=== PATIENT | male | born 1960 | race Caucasian/White ===

== ENCOUNTER 2017-03-08 14:38 | Inpatient (IN) | payer SELFPAY ==
[2017-03-07] MEDS: metroNIDAZOLE 500 MG INJ 100 ML IV SCH (21:30)
[~2017-03-08] VITALS: Ht 180.3 cm; Wt 63.7 kg
[2017-03-08] VITALS (7 sets, daily range): BP systolic 94–150; BP diastolic 50–85; PULSE 86–109; RESP 18–22; TEMP 97.4–99.4; O2SAT 99–100
[~2017-03-08 14:38] MED LIST: SPIR25 PO
[2017-03-08 16:20] LABS: AUTOMATED NEUTROPHIL # 1.8 TH/MM3 (1.8-7.7); BASOPHIL # 0.1 TH/MM3 (0-0.2); BASOPHIL % 2.9 % (0.0-2.0); EOSINOPHIL # 0.1 TH/MM3 (0-0.4); EOSINOPHIL % 2.5 % (0.0-4.0); LYMPH % 34.6 % (9.0-44.0); LYMPHOCYTE # 1.3 TH/MM3 (1.0-4.8); MEAN CELL VOLUME 106.2 FL (80.0-100.0); MEAN CORPUSCULAR HEMOGLOBIN 37.6 PG (27.0-34.0); MEAN CORPUSCULAR HGB CONC 35.4 % (32.0-36.0); MONO % 10.6 % (0.0-8.0); NEUT % 49.4 % (16.0-70.0); PLATELET COUNT 124 TH/MM3 (150-450); RED BLOOD COUNT 1.84 MIL/MM3 (4.50-5.90); RED CELL DISTRIBUTION WIDTH 15.3 % (11.6-17.2); WHITE BLOOD COUNT 3.7 TH/MM3 (4.0-11.0)
[2017-03-08 16:25] LABS: HEMO FLAGS AUTO DIFF
[2017-03-08 16:33] LABS: HEMATOCRIT 19.6 % (39.0-51.0)
[2017-03-08 16:38] LABS: ALKALINE PHOSPHATASE 93 U/L (45-117); ALT (GPT) 25 U/L (12-78); TOTAL BILIRUBIN ADULT 2.3 MG/DL (0.2-1.0)
[2017-03-08 16:41] LABS: ANION GAP 12 MEQ/L (5-15); AST (GOT) 73 U/L (15-37); BICARBONATE 21.7 MEQ/L (21.0-32.0); BLOOD UREA NITROGEN 10 MG/DL (7-18); CHLORIDE 96 MEQ/L (98-107); GLOMERULAR FILTRATION RATE 75 ML/MIN (>89); SODIUM (NA) 130 MEQ/L (136-145)
[2017-03-08 16:54] LABS: POTASSIUM 3.9 MEQ/L (3.5-5.1)
[2017-03-08 17:12] LABS: SCAN/DIFF AUTO DIFF CONFIRMED
[2017-03-08] MEDS ORDERED: SODIUM CHLOR 0.9% 250 ML INJ 250 ML IV ONE (17:15)
[2017-03-08] MEDS ORDERED: PANTOPRAZOLE SODIUM 40 MG VIAL IV PUSH ONE (17:15)
--- NOTE | 2017-03-08 17:19 | PD ---
HPI Chief Complaint: General Weakness Time Seen by Provider: 17:12 Travel History International Travel<30 days: No Contact w/Intl Traveler<30days: No Traveled to known affect area: No History of Present Illness HPI 56-year-old male patient presents to the ER today because he states that in the last day or 2 he has been having increased fatigue, today he was at the store and sat down and then couldn't get back up. He is very dizzy, and has dyspnea on exertion. He has been having diarrhea which has been going on for weeks but he has not noticed any black stools or blood in the stools. He denies vomiting or any other issues. Modifying Factors: None Associated Signs & Symptoms: Diarrhea, general fatigue, dyspnea on exertion, dizziness Risk Factors: Cirrhosis PFSH Past Medical History Arthritis: Yes Cancer: No Cardiovascular Problems: No Endocrine: No Gout: Yes Genitourinary: Yes Immune Disorder: No Musculoskeletal: Yes Neurologic: Yes Psychiatric: No Reproductive: Yes Respiratory: No Seizures: Yes Past Surgical History Surgical History: No Previous Surgery Pacemaker: No Other Surgery: No Social History Alcohol Use: Yes (DAILY, 2-4 CANS A DAY) Tobacco Use: Yes (1 06/13 PPD) Substance Use: Yes (MARIJUANA OCCASIONALLY) Allergies-Medications (Allergen,Severity, Reaction): Coded Allergies: No Known Allergies (Verified , 11/21/14) Reported Meds & Prescriptions Reported Meds & Active Scripts Active No Active Prescriptions or Reported Medications Review of Systems Except as stated in HPI: all other systems reviewed are Neg Physical Exam Narrative GENERAL: Well-developed cachectic middle age white male patient currently in mild distress. Awake and oriented 3. SKIN: Focused skin assessment warm/dry. HEAD: Atraumatic. Normocephalic. EYES: Pupils equal and round. No scleral icterus. No injection or drainage. ENT: No nasal bleeding or discharge. Mucous membranes pink and moist. NECK: Trachea midline. No JVD. CARDIOVASCULAR: Regular rate and rhythm. No murmur appreciated. RESPIRATORY: No accessory muscle use. Clear to auscultation. Breath sounds equal bilaterally. GASTROINTESTINAL: Abdomen soft, non-tender, nondistended. Hepatic and splenic margins not palpable. RECTAL EXAM: No masses or tenderness, stool is dark brown, Hemoccult positive. MUSCULOSKELETAL: No obvious deformities. No clubbing. No cyanosis. No edema. NEUROLOGICAL: Awake and alert. No obvious cranial nerve deficits. Motor grossly within normal limits. Normal speech. PSYCHIATRIC: Appropriate mood and affect; insight and judgment normal. Data Data Last Documented VS Vital Signs Date Time Temp Pulse Resp B/P (MAP) Pulse Ox O2 Delivery O2 Flow Rate FiO2 03/08/17 17:03 101 20 99/56 (70) 99 Nasal Cannula 2.00 03/08/17 15:18 99.4 Orders Orders Electrocardiogram (03/08/17 ) Comprehensive Metabolic Panel (03/08/17 15:20) Complete Blood Count With Diff (03/08/17 15:20) Urinalysis - C+S If Indicated (03/08/17 15:20) Type And Screen (03/08/17 17:12) Red Blood Cells (Rbc) (03/08/17 17:12) Blood Product Administration (03/08/17 17:12) Sodium Chlor 0.9% 250 Ml Inj (Ns 250 Ml (03/08/17 17:15) Pantoprazole Inj (Protonix Inj) (03/08/17 17:15) Sodium Chlorid 0.9%... W/Octreotide Inj (03/08/17 17:40) Comprehensive Metabolic Panel (03/09/17 06:00) Free Thyroxine (T4) (03/09/17 06:00) Hemoglobin (Hgb) A1c (03/09/17 06:00) Magnesium (Mg) (03/09/17 06:00) Phosphorus (Po4) (03/09/17 06:00) Thyroid Stimulating Hormone (03/09/17 06:00) Complete Blood Count With Diff (03/09/17 06:00) Clonidine (Catapres) (03/08/17 17:45) Admit Order (Ed Use Only) (03/08/17 17:41) Consult Gastroenterology (03/08/17 ) Labs Laboratory Tests Test 03/08/17 15:30 White Blood Count 3.7 TH/MM3 Red Blood Count 1.84 MIL/MM3 Hemoglobin 6.9 GM/DL Hematocrit 19.6 % Mean Corpuscular Volume 106.2 FL Mean Corpuscular Hemoglobin 37.6 PG Mean Corpuscular Hemoglobin Concent 35.4 % Red Cell Distribution Width 15.3 % Platelet Count 124 TH/MM3 Mean Platelet Volume 7.6 FL Neutrophils (%) (Auto) 49.4 % Lymphocytes (%) (Auto) 34.6 % Monocytes (%) (Auto) 10.6 % Eosinophils (%) (Auto) 2.5 % Basophils (%) (Auto) 2.9 % Neutrophils # (Auto) 1.8 TH/MM3 Lymphocytes # (Auto) 1.3 TH/MM3 Monocytes # (Auto) 0.4 TH/MM3 Eosinophils # (Auto) 0.1 TH/MM3 Basophils # (Auto) 0.1 TH/MM3 CBC Comment AUTO DIFF Differential Comment AUTO DIFF CONFIRMED Blood Urea Nitrogen 10 MG/DL Creatinine 1.03 MG/DL Random Glucose 56 MG/DL Total Protein 7.9 GM/DL Albumin 1.7 GM/DL Calcium Level 7.5 MG/DL Alkaline Phosphatase 93 U/L Aspartate Amino Transf (AST/SGOT) 73 U/L Alanine Aminotransferase (ALT/SGPT) 25 U/L Total Bilirubin 2.3 MG/DL Sodium Level 130 MEQ/L Potassium Level 3.9 MEQ/L Chloride Level 96 MEQ/L Carbon Dioxide Level 21.7 MEQ/L Anion Gap 12 MEQ/L Estimat Glomerular Filtration Rate 75 ML/MIN [facility] Medical Decision Making Medical Screen Exam Complete: Yes Emergency Medical Condition: Yes Medical Record Reviewed: Yes Interpretation(s) Laboratory Tests Test 03/08/17 15:30 White Blood Count 3.7 TH/MM3 (4.0-11.0) Red Blood Count 1.84 MIL/MM3 (4.50-5.90) Hemoglobin 6.9 GM/DL (13.0-17.0) Hematocrit 19.6 % (39.0-51.0) Mean Corpuscular Volume 106.2 FL (80.0-100.0) Mean Corpuscular Hemoglobin 37.6 PG (27.0-34.0) Platelet Count 124 TH/MM3 (150-450) Monocytes (%) (Auto) 10.6 % (0.0-8.0) Basophils (%) (Auto) 2.9 % (0.0-2.0) Random Glucose 56 MG/DL (74-106) Albumin 1.7 GM/DL (3.4-5.0) Calcium Level 7.5 MG/DL (8.5-10.1) Aspartate Amino Transf (AST/SGOT) 73 U/L (15-37) Total Bilirubin 2.3 MG/DL (0.2-1.0) Sodium Level 130 MEQ/L (136-145) Chloride Level 96 MEQ/L (98-107) Estimat Glomerular Filtration Rate 75 ML/MIN (>89) Differential Diagnosis Dehydration versus metabolic issues versus sepsis versus GI bleed Narrative Course Lab work shows significant anemia and rectal exam was done which shows occult blood in the stools. I suspect an underlying GI bleed. Patient was given Protonix and considering his low hemoglobin, 2 units of PRBCs were ordered for him. Planning to admit for further treatment.Case is discussed with Dr. Blanchard for admission. He would also like me to start the patient on simvastatin. HemaPrompt Point of Care Internal Pos. & Neg. Controls: Passed Fecal Specimen Occult Blood: Positive Diagnosis Primary Impression: Anemia Additional Impression: GI bleed Admitting Information Admitting Physician Requests: Admit Scripts No Active Prescriptions or Reported Meds Shay Vega MD Mar 08, 2017 17:19
[2017-03-08] MEDS: OCTREOTIDE INJ 500 MCG in SODIUM CHLORID 0.9% 500 ML INJ 500 ML IV SCH (17:40)
[2017-03-08] MEDS: SODIUM CHLOR 0.9% 1000 ML INJ 1,000 ML IV SCH (17:42)
[2017-03-08] MEDS ORDERED: ONDANSETRON HCL 4 MG/2 ML VIAL IV PUSH PRN (17:45)
[2017-03-08] MEDS ORDERED: SENNOSIDES 8.6 MG TAB PO PRN (17:45)
[2017-03-08] MEDS ORDERED: LORazepam 1 MG TAB PO PRN (17:45)
[2017-03-08] MEDS ORDERED: MORPHINE SULFATE 4 MG/ML INJ IV PUSH PRN ×2 (17:45)
[2017-03-08] MEDS ORDERED: PROCHLORPERAZINE 25 MG SUPP RECTAL PRN (17:45)
[2017-03-08] MEDS ORDERED: ONDANSETRON HCL 4 MG/2 ML VIAL IVP PRN (17:45)
[2017-03-08] MEDS ORDERED: cloNIDine HCL 0.1 MG TAB PO PRN (17:45)
[2017-03-08] MEDS ORDERED: LACTULOSE SYRUP 20 GM/30 ML CUP PO PRN (17:45)
[2017-03-08] MEDS ORDERED: MAGNESIUM HYDROXIDE SUSP 30 ML CUP PO PRN (17:45)
[2017-03-08] MEDS ORDERED: ACETAMINOPHEN 325 MG TAB PO PRN ×2 (17:45)
[2017-03-08] MEDS ORDERED: FLUMAZENIL 0.5 MG/5 ML VIAL IV PUSH PRN (17:45)
[2017-03-08] MEDS ORDERED: LORazepam 2 MG TAB PO PRN (17:45)
[2017-03-08] MEDS ORDERED: oxyCODONE/ACETAMINOPHEN 10 MG/325 MG TAB PO PRN (17:45)
[2017-03-08] MEDS ORDERED: BISACODYL 10 MG SUPP RECTAL PRN (17:45)
[2017-03-08] MEDS ORDERED: SODIUM CHLORIDE 0.9% FLUSH 10 ML FLUSH IV FLUSH PRN ×2 (17:45)
[2017-03-08] MEDS ORDERED: LORazepam 2 MG/ML VIAL IV PUSH PRN ×4 (17:45)
[2017-03-08] MEDS ORDERED: oxyCODONE/ACETAMINOPHEN 5 MG/325 MG TAB PO PRN (17:45)
[2017-03-08] MEDS ORDERED: HALOPERIDOL LACTATE 5 MG/ML AMP IM PRN (17:45)
[2017-03-08] MEDS ORDERED: NALOXONE HCL 0.4 MG/ML AMP IV PUSH PRN (17:45)
[2017-03-08] MEDS ORDERED: OCTREOTIDE INJ 50 MCG/ML AMP IV PUSH ONE (18:45)
[2017-03-08] MEDS: THIAMINE INJ 100 MG in SODIUM CHLORIDE 0.9% INJ 100 ML IV SCH (19:18)
[2017-03-08] MEDS: PANTOPRAZOLE INJ 80 MG in SODIUM CHLORIDE 0.9% INJ 100 ML IV SCH (19:18)
[2017-03-08] MEDS ORDERED: cefTRIAXone INJ 1,000 MG in SODIUM CHLORIDE 0.9% INJ 100 ML IV SCH (20:00)
[2017-03-08 20:09] LABS: BACTERIA, URINE MANY /hpf; BLOOD, URINE MOD (NEG); COMMENT (UR) CULTURE INDICATED; CULTURE IF INDICATED CULTURE INDICATED; GLUCOSE,URINE NEG (NEG); HYALINE CAST, URINE 112 /lpf (RARE); KETONE, URINE 40 mg/dL (NEG); MUCUS URINE MOD /lpf (OCC); NITRITE,URINE NEG (NEG); PH, URINE 5.5 (5.0-8.5); SQUAMOUS EPITHELIAL CELL URINE 1 /hpf (0-5)
[2017-03-08 20:10] LABS: URINE COLOR DARK-BROWN (YELLW/STRAW)
[2017-03-08 20:48] LABS: HEMATOCRIT 21.4 % (39.0-51.0); REVIEW FLAG FINAL
--- NOTE | 2017-03-08 20:49 | HHI.HP ---
HPI Service [facility] Primary Care Physician No Primary Care Physician Admission Diagnosis GI bleed/symptomatic anemia Diagnoses: Chief Complaint: abdominal pain, weakness, Travel History International Travel<30 Days: No Contact w/Intl Traveler <30 Da: No Traveled to Known Affected Are: No History of Present Illness Written by CHRIS Pierre acting as scribe for [Elie] on 03/08/17 at 20: 37. 56 y/o male with a history of cirrhosis, Hep C and seizures from alcohol withdrawal presented to the ED with weakness, dizziness and sob. He states he went to the store today and became sob, he sat in the shade and when he tried to get up and he kept falling. He states he was dizzy and very weak. He states for the last 2-3 weeks he has had dizziness, sob, cold sweats at night, palpitations and LLQ abdominal pain. For the last month he has had diarrhea 2-3 times a day orange/red in color. He also states he has discolored urine, but no pain. He has a wound on his right 2nd toe that he states he does not feel and it is not painful. He is homeless and does not see a dr regularly, he does not take any medications, never had a colonoscopy in the past. Review of Systems Except as stated in HPI: all other systems reviewed are Neg Past Family Social History Past Medical History Cirrhosis Hep C Past Surgical History Patient denies any surgical history Liver biopsy in 2014 Reported Medications Reported Meds & Active Scripts Active No Active Prescriptions or Reported Medications Allergies: Coded Allergies: No Known Allergies (Verified , 11/21/14) Active Ordered Medications Current Medications Medications (Trade) Dose Ordered Sig/Darrick Route Start Time Stop Time Status Last Admin Sodium Chloride 250 ml @ 15 mls/hr ONCE ONCE IV 03/08/17 17:15 03/09/17 09:54 Octreotide Acetate 500 mcg/ Sodium Chloride 500.5 ml @ 50 mls/hr Q10H1M IV 03/08/17 17:40 03/08/17 17:40 (Catapres) 0.1 mg Q4H PRN PO 03/08/17 17:45 (NS Flush) 2 ml UNSCH PRN IV FLUSH 03/08/17 17:45 (NS Flush) 2 ml BID IV FLUSH 03/08/17 21:00 Sodium Chloride 1,000 ml @ 100 mls/hr Q10H IV 03/08/17 17:42 03/08/17 17:42 Pantoprazole Sodium 80 mg/ Sodium Chloride 100 ml @ 10 mls/hr Q10H IV 03/08/17 20:00 03/08/17 19:18 Thiamine HCl 100 mg/Sodium Chloride 101 ml @ 100 mls/hr Q24H IV 03/08/17 20:00 03/08/17 19:18 Ceftriaxone Sodium 1000 mg/ Sodium Chloride 100 ml @ 200 mls/hr Q24H IV 03/08/17 20:00 (Tylenol) 650 mg Q4H PRN PO 03/08/17 17:45 (Zofran Inj) 4 mg Q6H PRN IVP 03/08/17 17:45 (Compazine Supp) 25 mg Q12H PRN RECTAL 03/08/17 17:45 (Tylenol) 650 mg Q6H PRN PO 03/08/17 17:45 (Percocet 5-325 Mg) 1 tab Q6H PRN PO 03/08/17 17:45 (Percocet 10-325 Mg) 1 tab Q6H PRN PO 03/08/17 17:45 (Morphine Inj) 2 mg Q3H PRN IV PUSH 03/08/17 17:45 (Morphine Inj) 4 mg Q3H PRN IV PUSH 03/08/17 17:45 (Narcan Inj) 0.4 mg UNSCH PRN IV PUSH 03/08/17 17:45 (Dolores-Colace) 1 tab BID PO 03/08/17 21:00 (Milk Of Magnesia Liq) 30 ml Q12H PRN PO 03/08/17 17:45 (Senokot) 17.2 mg Q12H PRN PO 03/08/17 17:45 (Dulcolax Supp) 10 mg DAILY PRN RECTAL 03/08/17 17:45 (Lactulose Liq) 30 ml DAILY PRN PO 03/08/17 17:45 (Romazicon Inj) 0.2 mg Q1M PRN IV PUSH 03/08/17 17:45 (Ativan) 1 mg Q4H PRN PO 03/08/17 17:45 (Ativan Inj) 1 mg Q4H PRN IV PUSH 03/08/17 17:45 (Ativan) 2 mg Q2H PRN PO 03/08/17 17:45 (Ativan Inj) 2 mg Q2H PRN IV PUSH 03/08/17 17:45 (Ativan Inj) 2 mg Q1H PRN IV PUSH 03/08/17 17:45 (Ativan Inj) 2 mg Q15M PRN IV PUSH 03/08/17 17:45 (Haldol Inj) 2 mg Q15M PRN IM 03/08/17 17:45 Family History Brother: liver cancer Sister: ETOH abuse Social History Tobacco use: 1/2 PPD for 17 years Alcohol use: Occasionally, prior was a heavy drinker quit 2 years ago Illicit drug use: Denies Physical Exam Vital Signs Vital Signs Date Time Temp Pulse Resp B/P (MAP) Pulse Ox O2 Delivery O2 Flow Rate FiO2 03/08/17 20:01 100 Nasal Cannula 3.00 03/08/17 18:14 100 Nasal Cannula 3.00 03/08/17 17:03 101 20 99/56 (70) 99 Nasal Cannula 2.00 03/08/17 16:07 97 Room Air 03/08/17 15:18 99.4 109 22 101/59 (73) 99 Physical Exam GENERAL: This is a thin patient in NAD SKIN:Crusty Right second toe ulcer with erythema HEAD: Atraumatic. Normocephalic. EYES: Pupils equal round and reactive. Extraocular motions intact. ENT: Nose without bleeding, purulent drainage or septal hematoma. Airway patent. NECK: Trachea midline. No JVD or lymphadenopathy. CARDIOVASCULAR: Regular rate and rhythm without murmurs, gallops, or rubs. RESPIRATORY: Clear to auscultation. Breath sounds equal bilaterally. No wheezes , rales, or rhonchi. GASTROINTESTINAL: Abdomen soft, LLQ tenderness, nondistended. MUSCULOSKELETAL: Extremities without clubbing, cyanosis, or edema. No joint tenderness, effusion, or edema noted. No calf tenderness. NEUROLOGICAL: Awake and alert. Motor and sensory grossly within normal limits. Normal speech. Laboratory Laboratory Tests Test 03/08/17 15:30 03/08/17 19:00 White Blood Count 3.7 Red Blood Count 1.84 Hemoglobin 6.9 Hematocrit 19.6 Mean Corpuscular Volume 106.2 Mean Corpuscular Hemoglobin 37.6 Mean Corpuscular Hemoglobin Concent 35.4 Red Cell Distribution Width 15.3 Platelet Count 124 Mean Platelet Volume 7.6 Neutrophils (%) (Auto) 49.4 Lymphocytes (%) (Auto) 34.6 Monocytes (%) (Auto) 10.6 Eosinophils (%) (Auto) 2.5 Basophils (%) (Auto) 2.9 Neutrophils # (Auto) 1.8 Lymphocytes # (Auto) 1.3 Monocytes # (Auto) 0.4 Eosinophils # (Auto) 0.1 Basophils # (Auto) 0.1 CBC Comment AUTO DIFF Differential Comment AUTO DIFF CONFIRMED Blood Urea Nitrogen 10 Creatinine 1.03 Random Glucose 56 Total Protein 7.9 Albumin 1.7 Calcium Level 7.5 Alkaline Phosphatase 93 Aspartate Amino Transf (AST/SGOT) 73 Alanine Aminotransferase (ALT/SGPT) 25 Total Bilirubin 2.3 Sodium Level 130 Potassium Level 3.9 Chloride Level 96 Carbon Dioxide Level 21.7 Anion Gap 12 Estimat Glomerular Filtration Rate 75 Urine Color DARK-BROWN Urine Turbidity HAZY Urine pH 5.5 Urine Specific [place] 1.020 Urine Protein 30 Urine Glucose (UA) NEG Urine Ketones 40 Urine Occult Blood MOD Urine Nitrite NEG Urine Bilirubin NEG Urine Urobilinogen GREATER THAN 12.0 Urine Leukocyte Esterase MOD Urine RBC 6 Urine WBC 15 Urine Squamous Epithelial Cells 1 Urine Amorphous Sediment RARE Urine Bacteria MANY Urine Hyaline Casts 112 Urine Mucus MOD Microscopic Urinalysis Comment CULTURE INDICATED Date/Time Source Procedure Growth Status 03/08/17 19:00 Urine Clean Catch Urine Culture Pending Received Result Diagram: 03/08/17 1530 03/08/17 1530 Caprini VTE Risk Assessment Caprini VTE Risk Assessment: Mod/High Risk (score >= 2) VTE Pharm Contraindication: Active bleeding Caprini Risk Assessment Model Point Value = 1 Point Value = 2 Point Value = 3 Point Value = 5 Age 41-60 Minor surgery BMI > 25 kg/m2 Swollen legs Varicose veins or History of unexplained or recurrent spontaneous Oral contraceptives or hormone replacement Sepsis (< 1 month) Serious lung disease, including pneumonia (< 1 month) Abnormal pulmonary function Acute myocardial infarction Congestive heart failure (< 1 month) History of inflammatory bowel disease Medical patient at bed rest Age 61-74 Arthroscopic surgery Major open surgery (> 45 min) Laparoscopic surgery (> 45 min) Malignancy Confined to bed (> 72 hours) Immobilizing plaster cast Central venous access Age >= 75 History of VTE Family history of VTE Factor V Leiden Prothrombin [id number] Lupus anticoagulant Anticardiolipin antibodies Elevated serum homocysteine Heparin-induced thrombocytopenia Other congenital or acquired thrombophilia Stroke (< 1 month) Elective arthroplasty Hip, pelvis, or leg fracture Acute spinal cord injury (< 1 month) Prophylaxis Regimen Total Risk Factor Score Risk Level Prophylaxis Regimen 0-1 Low Early ambulation 2 Moderate Order ONE of the following: *Sequential Compression Device (SCD) *Heparin 5000 units SQ BID 3-4 Higher Order ONE of the following medications: *Heparin 5000 units SQ TID *Enoxaparin/Lovenox 40 mg SQ daily (WT < 150 kg, CrCl > 30 mL/min) *Enoxaparin/Lovenox 30 mg SQ daily (WT < 150 kg, CrCl > 10-29 mL/min) *Enoxaparin/Lovenox 30 mg SQ BID (WT < 150 kg, CrCl > 30 mL/min) AND/OR *Sequential Compression Device (SCD) 5 or more Highest Order ONE of the following medications: *Heparin 5000 units SQ TID (Preferred with Epidurals) *Enoxaparin/Lovenox 40 mg SQ daily (WT < 150 kg, CrCl > 30 mL/min) *Enoxaparin/Lovenox 30 mg SQ daily (WT < 150 kg, CrCl > 10-29 mL/min) *Enoxaparin/Lovenox 30 mg SQ BID (WT < 150 kg, CrCl > 30 mL/min) AND *Sequential Compression Device (SCD) Assessment and Plan Problem List: (1) GI bleed ICD Code: K92.2 - Gastrointestinal hemorrhage, unspecified Status: Acute (2) Toe ulcer, right ICD Code: L97.519 - Non-pressure chronic ulcer of other part of right foot with unspecified severity Status: Acute (3) Abdominal pain ICD Code: R10.9 - Abdominal pain Status: Acute Assessment and Plan 56 y/o male with a history of cirrhosis, Hep C and seizures from alcohol withdrawal presented to the ED with weakness, dizziness and sob. Gi Bleed, hgb 6.9, occult stool positive -Consult GI for recommendations -Protonix drip, and Sandostatin drip -NPO -Serial H&H -2 units ordered for transfusion Abdominal pain, patient with diarrhea for 2 months, r/o colitis -CT abdomen ordered -IV antibiotics Flagyl UTI, acute, abnormal UA with moderate leukocyte esterase -Urine culture pending 2nd toe ulcer, acute -Levaquin IV -Consult podiatry for recommendations Tobacco abuse, chronic: Encouraged to quit DVT prophylaxis: SCDs This note was transcribed by scribsohail [Yaneli Zhou]. I, Dr. Brandon Delgadillo personally performed the history, physical exam, and medical decision making; and confirmed the accuracy of the information in the transcribed note. Authenticated by Dr. Brandon Delgadillo on 03/08/17 at 20:37. Discussed Condition With Patient and RN Physician Certification 2 Midnight Certification Type: Admission for Inpatient Services Order for Inpatient Services The services are ordered in accordance with Medicare regulations or non- Medicare payer requirements, as applicable. In the case of services not specified as inpatient-only, they are appropriately provided as inpatient services in accordance with the 2-midnight benchmark. Estimated LOS (days): 2 days is the estimated time the patient will need to remain in the hospital, assuming treatment plan goals are met and no additional complications. Post-Hospital Plan: Home Yaneli Zhou Mar 08, 2017 20:49 Brandon Delgadillo MD Mar 10, 2017 10:14
[2017-03-08 20:59] LABS: INTERNATIONAL NORMALIZED RATIO 1.5 RATIO; PROTHROMBIN TIME - PATIENT 16.4 SEC (9.8-11.6)
[2017-03-08] MEDS: SODIUM CHLORIDE 0.9% FLUSH 10 ML FLUSH IV FLUSH SCH (21:00)
[2017-03-08] MEDS ORDERED: SODIUM CHLORIDE 0.9% FLUSH 10 ML FLUSH IV FLUSH SCH (21:00)
[2017-03-08] MEDS: metroNIDAZOLE 500 MG INJ 100 ML IV SCH (21:30)
[2017-03-08] MEDS: DOCUSATE SODIUM 50 MG/SENNA 8.6 MG TAB PO SCH (22:00)
[2017-03-08] MEDS ORDERED: LEVOFLOXACIN 750 MG PREMIX INJ 150 ML IV SCH (22:00)
[2017-03-09] VITALS (9 sets, daily range): BP systolic 94–182; BP diastolic 50–85; PULSE 86–92; RESP 17–20; TEMP 96.4–98.6; O2SAT 97–100
[2017-03-09] MEDS ORDERED: diphenhydrAMINE HCL 25 MG CAP PO ONE (00:15)
[2017-03-09] MEDS: PANTOPRAZOLE INJ 80 MG in SODIUM CHLORIDE 0.9% INJ 100 ML IV SCH ×2 (03:23→16:25)
[2017-03-09] MEDS: OCTREOTIDE INJ 500 MCG in SODIUM CHLORID 0.9% 500 ML INJ 500 ML IV SCH ×2 (04:14→14:20)
[2017-03-09] MEDS: metroNIDAZOLE 500 MG INJ 100 ML IV SCH ×3 (05:46→21:36)
[2017-03-09] MEDS ORDERED: LEVOFLOXACIN 750 MG PREMIX INJ 150 ML IV SCH (06:00)
--- NOTE | 2017-03-09 07:55 | EKG ---
Date Performed: 03/08/2017 Time Performed: 15:26:29 PTAGE: 56 years EKG: Sinus rhythm SEPTAL MYOCARDIAL INFARCTION ABNORMAL ECG Since PREVIOUS TRACING , no significant change noted PREVIOUS TRACIN11/07/2014 14.57 DOCTOR: Janett Wilkerson Interpretating Date/Time 03/09/2017 07:54:07
[2017-03-09 08:02] LABS: BASOPHIL # 0.1 TH/MM3 (0-0.2); BASOPHIL % 1.9 % (0.0-2.0); EOSINOPHIL # 0.1 TH/MM3 (0-0.4); EOSINOPHIL % 2.3 % (0.0-4.0); HEMATOCRIT 27.9 % (39.0-51.0); HEMO FLAGS DIFF FINAL; LYMPH % 34.5 % (9.0-44.0); LYMPHOCYTE # 1.3 TH/MM3 (1.0-4.8); MEAN CELL VOLUME 102.1 FL (80.0-100.0); MEAN CORPUSCULAR HEMOGLOBIN 34.5 PG (27.0-34.0); MEAN CORPUSCULAR HGB CONC 33.8 % (32.0-36.0); MONO % 7.2 % (0.0-8.0); NEUT % 54.1 % (16.0-70.0); PLATELET COUNT 115 TH/MM3 (150-450); RED BLOOD COUNT 2.73 MIL/MM3 (4.50-5.90); RED CELL DISTRIBUTION WIDTH 18.3 % (11.6-17.2); WHITE BLOOD COUNT 3.7 TH/MM3 (4.0-11.0)
[2017-03-09] MEDS: SODIUM CHLORIDE 0.9% FLUSH 10 ML FLUSH IV FLUSH SCH ×2 (08:23→21:00)
[2017-03-09 08:38] LABS: ANION GAP 16 MEQ/L (5-15)
[2017-03-09 08:52] LABS: ALKALINE PHOSPHATASE 87 U/L (45-117); ALT (GPT) 15 U/L (12-78); AST (GOT) 53 U/L (15-37); BICARBONATE 17.9 MEQ/L (21.0-32.0); BLOOD UREA NITROGEN 11 MG/DL (7-18); CHLORIDE 100 MEQ/L (98-107); FREE T4 1.38 NG/DL (0.76-1.46); GLOMERULAR FILTRATION RATE 73 ML/MIN (>89); MAGNESIUM 1.4 MG/DL (1.5-2.5); POTASSIUM 3.4 MEQ/L (3.5-5.1); SODIUM (NA) 134 MEQ/L (136-145); TOTAL BILIRUBIN ADULT 2.5 MG/DL (0.2-1.0)
[2017-03-09] MEDS: DOCUSATE SODIUM 50 MG/SENNA 8.6 MG TAB PO SCH ×2 (09:11→21:36)
--- NOTE | 2017-03-09 09:25 | PD.CONS ---
HPI History of Present Illness This is a 56 year old male who presented to the emergency room for evaluation of worsening generalized fatigue and dizziness and was found to have severe anemia with an HH of 6.9/19.6. He was transfused 2 units of packed red blood cells and this is currently 9.4/27.9. The patient is a poor historian. He reports that he has been having generalized weakness for a few weeks, but this suddenly became worse yesterday. He states that he was not even able to stand on his own and actually fell yesterday and therefore called for help. He has not seen any obvious blood loss. He does report occasional nausea/vomiting, but denies hematemesis. He has heartburn from time to time. He has lower abdominal cramping, usually relieved with bowel movements. He reports that he was having diarrhea, but this resolved and he has not had any bowel movements x 5 days. He states that when he does go, it is usually loose, but he has not seen melena or hematochezia. He has lost a significant amount of weight over the past 2 months, but is not able to quantify. He has a history of liver cirrhosis, diagnosed by liver biopsy done at [facility] in 2014. He continues to drink 2-3 beers per week. He does not recall a history of hepatitis and does not recall his past hospitalization here, at which time he had an EGD/Colonoscopy. Per records, he was evaluated with EGD/Colonoscopy ()---> duodenitis post biopsy, no esophageal varices, normal colon, fair prep, biopsies were taken to rule out microscopic colitis. 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 (Meri Butler) PFSH Past Medical History Liver Cirrhosis Hep C Ab, patient does not recall a history of this. Microscopic colitis Seizure OA Gout Past Surgical History EGD/Colonoscopy Liver biopsy in 2014 (Meri Butler) Coded Allergies: No Known Allergies (Verified , 11/21/14) Medications Allergies Coded Allergies Type Severity Reaction Last Updated Verified No Known Allergies 11/21/14 Yes Active Scripts Medications Dose Route/Sig Max Daily Dose Days Date Category No Active Prescriptions or Reported Medications Rx Family History Brother: liver cancer Sister: ETOH abuse Father: throat cancer Social History Tobacco use: 1/2 PPD for 17 years Alcohol use: Occasionally, prior was a heavy drinker quit 2 years ago Illicit drug use: Denies (Meri Butler) Review of Systems Constitutional: COMPLAINS OF: Fatigue, Weight loss, Dizziness Respiratory: DENIES: Cough Cardiovascular: DENIES: Chest pain Gastrointestinal: COMPLAINS OF: Abdominal pain, Diarrhea, Nausea, Heartburn, DENIES: Black stools, Bloody stools Integumentary: DENIES: Abnormal pigmentation Hematologic/lymphatic: COMPLAINS OF: Bruising Neurologic: DENIES: Headache Psychiatric: DENIES: Confusion (Meri Butler) GI Exam Vitals I&O Vital Signs Date Time Temp Pulse Resp B/P (MAP) Pulse Ox O2 Delivery O2 Flow Rate FiO2 03/09/17 08:00 97.8 89 17 144/72 (96) 100 03/09/17 04:00 97.1 89 17 95/54 (68) 100 03/09/17 02:49 98.6 89 17 95/54 100 03/09/17 02:27 98.1 89 17 103/61 100 03/09/17 00:00 98.3 86 18 94/50 (65) 100 03/08/17 23:28 98.3 86 18 94/50 100 03/08/17 23:04 97.4 88 18 95/85 100 03/08/17 20:01 100 Nasal Cannula 3.00 03/08/17 19:42 87 22 150/72 (98) 99 Nasal Cannula 2.00 03/08/17 18:14 100 Nasal Cannula 3.00 03/08/17 17:03 101 20 99/56 (70) 99 Nasal Cannula 2.00 03/08/17 16:07 97 Room Air 03/08/17 15:18 99.4 109 22 101/59 (73) 99 I/O 03/08/17 03/08/17 03/08/17 03/09/17 03/09/17 03/09/17 06:59 14:59 22:59 06:59 14:59 22:59 Intake Total 570 ml Output Total 50 ml Balance 520 ml Intake Oral 60 ml Packed Cells 500 ml Blood Product IV Normal Saline Flush 10 ml Output Urine Total 50 ml # Bowel Movements 0 Laboratory Test 03/08/17 15:30 9/27/17 19:00 03/08/17 20:14 03/09/17 06:42 White Blood Count 3.7 TH/MM3 3.7 TH/MM3 Red Blood Count 1.84 MIL/MM3 2.73 MIL/MM3 Hemoglobin 6.9 GM/DL 7.4 GM/DL 9.4 GM/DL Hematocrit 19.6 % 21.4 % 27.9 % Mean Corpuscular Volume 106.2 FL 102.1 FL Mean Corpuscular Hemoglobin 37.6 PG 34.5 PG Mean Corpuscular Hemoglobin Concent 35.4 % 33.8 % Red Cell Distribution Width 15.3 % 18.3 % Platelet Count 124 TH/MM3 115 TH/MM3 Mean Platelet Volume 7.6 FL 6.8 FL Neutrophils (%) (Auto) 49.4 % 54.1 % Lymphocytes (%) (Auto) 34.6 % 34.5 % Monocytes (%) (Auto) 10.6 % 7.2 % Eosinophils (%) (Auto) 2.5 % 2.3 % Basophils (%) (Auto) 2.9 % 1.9 % Neutrophils # (Auto) 1.8 TH/MM3 2.0 TH/MM3 Lymphocytes # (Auto) 1.3 TH/MM3 1.3 TH/MM3 Monocytes # (Auto) 0.4 TH/MM3 0.3 TH/MM3 Eosinophils # (Auto) 0.1 TH/MM3 0.1 TH/MM3 Basophils # (Auto) 0.1 TH/MM3 0.1 TH/MM3 CBC Comment AUTO DIFF DIFF FINAL Differential Comment AUTO DIFF CONFIRMED Blood Urea Nitrogen 10 MG/DL 11 MG/DL Creatinine 1.03 MG/DL 1.06 MG/DL Random Glucose 56 MG/DL 61 MG/DL Total Protein 7.9 GM/DL 7.8 GM/DL Albumin 1.7 GM/DL 1.6 GM/DL Calcium Level 7.5 MG/DL 7.3 MG/DL Alkaline Phosphatase 93 U/L 87 U/L Aspartate Amino Transf (AST/SGOT) 73 U/L 53 U/L Alanine Aminotransferase (ALT/SGPT) 25 U/L 15 U/L Total Bilirubin 2.3 MG/DL 2.5 MG/DL Sodium Level 130 MEQ/L 134 MEQ/L Potassium Level 3.9 MEQ/L 3.4 MEQ/L Chloride Level 96 MEQ/L 100 MEQ/L Carbon Dioxide Level 21.7 MEQ/L 17.9 MEQ/L Anion Gap 12 MEQ/L 16 MEQ/L Estimat Glomerular Filtration Rate 75 ML/MIN 73 ML/MIN Urine Color DARK-BROWN Urine Turbidity HAZY Urine pH 5.5 Urine Specific [place] 1.020 Urine Protein 30 mg/dL Urine Glucose (UA) NEG mg/dL Urine Ketones 40 mg/dL Urine Occult Blood MOD Urine Nitrite NEG Urine Bilirubin NEG Urine Urobilinogen GREATER THAN 12.0 MG/DL Urine Leukocyte Esterase MOD Urine RBC 6 /hpf Urine WBC 15 /hpf Urine Squamous Epithelial Cells 1 /hpf Urine Amorphous Sediment RARE Urine Bacteria MANY /hpf Urine Hyaline Casts 112 /lpf Urine Mucus MOD /lpf Microscopic Urinalysis Comment CULTURE INDICATED Prothrombin Time 16.4 SEC Prothromb Time International Ratio 1.5 RATIO Phosphorus Level 3.9 MG/DL Magnesium Level 1.4 MG/DL Protein Corrected Calcium 7.0 MG/DL Free Thyroxine 1.38 NG/DL Thyroid Stimulating Hormone 3rd Gen 1.260 uIU/ML Date/Time Source Procedure Growth Status 03/08/17 19:00 Urine Clean Catch Urine Culture Pending Received Physical Examination GEN: Cachetic appearing HEENT: Normocephalic; atraumatic CHEST: CTA, diminished CARDIAC: RRR ABDOMEN: Soft, nondistended, nontender; no hepatosplenomegaly; bowel sounds are present in all four quadrants. EXTREMITIES: No clubbing, cyanosis, or edema. SKIN: Ecchymotic area ELECTRICAL FITTER: No focal deficits; alert and oriented times three. (Meri ButlerP) Assessment and Plan Plan ASSESSMENT: - Severe anemia. EGD/Colonoscopy (07/09/14)---> duodenitis post biopsy, no esophageal varices, normal colon, fair prep, biopsies were taken to rule out microscopic colitis. 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 Admission HH 6.9/19.6. S/P 2 units PRBC 9.4/27.9. EGD/Colonoscopy in am. - Lower abdominal cramping, hx of diarrhea. Pt with hx of microscopic colitis. CT scan abdomen and pelvis. EGD/Colonoscopy in am. - Abnormal weight loss. Reports significant weight loss over past 2 months, unable to quantify. - Elevated LFTs, Liver cirrhosis. Dx by liver biopsy in 2015 at [facility]. Drinks 2-3 beers per week. Previous liver workup in 2015--> Hep C Ab (+), BRITNI negative, AMA < 20.0, ASMA negative, Iron saturation 35.2%, Ferritin 218, Alpha 1 Antitrypsin 108, Ceruloplasmin 15, AFP 2.2. Get CT scan. T. Bili 2.5, AST 53, ALT 15, Alk Phosph 87. Does not appear obstructive. - Hepatitis C Antibodies. Check genotype and viral load. - Pancytopenia, secondary to cirrhosis, ETOH use. - Coagulopathy. PT 16.4, INR 1.5. - Hypokalemia, Hyponatremia, Hypocalcemia. Per attending. - 2nd toe ulcer, per attending/podiatry - Abnormal u/a with cx pending. Levaquin - Hx microscopic colitis in 2014, by path. PLAN: - Plan for egd/colonoscopy in am - Obtain consents - Clear liquids - NPO after MN - Golytely prep - Protonix/Octreotide- continue for now - CT scan abdomen and pelvis with iv/po contrast - Ceruloplasmin level (low in 2014) - Ammonia level - AFP level - Monitor HH - Transfuse as necessary - CBC, CMP, PT/INR in am - Supportive care - Further recommendations to follow based on results of above - PT seen and examined by Dr. Damon and myself and this note is written on his behalf (Meri Butler) Plan Patient was seen and examined, agree with above note, we will follow up on the results of the CT scan and we will plan on colonoscopy and endoscopy for tomorrow (Ayleen Damon MD) Meri Butler Mar 09, 2017 09:25 Ayleen Damon MD Mar 09, 2017 15:55
[2017-03-09] MEDS ORDERED: POTASSIUM CHLORIDE 20 MEQ CONTROLLED RELEASE TAB PO ONE (11:45)
[2017-03-09] MEDS ORDERED: DIATRIZOATE MEGLUM/DIATRIZOATE SOD 9 ML CUP PO ONE (11:46)
--- NOTE | 2017-03-09 12:00 | HHI.PR ---
Subjective Remarks Follow-up visit generalized weakness, dizziness, SOB, abdominal pain, diarrhea. Patient seen and examined today. Reports he continues to have generalized abdominal pain, 7/10, constant, does not know what relieves or aggravates the pain. Reports occasional shortness of breath. Reports he has diarrhea 2 weeks ago but has not had a bowel movement since admission and in the past few days. Patient also reports chest pain associated with abdominal pain. Reports some nausea, no vomiting. Urine continues to be discolored. Denies fevers, chills. Objective Vitals Vital Signs Date Time Temp Pulse Resp B/P (MAP) Pulse Ox O2 Delivery O2 Flow Rate FiO2 03/09/17 10:56 97 03/09/17 08:00 97.8 89 17 144/72 (96) 100 03/09/17 04:00 97.1 89 17 95/54 (68) 100 03/09/17 02:49 98.6 89 17 95/54 100 03/09/17 02:27 98.1 89 17 103/61 100 03/09/17 00:00 98.3 86 18 94/50 (65) 100 03/08/17 23:28 98.3 86 18 94/50 100 03/08/17 23:04 97.4 88 18 95/85 100 03/08/17 20:01 100 Nasal Cannula 3.00 03/08/17 19:42 87 22 150/72 (98) 99 Nasal Cannula 2.00 03/08/17 18:14 100 Nasal Cannula 3.00 03/08/17 17:03 101 20 99/56 (70) 99 Nasal Cannula 2.00 03/08/17 16:07 97 Room Air 03/08/17 15:18 99.4 109 22 101/59 (73) 99 I/O 03/08/17 03/08/17 03/08/17 03/09/17 03/09/17 03/09/17 07:00 15:00 23:00 07:00 15:00 23:00 Intake Total 570 ml Output Total 50 ml Balance 520 ml Intake Oral 60 ml Packed Cells 500 ml Blood Product IV Normal Saline Flush 10 ml Output Urine Total 50 ml # Bowel Movements 0 Result Diagram: 03/09/1742 03/09/17641 Objective Remarks GENERAL: This is a cachectic, well-developed patient, mildly ill. SKIN: Warm and dry. Right toe wound. HEENT: Normocephalic. Pupils equal round and reactive. Nose without bleeding. Airway patent. NECK: Trachea midline. No JVD. Supple. CARDIOVASCULAR: Regular rate and rhythm without murmurs, gallops, or rubs. RESPIRATORY: Diminished bases. No wheezes, rales, or rhonchi. GASTROINTESTINAL: Abdomen soft, nondistended. Bowel Sounds hypoactive. Abdominal tenderness throughout. : Voiding without difficulty. Dark purple colored. MUSCULOSKELETAL: Extremities without clubbing, cyanosis, or edema. NEUROLOGICAL: Awake and alert. Oriented to time, place, person. No focal neuro deficit. Moves all extremities. Normal speech. A/P Problem List: (1) GI bleed ICD Code: K92.2 - Gastrointestinal hemorrhage, unspecified Status: Acute (2) Toe ulcer, right ICD Code: L97.519 - Non-pressure chronic ulcer of other part of right foot with unspecified severity Status: Acute (3) Abdominal pain ICD Code: R10.9 - Abdominal pain Status: Acute Assessment and Plan 56 y/o male with a history of cirrhosis, Hep C and seizures from alcohol withdrawal presented to the ED with weakness, dizziness and sob. GI Bleed, hgb 6.9, occult stool positive - Consult GI . Appreciate recommendations. Plan for CT of the abdomen and pelvis today, EGD colonoscopy tomorrow. - Protonix drip, and Sandostatin drip - 2 units PRBC transfused. Repeat H&H 9.4/27.9. - Monitor H&H Abdominal pain, patient with diarrhea for 2 months, r/o colitis -CT abdomen/pelvis ordered -IV antibiotics Flagyl UTI, acute, abnormal UA with moderate leukocyte esterase -Urine culture pending, follow-up results 2nd toe ulcer, acute -Levaquin IV -Consult podiatry for recommendations Tobacco abuse, chronic: Encouraged to quit. Counseled. Declines use of nicotine patch DVT prophylaxis: SCDs Discharge Planning Not ready for discharge. Attending Statement Patient complained of lower abdominal cramps and pain. He is currently having chills or fever. And generalized weakness. He reports he cut back on alcohol previously and is only drinking 2 or 3 beers a week. He has not had a bowel movement since hospitalization. He reports tolerating clear liquids. Has not had any difficulty with urinary urgency or frequency or dysuria. He is tender over the suprapubic area on exam but no tenderness in bilateral CVA. No guarding or rebound. Normoactive bowel sounds. Urine cultures currently showing gram-negative rods. He states he has not felt better and continued to have chills since hospitalization. Additional assessment included sepsis on presentation due to tachycardia and leukopenia with WBC less than 4 with urinary tract infection as a source however patient elected to have a history of pancytopenia noted to chronic liver disease. At this time will add IV Rocephin and discontinue Levaquin to final urine culture. Follow-up with final blood cultures. Initiate CIWA protocol to mitigate alcohol withdrawal. Hypokalemia-replete Hypocalcemia-supplement The exam, history, and the medical decision making described in the above note were completed with the assistance of the dictating practitioner. I reviewed and agree with the findings presented. I attest that I had a face-to face encounter with the patient on the same day and personally performed and documented my assessment and findings in the medical record. Luli Parker Mar 09, 2017 12:00 Natalie England MD Mar 09, 2017 14:02
[2017-03-09] MEDS: SODIUM CHLOR 0.9% 1000 ML INJ 1,000 ML IV SCH (12:38)
[2017-03-09] MEDS: MAGNESIUM SULFATE 1 GM PREMIX 100 ML IV SCH ×2 (12:53→14:20)
[2017-03-09] MEDS ORDERED: FLUMAZENIL 0.5 MG/5 ML VIAL IV PUSH PRN (13:45)
[2017-03-09] MEDS ORDERED: LORazepam 2 MG/ML VIAL IV PUSH PRN ×3 (13:45)
[2017-03-09] MEDS ORDERED: CALCIUM GLUCONATE 10% 1 GM/10 ML VIAL IV PUSH ONE (13:45)
[2017-03-09] MEDS ORDERED: LORazepam 2 MG TAB PO PRN (13:45)
[2017-03-09] MEDS ORDERED: IOHEXOL 350 MG/ML 10 ML VIAL (for RAD DIAG) IVCONTRAST ONE (15:38)
[2017-03-09 15:52] LABS: HEMOGLOBIN A1b 0.6 %; HEMOGLOBIN Ao 88.1 %; HEMOGLOBIN F 0.5 %; HEMOGLOBIN LA1C 1.9 %; HEMOGLOBIN P3 3.1 %
[2017-03-09] MEDS ORDERED: PEG (High)/E-LYTE SOLN 4000 ML BTL PO ONE (16:00)
[2017-03-09] MEDS ORDERED: CALCIUM GLUCONATE INJ 1 GM in SODIUM CHLORIDE 0.9% INJ 100 ML IV ONE (16:00)
--- NOTE | 2017-03-09 16:10 | RADRPT ---
EXAM DATE/TIME: 03/09/2017 15:29 [facility] COMPARISON: CT ABDOMEN & PELVIS W CONTRAST, July 07, 2014, 15:06. INDICATIONS : Abdominal pain, weight loss and severe anemia. IV CONTRAST: 80 cc Omnipaque 350 (iohexol) IV ORAL CONTRAST: Prescribed oral contrast ingested. RADIATION DOSE: 4.65 CTDIvol (mGy) MEDICAL HISTORY : Cirrhosis. SURGICAL HISTORY : None. ENCOUNTER: Initial ACUITY: 3 days PAIN SCALE: 4/10 LOCATION: Bilateral upper quadrant TECHNIQUE: Volumetric scanning of the abdomen and pelvis was performed. Using automated exposure control and ad justment of the mA and/or kV according to patient size, radiation dose was kept as low as reasonably achievable to obtain optimal diagnostic quality images. DICOM format image data is available electro nically for review and comparison. FINDINGS: LOWER LUNGS: Small bilateral pleural effusions and bilateral lower lobe atelectasis. LIVER: Diffuse heterogeneity of the liver with diffuse nodularity the costal indicating cirrhosis. No focal masses identified. Portal veins are patent. Multiple small calcified gallstones in the dependent port ion of the gallbladder. SPLEEN: Normal size without lesion. PANCREAS: Within normal limits. KIDNEYS: Normal in size and shape. There is no mass, stone or hydronephrosis. ADRENAL GLANDS: Within normal limits. VASCULAR: Asymmetric filling defects in the left sided iliac arteries and proximal left femoral vein indicating possible DVT. Aorta is normal diameter. BOWEL/MESENTERY: The stomach, small bowel, and colon demonstrate no acute abnormality. Moderate ascites in all 4 quadr ants. ABDOMINAL WALL: Within normal limits. RETROPERITONEUM: There is no lymphadenopathy. BLADDER: No wall thickening or mass. REPRODUCTIVE: Within normal limits. INGUINAL: There is no lymphadenopathy or hernia. MUSCULOSKELETAL: Moderate degenerative findings of the lumbar spine. CONCLUSION: 1. Possible left-sided iliac vein/femoral vein deep vein thrombosis. Recommend lower extremity Dopple r venous ultrasound to evaluate for DVT. 2. Evidence of cirrhosis again identified. 3. Cholelithiasis. 4. Moderate ascites. Aftab Lynn MD on March 09, 2017 at 15:58 Board Certified Radiologist. This report was verified electronically.
--- NOTE | 2017-03-09 16:13 | RADRPT ---
EXAM DATE/TIME: 03/09/2017 15:39 [facility] COMPARISON: No previous studies available for comparison. INDICATIONS : Right foot, 1st digit infection, laceration. MEDICAL HISTORY : Anemia. SURGICAL HISTORY : None. ENCOUNTER: Initial ACUITY: 2 days PAIN SCORE: 10/10 LOCATION: Right foot, 1st digit. FINDINGS: 3 views right foot. Prominent soft tissue swelling of the second toe. Focal bone erosion of the secon d toe proximal phalanx distal pole. Lateral dislocation of the second toe at the proximal interphalan geal joint. Moderate hallux valgus. Large great toe metatarsophalangeal joint osteophytes. No evidenc e of fracture. CONCLUSION: 1. Second toe soft tissue swelling and focal bone erosion distal pole proximal phalanx indicating pos sible osteomyelitis. 2. Second toe dislocation at proximal interphalangeal joint. 3. Severe osteoarthritic findings of the great toe MTP joint along with hallux valgus. Aftab Lynn MD on March 09, 2017 at 16:08 Board Certified Radiologist. This report was verified electronically.
[2017-03-09] MEDS: cefTRIAXone INJ 1,000 MG in SODIUM CHLORIDE 0.9% INJ 100 ML IV SCH (16:25)
[2017-03-09] MEDS: D5-NS + KCL 20 MEQ INJ 1,000 ML IV SCH (16:26)
[2017-03-09 17:48] LABS: HEMATOCRIT 27.1 % (39.0-51.0); REVIEW FLAG FINAL
[2017-03-09] MEDS ORDERED: SOD PHOSPHATE/SOD BIPHOSPHATE (ADULT) ENEMA 133ML RECTAL ONE (18:15)
--- NOTE | 2017-03-09 20:09 | RADRPT ---
EXAM DATE/TIME: 03/09/2017 18:36 [facility] COMPARISON: No previous studies available for comparison. INDICATIONS : Left leg swelling. MEDICAL HISTORY : Arthritis. Cirrhosis. Seizures. Chest pain. Abdominal pain. Depression. Anxiety. SURGICAL HISTORY : Liver biopsy. ENCOUNTER: Initial ACUITY: 1 day PAIN SCORE: 2/10 LOCATION: Left legs. TECHNIQUE: Venous ultrasound of the leg was performed from the inguinal ligament to the proximal calf. Real-wes e, color Doppler and spectral tracing, compression and augmentation techniques were used. FINDINGS: There is normal compressibility of the deep venous system from the inguinal region to the proximal ca lf. No echogenic clot is seen in the lumen of the common femoral, femoral, popliteal, and posterior tibial veins. There is a normal response of the venous system to proximal and distal augmentation an d respiration. CONCLUSION: No DVT of the left lower extremity. Aftab Tidwell MD on March 09, 2017 at 20:07 Board Certified Radiologist. This report was verified electronically.
[2017-03-09] MEDS: THIAMINE INJ 100 MG in SODIUM CHLORIDE 0.9% INJ 100 ML IV SCH (21:36)
[2017-03-10] VITALS (8 sets, daily range): BP systolic 101–131; BP diastolic 61–83; PULSE 64–102; RESP 17–20; TEMP 95.6–97.5; O2SAT 96–100
[2017-03-10] MEDS: ZOLPIDEM TARTRATE 5 MG TAB PO PRN (01:03)
[2017-03-10] MEDS: PANTOPRAZOLE INJ 80 MG in SODIUM CHLORIDE 0.9% INJ 100 ML IV SCH ×2 (01:06→14:41)
[2017-03-10] MEDS: OCTREOTIDE INJ 500 MCG in SODIUM CHLORID 0.9% 500 ML INJ 500 ML IV SCH ×2 (01:06→08:23)
[2017-03-10] MEDS ORDERED: CHLORHEXIDINE GLUCONATE 2 % 1 PACK (2 CLOTHS) TOPICAL PRN (02:30)
[2017-03-10] MEDS ORDERED: POVIDONE IODINE 5% (ANTISEPSIS KIT) 4 APPLICATIONS EACH NARE PRN (02:30)
[2017-03-10] MEDS ORDERED: LACTATED RINGER'S 1000 ML IV PRN (02:30)
[2017-03-10] MEDS: metroNIDAZOLE 500 MG INJ 100 ML IV SCH ×3 (04:11→20:21)
[2017-03-10 05:08] LABS: AUTOMATED NEUTROPHIL # 1.4 TH/MM3 (1.8-7.7); BASOPHIL # 0.1 TH/MM3 (0-0.2); BASOPHIL % 2.4 % (0.0-2.0); EOSINOPHIL # 0.1 TH/MM3 (0-0.4); EOSINOPHIL % 4.8 % (0.0-4.0); HEMATOCRIT 26.1 % (39.0-51.0); HEMO FLAGS DIFF FINAL; LYMPH % 39.7 % (9.0-44.0); LYMPHOCYTE # 1.2 TH/MM3 (1.0-4.8); MEAN CELL VOLUME 100.4 FL (80.0-100.0); MEAN CORPUSCULAR HEMOGLOBIN 34.8 PG (27.0-34.0); MEAN CORPUSCULAR HGB CONC 34.6 % (32.0-36.0); NEUT % 44.1 % (16.0-70.0); PLATELET COUNT 104 TH/MM3 (150-450); RED CELL DISTRIBUTION WIDTH 17.9 % (11.6-17.2); WHITE BLOOD COUNT 3.1 TH/MM3 (4.0-11.0)
[2017-03-10 05:14] LABS: INTERNATIONAL NORMALIZED RATIO 1.5 RATIO; PROTHROMBIN TIME - PATIENT 17.3 SEC (9.8-11.6)
[2017-03-10 05:41] LABS: BICARBONATE 22.9 MEQ/L (21.0-32.0); POTASSIUM 3.3 MEQ/L (3.5-5.1); TOTAL BILIRUBIN ADULT 1.8 MG/DL (0.2-1.0)
[2017-03-10 05:45] LABS: CALCIUM-PROTEIN CORRECTED 7.1 MG/DL (8.5-10.1)
[2017-03-10] MEDS ORDERED: SOD PHOSPHATE/SOD BIPHOSPHATE (ADULT) ENEMA 133ML RECTAL ONE (07:00)
[2017-03-10] MEDS: SODIUM CHLORIDE 0.9% FLUSH 10 ML FLUSH IV FLUSH SCH ×2 (08:19→20:20)
[2017-03-10] MEDS: DOCUSATE SODIUM 50 MG/SENNA 8.6 MG TAB PO SCH ×2 (08:20→20:20)
[2017-03-10] MEDS ORDERED: POTASSIUM CHLORIDE 25 MEQ EFFERVESCENT TAB PO ONE (09:45)
--- NOTE | 2017-03-10 09:59 | HHI.PR ---
Subjective Remarks Follow-up visit GIB, generalized weakness, dizziness. Patient out of bed to chair. Seen and examined today. Reports he continues to "not feel well." Reports chills and generalized weakness overall feeling "blah." Denies chest pain, palpitations, headaches. Reports occasional shortness of breath worsened. Continues to be on room air, O2 sat 96%. Reports diarrhea secondary to medication administration, plan for EGD colonoscopy. Reports dark black stools with diarrhea. Objective Vitals Vital Signs Date Time Temp Pulse Resp B/P (MAP) Pulse Ox O2 Delivery O2 Flow Rate FiO2 03/10/17 08:00 95.9 64 18 102/70 (81) 96 03/10/17 08:00 96.9 85 20 105/74 (84) 100 03/10/17 04:00 97.1 94 18 105/63 (77) 98 03/10/17 00:00 97.2 94 20 101/61 (74) 97 03/09/17 20:00 96.4 86 20 120/75 (90) 98 03/09/17 16:00 97.1 90 17 156/85 (108) 100 03/09/17 12:00 97.4 92 17 182/79 (113) 100 03/09/17 10:56 97 I/O 03/09/17 03/09/17 03/09/17 03/10/17 03/10/17 03/10/17 07:00 15:00 23:00 07:00 15:00 23:00 Intake Total 570 ml 200 ml 1720 ml Output Total 50 ml 225 ml Balance 520 ml 200 ml 1495 ml Intake Oral 60 ml 720 ml IV Total 200 ml 1000 ml Packed Cells 500 ml Blood Product IV Normal Saline Flush 10 ml Output Urine Total 50 ml 225 ml # Voids 4 # Bowel Movements 0 0 3 Result Diagram: 03/10/17 0433 03/10/17 0433 Imaging Last Impressions Lower Extremity Ultrasound 03/09/17 0000 Signed Impressions: Service Date/Time: February 18:36 - CONCLUSION: No DVT of the left lower extremity. Aftab Tidwell MD Foot X-Ray 03/09/17 0000 Signed Impressions: Service Date/Time: February 15:39 - CONCLUSION: 1. Second toe soft tissue swelling and focal bone erosion distal pole proximal phalanx indicating possible osteomyelitis. 2. Second toe dislocation at proximal interphalangeal joint. 3. Severe osteoarthritic findings of the great toe MTP joint along with hallux valgus. Aftab Lynn MD Abdomen/Pelvis CT 03/09/17 0000 Signed Impressions: Service Date/Time: February 15:29 - CONCLUSION: 1. Possible left-sided iliac vein/femoral vein deep vein thrombosis. Recommend lower extremity Doppler venous ultrasound to evaluate for DVT. 2. Evidence of cirrhosis again identified. 3. Cholelithiasis. 4. Moderate ascites. Aftab Lynn MD Objective Remarks GENERAL: This is a cachectic, well-developed patient, ill-appearing. SKIN: Warm and dry. Right toe wound. HEENT: Normocephalic. Pupils equal round and reactive. Nose without bleeding. Airway patent. NECK: Trachea midline. No JVD. Supple. CARDIOVASCULAR: Tachycardic without murmurs, gallops, or rubs. RESPIRATORY: Diminished bases. No wheezes, rales, or rhonchi. GASTROINTESTINAL: Abdomen soft, nondistended. Bowel Sounds normoactive. Abdominal tenderness throughout. : Voiding without difficulty. [place] dark urine. MUSCULOSKELETAL: Extremities without clubbing, cyanosis, or edema. NEUROLOGICAL: Awake and alert. Oriented to place, person. No focal neuro deficit. Moves all extremities. Normal speech. A/P Problem List: (1) GI bleed ICD Code: K92.2 - Gastrointestinal hemorrhage, unspecified Status: Acute (2) Toe ulcer, right ICD Code: L97.519 - Non-pressure chronic ulcer of other part of right foot with unspecified severity Status: Acute (3) Abdominal pain ICD Code: R10.9 - Abdominal pain Status: Acute Assessment and Plan 56 y/o male with a history of cirrhosis, Hep C and seizures from alcohol withdrawal presented to the ED with weakness, dizziness and sob. SIRS, Sepsis secondary to UTI, ?osteomylitis, skin sof wound - Temp 95.9, HR 109, WBC 3.1 - UA culture >100K, E.Coli, Sensitive to Rocephin. Continue Rocephin. Start IV vancomycin - Blood cultures ordered, wound culture ordered. Check ESR, CRP - results may be skewed as patient has been started with IV antibiotics since admission. - X-ray of the right foot showed 1. Second toe soft tissue swelling and focal bone erosion distal pole proximal phalanx indicating possible osteomyelitis. 2. Second toe dislocation at the proximal interphalangeal joint. 3. Severe osteoarthritic findings of the great toe MTP joint along with hallux valgus. - Lower extremity Doppler negative - Podiatry already consulted. Possible wound workup including MRI to determine osteomyelitis - Infectious disease consult, input appreciated GI Bleed, hgb 6.9, occult stool positive - Consult GI . Appreciate recommendations. Plan for CT of the abdomen and pelvis today, EGD colonoscopy planned. - Protonix drip, and Sandostatin drip - 2 units PRBC transfused. Post transfusion H&H 9.4/27.9. - Monitor H&H. 9.0/26.1 today Liver failure, cirrhosis Abdominal pain, patient with diarrhea for 2 months, r/o colitis -CT abdomen/pelvis 1. Possible left-sided iliac vein/femoral vein deep vein thrombosis. Recommend lower extremity Doppler venous ultrasound to evaluate for DVT. 2. Evidence of cirrhosis again identified. 3. Cholelithiasis. 4. Moderate ascites. - Lower extremity Doppler negative - IV antibiotics Flagyl - Trend LFTs, Tbili 2.8 -->1.8 Right 2nd toe ulcer, acute - Consult podiatry for recommendations. Possible workup for osteomyelitis - Wound culture ordered - ID consult Hyponatremia, hypokalemia, hypomagnesemia, hypocalcemia - Monitor electrolytes - Replacement ordered Tobacco abuse, chronic: Encouraged to quit. Counseled. Declines use of nicotine patch. DVT prophylaxis: SCDs Discussed with patient, nursing, Dr. England. Discharge Planning Not ready for discharge. Attending Statement Patient returned back from EGD colonoscopy. Findings of Carty's and gastritis with alcoholic gastropathy found on EGD. Hemoglobin remained stable and PPI has been initiated. In addition patient states that he does not know how long he's had increased redness and ulceration along with black eschar on the right second toe and areas between the second and first toe. IV vancomycin was initiated to current regimen of Rocephin for possible osteomyelitis from x- ray of the toe reviewed. ID consultation and podiatry consultation obtained. Likely will need MRI of the foot for further evaluation and workup. CT abdomen pelvis reviewed, left lower extremity venous Doppler showed no active DVT. The exam, history, and the medical decision making described in the above note were completed with the assistance of the dictating practitioner. I reviewed and agree with the findings presented. I attest that I had a face-to face encounter with the patient on the same day and personally performed and documented my assessment and findings in the medical record. Luli Parker Mar 10, 2017 09:59 Natalie England MD Mar 10, 2017 14:45
[2017-03-10] MEDS ORDERED: VANCOMYCIN INJ 1,250 MG in SODIUM CHLOR 0.9% 250 ML INJ 250 ML IV SCH (10:45)
[2017-03-10] MEDS ORDERED: Vancomycin Consult Pharmacy 1 EA OTHER SCH (10:45)
[2017-03-10] MEDS ORDERED: CALCIUM GLUCONATE INJ 1 GM in SODIUM CHLORIDE 0.9% INJ 100 ML IV ONE (11:00)
[2017-03-10] MEDS ORDERED: LIDOCAINE HCL 1% PF 5 ML AMPULE OTHER ONE (12:00)
[2017-03-10] MEDS ORDERED: PROPOFOL 200 MG/20 ML AMP IV ONE (12:00)
--- NOTE | 2017-03-10 13:43 | PD.PROCEDR ---
GI Procedure PROCEDURE PERFORMED Upper endoscopy with biopsy Colonoscopy INDICATION FOR PROCEDURE General weakness Anemia PROCEDURE: The procedure, risks and benefits were discussed with Mr. Valentin and informed consent was obtained. Anesthesia sedated him with Diprivan. He was placed in the left lateral decubitus position. EGD: The Pentax videoscope was introduced through the oropharynx and advanced to the second portion of the duodenum under direct visualization. Retroflexion was performed in the stomach biopsy from the antrum. FINDINGS: Mild esophagitis Carty's esophagus biopsy was done Severe gastritis and gastropathy most likely alcohol related biopsy was done Colonoscopy: The Pentax videoscope was introduced through the rectum and advanced to cecum. Retroflexion was performed in the rectum. 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
--- NOTE | 2017-03-10 13:46 | HHI.GIFU ---
Subjective Remarks Patient lying comfortable in bed, tolerated the prep, no active bleed Objective Vitals I&O Vital Signs Date Time Temp Pulse Resp B/P (MAP) Pulse Ox O2 Delivery O2 Flow Rate FiO2 03/10/17 12:00 97.5 93 18 119/83 (95) 99 03/10/17 08:00 95.9 64 18 102/70 (81) 96 03/10/17 08:00 96.9 85 20 105/74 (84) 100 03/10/17 04:00 97.1 94 18 105/63 (77) 98 03/10/17 00:00 97.2 94 20 101/61 (74) 97 03/09/17 20:00 96.4 86 20 120/75 (90) 98 03/09/17 16:00 97.1 90 17 156/85 (108) 100 I/O 03/09/17 03/09/17 03/09/17 03/10/17 03/10/17 03/10/17 07:00 15:00 23:00 07:00 15:00 23:00 Intake Total 570 ml 200 ml 1720 ml 120 ml Output Total 50 ml 225 ml 300 ml Balance 520 ml 200 ml 1495 ml -180 ml Intake Oral 60 ml 720 ml 120 ml IV Total 200 ml 1000 ml Packed Cells 500 ml Blood Product IV Normal Saline Flush 10 ml Output Urine Total 50 ml 225 ml Stool Total 300 ml # Voids 4 # Bowel Movements 0 0 3 Laboratory Laboratory Tests Test 03/09/17 16:33 03/10/17 04:33 Hemoglobin 9.4 9.0 Hematocrit 27.1 26.1 Tumor Marker Alpha Fetoprotein 1.6 White Blood Count 3.1 Red Blood Count 2.60 Mean Corpuscular Volume 100.4 Mean Corpuscular Hemoglobin 34.8 Mean Corpuscular Hemoglobin Concent 34.6 Red Cell Distribution Width 17.9 Platelet Count 104 Mean Platelet Volume 6.7 Neutrophils (%) (Auto) 44.1 Lymphocytes (%) (Auto) 39.7 Monocytes (%) (Auto) 9.0 Eosinophils (%) (Auto) 4.8 Basophils (%) (Auto) 2.4 Neutrophils # (Auto) 1.4 Lymphocytes # (Auto) 1.2 Monocytes # (Auto) 0.3 Eosinophils # (Auto) 0.1 Basophils # (Auto) 0.1 CBC Comment DIFF FINAL Differential Comment Prothrombin Time 17.3 Prothromb Time International Ratio 1.5 Blood Urea Nitrogen 7 Creatinine 0.97 Random Glucose 171 Total Protein 6.7 Albumin 1.5 Calcium Level 6.9 Alkaline Phosphatase 76 Aspartate Amino Transf (AST/SGOT) 43 Alanine Aminotransferase (ALT/SGPT) 13 Total Bilirubin 1.8 Sodium Level 130 Potassium Level 3.3 Chloride Level 99 Carbon Dioxide Level 22.9 Anion Gap 8 Estimat Glomerular Filtration Rate 80 Protein Corrected Calcium 7.1 Ammonia 45 Date/Time Source Procedure Growth Status 03/08/17 19:00 Urine Clean Catch Urine Culture - Final Escherichia Coli Complete 03/10/17 10:00 Wound Foot Gram Stain - Final Resulted 03/10/17 10:00 Wound Foot Wound Culture Pending Resulted Physical Exam HEENT: Pupils round and reactive to light; normocephalic; atraumatic; no jaundice. Throat is clear. NECK: Neck is supple, no JVD, no lymphadenopathy. CHEST: Chest is clear to auscultation and percussion. CARDIAC: Regular rate and rhythm with no murmur gallop or rubs. ABDOMEN: Soft, nondistended, nontender; no hepatosplenomegaly; bowel sounds are present in all four quadrants. EXTREMITIES: No clubbing, cyanosis, or edema. SKIN: Normal; no rash; no jaundice. Multiple area looks like bedsores FUND MANAGER: No focal deficits; alert and oriented times three. 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
[2017-03-10] MEDS: D5-NS + KCL 20 MEQ INJ 1,000 ML IV SCH ×2 (14:40→19:51)
[2017-03-10] MEDS: LORazepam 1 MG TAB PO PRN ×2 (15:07→22:17)
[2017-03-10] MEDS: MAGNESIUM SULFATE 1 GM PREMIX 100 ML IV SCH ×2 (15:18→17:24)
[2017-03-10 15:57] LABS: MAGNESIUM 1.7 MG/DL (1.5-2.5)
[2017-03-10] MEDS: cefTRIAXone INJ 1,000 MG in SODIUM CHLORIDE 0.9% INJ 100 ML IV SCH (16:43)
[2017-03-10] MEDS: VANCOMYCIN INJ 1,250 MG in SODIUM CHLOR 0.9% 250 ML INJ 250 ML IV SCH (17:24)
[2017-03-10 20:32] LABS: APTT (PATIENT) 44.8 SEC (24.3-30.1); INTERNATIONAL NORMALIZED RATIO 1.5 RATIO; PROTHROMBIN TIME - PATIENT 16.7 SEC (9.8-11.6)
--- NOTE | 2017-03-10 20:55 | MB ---
cc: ANNIE ARAUJO DPM DATE OF CONSULTATION 03/10/17 DATE OF 1960 REASON FOR CONSULTATION Right second digit ulceration. HISTORY OF PRESENT ILLNESS A 56-year-old male with history of cirrhosis, hepatitis C, alcoholic seizures, withdrawals , states he went to the store today with some dizziness on admission. He has had a wound to the right second digit which he does not feel, its unknown duration, does not see a physician on a regular basis and does not know how long it has been there. PAST MEDICAL HISTORY Cirrhosis, hepatitis C. PAST SURGICAL HISTORY Liver biopsy 2014. MEDICATIONS Per HPI. ALLERGIES NKDA. SOCIAL HISTORY Half pack per day for 17 years. Alcohol use occasional. Illicit drugs. PHYSICAL EXAMINATION DIRECTED EXAMINATION: Right lower extremity DP and PT palpable. Right second digit reveals an open second digit fracture at the DIP joint. There is no purulence noted though the joint was exposed. IPJ granular red. No acute sign of infection. LABORATORY DATA On 03/10/2017 WBC of 3.0, RBC of 2.6, H&H 9 and 26.1. IMAGING STUDIES Right foot x-rays completed 03/10/2017 with soft tissue swelling and dislocation at the PIPJ. ASSESSMENT/PLAN Right second digit open laceration with extensor tendon rupture. PLAN 1. The patient is taken to the OR where he is medically optimized. For repair of the extensor tendon. 2. Bone biopsy of the proximal phalanx as well as primary repair of the laceration. see medically optimized by the medicine team for surgery which can be done under MAC anesthesia, can possibly do surgery on 03/12/2017 if he is optimized. We will continue to follow while in-house. Annie Araujo DPM SR/EO /8:31 PM /8:40 PM MARGARET
[2017-03-10 21:45] LABS: LACTIC ACID GHOST NOT REPORTABLE
[2017-03-11] VITALS (8 sets, daily range): BP systolic 117–131; BP diastolic 73–93; PULSE 101–142; RESP 16–20; TEMP 96.6–99.6; O2SAT 94–98
[2017-03-11] MEDS: LORazepam 1 MG TAB PO PRN ×3 (01:44→09:58)
[2017-03-11] MEDS: VANCOMYCIN INJ 1,250 MG in SODIUM CHLOR 0.9% 250 ML INJ 250 ML IV SCH ×2 (01:44→13:12)
[2017-03-11] MEDS: metroNIDAZOLE 500 MG INJ 100 ML IV SCH ×3 (05:15→20:23)
[2017-03-11] MEDS: D5-NS + KCL 20 MEQ INJ 1,000 ML IV SCH ×2 (05:15→17:29)
[2017-03-11 05:41] LABS: HEMATOCRIT 29.9 % (39.0-51.0); MEAN CORPUSCULAR HEMOGLOBIN 34.8 PG (27.0-34.0); MEAN CORPUSCULAR HGB CONC 33.8 % (32.0-36.0); PLATELET COUNT 110 TH/MM3 (150-450); RED CELL DISTRIBUTION WIDTH 18.3 % (11.6-17.2); REVIEW FLAG FINAL; WHITE BLOOD COUNT 4.1 TH/MM3 (4.0-11.0)
[2017-03-11 06:11] LABS: BICARBONATE 19.1 MEQ/L (21.0-32.0)
[2017-03-11 06:32] LABS: CALCIUM-PROTEIN CORRECTED 7.3 MG/DL (8.5-10.1)
[2017-03-11] MEDS ORDERED: CALCIUM GLUCONATE INJ 1 GM in DEXTROSE 5% IN WATER 100ML INJ 100 ML IV ONE ×2 (07:20)
[2017-03-11] MEDS: SODIUM CHLORIDE 0.9% FLUSH 10 ML FLUSH IV FLUSH SCH ×2 (09:00→20:23)
[2017-03-11] MEDS: DOCUSATE SODIUM 50 MG/SENNA 8.6 MG TAB PO SCH ×2 (09:00→20:23)
[2017-03-11] MEDS: THIAMINE HCL 100 MG TAB PO SCH (09:58)
[2017-03-11] MEDS: PANTOPRAZOLE SOD 40 MG DELAYED RELEASE TAB PO SCH (09:58)
--- NOTE | 2017-03-11 10:01 | HHI.PR ---
Subjective Remarks Patient seen this morning around 10 AM. Says he is feeling all right. Reports pain is controlled. He denies any history of heart disorders. Denies any exertional chest pain. Can walk up 2 flights of stairs, 4 blocks without any difficulty. Objective Vital Signs Date Time Temp Pulse Resp B/P (MAP) Pulse Ox O2 Delivery O2 Flow Rate FiO2 03/11/17 08:00 97.1 115 17 118/75 (89) 94 03/11/17 04:00 96.7 101 18 121/73 (89) 97 03/11/17 00:00 96.6 112 20 126/73 (90) 98 03/10/17 20:45 91 03/10/17 20:00 95.6 102 17 131/78 (95) 99 03/10/17 16:00 96.9 97 20 113/78 (90) 98 03/10/17 14:06 94/65 (75) 03/10/17 14:00 97.5 95 19 106/71 (83) 96 03/10/17 13:50 97.2 87 18 82/61 (68) 97 03/10/17 12:00 97.5 93 18 119/83 (95) 99 I/O 03/10/17 03/10/17 03/10/17 03/11/17 03/11/17 03/11/17 07:00 15:00 23:00 07:00 15:00 23:00 Intake Total 1130 ml 2892.5 ml 1393.5 ml Output Total 300 ml 1500 ml 401 ml Balance 830 ml 1392.5 ml 992.5 ml Intake Oral 120 ml 870 ml 240 ml IV Total 110 ml 2022.5 ml 1153.5 ml Other 900 ml Output Urine Total 900 ml 400 ml Stool Total 300 ml 600 ml 1 ml # Voids 4 # Bowel Movements 3 Result Diagram: 03/11/17 04503/11/17 045 Objective Remarks GENERAL: patient awake, alert. Appears comfortable. SKIN: Warm and dry. HEAD: Normocephalic. EYES: No scleral icterus. No injection or drainage. NECK: Supple, trachea midline. No JVD. CARDIOVASCULAR: Regular rate and rhythm without murmurs, gallops, or rubs. RESPIRATORY: Breath sounds equal bilaterally. No accessory muscle use. GASTROINTESTINAL: Abdomen soft, non-tender, nondistended. MUSCULOSKELETAL: No cyanosis, or edema. BACK: Nontender without obvious deformity. No CVA tenderness. A/P Assessment and Plan ==== 03/11/17 //EGD reviewed with Carty's esophagus. We'll need continue on PPI. //Acidosis. Lactate 3.2 on 03/10. Recheck. //Continue antibiotics for UTI //Alcohol withdrawal. Start Librium. //Possible osteomyelitis right foot. -Reviewed podiatry consult which recommends surgery for right second digit laceration with extensor tendon rupture on 03/12/17. -planned surgical debridement.Patient is a poor candidate for any surgery owing to cirrhosis, however is medically optimized for this medically necessary surgery. 56 y/o male with a history of cirrhosis, Hep C and seizures from alcohol withdrawal presented to the ED with weakness, dizziness and sob. //SIRS, Sepsis secondary to UTI, ?osteomylitis, skin sof wound - Temp 95.9, HR 109, WBC 3.1 - UA culture >100K, E.Coli, Sensitive to Rocephin. Continue Rocephin. Start IV vancomycin - Blood cultures ordered, wound culture ordered. Check ESR, CRP - results may be skewed as patient has been started with IV antibiotics since admission. - X-ray of the right foot showed 1. Second toe soft tissue swelling and focal bone erosion distal pole proximal phalanx indicating possible osteomyelitis. 2. Second toe dislocation at the proximal interphalangeal joint. 3. Severe osteoarthritic findings of the great toe MTP joint along with hallux valgus. - Lower extremity Doppler negative - Podiatry already consulted. Possible wound workup including MRI to determine osteomyelitis - Infectious disease consult, input appreciated //GI Bleed, hgb 6.9, occult stool positive - Consult GI . Appreciate recommendations. Plan for CT of the abdomen and pelvis today, EGD colonoscopy planned. - Protonix drip, and Sandostatin drip - 2 units PRBC transfused. Post transfusion H&H 9.4/27.9. - Monitor H&H. 9.0/26.1 today //Liver failure, cirrhosis //Abdominal pain, patient with diarrhea for 2 months, r/o colitis -CT abdomen/pelvis 1. Possible left-sided iliac vein/femoral vein deep vein thrombosis. Recommend lower extremity Doppler venous ultrasound to evaluate for DVT. 2. Evidence of cirrhosis again identified. 3. Cholelithiasis. 4. Moderate ascites. - Lower extremity Doppler negative - IV antibiotics Flagyl - Trend LFTs, Tbili 2.8 -->1.8 //Right 2nd toe ulcer, acute - Consult podiatry for recommendations. Possible workup for osteomyelitis - Wound culture ordered - ID consult //Hyponatremia, hypokalemia, hypomagnesemia, hypocalcemia - Monitor electrolytes - Replacement ordered //Tobacco abuse, chronic: Encouraged to quit. Counseled. Declines use of nicotine patch. DVT prophylaxis: SCDs Discharge Planning pending surgical debridement of suspected osteoarthritis. Infectious disease and podiatry following. -Patient is self-pay. London Gomez MD Mar 11, 2017 10:01
[2017-03-11] MEDS: LORazepam 2 MG/ML VIAL IV PUSH PRN ×2 (10:22→21:56)
[2017-03-11] MEDS ORDERED: GADODIAMIDE PF 287 MG/ML 20 ML VIAL (for RAD MRI) IVCONTRAST ONE (11:48)
--- NOTE | 2017-03-11 12:38 | RADRPT ---
EXAM DATE/TIME: 03/11/2017 11:23 [facility] COMPARISON: FOOT RIGHT COMPLETE ([id number]), March 09, 2017, 15:39. INDICATIONS : Osteomyelitis. Laceration 1st and 2nd digits of right foot. CONTRAST: 14 cc Omniscan (gadodiamide) IV MEDICAL HISTORY : Hepatitis C. Cirrhosis. SURGICAL HISTORY : None. ENCOUNTER: Subsequent ACUITY: 4-6 days PAIN SCORE: 3/10 LOCATION: Right foot. TECHNIQUE: Multiplanar, multisequence MRI examination was performed without contrast and after th e intravenous administration of gadolinium. FINDINGS: The osseous structures are significant for fracture dislocation at the second digit PIP joint wi th abnormal marrow edema identified within the second digit middle phalanx which demonstrates homogen eous enhancement after the administration of contrast. There is also enhancement identified within th e surrounding soft tissues of the second digit. The cortex within the middle phalanx appears disconti nuous secondary to fracture versus infection. The proximal phalanx demonstrates normal marrow signal. With regards to the first digit there is moderate hallux valgus with associated severe degenerative change. The remainder of the osseous structures normal limits without evidence of edema or abnormal e nhancement. CONCLUSION: #1. No evidence of osteomyelitis within the first digit. Severe degenerative changes are seen at the MTP joint. #2. Fracture dislocation of the second digit at the PIP joint. The marrow edema and abnormal enhancem ent appears to be confined to the middle phalanx. Milka Espino MD on March 11, 2017 at 12:23 Board Certified Radiologist. This report was verified electronically.
--- NOTE | 2017-03-11 15:04 | PD.POD ---
Subjective Podiatric Problems Right 2nd digit trauma. Open fracture. Pain scale used: 0-10 numeric scale Pain score: 0 Past Med/Surg/Social History Past Medical History HEENT: DENIES HX OF: Cataracts, Glaucoma, Recurrent ear infections, Recurrent sinusitis, Other HEENT history Endocrine: DENIES HX OF: Diabetes mellitus, Graves disease, Hyperthyroidism, Hypothyroidism, Other endocrine history Respiratory: DENIES HX OF: Allergies/hay fever, Asthma, COPD, CPAP use, Sleep apnea, Other respiratory history Cardiovascular: DENIES HX OF: Abdominal aortic aneurysm, Angina, Atrial fibrillation, Cardiac arrhythmias, Coronary artery disease, Deep venous thrombosis, Heart failure, Heart valve disease, Hyperlipidemia, Hypertension, Myocardial infarction, Peripheral vascular dz, Other CV history Gastrointestinal: DENIES HX OF: Colitis, GERD, Irritable bowel syndrome, Liver disease, Pancreatitis, Peptic ulcer disease, Other GI history Genitourinary: DENIES HX OF: Chlamydia, Gonorrhea, Hemodialysis, Herpes genitalis, Human papillomavirus, Kidney disease, Kidney failure, Kidney stones, Past UTI, Peritoneal dialysis, Urinary incontinence, Other history Genitourinary - male: DENIES HX OF: Benign prost. hyperplasia, Erectile dysfunction, Prostatitis, Testicular problems, Undescended testicle Musculoskeletal: REPORTS HX OF: Gout Cancer/Hematology: DENIES HX OF: Anemia, Bladder Cancer, Blood cancer, Brain cancer, Breast cancer, Colorectal cancer, Endocrine cancer, Eye cancer, GI cancer, cancer, Kidney cancer, Leukemia, Liver cancer, Lung cancer, Lymphoma , Musculoskeletal cancer, Neurologic cancer, Oral cancer, Skin cancer, Stomach cancer, Thyroid cancer, Other cancer/hematology Cancer - male: DENIES HX OF: Prostate cancer, Testicular cancer Infectious disease: REPORTS HX OF: Mumps, DENIES HX OF: AIDS, Chickenpox, Hepatitis, HIV, Measles, MRSA, Polio, Positive PPD, Rheumatic fever, Rubella, Syphilis, Tuberculosis, Vanc-resistant enterococc, Other inf disease history Integumentary: DENIES HX OF: Acne, Eczema, Psoriasis, Other integumentary hx Neurologic: DENIES HX OF: ADHD, Autism, Dementia, Developmental delay, Headaches, Multiple sclerosis, Parkinson disease, Peripheral neuropathy, Restless leg syndrome, Seizures, Stroke, Transient ischemic attack, Other neurologic history Psychiatric: DENIES HX OF: Anorexia nervosa, Anxiety, Bipolar disorder, Bulimia , Depression, Schizophrenia, Other psychiatric history Genetic/metabolic: DENIES HX OF: Cystic fibrosis, Down syndrome, Other genetic history, Other metabolic history Events: DENIES HX OF: Anaphylaxis, Gunshot wound, Motor vehicle accident, Other events Disabilities: DENIES HX OF: Hearing deficit, Vision deficit, Hemiparesis, Paraplegia, Quadriplegia, Other disabilities Past Surgical History HEENT: DENIES HX OF: Cataract extraction, Dental surgery, Laryngectomy, Tonsillectomy, Other head surgery, Other eye surgery, Other ear surgery, Other nasal surgery, Other throat surgery Endocrine: DENIES HX OF: Parathyroidectomy, Thyroid surgery, Other endocrine surgery Respiratory: DENIES HX OF: Bronchoscopy, Lobectomy, Other chest surgery Cardiovascular: DENIES HX OF: Angiogram, Angioplasty, CABG surgery, Carotid endarterectomy, Coronary stent, Heart transplant, Pacemaker, Valve replacement, Other cardiac surgery Gastrointestinal: REPORTS HX OF: Other GI surgery (Liver bx), DENIES HX OF: Appendectomy, Cholecystectomy, Colectomy, subtotal, Colectomy, total, Gastric bypass, Hernia repair, Splenectomy Genitourinary: DENIES HX OF: Bladder surgery, Kidney stone extraction, Nephrectomy, Other surgery Genitourinary - male: DENIES HX OF: Prostatectomy, TURP, Vasectomy Musculoskeletal: DENIES HX OF: Joint replacement, Other musculoskeletal srg Neurologic: DENIES HX OF: Craniotomy, Spinal surgery, Other neurologic surgery Breast: DENIES HX OF: Breast biopsy, Lumpectomy, Mastectomy, bilateral, Mastectomy, left, Mastectomy, right, Other breast surgery Social History Smoking Status: Current Every Day Smoker Objective Vital Signs Vital Signs Date Time Temp Pulse Resp B/P (MAP) Pulse Ox O2 Delivery O2 Flow Rate FiO2 03/11/17 12:00 99.3 140 16 131/93 (106) 96 03/11/17 10:11 139 03/11/17 08:00 97.1 115 17 118/75 (89) 94 03/11/17 04:00 96.7 101 18 121/73 (89) 97 03/11/17 00:00 96.6 112 20 126/73 (90) 98 03/10/17 20:45 91 03/10/17 20:00 95.6 102 17 131/78 (95) 99 03/10/17 16:00 96.9 97 20 113/78 (90) 98 Coded Allergies: No Known Allergies (Verified , 11/21/14) Other Results Last Impressions Lower Extremity Ultrasound 03/09/17 0000 Signed Impressions: Service Date/Time: February 18:36 - CONCLUSION: No DVT of the left lower extremity. Afatb Tidwell MD Foot X-Ray 03/09/17 0000 Signed Impressions: Service Date/Time: February 15:39 - CONCLUSION: 1. Second toe soft tissue swelling and focal bone erosion distal pole proximal phalanx indicating possible osteomyelitis. 2. Second toe dislocation at proximal interphalangeal joint. 3. Severe osteoarthritic findings of the great toe MTP joint along with hallux valgus. Aftab Lynn MD Abdomen/Pelvis CT 03/09/17 0000 Signed Impressions: Service Date/Time: February 15:29 - CONCLUSION: 1. Possible left-sided iliac vein/femoral vein deep vein thrombosis. Recommend lower extremity Doppler venous ultrasound to evaluate for DVT. 2. Evidence of cirrhosis again identified. 3. Cholelithiasis. 4. Moderate ascites. Aftab Lynn MD Laboratory Tests Test 03/08/17 19:00 03/09/17 06:42 03/09/17 16:33 03/10/17 04:33 Urine Color DARK-BROWN Urine Turbidity HAZY Urine pH 5.5 Urine Specific [place] 1.020 Urine Protein 30 mg/dL Urine Glucose (UA) NEG mg/dL Urine Ketones 40 mg/dL Urine Occult Blood MOD Urine Nitrite NEG Urine Bilirubin NEG Urine Urobilinogen GREATER THAN 12.0 MG/DL Urine Leukocyte Esterase MOD Urine RBC 6 /hpf Urine WBC 15 /hpf Urine Squamous Epithelial Cells 1 /hpf Urine Amorphous Sediment RARE Urine Bacteria MANY /hpf Urine Hyaline Casts 112 /lpf Urine Mucus MOD /lpf Microscopic Urinalysis Comment CULTURE INDICATED Hemoglobin A1c 4.2 % Blood Urea Nitrogen 11 MG/DL 7 MG/DL Creatinine 1.06 MG/DL 0.97 MG/DL Random Glucose 61 MG/DL 171 MG/DL Total Protein 7.8 GM/DL 6.7 GM/DL Albumin 1.6 GM/DL 1.5 GM/DL Calcium Level 7.3 MG/DL 6.9 MG/DL Phosphorus Level 3.9 MG/DL Magnesium Level 1.4 MG/DL 1.7 MG/DL Alkaline Phosphatase 87 U/L 76 U/L Aspartate Amino Transf (AST/SGOT) 53 U/L 43 U/L Alanine Aminotransferase (ALT/SGPT) 15 U/L 13 U/L Total Bilirubin 2.5 MG/DL 1.8 MG/DL Sodium Level 134 MEQ/L 130 MEQ/L Potassium Level 3.4 MEQ/L 3.3 MEQ/L Chloride Level 100 MEQ/L 99 MEQ/L Carbon Dioxide Level 17.9 MEQ/L 22.9 MEQ/L Free Thyroxine 1.38 NG/DL Thyroid Stimulating Hormone 3rd Gen 1.260 uIU/ML Tumor Marker Alpha Fetoprotein 1.6 NG/ML Neutrophils (%) (Auto) 44.1 % Lymphocytes (%) (Auto) 39.7 % Monocytes (%) (Auto) 9.0 % Eosinophils (%) (Auto) 4.8 % Basophils (%) (Auto) 2.4 % Neutrophils # (Auto) 1.4 TH/MM3 Lymphocytes # (Auto) 1.2 TH/MM3 Monocytes # (Auto) 0.3 TH/MM3 Eosinophils # (Auto) 0.1 TH/MM3 Basophils # (Auto) 0.1 TH/MM3 CBC Comment DIFF FINAL Differential Comment Ammonia 45 MCMOL/L C-Reactive Protein 1.06 MG/DL Test 03/10/17 19:35 03/10/17 22:18 03/11/17 04:50 Prothrombin Time 16.7 SEC Prothromb Time International Ratio 1.5 RATIO Activated Partial Thromboplast Time 44.8 SEC Lactic Acid Level 3.2 mmol/L White Blood Count 4.1 TH/MM3 Red Blood Count 2.90 MIL/MM3 Hemoglobin 10.1 GM/DL Hematocrit 29.9 % Mean Corpuscular Volume 103.0 FL Mean Corpuscular Hemoglobin 34.8 PG Mean Corpuscular Hemoglobin Concent 33.8 % Red Cell Distribution Width 18.3 % Platelet Count 110 TH/MM3 Mean Platelet Volume 7.0 FL Blood Urea Nitrogen 6 MG/DL Creatinine 0.96 MG/DL Random Glucose 105 MG/DL Total Protein 7.4 GM/DL Calcium Level 7.4 MG/DL Sodium Level 134 MEQ/L Potassium Level 4.0 MEQ/L Chloride Level 105 MEQ/L Carbon Dioxide Level 19.1 MEQ/L Anion Gap 10 MEQ/L Estimat Glomerular Filtration Rate 81 ML/MIN Protein Corrected Calcium 7.3 MG/DL Exam-Podiatry Dermatological Exam Ulcers: Location/Measurements R 2nd digit with open laceration and tendon rupture of the extensor at the PIPJ. No purulence. Unable to plantarflex te digit at the middle phalanx. Protective sensation is decreased. DP and PT palpable . CFT < 3 secs. Assessment & Plan Diagnosis: (1) Toe ulcer, right ICD Codes: L97.519 - Non-pressure chronic ulcer of other part of right foot with unspecified severity Status: Acute A/P Consent for OR at 0900 on 03/12/17 Include bone biopsy due to open fracture of unknown duration and MRI findings. NPO and medical clearance. Discussed with patent. Annie Araujo DPM Mar 11, 2017 15:04
[2017-03-11] MEDS: cefTRIAXone INJ 1,000 MG in SODIUM CHLORIDE 0.9% INJ 100 ML IV SCH (17:32)
--- NOTE | 2017-03-11 17:52 | PD.ID.CON ---
History of Present Illness Service ID Consult Requested By Reason for Consult R foot infx Primary Care Physician No Primary Care Physician Diagnoses: History of Present Illness 56 yo male with heavy ETOH abuse not a good historian, confused He has R 2nd toe wound that he does not knoew how he sustained and how long ago Seen by exotic dancer Going got OR tomorrow MRI with fracture/dislocation and middle phalanx marrow edema Afebrile WBC is low Pt has clinically apparent ETOH withdrawl smx Review of Systems ROS Limitations: Altered Mental Status (confused) Past Family Social History Allergies: Coded Allergies: No Known Allergies (Verified , 11/21/14) Past Medical History Carty's ETOHism cirrhosis Hep C Past Surgical History Patient denies any surgical history Liver biopsy in 2014 Active Ordered Medications Medications where reviewed in EMR Antibiotics Include: CFTX vanco flagyl Family History ETOHism and liver CA in siblings Social History + tobacco 1 1/2x 17 yrs beer 2-4 daily substance abuse 20 yrs ago Physical Exam Vital Signs Vital Signs Date Time Temp Pulse Resp B/P (MAP) Pulse Ox O2 Delivery O2 Flow Rate FiO2 03/11/17 16:00 99.6 142 17 128/88 (101) 97 03/11/17 12:00 99.3 140 16 131/93 (106) 96 03/11/17 10:11 139 03/11/17 08:00 97.1 115 17 118/75 (89) 94 03/11/17 04:00 96.7 101 18 121/73 (89) 97 03/11/17 00:00 96.6 112 20 126/73 (90) 98 03/10/17 20:45 91 03/10/17 20:00 95.6 102 17 131/78 (95) 99 Physical Exam CONSTITUTIONAL/GENERAL: This is a thin deshelved patient, in no apparent distress. Confused Shaking TUBES/LINES/DRAINS: SKIN: No jaundice, rashes, Multiple abrasion, especially on feet . Skin temperature warm to touch. Not diaphoretic. HEAD: Atraumatic. Normocephalic. EYES: Pupils equal and round and reactive. Extraocular motions intact. No scleral icterus. No injection or drainage. Fundi not examined. ENT: Hearing grossly normal. Nose without bleeding or purulent drainage. Oral mucosae without visible erythema, exudates, masses, or lesions. NECK: Trachea midline. Supple, nontender. CARDIOVASCULAR: Regular rate and rhythm without murmurs, gallops, or rubs. No JVD. Peripheral pulses symmetric. RESPIRATORY/CHEST: Symmetric, unlabored respirations. Clear to auscultation. Breath sounds equal bilaterally. No wheezes, rales, or rhonchi. GASTROINTESTINAL: Abdomen tense , non-tender, quite distended ? ascites . No hepato-splenomegaly, or palpable masses. No guarding. Bowel sounds present. GENITOURINARY: Without palpable bladder distension MUSCULOSKELETAL: Extremities without clubbing, cyanosis, or edema. R 2nd digit with open wound with bloody dry d/c. No purulence. B/l palpable pedal pulses LYMPHATICS: No palpable cervical or supraclavicular adenopathy. + non tender mildly enlaerge bl inguinal lymph nodules NEUROLOGICAL: Awake and alert. Confused, oriented x 1 only Motor and sensory grossly within normal limits. Follows commands. Incoherent speech.. Moves all extremities. + tremorous PSYCHIATRIC: confused, but not agitated. Coopertive Laboratory Laboratory Tests Test 03/10/17 19:35 03/10/17 22:18 03/11/17 04:50 Prothrombin Time 16.7 Prothromb Time International Ratio 1.5 Activated Partial Thromboplast Time 44.8 Lactic Acid Level 3.7 3.2 White Blood Count 4.1 Red Blood Count 2.90 Hemoglobin 10.1 Hematocrit 29.9 Mean Corpuscular Volume 103.0 Mean Corpuscular Hemoglobin 34.8 Mean Corpuscular Hemoglobin Concent 33.8 Red Cell Distribution Width 18.3 Platelet Count 110 Mean Platelet Volume 7.0 Blood Urea Nitrogen 6 Creatinine 0.96 Random Glucose 105 Total Protein 7.4 Calcium Level 7.4 Sodium Level 134 Potassium Level 4.0 Chloride Level 105 Carbon Dioxide Level 19.1 Anion Gap 10 Estimat Glomerular Filtration Rate 81 Protein Corrected Calcium 7.3 Date/Time Source Procedure Growth Status 03/10/17 19:35 Blood Peripheral Aerobic Blood Culture - Preliminary NO GROWTH IN 1 DAY Resulted 03/10/17 19:35 Blood Peripheral Anaerobic Blood Culture - Preliminary NO GROWTH IN 1 DAY Resulted 03/08/17 19:00 Urine Clean Catch Urine Culture - Final Escherichia Coli Complete 03/10/17 10:00 Wound Foot Gram Stain - Final Resulted 03/10/17 10:00 Wound Foot Wound Culture - Preliminary Resulted Result Diagram: 03/11/17 0450 03/11/17 0450 Imaging Last Impressions Lower Extremity Ultrasound 03/09/17 0000 Signed Impressions: Service Date/Time: February 18:36 - CONCLUSION: No DVT of the left lower extremity. Aftab Tidwell MD Foot X-Ray 03/09/17 0000 Signed Impressions: Service Date/Time: February 15:39 - CONCLUSION: 1. Second toe soft tissue swelling and focal bone erosion distal pole proximal phalanx indicating possible osteomyelitis. 2. Second toe dislocation at proximal interphalangeal joint. 3. Severe osteoarthritic findings of the great toe MTP joint along with hallux valgus. Aftab Lynn MD Abdomen/Pelvis CT 03/09/17 0000 Signed Impressions: Service Date/Time: February 15:29 - CONCLUSION: 1. Possible left-sided iliac vein/femoral vein deep vein thrombosis. Recommend lower extremity Doppler venous ultrasound to evaluate for DVT. 2. Evidence of cirrhosis again identified. 3. Cholelithiasis. 4. Moderate ascites. Aftab Lynn MD Assessment and Plan Assessment and Plan R 2nd digit with open laceration and tendon rupture of the extensor at the PIPJ. Infected wounf of R 2nd digit , growing mixed gram+/gram - pattie POdiatris ff; for OR tomorrow cont current abx - fu clx unrill final to adjust abx - further rec's to Maryanne Márquez MD Mar 11, 2017 17:52
[2017-03-11] MEDS ORDERED: THIAMINE HCL 100 MG TAB PO ONE (18:30)
[2017-03-12] VITALS (9 sets, daily range): BP systolic 91–122; BP diastolic 59–81; PULSE 77–98; RESP 16–19; TEMP 95.4–99.2; O2SAT 82–100
[2017-03-12] MEDS ORDERED: PHARMACY ORDERED LAB ONE (00:45)
[2017-03-12] MEDS: VANCOMYCIN INJ 1,250 MG in SODIUM CHLOR 0.9% 250 ML INJ 250 ML IV SCH ×2 (01:14→16:39)
[2017-03-12] MEDS: D5-NS + KCL 20 MEQ INJ 1,000 ML IV SCH ×3 (03:30→23:30)
[2017-03-12] MEDS ORDERED: LACTATED RINGER'S 1000 ML IV PRN (03:45)
[2017-03-12] MEDS ORDERED: CHLORHEXIDINE GLUCONATE 2 % 1 PACK (2 CLOTHS) TOPICAL PRN (03:45)
[2017-03-12] MEDS: metroNIDAZOLE 500 MG INJ 100 ML IV SCH ×3 (04:49→19:24)
[2017-03-12 07:03] LABS: AUTOMATED NEUTROPHIL # 2.3 TH/MM3 (1.8-7.7); BASOPHIL % 0.8 % (0.0-2.0); EOSINOPHIL # 0.1 TH/MM3 (0-0.4); EOSINOPHIL % 1.5 % (0.0-4.0); HEMATOCRIT 25.2 % (39.0-51.0); LYMPH % 21.9 % (9.0-44.0); LYMPHOCYTE # 0.8 TH/MM3 (1.0-4.8); MEAN CELL VOLUME 103.1 FL (80.0-100.0); MEAN CORPUSCULAR HEMOGLOBIN 35.3 PG (27.0-34.0); MEAN CORPUSCULAR HGB CONC 34.3 % (32.0-36.0); MONO % 8.2 % (0.0-8.0); NEUT % 67.6 % (16.0-70.0); PLATELET COUNT 70 TH/MM3 (150-450); RED BLOOD COUNT 2.44 MIL/MM3 (4.50-5.90); WHITE BLOOD COUNT 3.4 TH/MM3 (4.0-11.0)
[2017-03-12 07:08] LABS: HEMO FLAGS AUTO DIFF
[2017-03-12] MEDS: THIAMINE HCL 100 MG TAB PO SCH ×2 (07:19→08:29)
[2017-03-12 07:27] LABS: INDIRECT BILIRUBIN 0.5 MG/DL (0.0-0.8); POTASSIUM 3.7 MEQ/L (3.5-5.1); TOTAL BILIRUBIN ADULT 1.5 MG/DL (0.2-1.0)
[2017-03-12 07:31] LABS: CALCIUM-PROTEIN CORRECTED 7.6 MG/DL (8.5-10.1)
[2017-03-12 07:48] LABS: SCAN/DIFF AUTO DIFF CONFIRMED
[2017-03-12] MEDS: PANTOPRAZOLE SOD 40 MG DELAYED RELEASE TAB PO SCH (08:28)
[2017-03-12] MEDS: SODIUM CHLORIDE 0.9% FLUSH 10 ML FLUSH IV FLUSH SCH ×2 (08:29→19:25)
[2017-03-12] MEDS: DOCUSATE SODIUM 50 MG/SENNA 8.6 MG TAB PO SCH ×2 (08:29→19:25)
--- NOTE | 2017-03-12 10:41 | HHI.GIFU ---
Subjective Remarks Resting in bed. No active bleeding. NPO for surgery today with podiatry. No n /v. No abdominal pain. (Meri Butler) Remarks Patient was seen and examined, agree with above-noted, patient doesn't seem to have active bleeding now, workup for elevated liver function test in progress, hepatitis C viral load pending, patient was advised to stop alcohol (Ayleen Damon MD) Objective Vitals I&O Vital Signs Date Time Temp Pulse Resp B/P (MAP) Pulse Ox O2 Delivery O2 Flow Rate FiO2 03/12/17 09:00 90 03/12/17 08:00 96.8 93 19 117/81 (93) 95 03/12/17 04:51 97.2 95 18 117/81 (93) 94 03/12/17 00:47 99.2 98 18 115/71 (86) 93 03/11/17 20:19 113 03/11/17 20:00 98.3 119 18 117/73 (88) 96 03/11/17 16:00 99.6 142 17 128/88 (101) 97 03/11/17 12:00 99.3 140 16 131/93 (106) 96 I/O 03/11/17 03/11/17 03/11/17 03/12/17 03/12/17 03/12/17 07:00 15:00 23:00 07:00 15:00 23:00 Intake Total 1393.5 ml 110 ml 575 ml 1362.5 ml Output Total 401 ml 100 ml 250 ml Balance 992.5 ml 110 ml 475 ml 1112.5 ml Intake Oral 240 ml 275 ml IV Total 1153.5 ml 110 ml 300 ml 1362.5 ml Output Urine Total 400 ml 100 ml 250 ml Stool Total 1 ml # Voids 4 # Bowel Movements 2 2 Laboratory Laboratory Tests Test 03/11/17 21:55 03/12/17 01:07 03/12/17 06:09 Lactic Acid Level 2.1 Vancomycin Level Trough 21.7 White Blood Count 3.4 Red Blood Count 2.44 Hemoglobin 8.6 Hematocrit 25.2 Mean Corpuscular Volume 103.1 Mean Corpuscular Hemoglobin 35.3 Mean Corpuscular Hemoglobin Concent 34.3 Red Cell Distribution Width 18.0 Platelet Count 70 Mean Platelet Volume 7.1 Neutrophils (%) (Auto) 67.6 Lymphocytes (%) (Auto) 21.9 Monocytes (%) (Auto) 8.2 Eosinophils (%) (Auto) 1.5 Basophils (%) (Auto) 0.8 Neutrophils # (Auto) 2.3 Lymphocytes # (Auto) 0.8 Monocytes # (Auto) 0.3 Eosinophils # (Auto) 0.1 Basophils # (Auto) 0.0 CBC Comment AUTO DIFF Differential Comment AUTO DIFF CONFIRMED Blood Urea Nitrogen 5 Creatinine 0.81 Random Glucose 119 Total Protein 6.6 Albumin 1.4 Calcium Level 7.3 Alkaline Phosphatase 58 Aspartate Amino Transf (AST/SGOT) 36 Alanine Aminotransferase (ALT/SGPT) 12 Total Bilirubin 1.5 Direct Bilirubin 1.0 Sodium Level 137 Potassium Level 3.7 Chloride Level 111 Carbon Dioxide Level 18.0 Anion Gap 8 Estimat Glomerular Filtration Rate 99 Protein Corrected Calcium 7.6 Indirect Bilirubin 0.5 Date/Time Source Procedure Growth Status 03/10/17 19:35 Blood Peripheral Aerobic Blood Culture - Preliminary NO GROWTH IN 1 DAY Resulted 03/10/17 19:35 Blood Peripheral Anaerobic Blood Culture - Preliminary NO GROWTH IN 1 DAY Resulted 03/08/17 19:00 Urine Clean Catch Urine Culture - Final Escherichia Coli Complete 03/10/17 10:00 Wound Foot Gram Stain - Final Resulted 03/10/17 10:00 Wound Foot Wound Culture - Preliminary Resulted Imaging Last Impressions Foot MRI 03/11/17 0000 Signed Impressions: Service Date/Time: Saturday, March 11, 2017 11:23 - CONCLUSION: #1. No evidence of osteomyelitis within the first digit. Severe degenerative changes are seen at the MTP joint. #2. Fracture dislocation of the second digit at the PIP joint. The marrow edema and abnormal enhancement appears to be confined to the middle phalanx. Milak Espino MD Lower Extremity Ultrasound 03/09/17 0000 Signed Impressions: Service Date/Time: February 18:36 - CONCLUSION: No DVT of the left lower extremity. Aftab Tidwell MD Foot X-Ray 03/09/17 0000 Signed Impressions: Service Date/Time: February 15:39 - CONCLUSION: 1. Second toe soft tissue swelling and focal bone erosion distal pole proximal phalanx indicating possible osteomyelitis. 2. Second toe dislocation at proximal interphalangeal joint. 3. Severe osteoarthritic findings of the great toe MTP joint along with hallux valgus. Aftab Lynn MD Abdomen/Pelvis CT 03/09/17 0000 Signed Impressions: Service Date/Time: February 15:29 - CONCLUSION: 1. Possible left-sided iliac vein/femoral vein deep vein thrombosis. Recommend lower extremity Doppler venous ultrasound to evaluate for DVT. 2. Evidence of cirrhosis again identified. 3. Cholelithiasis. 4. Moderate ascites. Aftab Lynn MD Physical Exam HEENT: Normocephalic; atraumatic; no jaundice. CHEST: CTA CARDIAC: RRR ABDOMEN: Soft, nondistended, nontender; no hepatosplenomegaly; bowel sounds are present in all four quadrants. EXTREMITIES: No clubbing, cyanosis, or edema. SKIN: Normal; no rash; no jaundice. Multiple area looks like bedsores [employer]: No focal deficits; alert and oriented times three. (Meri Butler) Assessment and Plan Plan ASSESSMENT: - Severe anemia. 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 Gastritis and gastropathy alcohol related most likely Normal colonoscopy. S/P 2 units PRBC. HH 8.6/25.2. PPI. - Lower abdominal cramping, hx of diarrhea. Pt with hx of microscopic colitis. CT scan abdomen and pelvis (03/09/17)---> possible left sided iliac vein/ femoral vein deep vein thrombosis, recommend lower extremity doppler venous us to evaluate for DVT, evidence of cirrhosis again identified, cholelithiasis, moderate ascites. IMPROVED. - Abnormal weight loss. Reports significant weight loss over past 2 months, unable to quantify. CT, EGD, Colonoscopy as above. - Elevated LFTs, Liver cirrhosis. Dx by liver biopsy in 2015 at [facility]. Drinks 2-3 beers per week. Previous liver workup in 2015--> Hep C Ab (+), BRITNI negative, AMA < 20.0, ASMA negative, Iron saturation 35.2%, Ferritin 218, Alpha 1 Antitrypsin 108, Ceruloplasmin 15, AFP 2.2. CT as above. AFP 1.6. Ceruloplasmin pending. LFTs improved, T. Bili 1.5, AST 36, ALT 12, Alk phosph 58. - Hepatitis C Antibodies. Check genotype and viral load. - Pancytopenia, secondary to cirrhosis, ETOH use. - Coagulopathy. Stable. - Hypokalemia, Hyponatremia, Hypocalcemia. Per attending. - 2nd toe ulcer, podiatry following, going for evaluation in OR with bone biopsy. - Abnormal u/a with cx Ecoli. Levaquin - Hx microscopic colitis in 2014, by path. PLAN: - NPO for Surgery with Podiatry (recommend low salt/low volume diet when resumed ) - Cont. PPI - Monitor HH - Transfuse as necessary - Await ceruloplasmin level (low in 2014) - HCV Genotype and viral load - No NSAIDs - ETOH Cessation - Rpt. Colonoscopy in 10 years - Rpt. Upper endoscopy in 3 years - Supportive care - Further recommendations to follow based on results of above - PT seen and examined by Dr. Damon and myself and this note is written on his behalf (Meri Butler) Meri Butler Mar 12, 2017 10:41 Ayleen Damon MD Mar 12, 2017 17:36
[2017-03-12] MEDS ORDERED: ONDANSETRON HCL 4 MG/2 ML VIAL IV PUSH ONE (12:00)
[2017-03-12] MEDS ORDERED: KETOROLAC TROMETHAMINE 30 MG/ML (IVP) VIAL IV PUSH ONE (12:00)
[2017-03-12] MEDS ORDERED: PHENYLEPH/NS 1000 MCG/10 ML SYR IV ONE (12:00)
[2017-03-12] MEDS ORDERED: LIDOCAINE HCL 1% PF 5 ML AMPULE OTHER ONE (12:00)
[2017-03-12] MEDS ORDERED: PROPOFOL 200 MG/20 ML AMP IV ONE (12:00)
[2017-03-12] MEDS ORDERED: ePHEDrine/NS 25 MG/5 ML SYR IV ONE (12:00)
[2017-03-12] MEDS ORDERED: MIDAZOLAM HCL 2 MG/2 ML VIAL IV ONE (12:00)
[2017-03-12] MEDS ORDERED: LIDOCAINE HCL 2% 50 ML VIAL ONE (12:45)
[2017-03-12] MEDS ORDERED: BUPIVACAINE HCL PF 0.5% 30 ML VIAL ONE (12:46)
[2017-03-12] MEDS ORDERED: GENTAMICIN SULFATE 80 MG/2 ML VIAL ONE (12:47)
[2017-03-12] MEDS ORDERED: DO NOT ADM ANY ANTICOAGULANT DRUGS PRN (13:56)
[2017-03-12] MEDS: LACTATED RINGER'S 1000 ML INJ 1,000 ML IV SCH ×7 (14:30→18:06)
--- NOTE | 2017-03-12 14:31 | RADRPT ---
EXAM DATE/TIME: 03/12/2017 13:50 [place] COMPARISON: No previous studies available for comparison. INDICATIONS : Right foot post op. MEDICAL HISTORY : Hepatitis C. Cirrhosis. SURGICAL HISTORY : None. ENCOUNTER: Initial ACUITY: 1 day PAIN SCORE: Non-responsive. LOCATION: Right foot. FINDINGS: Three view examination of the right foot again demonstrates deformity of the 2nd PIP joint possibly f used. There is marked hallux valgus deformity secondary to osteoarthritic change. No acute fracture is seen. No foreign object is identified. CONCLUSION: Possible fusion of the 2nd PIP joint. No acute fracture is seen. Edgar Cunha MD on March 12, 2017 at 14:27 Board Certified Radiologist. This report was verified electronically.
[2017-03-12] MEDS: cefTRIAXone INJ 1,000 MG in SODIUM CHLORIDE 0.9% INJ 100 ML IV SCH (15:35)
[2017-03-12] MEDS ORDERED: LACTATED RINGER'S 1000 ML INJ 1,000 ML IV SCH (16:00)
--- NOTE | 2017-03-12 21:07 | MP ---
cc: ANNIE ARAUJO DPM DATE OF SURGERY: 03/12/2017. PREOPERATIVE DIAGNOSIS: Right second digit open toe fracture laceration. POSTOPERATIVE DIAGNOSIS: Right second digit open toe fracture laceration. OPERATIVE PROCEDURE PERFORMED: 1. Right middle phalanx second digit bone biopsy. 2. Repair of extensor digitorum longus tendon rupture. 3. Primary closure of right second digit laceration. SURGEON: Annie Araujo DPM. ANESTHESIOLOGIST: Dr. Kaiser ANESTHESIA: General HEMOSTASIS: Right ankle tourniquet at 250 mmHg for 25 minutes. ESTIMATED BLOOD LOSS: Less than 1 cc. MATERIALS: 2-0 Vicryl, 3-0 nylon. INJECTABLES: Postoperatively 10 cc of 0.5% Marcaine. BRIEF HISTORY: The patient is a 56-year-old male who came in to the emergency department through [facility]. Podiatry was consulted for right second digit ulcer. On examination and additional workup, he revealed a right second digit open fracture. MRI did not indicate an extensor digitorum longus rupture but on physical exam at bedside the extensor digitorum longus was ruptured throughout dorsally. The patient freely consented to the surgical intervention. No guarantees were given or implied. All questions were answered. Risks, benefits, pros, cons were discussed with the patient and freely consented to surgical intervention. DESCRIPTION OF THE PROCEDURE IN DETAIL: The patient was brought into the operating room and placed on the operating room table in the supine position. After general anesthesia was administered, a second ray block was carried out using 10 cc of a 1:1 mixture of 2% lidocaine plain along with 0.5% Marcaine plain. Attention was then directed to t he right second digit where a bone biopsy of the right second digit base of the middle phalanx medial aspect while using a rongeur was taken. Part of the bone was sent to pathology for gross in formalin and the other was sent for culture and sensitivity for aerobic and anaerobic Gram stain. Additionally, granulation tissue on the dorsal aspect of the proximal interphalangeal joint was resected and passed off the field and sent to pathology. Additional culture was taken of the right second digit deep into the open proximal interphalangeal joint and sent for aerobic and anaerobic Gram stain culture and sensitivity. The DIP granulation tissue was debrided. The extensor tendons were identified. The incision was then copiously irrigated with normal sterile saline. The necrotic nonviable tissue was sharply debrided with a #15 blade and passed off the field and the extensor tendon was primarily repaired using 2-0 Vicryl. The deep subcu was then reattached using 2-0 Vicryl as well and then the primary laceration on the skin was repaired using 3-0 nylon in a simple suture pattern. The right second ray block was carried out using 10 mL of 0.5% Marcaine plain. Dry sterile dressing was applied using Adaptic, 4x4s, Sia and a light Coban. The tourniquet was deflated after 25 minutes and there was a prompt hyperemic response to digits one through five on the right. The patient tolerated procedure and at completion he will be transferred to the post-anesthesia care unit for a brief period of postop monitoring after which he will be discharged to the floor. He is on routine IV antibiotics. The patient will be partial weightbearing with crutches and a CAM boot on the right side for at least three weeks. Annie Araujo DPM SR/ASHLI /2:10 PM /8:50 PM
--- NOTE | 2017-03-12 21:48 | HHI.PR ---
Subjective Remarks Patient seen this morning prior to surgery. Says he is feeling all right. Denies any chest pain or shortness of breath. Objective Vital Signs Date Time Temp Pulse Resp B/P (MAP) Pulse Ox O2 Delivery O2 Flow Rate FiO2 03/12/17 20:33 95.7 82 16 91/63 (72) 82 03/12/17 16:00 95.4 85 16 92/59 (70) 100 03/12/17 15:00 97.5 82 20 96/68 (77) 95 Nasal Cannula 2 03/12/17 14:45 90 20 90/57 (68) 98 03/12/17 14:30 70 14 76/52 (60) 99 03/12/17 14:15 80 12 78/53 (61) 98 03/12/17 14:00 83 10 86/58 (67) 97 Nasal Cannula 2 03/12/17 13:58 97.5 85 18 84/54 (64) 93 Nasal Cannula 2 03/12/17 12:00 96.6 98 17 122/81 (95) 97 03/12/17 11:56 98.0 84 15 108/79 (89) 95 03/12/17 11:56 95 Nasal Cannula 2 03/12/17 11:56 93 03/12/17 09:00 90 03/12/17 08:00 96.8 93 19 117/81 (93) 95 03/12/17 04:51 97.2 95 18 117/81 (93) 94 03/12/17 00:47 99.2 98 18 115/71 (86) 93 I/O 03/11/17 03/11/17 03/11/17 03/12/17 03/12/17 03/12/17 07:00 15:00 23:00 07:00 15:00 23:00 Intake Total 1393.5 ml 110 ml 575 ml 1362.5 ml 1700 ml 772.5 ml Output Total 401 ml 100 ml 250 ml 2 ml 225 ml Balance 992.5 ml 110 ml 475 ml 1112.5 ml 1698 ml 547.5 ml Intake Oral 240 ml 275 ml 410 ml IV Total 1153.5 ml 110 ml 300 ml 1362.5 ml 1000 ml 362.5 ml Other 700 ml Output Urine Total 400 ml 100 ml 250 ml 225 ml Stool Total 1 ml Estimated Blood Loss 2 ml # Voids 4 1 # Bowel Movements 2 2 0 Result Diagram: 03/12/17 0609 03/12/17608 Objective Remarks GENERAL: patient awake, alert. Appears comfortable. no change on exam today SKIN: Warm and dry. HEAD: Normocephalic. EYES: No scleral icterus. No injection or drainage. NECK: Supple, trachea midline. No JVD. CARDIOVASCULAR: Regular rate and rhythm without murmurs, gallops, or rubs. RESPIRATORY: Breath sounds equal bilaterally. No accessory muscle use. GASTROINTESTINAL: Abdomen soft, non-tender, nondistended. MUSCULOSKELETAL: No cyanosis, or edema. BACK: Nontender without obvious deformity. No CVA tenderness. A/P Assessment and Plan ==== 03/12/17 //Thrombocytopenia. Platelets 70. Likely secondary to liver disease. No sign of bleeding. Continue to monitor. //Acidosis. Lactate 2.1. Much improved. //Continue antibiotics for UTI //Alcohol withdrawal. Improved on Librium. //Postop day 0 right toe debridement with bone biopsy. -Follow up surgical cultures, biopsy. Continue broad-spectrum antibiotics. 56 y/o male with a history of cirrhosis, Hep C and seizures from alcohol withdrawal presented to the ED with weakness, dizziness and sob. //SIRS, Sepsis secondary to UTI, ?osteomylitis, skin sof wound - Temp 95.9, HR 109, WBC 3.1 - UA culture >100K, E.Coli, Sensitive to Rocephin. Continue Rocephin. Start IV vancomycin - Blood cultures ordered, wound culture ordered. Check ESR, CRP - results may be skewed as patient has been started with IV antibiotics since admission. - X-ray of the right foot showed 1. Second toe soft tissue swelling and focal bone erosion distal pole proximal phalanx indicating possible osteomyelitis. 2. Second toe dislocation at the proximal interphalangeal joint. 3. Severe osteoarthritic findings of the great toe MTP joint along with hallux valgus. - Lower extremity Doppler negative - Podiatry already consulted. Possible wound workup including MRI to determine osteomyelitis - Infectious disease consult, input appreciated //GI Bleed, hgb 6.9, occult stool positive - Consult GI . Appreciate recommendations. Plan for CT of the abdomen and pelvis today, EGD colonoscopy planned. - Protonix drip, and Sandostatin drip - 2 units PRBC transfused. Post transfusion H&H 9.4/27.9. - Monitor H&H. 9.0/26.1 today //Carty's esophagus. We'll need continue on PPI. Follow up GI as outpatient //Liver failure, cirrhosis //Abdominal pain, patient with diarrhea for 2 months, r/o colitis -CT abdomen/pelvis 1. Possible left-sided iliac vein/femoral vein deep vein thrombosis. Recommend lower extremity Doppler venous ultrasound to evaluate for DVT. 2. Evidence of cirrhosis again identified. 3. Cholelithiasis. 4. Moderate ascites. - Lower extremity Doppler negative - IV antibiotics Flagyl - Trend LFTs, Tbili 2.8 -->1.8-->1.5 //Right 2nd toe ulcer, acute - Consult podiatry for recommendations. Possible workup for osteomyelitis - Wound culture ordered - ID consult //Hyponatremia, hypokalemia, hypomagnesemia, hypocalcemia - Monitor electrolytes - Replacement ordered //Tobacco abuse, chronic: Encouraged to quit. Counseled. Declines use of nicotine patch. DVT prophylaxis: SCDs Discharge Planning s/p surgical debridement of suspected osteoarthritis. Infectious disease and podiatry following. -difficult discharge.patient is self-pay. Appreciate case management assistance. London Gomez MD Mar 12, 2017 21:48
[2017-03-13] VITALS (12 sets, daily range): BP systolic 83–128; BP diastolic 51–80; PULSE 70–100; RESP 16–21; TEMP 94.9–97.4; O2SAT 93–100
[2017-03-13] MEDS: metroNIDAZOLE 500 MG INJ 100 ML IV SCH ×3 (04:58→20:44)
[2017-03-13 08:28] LABS: AUTOMATED NEUTROPHIL # 2.9 TH/MM3 (1.8-7.7); BASOPHIL % 0.5 % (0.0-2.0); EOSINOPHIL # 0.2 TH/MM3 (0-0.4); EOSINOPHIL % 4.8 % (0.0-4.0); HEMATOCRIT 27.4 % (39.0-51.0); LYMPH % 19.1 % (9.0-44.0); LYMPHOCYTE # 0.8 TH/MM3 (1.0-4.8); MEAN CORPUSCULAR HEMOGLOBIN 35.1 PG (27.0-34.0); MEAN CORPUSCULAR HGB CONC 33.7 % (32.0-36.0); MONO % 8.1 % (0.0-8.0); NEUT % 67.5 % (16.0-70.0); PLATELET COUNT 72 TH/MM3 (150-450); RED BLOOD COUNT 2.63 MIL/MM3 (4.50-5.90); RED CELL DISTRIBUTION WIDTH 18.4 % (11.6-17.2); WHITE BLOOD COUNT 4.2 TH/MM3 (4.0-11.0)
[2017-03-13 08:33] LABS: HEMO FLAGS AUTO DIFF
[2017-03-13] MEDS: SODIUM CHLORIDE 0.9% FLUSH 10 ML FLUSH IV FLUSH SCH ×2 (09:00→20:44)
[2017-03-13] MEDS: DOCUSATE SODIUM 50 MG/SENNA 8.6 MG TAB PO SCH ×3 (09:00→20:45)
[2017-03-13 09:52] LABS: BANDS 22 % (0-6); BURR CELLS 1+ (NORMAL); EOSINOPHILS 2 % (0-4); NEUTROPHIL # MANUAL DIFF 3.8 TH/MM3 (1.8-7.7); PLATELET ESTIMATE SMEAR LOW (NORMAL); PLATELET MORPHOLOGY NORMAL (NORMAL); POLYS (SEG NEUTROPHILS) 68 % (16-70); SCAN/DIFF FINAL DIFF MANUAL; WBC DIFF SAMPLE 100
[2017-03-13 09:53] LABS: ACANTHOCYTES OCC (NORMAL)
[2017-03-13] MEDS: PANTOPRAZOLE SOD 40 MG DELAYED RELEASE TAB PO SCH (11:11)
[2017-03-13] MEDS: THIAMINE HCL 100 MG TAB PO SCH (11:12)
[2017-03-13] MEDS: D5-NS + KCL 20 MEQ INJ 1,000 ML IV SCH (11:13)
[2017-03-13] MEDS: VANCOMYCIN INJ 1,250 MG in SODIUM CHLOR 0.9% 250 ML INJ 250 ML IV SCH (11:13)
--- NOTE | 2017-03-13 11:48 | HHI.GIFU ---
Subjective Remarks Worsening abdominal distention/discomfort today. Shortness of breath, expiratory wheezing. Tolerating full liquids. No n/v. Had surgery yesterday. (Meri Butler) Objective Vitals I&O Vital Signs Date Time Temp Pulse Resp B/P (MAP) Pulse Ox O2 Delivery O2 Flow Rate FiO2 03/13/17 08:42 90 03/13/17 08:00 97.3 73 16 97/61 (73) 97 03/13/17 04:41 96.4 74 17 98/65 (76) 93 03/13/17 00:08 96.2 70 18 102/59 (73) 95 03/12/17 20:33 95.7 82 16 91/63 (72) 82 03/12/17 19:59 77 03/12/17 16:00 95.4 85 16 92/59 (70) 100 03/12/17 15:00 97.5 82 20 96/68 (77) 95 Nasal Cannula 2 03/12/17 14:45 90 20 90/57 (68) 98 03/12/17 14:30 70 14 76/52 (60) 99 03/12/17 14:15 80 12 78/53 (61) 98 03/12/17 14:00 83 10 86/58 (67) 97 Nasal Cannula 2 03/12/17 13:58 97.5 85 18 84/54 (64) 93 Nasal Cannula 2 03/12/17 12:00 96.6 98 17 122/81 (95) 97 03/12/17 11:56 98.0 84 15 108/79 (89) 95 03/12/17 11:56 95 Nasal Cannula 2 03/12/17 11:56 93 I/O 03/12/17 03/12/17 03/12/17 03/13/17 03/13/17 03/13/17 06:59 14:59 22:59 06:59 14:59 22:59 Intake Total 1362.5 ml 1200 ml 1372.5 ml 1580 ml Output Total 250 ml 2 ml 225 ml Balance 1112.5 ml 1198 ml 1147.5 ml 1580 ml Intake Oral 410 ml 480 ml IV Total 1362.5 ml 500 ml 962.5 ml 1100 ml Other 700 ml Output Urine Total 250 ml 225 ml Estimated Blood Loss 2 ml # Voids 1 3 # Bowel Movements 2 0 Laboratory Laboratory Tests Test 03/13/17 08:06 White Blood Count 4.2 Red Blood Count 2.63 Hemoglobin 9.2 Hematocrit 27.4 Mean Corpuscular Volume 104.0 Mean Corpuscular Hemoglobin 35.1 Mean Corpuscular Hemoglobin Concent 33.7 Red Cell Distribution Width 18.4 Platelet Count 72 Mean Platelet Volume 6.9 Neutrophils (%) (Auto) 67.5 Lymphocytes (%) (Auto) 19.1 Monocytes (%) (Auto) 8.1 Eosinophils (%) (Auto) 4.8 Basophils (%) (Auto) 0.5 Neutrophils # (Auto) 2.9 Lymphocytes # (Auto) 0.8 Monocytes # (Auto) 0.3 Eosinophils # (Auto) 0.2 Basophils # (Auto) 0.0 CBC Comment AUTO DIFF Differential Total Cells Counted 100 Neutrophils % (Manual) 68 Band Neutrophils % 22 Lymphocytes % 7 Monocytes % 1 Eosinophils % 2 Neutrophils # (Manual) 3.8 Differential Comment FINAL DIFF MANUAL Platelet Estimate LOW Platelet Morphology Comment NORMAL Cofield Cells 1+ Acanthocytes OCC Date/Time Source Procedure Growth Status 03/10/17 19:35 Blood Peripheral Aerobic Blood Culture - Preliminary NO GROWTH IN 3 DAYS Resulted 03/10/17 19:35 Blood Peripheral Anaerobic Blood Culture - Preliminary NO GROWTH IN 3 DAYS Resulted 03/08/17 19:00 Urine Clean Catch Urine Culture - Final Escherichia Coli Complete 03/12/17 13:27 Wound Toe Gram Stain - Final Resulted 03/12/17 13:27 Wound Toe Wound Culture Pending Resulted Imaging Last Impressions Foot X-Ray 03/12/17 0000 Signed Impressions: Service Date/Time: Sunday, March 12, 2017 13:50 - CONCLUSION: Possible fusion of the 2nd PIP joint. No acute fracture is seen. Edgar Cunha MD Foot MRI 03/11/17 0000 Signed Impressions: Service Date/Time: Saturday, March 11, 2017 11:23 - CONCLUSION: #1. No evidence of osteomyelitis within the first digit. Severe degenerative changes are seen at the MTP joint. #2. Fracture dislocation of the second digit at the PIP joint. The marrow edema and abnormal enhancement appears to be confined to the middle phalanx. Milka Espino MD Lower Extremity Ultrasound 03/09/17 0000 Signed Impressions: Service Date/Time: February 18:36 - CONCLUSION: No DVT of the left lower extremity. Aftab Tidwell MD Abdomen/Pelvis CT 03/09/17 0000 Signed Impressions: Service Date/Time: February 15:29 - CONCLUSION: 1. Possible left-sided iliac vein/femoral vein deep vein thrombosis. Recommend lower extremity Doppler venous ultrasound to evaluate for DVT. 2. Evidence of cirrhosis again identified. 3. Cholelithiasis. 4. Moderate ascites. Aftab Lynn MD Physical Exam HEENT: Normocephalic; atraumatic; no jaundice. CHEST: Sob, expiratory wheezing CARDIAC: RRR ABDOMEN: Firm, distended, large amount of ascites, bowel sounds are present in all four quadrants. EXTREMITIES: Right splint/essence drsg d/i OCEANOGRAPHER ASSISTANT: No focal deficits; alert and oriented times three. (Meri Butler) Assessment and Plan Plan ASSESSMENT: - Severe anemia. 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 Gastritis and gastropathy alcohol related most likely. Normal colonoscopy. Pathology pending. 9.2/27.4. S /P 2 units PRBC. PPI. - Ascites, worsening distention and pain. CT from 03/09 showed moderate ascites. Will order diagnostic/therapeutic paracentesis and start lasix 20mg po daily, spironolactone 25mg po daily. - Lower abdominal cramping, hx of diarrhea. Pt with hx of microscopic colitis. CT scan abdomen and pelvis (03/09/17)---> possible left sided iliac vein/ femoral vein deep vein thrombosis, recommend lower extremity doppler venous us to evaluate for DVT, evidence of cirrhosis again identified, cholelithiasis, moderate ascites. IMPROVED. Now complaining of more pressure like pain with the abdominal distention. He did have a loose stool overnight. - Abnormal weight loss. Reports significant weight loss over past 2 months, unable to quantify. CT, EGD, Colonoscopy as above. - Elevated LFTs, Liver cirrhosis. Dx by liver biopsy in 2014 at [facility]. Drinks 2-3 beers per week. Previous liver workup in 2015--> Hep C Ab (+), BRITNI negative, AMA < 20.0, ASMA negative, Iron saturation 35.2%, Ferritin 218, Alpha 1 Antitrypsin 108, Ceruloplasmin 15, AFP 2.2. CT as above. AFP 1.6. Ceruloplasmin pending. LFTs improved, - Hepatitis C Antibodies. HCV genotype and viral load pending. - Pancytopenia, secondary to cirrhosis, ETOH use. - Coagulopathy. Stable. - Wheezing/sob. Duonebs ordered, likely some degree of his sob is related to ascites - Hypokalemia, Hyponatremia, Hypocalcemia. Per attending. - 2nd toe ulcer, podiatry following, S/P right middle phalanx second digit bone biopsy, repair of extensor digitorum longus tendon rupture, primary closure of right second digit laceration. - Abnormal u/a with cx Ecoli. Levaquin - Hx microscopic colitis in 2014, by path. PLAN: - Low salt diet - Await pathology from EGD - US Guided Paracentesis, diagnostic and therapeutic with fluid analysis - Add Lasix 20mg po daily - Add Spironolactone 25mg po daily - Cont. PPI - Monitor HH - Transfuse as necessary - Await ceruloplasmin level (low in 2014) - HCV Genotype and viral load - No NSAIDs - ETOH Cessation - Rpt. Colonoscopy in 10 years - Rpt. Upper endoscopy in 3 years - Supportive care - Further recommendations to follow based on results of above - PT seen and examined by Dr. Tang and myself and this note is written on her behalf (Meri Butler) Physician Comments seen, examined agree with above s/p paracentesis today-doing better asking for diet to be advanced-we will order (Terri Tang MD) Meri Butler Mar 13, 2017 11:48 Terri Tang MD Mar 13, 2017 17:14
[2017-03-13] MEDS ORDERED: FUROSEMIDE 40 MG/4 ML VIAL IV PUSH ONE (12:00)
[2017-03-13] MEDS ORDERED: ALBUMIN HUMAN 25% 25 GM/100 ML BAGP IV ONE ×2 (12:00→15:30)
[2017-03-13] MEDS: RESP: ALBUTEROL 2.5 MG/IPRATROPIUM 0.5 MG NEB (PRN) NEB (12:01)
[2017-03-13] MEDS: FUROSEMIDE 40 MG TAB PO SCH (12:09)
[2017-03-13] MEDS: SPIRONOLACTONE 25 MG TAB PO SCH (12:09)
--- NOTE | 2017-03-13 12:26 | HHI.PR ---
Subjective Remarks Patient reported shortness of breath today. Denies any chest pain. Abdominal distention worse. Objective Vital Signs Date Time Temp Pulse Resp B/P (MAP) Pulse Ox O2 Delivery O2 Flow Rate FiO2 03/13/17 08:42 90 03/13/17 08:00 97.3 73 16 97/61 (73) 97 03/13/17 04:41 96.4 74 17 98/65 (76) 93 03/13/17 00:08 96.2 70 18 102/59 (73) 95 03/12/17 20:33 95.7 82 16 91/63 (72) 82 03/12/17 19:59 77 03/12/17 16:00 95.4 85 16 92/59 (70) 100 03/12/17 15:00 97.5 82 20 96/68 (77) 95 Nasal Cannula 2 03/12/17 14:45 90 20 90/57 (68) 98 03/12/17 14:30 70 14 76/52 (60) 99 03/12/17 14:15 80 12 78/53 (61) 98 03/12/17 14:00 83 10 86/58 (67) 97 Nasal Cannula 2 03/12/17 13:58 97.5 85 18 84/54 (64) 93 Nasal Cannula 2 I/O 03/12/17 03/12/17 03/12/17 03/13/17 03/13/17 03/13/17 07:00 15:00 23:00 07:00 15:00 23:00 Intake Total 1362.5 ml 1700 ml 872.5 ml 1580 ml Output Total 250 ml 2 ml 225 ml Balance 1112.5 ml 1698 ml 647.5 ml 1580 ml Intake Oral 410 ml 480 ml IV Total 1362.5 ml 1000 ml 462.5 ml 1100 ml Other 700 ml Output Urine Total 250 ml 225 ml Estimated Blood Loss 2 ml # Voids 1 3 # Bowel Movements 2 0 Result Diagram: 03/13/17 0806 03/12/17 0609 Objective Remarks GENERAL: patient awake, alert. Appears to have difficulty breathing. SKIN: Warm and dry. HEAD: Normocephalic. EYES: No scleral icterus. No injection or drainage. NECK: Supple, trachea midline. No JVD. CARDIOVASCULAR: Regular rate and rhythm without murmurs, gallops, or rubs. RESPIRATORY: Breath sounds equal bilaterally. No accessory muscle use. GASTROINTESTINAL: Abdomen distended. Tense ascites. MUSCULOSKELETAL: No cyanosis, or edema. BACK: Nontender without obvious deformity. No CVA tenderness. A/P Assessment and Plan ==== 03/13/17 Acute respiratory failure. Discussed with gastroenterology. Worsening ascites affecting breathing. Have ordered paracentesis. Although patient is alert to month, year, it is been less than 24 hours since anesthesia. Patient gave consent to discuss with sister. Discontinue IV fluid. Labs ordered. Discussed with sister over the phone, discussed risks of bleeding, infection with paracentesis. She verbally provided consent. //Thrombocytopenia. Platelets continue stable at 72.. Likely secondary to liver disease. No sign of bleeding. Continue to monitor. //Continue antibiotics for UTI, osteomyelitis right foot. Follow-up surgical cultures. //Alcohol withdrawal. Improved on Librium. //Postop day 1 right toe debridement with bone biopsy. -Follow up surgical cultures, biopsy. Continue broad-spectrum antibiotics. 56 y/o male with a history of cirrhosis, Hep C and seizures from alcohol withdrawal presented to the ED with weakness, dizziness and sob. //SIRS, Sepsis secondary to UTI, ?osteomylitis, skin sof wound - Temp 95.9, HR 109, WBC 3.1 - UA culture >100K, E.Coli, Sensitive to Rocephin. Continue Rocephin. Start IV vancomycin - Blood cultures ordered, wound culture ordered. Check ESR, CRP - results may be skewed as patient has been started with IV antibiotics since admission. - X-ray of the right foot showed 1. Second toe soft tissue swelling and focal bone erosion distal pole proximal phalanx indicating possible osteomyelitis. 2. Second toe dislocation at the proximal interphalangeal joint. 3. Severe osteoarthritic findings of the great toe MTP joint along with hallux valgus. - Lower extremity Doppler negative - Podiatry already consulted. Possible wound workup including MRI to determine osteomyelitis - Infectious disease consult, input appreciated //GI Bleed, hgb 6.9, occult stool positive - Consult GI . Appreciate recommendations. Plan for CT of the abdomen and pelvis today, EGD colonoscopy planned. - Protonix drip, and Sandostatin drip - 2 units PRBC transfused. Post transfusion H&H 9.4/27.9. - Monitor H&H. 9.0/26.1 today //Carty's esophagus. We'll need continue on PPI. Follow up GI as outpatient //Liver failure, cirrhosis //Abdominal pain, patient with diarrhea for 2 months, r/o colitis -CT abdomen/pelvis 1. Possible left-sided iliac vein/femoral vein deep vein thrombosis. Recommend lower extremity Doppler venous ultrasound to evaluate for DVT. 2. Evidence of cirrhosis again identified. 3. Cholelithiasis. 4. Moderate ascites. - Lower extremity Doppler negative - IV antibiotics Flagyl - Trend LFTs, Tbili 2.8 -->1.8-->1.5 //Right 2nd toe ulcer, acute - Consult podiatry for recommendations. Possible workup for osteomyelitis - Wound culture ordered - ID consult //Lactic acidosis. Improved 2.1 on 03/12. Likely secondary to liver disease. //Hyponatremia, hypokalemia, hypomagnesemia, hypocalcemia - Monitor electrolytes - Replacement ordered //Tobacco abuse, chronic: Encouraged to quit. Counseled. Declines use of nicotine patch. DVT prophylaxis: SCDs Discharge Planning s/p surgical debridement of suspected osteoarthritis. Infectious disease and podiatry following. -difficult discharge.patient is self-pay. Appreciate case management assistance. London Gomez MD Mar 13, 2017 12:26
--- NOTE | 2017-03-13 13:01 | RADRPT ---
EXAM DATE/TIME: 03/13/2017 12:36 [facility] COMPARISON: No previous studies available for comparison. INDICATIONS : Short of breath. MEDICAL HISTORY : Hepatitis C. Cirrhosis. SURGICAL HISTORY : None. ENCOUNTER: Subsequent ACUITY: 4 - 6 days PAIN SCORE: 0/10 LOCATION: Bilateral chest FINDINGS: A single view of the chest demonstrates bilateral mostly basilar airspace disease and small effusions . Heart size within normal limits. No pneumothorax. CONCLUSION: 1. Basilar airspace disease and pleural effusions bilaterally. No prior study for comparison. Tavares Chávez MD on March 13, 2017 at 12:58 Board Certified Radiologist. This report was verified electronically.
[2017-03-13] MEDS ORDERED: LIDOCAINE HCL 1% 20 ML VIAL ONE (13:33)
--- NOTE | 2017-03-13 14:20 | RADRPT ---
EXAM DATE/TIME: 03/13/2017 13:10 [facility] COMPARISON: No previous studies available for comparison. INDICATIONS : Ascites. MEDICAL HISTORY : Arthritis. Cirrhosis. Seizures. Chest pain. Abdominal pain. Mumps. Gout. Depression. Anxiety. Substa nce use. SURGICAL HISTORY : Liver biopsy. Paracentesis. ENCOUNTER: Subsequent ACUITY: > 1 yr PAIN SCORE: 0/10 LOCATION: Right lower quadrant FLUID: Total volume of 4900 cc of clear, yellow fluid was removed. Fluid was sent to lab for ordered studies. Post procedure scanning reveals no hematoma or other complication. TECHNIQUE: 1. Ultrasound guidance for abdominal paracentesis. 2. Paracentesis. The risks, benefits, and alternatives to ultrasound guided paracentesis were explained to the patient in detail including the risk of bleeding and infection. Written and verbal informed consent was obt ained. With the patient on the ultrasound table, ultrasound imaging was used to select the most appropriate approach for paracentesis. Overlying skin was prepped and draped in the usual sterile fashion and wi th a local anesthetic, a dermatotomy was made with an 11 blade scalpel. A 6 [place] [id number] ca theter was introduced into the peritoneal cavity and fluid was collected. The patient tolerated the procedure well and left the ultrasound suite in stable condition. CONCLUSION: Uncomplicated ultrasound guided paracentesis. Gigi Polanco MD on March 13, 2017 at 14:19 Board Certified Radiologist. This report was verified electronically.
[2017-03-13] MEDS ORDERED: POTASSIUM CHLORIDE 10 MEQ CONTROLLED RELEASE TAB PO ONE (15:15)
[2017-03-13 17:23] LABS: PERITONEAL BASO 1 %; PERITONEAL LYMPHS 50 %; PERITONEAL MONOS 47 %; PERITONEAL POLYS(SEGS) 2 %; PERITONEAL WBC 170 /MM3 (0-10)
[2017-03-13] MEDS: cefTRIAXone INJ 1,000 MG in SODIUM CHLORIDE 0.9% INJ 100 ML IV SCH (18:05)
--- NOTE | 2017-03-13 22:01 | PD.POD ---
Subjective Podiatric Problems s/p bone biopsy R 2nd toe, extensor tendon repair, I&D open fracture, Dr Araujo 03/12/17 Pain scale used: 0-10 numeric scale Pain score: 0 Past Med/Surg/Social History Past Medical History HEENT: DENIES HX OF: Cataracts, Glaucoma, Recurrent ear infections, Recurrent sinusitis, Other HEENT history Endocrine: DENIES HX OF: Diabetes mellitus, Graves disease, Hyperthyroidism, Hypothyroidism, Other endocrine history Respiratory: DENIES HX OF: Allergies/hay fever, Asthma, COPD, CPAP use, Sleep apnea, Other respiratory history Cardiovascular: DENIES HX OF: Abdominal aortic aneurysm, Angina, Atrial fibrillation, Cardiac arrhythmias, Coronary artery disease, Deep venous thrombosis, Heart failure, Heart valve disease, Hyperlipidemia, Hypertension, Myocardial infarction, Peripheral vascular dz, Other CV history Gastrointestinal: DENIES HX OF: Colitis, GERD, Irritable bowel syndrome, Liver disease, Pancreatitis, Peptic ulcer disease, Other GI history Genitourinary: DENIES HX OF: Chlamydia, Gonorrhea, Hemodialysis, Herpes genitalis, Human papillomavirus, Kidney disease, Kidney failure, Kidney stones, Past UTI, Peritoneal dialysis, Urinary incontinence, Other history Genitourinary - male: DENIES HX OF: Benign prost. hyperplasia, Erectile dysfunction, Prostatitis, Testicular problems, Undescended testicle Musculoskeletal: REPORTS HX OF: Gout Cancer/Hematology: DENIES HX OF: Anemia, Bladder Cancer, Blood cancer, Brain cancer, Breast cancer, Colorectal cancer, Endocrine cancer, Eye cancer, GI cancer, cancer, Kidney cancer, Leukemia, Liver cancer, Lung cancer, Lymphoma , Musculoskeletal cancer, Neurologic cancer, Oral cancer, Skin cancer, Stomach cancer, Thyroid cancer, Other cancer/hematology Cancer - male: DENIES HX OF: Prostate cancer, Testicular cancer Infectious disease: REPORTS HX OF: Mumps, DENIES HX OF: AIDS, Chickenpox, Hepatitis, HIV, Measles, MRSA, Polio, Positive PPD, Rheumatic fever, Rubella, Syphilis, Tuberculosis, Vanc-resistant enterococc, Other inf disease history Integumentary: DENIES HX OF: Acne, Eczema, Psoriasis, Other integumentary hx Neurologic: DENIES HX OF: ADHD, Autism, Dementia, Developmental delay, Headaches, Multiple sclerosis, Parkinson disease, Peripheral neuropathy, Restless leg syndrome, Seizures, Stroke, Transient ischemic attack, Other neurologic history Psychiatric: DENIES HX OF: Anorexia nervosa, Anxiety, Bipolar disorder, Bulimia , Depression, Schizophrenia, Other psychiatric history Genetic/metabolic: DENIES HX OF: Cystic fibrosis, Down syndrome, Other genetic history, Other metabolic history Events: DENIES HX OF: Anaphylaxis, Gunshot wound, Motor vehicle accident, Other events Disabilities: DENIES HX OF: Hearing deficit, Vision deficit, Hemiparesis, Paraplegia, Quadriplegia, Other disabilities Past Surgical History HEENT: DENIES HX OF: Cataract extraction, Dental surgery, Laryngectomy, Tonsillectomy, Other head surgery, Other eye surgery, Other ear surgery, Other nasal surgery, Other throat surgery Endocrine: DENIES HX OF: Parathyroidectomy, Thyroid surgery, Other endocrine surgery Respiratory: DENIES HX OF: Bronchoscopy, Lobectomy, Other chest surgery Cardiovascular: DENIES HX OF: Angiogram, Angioplasty, CABG surgery, Carotid endarterectomy, Coronary stent, Heart transplant, Pacemaker, Valve replacement, Other cardiac surgery Gastrointestinal: REPORTS HX OF: Other GI surgery (Liver bx), DENIES HX OF: Appendectomy, Cholecystectomy, Colectomy, subtotal, Colectomy, total, Gastric bypass, Hernia repair, Splenectomy Genitourinary: DENIES HX OF: Bladder surgery, Kidney stone extraction, Nephrectomy, Other surgery Genitourinary - male: DENIES HX OF: Prostatectomy, TURP, Vasectomy Musculoskeletal: DENIES HX OF: Joint replacement, Other musculoskeletal srg Neurologic: DENIES HX OF: Craniotomy, Spinal surgery, Other neurologic surgery Breast: DENIES HX OF: Breast biopsy, Lumpectomy, Mastectomy, bilateral, Mastectomy, left, Mastectomy, right, Other breast surgery Social History Smoking Status: Current Every Day Smoker Objective Vital Signs Vital Signs Date Time Temp Pulse Resp B/P (MAP) Pulse Ox O2 Delivery O2 Flow Rate FiO2 03/13/17 20:41 94 18 101/68 (79) 100 03/13/17 20:00 95.9 90 21 83/51 (62) 98 03/13/17 16:00 95.2 88 16 96/64 (75) 97 03/13/17 14:21 94.9 83 16 93/65 (74) 98 03/13/17 14:17 94.9 84 16 98/72 (81) 100 03/13/17 14:15 94.9 85 16 118/80 (93) 96 03/13/17 12:00 97.4 86 17 128/78 (95) 95 03/13/17 08:42 90 03/13/17 08:00 97.3 73 16 97/61 (73) 97 03/13/17 04:41 96.4 74 17 98/65 (76) 93 03/13/17 00:08 96.2 70 18 102/59 (73) 95 Coded Allergies: No Known Allergies (Verified , 11/21/14) Other Results Microbiology Date/Time Source Procedure Growth Status 03/10/17 19:35 Blood Peripheral Aerobic Blood Culture - Preliminary NO GROWTH IN 3 DAYS Resulted 03/10/17 19:35 Blood Peripheral Anaerobic Blood Culture - Preliminary NO GROWTH IN 3 DAYS Resulted 03/13/17 13:28 Fluid Peritoneal Fluid Gram Stain Pending Received 03/13/17 13:28 Fluid Peritoneal Fluid Body Fluid Culture Pending Received 03/08/17 19:00 Urine Clean Catch Urine Culture - Final Escherichia Coli Complete 03/12/17 13:27 Wound Toe Gram Stain - Final Resulted 03/12/17 13:27 Wound Toe Wound Culture - Preliminary NO GROWTH IN 24 HOURS. Resulted Physical Exam Remarks bandage clean, dry, intact Assessment & Plan A/P s/p bone biopsy R 2nd toe, extensor tendon repair, I&D open fracture, Dr Araujo 03/12/17 Keep bandage clean, dry, intact Awaiting bone biopsy results Will follow Sukhi Capps DPM Mar 13, 2017 22:01
[2017-03-14] VITALS (7 sets, daily range): BP systolic 95–178; BP diastolic 56–80; PULSE 53–95; RESP 16–20; TEMP 96–97.6; O2SAT 95–98
[2017-03-14 00:21] LABS: AUTOMATED NEUTROPHIL # 2.3 TH/MM3 (1.8-7.7); BASOPHIL % 0.9 % (0.0-2.0); EOSINOPHIL # 0.2 TH/MM3 (0-0.4); EOSINOPHIL % 5.1 % (0.0-4.0); HEMATOCRIT 24.2 % (39.0-51.0); LYMPH % 24.4 % (9.0-44.0); LYMPHOCYTE # 0.9 TH/MM3 (1.0-4.8); MEAN CELL VOLUME 103.6 FL (80.0-100.0); MEAN CORPUSCULAR HEMOGLOBIN 34.9 PG (27.0-34.0); MEAN CORPUSCULAR HGB CONC 33.7 % (32.0-36.0); MONO % 9.7 % (0.0-8.0); NEUT % 59.9 % (16.0-70.0); PLATELET COUNT 67 TH/MM3 (150-450); RED BLOOD COUNT 2.34 MIL/MM3 (4.50-5.90); RED CELL DISTRIBUTION WIDTH 18.2 % (11.6-17.2); WHITE BLOOD COUNT 3.8 TH/MM3 (4.0-11.0)
[2017-03-14 00:27] LABS: APTT (PATIENT) 66.9 SEC (24.3-30.1); INTERNATIONAL NORMALIZED RATIO 1.9 RATIO; PROTHROMBIN TIME - PATIENT 21.6 SEC (9.8-11.6)
[2017-03-14 00:30] LABS: HEMO FLAGS AUTO DIFF
[2017-03-14 00:47] LABS: CALCIUM-PROTEIN CORRECTED 7.7 MG/DL (8.5-10.1); POTASSIUM 4.8 MEQ/L (3.5-5.1)
[2017-03-14 01:31] LABS: BANDS 13 % (0-6); BASOPHILS 1 % (0-2); CORRECTED NUCLEATED RBC 1 /100 WBC (0-0); EOSINOPHILS 1 % (0-4); MYELOCYTES 2 % (0-0); NEUTROPHIL # MANUAL DIFF 2.3 TH/MM3 (1.8-7.7); PLATELET ESTIMATE SMEAR LOW (NORMAL); PLATELET MORPHOLOGY NORMAL (NORMAL); POLYS (SEG NEUTROPHILS) 46 % (16-70); SCAN/DIFF FINAL DIFF MANUAL; WBC DIFF SAMPLE 100
[2017-03-14 01:34] LABS: CRENATED RBCS 1+ (NORMAL)
[2017-03-14] MEDS: metroNIDAZOLE 500 MG INJ 100 ML IV SCH ×3 (05:00→20:13)
[2017-03-14] MEDS ORDERED: PHARMACY ORDERED LAB ONE (05:45)
[2017-03-14] MEDS: VANCOMYCIN INJ 1,250 MG in SODIUM CHLOR 0.9% 250 ML INJ 250 ML IV SCH (06:00)
[2017-03-14 07:14] LABS: AUTOMATED NEUTROPHIL # 2.4 TH/MM3 (1.8-7.7); BASOPHIL % 0.9 % (0.0-2.0); EOSINOPHIL # 0.2 TH/MM3 (0-0.4); EOSINOPHIL % 5.3 % (0.0-4.0); HEMATOCRIT 23.6 % (39.0-51.0); LYMPH % 24.3 % (9.0-44.0); MEAN CELL VOLUME 102.8 FL (80.0-100.0); MEAN CORPUSCULAR HEMOGLOBIN 35.1 PG (27.0-34.0); MEAN CORPUSCULAR HGB CONC 34.1 % (32.0-36.0); MONO % 9.9 % (0.0-8.0); NEUT % 59.6 % (16.0-70.0); PLATELET COUNT 69 TH/MM3 (150-450); RED CELL DISTRIBUTION WIDTH 18.2 % (11.6-17.2)
[2017-03-14 07:21] LABS: HEMO FLAGS AUTO DIFF
[2017-03-14 07:35] LABS: BICARBONATE 17.5 MEQ/L (21.0-32.0); POTASSIUM 4.8 MEQ/L (3.5-5.1)
[2017-03-14 08:33] LABS: BANDS 19 % (0-6); CORRECTED NUCLEATED RBC 1 /100 WBC (0-0); EOSINOPHILS 6 % (0-4); NEUTROPHIL # MANUAL DIFF 3.2 TH/MM3 (1.8-7.7); POLYS (SEG NEUTROPHILS) 61 % (16-70); WBC DIFF SAMPLE 100
[2017-03-14 08:35] LABS: BURR CELLS 1+ (NORMAL); SCAN/DIFF FINAL DIFF MANUAL
[2017-03-14] MEDS: FUROSEMIDE 40 MG TAB PO SCH (08:47)
[2017-03-14] MEDS: DOCUSATE SODIUM 50 MG/SENNA 8.6 MG TAB PO SCH ×2 (08:47→20:14)
[2017-03-14] MEDS: SPIRONOLACTONE 25 MG TAB PO SCH (08:48)
[2017-03-14] MEDS: SODIUM CHLORIDE 0.9% FLUSH 10 ML FLUSH IV FLUSH SCH ×2 (08:48→20:13)
[2017-03-14] MEDS: THIAMINE HCL 100 MG TAB PO SCH (08:48)
[2017-03-14] MEDS: PANTOPRAZOLE SOD 40 MG DELAYED RELEASE TAB PO SCH (08:48)
--- NOTE | 2017-03-14 11:35 | HHI.GIFU ---
Subjective Remarks Resting in bed. Had paracentesis yesterday. Still with diffuse tenderness on exam. States he had bowel movement and is tolerating diet. Objective Vitals I&O Vital Signs Date Time Temp Pulse Resp B/P (MAP) Pulse Ox O2 Delivery O2 Flow Rate FiO2 03/14/17 08:00 96.4 84 16 109/68 (82) 97 03/14/17 04:00 96.4 87 16 110/75 (87) 98 03/14/17 00:00 96.0 81 19 100/57 (71) 98 03/13/17 20:41 94 18 101/68 (79) 100 03/13/17 20:15 100 03/13/17 20:00 95.9 90 21 83/51 (62) 98 03/13/17 16:00 95.2 88 16 96/64 (75) 97 03/13/17 14:21 94.9 83 16 93/65 (74) 98 03/13/17 14:17 94.9 84 16 98/72 (81) 100 03/13/17 14:15 94.9 85 16 118/80 (93) 96 03/13/17 12:00 97.4 86 17 128/78 (95) 95 I/O 03/13/17 03/13/17 03/13/17 03/14/17 03/14/17 03/14/17 07:00 15:00 23:00 07:00 15:00 23:00 Intake Total 1580 ml 227 ml 1100 ml 100 ml Output Total 525 ml 200 ml Balance 1580 ml 227 ml 575 ml -100 ml Intake Oral 480 ml 450 ml IV Total 1100 ml 227 ml 650 ml 100 ml Output Urine Total 525 ml 200 ml # Voids 3 # Bowel Movements 0 Laboratory Laboratory Tests Test 03/13/17 13:28 03/13/17 23:27 03/14/17 05:45 Peritoneal Fluid WBC 170 Peritoneal Fluid RBC 90 Peritoneal Fluid Neutrophils 2 Peritoneal Fluid Lymphocytes 50 Peritoneal Fluid Monocytes 47 Peritoneal Fluid Basophils 1 Peritoneal Fluid Total Protein 2.8 Peritoneal Fluid Albumin 0.8 Peritoneal Fluid LDH 81 Peritoneal Fluid Glucose 105 White Blood Count 3.8 4.0 Red Blood Count 2.34 2.30 Hemoglobin 8.2 8.1 Hematocrit 24.2 23.6 Mean Corpuscular Volume 103.6 102.8 Mean Corpuscular Hemoglobin 34.9 35.1 Mean Corpuscular Hemoglobin Concent 33.7 34.1 Red Cell Distribution Width 18.2 18.2 Platelet Count 67 69 Mean Platelet Volume 7.2 6.9 Neutrophils (%) (Auto) 59.9 59.6 Lymphocytes (%) (Auto) 24.4 24.3 Monocytes (%) (Auto) 9.7 9.9 Eosinophils (%) (Auto) 5.1 5.3 Basophils (%) (Auto) 0.9 0.9 Neutrophils # (Auto) 2.3 2.4 Lymphocytes # (Auto) 0.9 1.0 Monocytes # (Auto) 0.4 0.4 Eosinophils # (Auto) 0.2 0.2 Basophils # (Auto) 0.0 0.0 CBC Comment AUTO DIFF AUTO DIFF Differential Total Cells Counted 100 100 Neutrophils % (Manual) 46 61 Band Neutrophils % 13 19 Lymphocytes % 31 10 Monocytes % 6 4 Eosinophils % 1 6 Basophils % 1 Neutrophils # (Manual) 2.3 3.2 Myelocytes 2 Nucleated Red Blood Cells 1 1 Differential Comment FINAL DIFF MANUAL FINAL DIFF MANUAL Atypical Lymphocytes Platelet Estimate LOW Platelet Morphology Comment NORMAL Crenated Cell 1+ Prothrombin Time 21.6 Prothromb Time International Ratio 1.9 Activated Partial Thromboplast Time 66.9 Blood Urea Nitrogen 8 8 Creatinine 2.00 2.21 Random Glucose 86 88 Total Protein 6.2 Albumin 2.0 Calcium Level 7.2 7.6 Alkaline Phosphatase 54 Aspartate Amino Transf (AST/SGOT) 26 Alanine Aminotransferase (ALT/SGPT) 9 Lactate Dehydrogenase 104 Total Bilirubin 1.0 Sodium Level 140 140 Potassium Level 4.8 4.8 Chloride Level 115 114 Carbon Dioxide Level 20.0 17.5 Anion Gap 5 9 Estimat Glomerular Filtration Rate 35 31 Protein Corrected Calcium 7.7 B-Type Natriuretic Peptide 843 [place] Cells 1+ Vancomycin Level Trough 46.3 Date/Time Source Procedure Growth Status 03/10/17 19:35 Blood Peripheral Aerobic Blood Culture - Preliminary NO GROWTH IN 4 DAYS Resulted 03/10/17 19:35 Blood Peripheral Anaerobic Blood Culture - Preliminary NO GROWTH IN 4 DAYS Resulted 03/13/17 13:28 Fluid Peritoneal Fluid Gram Stain - Final Resulted 03/13/17 13:28 Fluid Peritoneal Fluid Body Fluid Culture Pending Resulted 03/08/17 19:00 Urine Clean Catch Urine Culture - Final Escherichia Coli Complete 03/12/17 13:27 Wound Toe Gram Stain - Final Resulted 03/12/17 13:27 Wound Toe Wound Culture - Preliminary NO GROWTH IN 48 HOURS. Resulted Imaging Last Impressions Cyst Biopsy Asp-Paracentesis US 03/13/17 Signed Impressions: Service Date/Time: Monday, March 13, 2017 13:10 - CONCLUSION: Uncomplicated ultrasound guided paracentesis. Gigi Polanco MD Chest X-Ray 03/13/17 Signed Impressions: Service Date/Time: Monday, March 13, 2017 12:36 - CONCLUSION: 1. Basilar airspace disease and pleural effusions bilaterally. No prior study for comparison. Tavares Chávez MD Foot X-Ray 03/12/17 0000 Signed Impressions: Service Date/Time: Sunday, March 12, 2017 13:50 - CONCLUSION: Possible fusion of the 2nd PIP joint. No acute fracture is seen. Edgar Cunha MD Foot MRI 03/11/17 0000 Signed Impressions: Service Date/Time: Saturday, March 11, 2017 11:23 - CONCLUSION: #1. No evidence of osteomyelitis within the first digit. Severe degenerative changes are seen at the MTP joint. #2. Fracture dislocation of the second digit at the PIP joint. The marrow edema and abnormal enhancement appears to be confined to the middle phalanx. Milka Espino MD Lower Extremity Ultrasound 03/09/17 0000 Signed Impressions: Service Date/Time: February 18:36 - CONCLUSION: No DVT of the left lower extremity. Aftab Tidwell MD Abdomen/Pelvis CT 03/09/17 0000 Signed Impressions: Service Date/Time: February 15:29 - CONCLUSION: 1. Possible left-sided iliac vein/femoral vein deep vein thrombosis. Recommend lower extremity Doppler venous ultrasound to evaluate for DVT. 2. Evidence of cirrhosis again identified. 3. Cholelithiasis. 4. Moderate ascites. Aftab Lynn MD Physical Exam HEENT: Normocephalic; atraumatic; no jaundice. CHEST: Resp. even/shallow CARDIAC: RRR ABDOMEN: Soft, mildly distended, small to mod ascites, bowel sounds are present in all four quadrants. EXTREMITIES: Right splint/essence drsg d/i DIRECTOR OUTCOMES: No focal deficits; alert and oriented times three. Assessment and Plan Plan ASSESSMENT: - Severe anemia. 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 Gastritis and gastropathy alcohol related most likely. Normal colonoscopy. Pathology pending. HH 8.1/23.6. S /P 2 units PRBC. PPI. - Ascites, worsening distention and pain. CT from 03/09 showed moderate ascites. S/P US Guided paracentesis (03/13/17)---> 4,900cc removed. Neutrophils 2. Cx and cytology pending. Lasix 20mg po daily, Spironolactone 25mg po daily. - Lower abdominal cramping, hx of diarrhea. Pt with hx of microscopic colitis. CT scan abdomen and pelvis (03/09/17)---> possible left sided iliac vein/ femoral vein deep vein thrombosis, recommend lower extremity doppler venous us to evaluate for DVT, evidence of cirrhosis again identified, cholelithiasis, moderate ascites. Still with some mild tenderness on exam. - Abnormal weight loss. Reports significant weight loss over past 2 months, unable to quantify. CT, EGD, Colonoscopy as above. - Elevated LFTs, Liver cirrhosis. Dx by liver biopsy in 2014 at [facility]. Drinks 2-3 beers per week. Previous liver workup in 2015--> Hep C Ab (+), BRITNI negative, AMA < 20.0, ASMA negative, Iron saturation 35.2%, Ferritin 218, Alpha 1 Antitrypsin 108, Ceruloplasmin 15, AFP 2.2. CT as above. AFP 1.6. Ceruloplasmin 14. (this was low in past as well). Will get Copper level. LFTs improved - Hepatitis C Antibodies. HCV genotype and viral load pending. - Pancytopenia, secondary to cirrhosis, ETOH use. - Coagulopathy. Stable. - Wheezing/sob. Duonebs ordered, likely some degree of his sob is related to ascites - Hypokalemia, Hyponatremia, Hypocalcemia. Per attending. - 2nd toe ulcer, podiatry following, S/P right middle phalanx second digit bone biopsy, repair of extensor digitorum longus tendon rupture, primary closure of right second digit laceration. - Abnormal u/a with cx Ecoli. Levaquin - Hx microscopic colitis in 2014, by path. PLAN: - Low salt diet - Await pathology from EGD - Await cytology/cx from peritoneal fluid - Cont. Lasix 20mg po daily - Cont. Spironolactone 25mg po daily - Cont. PPI - Monitor HH - Transfuse as necessary - Check copper level - Await HCV Genotype and viral load - No NSAIDs - ETOH Cessation - Rpt. Colonoscopy in 10 years - Rpt. Upper endoscopy in 3 years - Supportive care - Further recommendations to follow based on results of above - PT seen and examined by Dr. Tang and myself and this note is written on her behalf Meri Butler Mar 14, 2017 11:35
[2017-03-14] MEDS ORDERED: PHYTONADIONE 5 MG TAB PO ONE (13:45)
--- NOTE | 2017-03-14 14:13 | RADRPT ---
EXAM DATE/TIME: 03/14/2017 13:42 [facility] COMPARISON: CHEST SINGLE AP, March 13, 2017, 12:36. INDICATIONS : Short of breath. MEDICAL HISTORY : Arthritis. Cirrhosis. Seizures. Chest pain. Abdominal pain. Mumps. Gout. SURGICAL HISTORY : Liver biopsy. Paracentesis ENCOUNTER: Subsequent ACUITY: 1 week PAIN SCORE: 0/10 LOCATION: Bilateral chest FINDINGS: The cardiac silhouette is normal in transverse diameter. There is clearing right perihilar edema vers us pneumonia with persistent left perihilar and left basilar opacity. No pleural effusions are identi fied. CONCLUSION: 1. Resolving right perihilar edema with persistent left-sided edema versus pneumonia Gigi Polanco MD on March 14, 2017 at 14:10 Board Certified Radiologist. This report was verified electronically.
[2017-03-14 14:23] LABS: BLOOD GAS CARBOXYHEMOGLOBIN 1.6 % (0-4); BLOOD GAS HCO3 15 mmol/L (22-26); BLOOD GAS METHEMOGLOBIN 0.7 % (0-2); BLOOD GAS O2 HGB SATURATION 93 % (90-100); BLOOD GAS OXYGEN CONTENT 10.8 Vol % (12.0-20.0); BLOOD GAS PCO2 23 mmHg (38-42); BLOOD GAS PO2 70 mmHg (61-120); BLOOD GAS TOTAL HGB 8.2 G/DL (12.0-16.0); TEMP CORR TO 98.6
[2017-03-14 14:24] LABS: CRITICAL VALUE YES
[2017-03-14 14:25] LABS: DRAW SITE RT RADIAL; FIO2 21 %; NUMBER OF ARTERIAL PUNCTURES 1; STAT NO; ULNAR PULSE PRESENT
--- NOTE | 2017-03-14 15:40 | MB ---
cc: RUTHIE HENDRICKS M.D. DATE OF CONSULTATION: 03/14/2017 REASON FOR CONSULTATION: Pneumonia versus congestive heart failure. HISTORY OF PRESENT ILLNESS The patient is a 56-year-old male who was admitted with generalized weakness severe edema. Abdominal discomfort had evidence of ascites underwent the paracenteses he has well had upper endoscopy for possible GI bleed. Has some shortness of breath today. Denies history of fever or chills. He has evidence of UTI for which he is receiving Rocephin and was started on vancomycin. The last hemoglobin 6.9, stool positive hemoccult blood, he as well has history of hepatitis C, liver failure and cirrhosis, lactic acidosis with arterial blood gas revealing a compensated metabolic acidosis as well as a mild renal insufficiency. The patient does not seem to be in acute distress at the present time, his main complaint is that of abdominal pain. PAST MEDICAL HISTORY: 1. Cirrhosis 2. hepatitis C 3. seizure disorder. 4. Previous liver biopsy. FAMILY HISTORY Positive for brother who has history of lung cancer and father had laryngeal cancer. SOCIAL HISTORY Patient is a smoker, about a half-a-pack a day. He use to drink alcohol heavily, has stopped drinking over the last 2 years. Does not use drugs. REVIEW OF SYSTEMS 12-point review of systems as per HPI and past history otherwise negative. MEDICATIONS Kindly review EMR for same. ALLERGIES None known to medication. PHYSICAL EXAMINATION: IN GENERAL: The patient is alert in no acute distress. VITAL SIGNS: Temperature 98. pulse 90, respirations 16, blood pressure 100/60. HEAD, EYES, EARS, NOSE, AND THROAT: Exam unremarkable. Eyes without icterus. NECK: Without adenopathy or thyroid enlargement. CHEST: Decreased breath sounds at bases. CARDIOVASCULAR SYSTEM: Cardiac exam PMI not appreciated. S1-S2 audible. 1/6 ejection systolic murmur left sternal border. ABDOMEN: Diffusely tender to palpation. EXTREMITIES: Bandaged right foot. LABORATORY DATA White count 4,000, hemoglobin 8, hematocrit 23, platelets 69,000, sodium 140, potassium 4.8, BUN 2.2, creatinine 2.2, BUN is 8. Arterial blood gas pH 7044, pCO2 23, pO2 70, INR 1.9. Chest x-ray March 13 with bibasilar atelectasis and effusion. On March 14 some clearing on the right is noted. Left perihilar opacities noted. IMPRESSION 1. Abnormal chest x-ray, mostly related to atelectasis and pleural effusion. A pneumonia is a possibility. However, clinically the patient does not have symptomatology to suggest underlying pneumonia. 2. Severe anemia and GI bleed. 3. Liver cirrhosis and hepatitis C. 4. UTI on antibiotic therapy. PLAN The patient as mentioned above may have an underlying pneumonia but it does not seem to be clinically high probability. I will obtain a CT scan of the chest without contrast to verify same. Meanwhile, we will continue his antibiotics and he is followed by infectious disease at this time. If his arterial blood gas reveals a metabolic acidosis, which is compensated. He does not seem to have any respiratory distress. His abdominal pain is of concern. His abdomen is diffusely tender. The etiology is not clear. We will follow his course closely, follow up his CT scan as mentioned above and depending on his progress proceed further. I will as well obtain baseline pulmonary function. I do thank you for asking me to partake in Mr. Lisa young. Sincerely, Ruthie Hendricks MD WWW/bhavya /3:01 PM /3:21 PM
[2017-03-14] MEDS ORDERED: SODIUM BICARBONATE 650 MG TAB PO ONE (16:00)
[2017-03-14 16:03] LABS: INTERNATIONAL NORMALIZED RATIO 1.8 RATIO; PROTHROMBIN TIME - PATIENT 20.9 SEC (9.8-11.6)
[2017-03-14] MEDS: cefTRIAXone INJ 1,000 MG in SODIUM CHLORIDE 0.9% INJ 100 ML IV SCH (16:37)
--- NOTE | 2017-03-14 18:19 | HHI.PR ---
Subjective Remarks Patient seen today around 11 AM, as well as around 2 PM. He says he is feeling generally fatigued. Denies any chest pain. Denies any nausea or vomiting. He does report shortness of breath which is improved from yesterday however. Later, called by nurse to report small amount of hemoptysis. Patient reports tiny amount of blood in sputum. No change in respiratory status. Objective Vital Signs Date Time Temp Pulse Resp B/P (MAP) Pulse Ox O2 Delivery O2 Flow Rate FiO2 03/14/17 16:00 97.5 95 16 108/65 (79) 98 03/14/17 12:00 97.6 91 16 97/56 (70) 97 03/14/17 08:00 96.4 84 16 109/68 (82) 97 03/14/17 04:00 96.4 87 16 110/75 (87) 98 03/14/17 00:00 96.0 81 19 100/57 (71) 98 03/13/17 20:41 94 18 101/68 (79) 100 03/13/17 20:15 100 03/13/17 20:00 95.9 90 21 83/51 (62) 98 I/O 03/13/17 03/13/17 03/13/17 03/14/17 03/14/17 03/14/17 07:00 15:00 23:00 07:00 15:00 23:00 Intake Total 1580 ml 227 ml 1100 ml 100 ml Output Total 525 ml 200 ml Balance 1580 ml 227 ml 575 ml -100 ml Intake Oral 480 ml 450 ml IV Total 1100 ml 227 ml 650 ml 100 ml Output Urine Total 525 ml 200 ml # Voids 3 # Bowel Movements 0 Result Diagram: 03/14/17 0545 03/14/17 0545 Objective Remarks GENERAL: patient awake, alert. breathing much more comfortably today. SKIN: Warm and dry. HEAD: Normocephalic. EYES: No scleral icterus. No injection or drainage. NECK: Supple, trachea midline. No JVD. CARDIOVASCULAR: Regular rate and rhythm without murmurs, gallops, or rubs. RESPIRATORY: Breath sounds equal bilaterally. No accessory muscle use. GASTROINTESTINAL: Abdomen soft today. No rebound or guarding rate nontender. MUSCULOSKELETAL: No cyanosis, or edema. BACK: Nontender without obvious deformity. No CVA tenderness. A/P Assessment and Plan ==== 03/14/17 //Acute respiratory failure. This appears to have improved somewhat after paracentesis on 03/13, however continues with shortness of breath. Chest x-ray today with small interval improvement. We'll consult pulmonology. //Hemoptysis. This is a small amount reported by patient. Chest x-ray shows actual improvement. Continue on antibiotics. INR stable. Fibrinogen is low, however no further hemoptysis. If patient starts to bleed, we will need to give cryoprecipitate. Consult pulmonology. //acute kidney injury. Creatinine 2.2. Likely multifactorial. workup, urinalysis and labs ordered. Consult nephrology. //Thrombocytopenia. Platelets continue stable at 69.. Likely secondary to liver disease. No sign of bleeding. Continue to monitor. //Continue antibiotics for UTI, osteomyelitis right foot. Surgical cultures negative today //Alcohol withdrawal. Improved on Librium. Taper Librium today. //Postop right toe debridement with bone biopsy. -Follow up surgical cultures, biopsy. Continue broad-spectrum antibiotics. 56 y/o male with a history of cirrhosis, Hep C and seizures from alcohol withdrawal presented to the ED with weakness, dizziness and sob. //SIRS, Sepsis secondary to UTI, ?osteomylitis, skin sof wound - Temp 95.9, HR 109, WBC 3.1 - UA culture >100K, E.Coli, Sensitive to Rocephin. Continue Rocephin. Start IV vancomycin - Blood cultures ordered, wound culture ordered. Check ESR, CRP - results may be skewed as patient has been started with IV antibiotics since admission. - X-ray of the right foot showed 1. Second toe soft tissue swelling and focal bone erosion distal pole proximal phalanx indicating possible osteomyelitis. 2. Second toe dislocation at the proximal interphalangeal joint. 3. Severe osteoarthritic findings of the great toe MTP joint along with hallux valgus. - Lower extremity Doppler negative - Podiatry already consulted. Possible wound workup including MRI to determine osteomyelitis - Infectious disease consult, input appreciated //GI Bleed, hgb 6.9, occult stool positive - Consult GI . Appreciate recommendations. Plan for CT of the abdomen and pelvis today, EGD colonoscopy planned. - Protonix drip, and Sandostatin drip - 2 units PRBC transfused. Post transfusion H&H 9.4/27.9. - Monitor H&H. 9.0/26.1 today //Carty's esophagus. We'll need continue on PPI. Follow up GI as outpatient //Liver failure, cirrhosis //Abdominal pain, patient with diarrhea for 2 months, r/o colitis -CT abdomen/pelvis 1. Possible left-sided iliac vein/femoral vein deep vein thrombosis. Recommend lower extremity Doppler venous ultrasound to evaluate for DVT. 2. Evidence of cirrhosis again identified. 3. Cholelithiasis. 4. Moderate ascites. - Lower extremity Doppler negative - IV antibiotics Flagyl - Trend LFTs, Tbili 2.8 -->1.8-->1.5 //Right 2nd toe ulcer, acute - Consult podiatry for recommendations. Possible workup for osteomyelitis - Wound culture ordered - ID consult //Lactic acidosis. Improved 2.1 on 03/12. Likely secondary to liver disease. //Hyponatremia, hypokalemia, hypomagnesemia, hypocalcemia - Monitor electrolytes - Replacement ordered //Tobacco abuse, chronic: Encouraged to quit. Counseled. Declines use of nicotine patch. DVT prophylaxis: SCDs Discharge Planning s/p surgical debridement of suspected osteoarthritis. Infectious disease and podiatry following. -difficult discharge.patient is self-pay. Appreciate case management assistance. London Gomez MD Mar 14, 2017 18:19
--- NOTE | 2017-03-14 18:34 | MB ---
cc: GARRETT SWAIN MD DATE OF CONSULTATION 03/14/2017 REASON FOR CONSULTATION Elevated BUN and creatinine for evaluation. HISTORY OF PRESENT ILLNESS This is a 56-year-old male with past medical history of alcoholism and hepatitis C with cirrhosis of the liver, history of back sores was brought to the hospital because of abdominal pain and weakness. I was called to see the patient because of elevated creatinine. His creatinine on admission was 1.0 and it stayed in the range of 0.8-0.9 until yesterday morning when it was increased to 2.0 and today it is also 2.0. He also has decrease in the urine output. The patient was found to have severe anemia. His hemoglobin was 6.9 on admission. He was given transfusion. He was seen by the GI. He has ascites and they did paracentesis which was done yesterday. He had 4.9 liters of fluid removed. The patient has off and on hypotension, some readings of systolic 70s also. He has no nausea, vomiting. Occasionally he has loose bowel motion. His appetite is not very good. He still has mild abdominal pain although it is better than before. There is no shortness of breath. No chest pain. He does not have any dysuria or hematuria. Currently has Castillo catheter but his urine output has declined. PAST MEDICAL HISTORY 1. Hepatitis C. 2. History of alcoholism. 3. Cirrhosis. 4. Chronic anemia. 5. History of back sores. PAST SURGICAL HISTORY 1. There is no known surgical history except liver biopsy in the past. 2. He had right second digit toe fracture with laceration operated. REVIEW OF SYSTEMS There is no history of fever. No sore throat. No headache. He has generalized weakness, feeling tired, not eating well. His appetite is decreased. No nausea or vomiting. He still has abdominal pain. Has loose bowel motions off and on. No shortness of breath. No chest pain. No dysuria, hematuria. He did not notice any decrease in the urine output. Denies taking any nonsteroidal anti-inflammatory drugs. SOCIAL HISTORY The patient has history of alcoholism. Smokes about half-pack per day. He is single and homeless. Denies using any other drugs. FAMILY HISTORY Noncontributory. ALLERGIES NO KNOWN DRUG ALLERGIES. MEDICATIONS Currently he is on: 1. Protonix 40 mg once a day. 2. Thiamine 100 mg daily. 3. Spironolactone 25 mg once a day. 4. Lasix 40 mg daily. 5. Ceftriaxone 1 gram q. 24h. 6. Metronidazole 500 mg q.8-hour. 7. Librium 10 mg t.i.d. 8. Clonidine as needed. 9. Tylenol as needed. 10. Dulcolax as needed. 11. Ativan as needed. PHYSICAL EXAMINATION GENERAL: The patient is awake, alert. He is not in acute distress. VITAL SIGNS: His last blood pressure 108/65, temperature 97.5, oxygen saturation 97-98%. HEENT: Pupils are mid constricted. Nonicteric sclera, conjunctiva pale. NECK: Supple. JVD is not elevated. LUNGS: The patient has bilateral decreased air entry with scattered wheezing. HEART: S1-S2. Regular rhythm. ABDOMEN: Slightly distended, soft lax. There is mild tenderness in the lower abdomen. There is no rebound, rigidity. Bowel sounds positive. EXTREMITIES: He has mild edema. The right foot is covered with a dressing. LABORATORY DATA Investigations, WBC count is a 4.0, hemoglobin 8.1, platelet count of 69. Neutrophils 59.6%. Sodium 140, potassium 4.8, chloride 114, bicarb 17.5, BUN 8, creatinine 2.2, calcium 7.6, total bilirubin is 1.0, AST is 26, ALT is 9. BNP is 843. Total protein 6.2, albumin of 2.0. Urinalysis showing protein of 30. Urobilinogen more than 12, wbc's 15. His vancomycin trough level was 46.3. Peritoneal fluid showing wbc's of 170, rbc's 90, neutrophils 2%. Albumin was only 0.8. Cultures showing E-coli in the urine. Strep ABD in the wound culture. IMAGING STUDIES The patient has CT scan of the abdomen and pelvis done with IV contrast and it shows the left area of femoral vein deep vein thrombosis, cirrhosis, cholelithiasis, moderate ascites. Kidneys are reported as normal in size. No mass. hydronephrosis. Chest x-ray was done which shows a resolving right perihilar edema. ASSESSMENT/PLAN 1. Acute kidney injury. 2. Chronic liver disease with cirrhosis. 3. Ascites. 4. Possibility of pneumonia. 5. Severe anemia and GI bleeding. The patient has advanced liver disease and now developed acute kidney injury. The differential diagnosis for acute kidney injury will be either ATN from hypotension or possibility of interstitial nephritis or possibility of tubular injury from very high level of vancomycin or hepatorenal syndrome. At present his urine output is declining. He is on Lasix and Aldactone. I will hold the diuretics for now and watch his urine output. If it does not improve then possibly will need dialysis. Avoid any nephrotoxins. Thank you for the consultation and I will follow the patient while he is in the hospital. Garrett Swain MD AQJ/KK /6:01 PM /6:17 PM
--- NOTE | 2017-03-14 22:04 | PD.POD ---
Subjective Podiatric Problems s/p bone biopsy R 2nd toe, extensor tendon repair, I&D open fracture, Dr Araujo 03/12/17 Pain scale used: 0-10 numeric scale Pain score: 0 Past Med/Surg/Social History Past Medical History HEENT: DENIES HX OF: Cataracts, Glaucoma, Recurrent ear infections, Recurrent sinusitis, Other HEENT history Endocrine: DENIES HX OF: Diabetes mellitus, Graves disease, Hyperthyroidism, Hypothyroidism, Other endocrine history Respiratory: DENIES HX OF: Allergies/hay fever, Asthma, COPD, CPAP use, Sleep apnea, Other respiratory history Cardiovascular: DENIES HX OF: Abdominal aortic aneurysm, Angina, Atrial fibrillation, Cardiac arrhythmias, Coronary artery disease, Deep venous thrombosis, Heart failure, Heart valve disease, Hyperlipidemia, Hypertension, Myocardial infarction, Peripheral vascular dz, Other CV history Gastrointestinal: DENIES HX OF: Colitis, GERD, Irritable bowel syndrome, Liver disease, Pancreatitis, Peptic ulcer disease, Other GI history Genitourinary: DENIES HX OF: Chlamydia, Gonorrhea, Hemodialysis, Herpes genitalis, Human papillomavirus, Kidney disease, Kidney failure, Kidney stones, Past UTI, Peritoneal dialysis, Urinary incontinence, Other history Genitourinary - male: DENIES HX OF: Benign prost. hyperplasia, Erectile dysfunction, Prostatitis, Testicular problems, Undescended testicle Musculoskeletal: REPORTS HX OF: Gout Cancer/Hematology: DENIES HX OF: Anemia, Bladder Cancer, Blood cancer, Brain cancer, Breast cancer, Colorectal cancer, Endocrine cancer, Eye cancer, GI cancer, cancer, Kidney cancer, Leukemia, Liver cancer, Lung cancer, Lymphoma , Musculoskeletal cancer, Neurologic cancer, Oral cancer, Skin cancer, Stomach cancer, Thyroid cancer, Other cancer/hematology Cancer - male: DENIES HX OF: Prostate cancer, Testicular cancer Infectious disease: REPORTS HX OF: Mumps, DENIES HX OF: AIDS, Chickenpox, Hepatitis, HIV, Measles, MRSA, Polio, Positive PPD, Rheumatic fever, Rubella, Syphilis, Tuberculosis, Vanc-resistant enterococc, Other inf disease history Integumentary: DENIES HX OF: Acne, Eczema, Psoriasis, Other integumentary hx Neurologic: DENIES HX OF: ADHD, Autism, Dementia, Developmental delay, Headaches, Multiple sclerosis, Parkinson disease, Peripheral neuropathy, Restless leg syndrome, Seizures, Stroke, Transient ischemic attack, Other neurologic history Psychiatric: DENIES HX OF: Anorexia nervosa, Anxiety, Bipolar disorder, Bulimia , Depression, Schizophrenia, Other psychiatric history Genetic/metabolic: DENIES HX OF: Cystic fibrosis, Down syndrome, Other genetic history, Other metabolic history Events: DENIES HX OF: Anaphylaxis, Gunshot wound, Motor vehicle accident, Other events Disabilities: DENIES HX OF: Hearing deficit, Vision deficit, Hemiparesis, Paraplegia, Quadriplegia, Other disabilities Past Surgical History HEENT: DENIES HX OF: Cataract extraction, Dental surgery, Laryngectomy, Tonsillectomy, Other head surgery, Other eye surgery, Other ear surgery, Other nasal surgery, Other throat surgery Endocrine: DENIES HX OF: Parathyroidectomy, Thyroid surgery, Other endocrine surgery Respiratory: DENIES HX OF: Bronchoscopy, Lobectomy, Other chest surgery Cardiovascular: DENIES HX OF: Angiogram, Angioplasty, CABG surgery, Carotid endarterectomy, Coronary stent, Heart transplant, Pacemaker, Valve replacement, Other cardiac surgery Gastrointestinal: REPORTS HX OF: Other GI surgery (Liver bx), DENIES HX OF: Appendectomy, Cholecystectomy, Colectomy, subtotal, Colectomy, total, Gastric bypass, Hernia repair, Splenectomy Genitourinary: DENIES HX OF: Bladder surgery, Kidney stone extraction, Nephrectomy, Other surgery Genitourinary - male: DENIES HX OF: Prostatectomy, TURP, Vasectomy Musculoskeletal: DENIES HX OF: Joint replacement, Other musculoskeletal srg Neurologic: DENIES HX OF: Craniotomy, Spinal surgery, Other neurologic surgery Breast: DENIES HX OF: Breast biopsy, Lumpectomy, Mastectomy, bilateral, Mastectomy, left, Mastectomy, right, Other breast surgery Social History Smoking Status: Current Every Day Smoker Objective Vital Signs Vital Signs Date Time Temp Pulse Resp B/P (MAP) Pulse Ox O2 Delivery O2 Flow Rate FiO2 03/14/17 16:00 97.5 95 16 108/65 (79) 98 03/14/17 12:00 97.6 91 16 97/56 (70) 97 03/14/17 08:00 96.4 84 16 109/68 (82) 97 03/14/17 04:00 96.4 87 16 110/75 (87) 98 03/14/17 00:00 96.0 81 19 100/57 (71) 98 Coded Allergies: No Known Allergies (Verified , 11/21/14) Physical Exam Remarks bandage clean, dry, intact R foot Assessment & Plan A/P s/p bone biopsy R 2nd toe, extensor tendon repair, I&D open fracture, Dr Araujo 03/12/17 Bone biopsy shows acute osteomyelitis Plan to discuss with patient and change bandage tomorrow Continue IV antibiotics Sukhi Capps DPM Mar 14, 2017 22:04
--- NOTE | 2017-03-14 23:16 | RADRPT ---
EXAM DATE/TIME: 03/14/2017 22:15 [facility] COMPARISON: No previous studies available for comparison. INDICATIONS : Evaluate for pneumonia. RADIATION DOSE: 7.59 CTDIvol (mGy) MEDICAL HISTORY : Cirrhosis. SURGICAL HISTORY : None. ENCOUNTER: Initial ACUITY: 1 day PAIN SCALE: 0/10 LOCATION: Bilateral chest TECHNIQUE: Volumetric scanning of the chest was performed. Using automated exposure control and adjustment of t he mA and/or kV according to patient size, radiation dose was kept as low as reasonably achievable to obtain optimal diagnostic quality images. DICOM format image data is available electronically for r eview and comparison. Follow-up recommendations for detected pulmonary nodules are based at a minimum on nodule size and pa tient risk factors according to Fleischner Society Guidelines. FINDINGS: There are mild bilateral pleural effusions being greater on the left. There are patchy areas of cons olidation seen throughout the upper lungs bilaterally being more prominent on the left. These appear to be predominantly interstitial areas of consolidation. There is some atelectasis and/or consolidati on seen at the lung bases adjacent to the bilateral pleural effusions. Significant adenopathy is not appreciated. The bony structures appear grossly intact. The liver appears nodular. There does appear to be a possible recanalized periumbilical vein. There is a moderate amount of ascites seen in the upper abdomen. Calcified gallstones are seen in the gall bladder. CONCLUSION: 1. Mild bilateral pleural effusions. 2. Areas of interstitial consolidation seen in the upper lungs bilaterally. These are nonspecific. Viral or atypical pneumonias could have this appearance. 3. Increased density seen at the posterior lower lobes bilaterally likely related to atelectasis from the effusions. Some degree of alveolar consolidation cannot be excluded. 4. Possible changes of cirrhosis in the liver with a moderate amount of ascites seen in the upper abd omen. 5. Calcified gallstones. Aftab Barney MD on March 14, 2017 at 23:03 Board Certified Radiologist. This report was verified electronically.
[2017-03-15] VITALS (7 sets, daily range): BP systolic 94–119; BP diastolic 58–69; PULSE 87–101; RESP 16–17; TEMP 96.4–97.8; O2SAT 93–100
[2017-03-15 03:20] LABS: BACTERIA, URINE FEW /hpf; BLOOD, URINE SMALL (NEG); GLUCOSE,URINE NEG (NEG); HYALINE CAST, URINE 6 /lpf (RARE); KETONE, URINE NEG (NEG); MUCUS URINE FEW /lpf (OCC); NITRITE,URINE NEG (NEG); SQUAMOUS EPITHELIAL CELL URINE 1 /hpf (0-5); URINE COLOR YELLOW (YELLW/STRAW)
[2017-03-15 03:21] LABS: COMMENT (UR) CULTURE INDICATED; CULTURE IF INDICATED CULTURE INDICATED
[2017-03-15 03:51] LABS: HCV RNA PCR IU/ML 662 IU/mL (0-14); HCV RNA PCR LOGIU/ML 2.82 (0-1.18)
[2017-03-15] MEDS: metroNIDAZOLE 500 MG INJ 100 ML IV SCH ×3 (04:56→21:43)
[2017-03-15] MEDS: SODIUM CHLORIDE 0.9% FLUSH 10 ML FLUSH IV FLUSH SCH ×2 (07:40→21:44)
[2017-03-15] MEDS: PANTOPRAZOLE SOD 40 MG DELAYED RELEASE TAB PO SCH (07:40)
[2017-03-15] MEDS: THIAMINE HCL 100 MG TAB PO SCH (07:40)
[2017-03-15] MEDS: DOCUSATE SODIUM 50 MG/SENNA 8.6 MG TAB PO SCH ×2 (07:40→21:47)
--- NOTE | 2017-03-15 10:23 | HHI.GIFU ---
Subjective Remarks Resting in bed. Eating well. Less abdominal tenderness today on exam. 24 hour urine in progress for copper level. No n/v. feels weak (Meri Butler) Objective Vitals I&O Vital Signs Date Time Temp Pulse Resp B/P (MAP) Pulse Ox O2 Delivery O2 Flow Rate FiO2 03/15/17 08:00 96.9 91 16 94/58 (70) 99 03/15/17 04:00 97.8 92 17 98/61 (73) 97 03/15/17 00:00 96.8 87 17 119/65 (83) 98 03/14/17 20:00 96.1 83 17 95/63 (74) 98 03/14/17 20:00 84 03/14/17 16:00 97.5 95 16 108/65 (79) 98 03/14/17 12:00 97.6 91 16 97/56 (70) 97 I/O 03/14/17 03/14/17 03/14/17 03/15/17 03/15/17 03/15/17 07:00 15:00 23:00 07:00 15:00 23:00 Intake Total 100 ml 600 ml 340 ml Output Total 200 ml 300 ml 400 ml Balance -100 ml 300 ml -60 ml Intake Oral 500 ml 240 ml IV Total 100 ml 100 ml 100 ml Output Urine Total 200 ml 300 ml 400 ml # Bowel Movements 1 Laboratory Laboratory Tests Test 03/14/17 14:13 03/14/17 14:38 03/15/17 02:55 Blood Gas Puncture Site RT RADIAL Blood Gas Patient Temperature 98.6 Blood Gas HCO3 15 Blood Gas Base Excess -8.0 Blood Gas Oxygen Saturation 93 Arterial Blood pH 7.44 Arterial Blood Partial Pressure CO2 23 Arterial Blood Partial Pressure O2 70 Arterial Blood Oxygen Content 10.8 Arterial Blood Carboxyhemoglobin 1.6 Arterial Blood Methemoglobin 0.7 Blood Gas Hemoglobin 8.2 Blood Gas Inspired Oxygen 21 Prothrombin Time 20.9 Prothromb Time International Ratio 1.8 Fibrinogen 77 Urine Color YELLOW Urine Turbidity CLEAR Urine pH 5.0 Urine Specific [place] 1.007 Urine Protein NEG Urine Glucose (UA) NEG Urine Ketones NEG Urine Occult Blood SMALL Urine Nitrite NEG Urine Bilirubin NEG Urine Urobilinogen LESS THAN 2.0 Urine Leukocyte Esterase LARGE Urine RBC 18 Urine WBC 11 Urine Squamous Epithelial Cells 1 Urine Bacteria FEW Urine Hyaline Casts 6 Urine Mucus FEW Urine Yeast (Budding) FEW Microscopic Urinalysis Comment CULTURE INDICATED Urine Eosinophils NONE SEEN Urine Random Creatinine 28.5 Urine Random Sodium 123 Urine Random Potassium 24 Urine Random Chloride 149 Date/Time Source Procedure Growth Status 03/10/17 19:35 Blood Peripheral Aerobic Blood Culture - Preliminary NO GROWTH IN 4 DAYS Resulted 03/10/17 19:35 Blood Peripheral Anaerobic Blood Culture - Preliminary NO GROWTH IN 4 DAYS Resulted 03/13/17 13:28 Fluid Peritoneal Fluid Gram Stain - Final Resulted 03/13/17 13:28 Fluid Peritoneal Fluid Body Fluid Culture - Preliminary NO GROWTH IN 48 HOURS. Resulted 03/15/17 02:55 Urine Clean Catch Urine Culture Pending Received 03/12/17 13:27 Wound Toe Gram Stain - Final Complete 03/12/17 13:27 Wound Toe Wound Culture - Final NO GROWTH IN 72 HRS.--AEROBICALLY OR ... Complete Imaging Last Impressions Chest X-Ray 03/14/17 0000 Signed Impressions: Service Date/Time: Tuesday, March 14, 2017 13:42 - CONCLUSION: 1. Resolving right perihilar edema with persistent left-sided edema versus pneumonia Gigi Polanco MD Chest CT 03/14/17 0000 Signed Impressions: Service Date/Time: Tuesday, March 14, 2017 22:15 - CONCLUSION: 1. Mild bilateral pleural effusions. 2. Areas of interstitial consolidation seen in the upper lungs bilaterally. These are nonspecific. Viral or atypical pneumonias could have this appearance. 3. Increased density seen at the posterior lower lobes bilaterally likely related to atelectasis from the effusions. Some degree of alveolar consolidation cannot be excluded. 4. Possible changes of cirrhosis in the liver with a moderate amount of ascites seen in the upper abdomen. 5. Calcified gallstones. Aftab Barney MD Cyst Biopsy Asp-Paracentesis US 03/13/17 0000 Signed Impressions: Service Date/Time: Monday, March 13, 2017 13:10 - CONCLUSION: Uncomplicated ultrasound guided paracentesis. Gigi Polanco MD Foot X-Ray 03/12/17 0000 Signed Impressions: Service Date/Time: Sunday, March 12, 2017 13:50 - CONCLUSION: Possible fusion of the 2nd PIP joint. No acute fracture is seen. Edgar Cunha MD Foot MRI 03/11/17 0000 Signed Impressions: Service Date/Time: Saturday, March 11, 2017 11:23 - CONCLUSION: #1. No evidence of osteomyelitis within the first digit. Severe degenerative changes are seen at the MTP joint. #2. Fracture dislocation of the second digit at the PIP joint. The marrow edema and abnormal enhancement appears to be confined to the middle phalanx. Milka Espino MD Lower Extremity Ultrasound 03/09/17 0000 Signed Impressions: Service Date/Time: February 18:36 - CONCLUSION: No DVT of the left lower extremity. Aftab Tidwell MD Abdomen/Pelvis CT 03/09/17 0000 Signed Impressions: Service Date/Time: February 15:29 - CONCLUSION: 1. Possible left-sided iliac vein/femoral vein deep vein thrombosis. Recommend lower extremity Doppler venous ultrasound to evaluate for DVT. 2. Evidence of cirrhosis again identified. 3. Cholelithiasis. 4. Moderate ascites. Aftab Lynn MD Physical Exam HEENT: Normocephalic; atraumatic; no jaundice. CHEST: Resp. even/shallow CARDIAC: RRR ABDOMEN: Soft, mildly distended, small to mod ascites, bowel sounds are present in all four quadrants. EXTREMITIES: Right splint/essence drsg d/i ASSOCIATE DIRECTOR OF DEVELOPMENT: No focal deficits; lethargic and oriented times three. (Meri Butler) Assessment and Plan Plan ASSESSMENT: - Severe anemia. 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 Gastritis and gastropathy alcohol related most likely. Normal colonoscopy. Pathology minimal chronic gastritis , negative for H. Pylori. Esophagus distal biopsy with intestinalized mucosa consistent with Carty's esophagus, with mild chronic inflammation, negative for dysplasia or malignancy. HH 8.1/23.6. S/P 2 units PRBC. PPI. - Ascites, worsening distention and pain. CT from 03/09 showed moderate ascites. S/P US Guided paracentesis (03/13/17)---> 4,900cc removed. Neutrophils 2. Cx with no growth x 48 hours. Cytology pending. Lasix 20mg po daily, Spironolactone 25mg po daily. Improved. - Lower abdominal cramping, hx of diarrhea. Pt with hx of microscopic colitis. CT scan abdomen and pelvis (03/09/17)---> possible left sided iliac vein/ femoral vein deep vein thrombosis, recommend lower extremity doppler venous us to evaluate for DVT, evidence of cirrhosis again identified, cholelithiasis, moderate ascites. Still with some mild tenderness on exam. S/P Colonoscopy as above. Improved. - Abnormal weight loss. Reports significant weight loss over past 2 months, unable to quantify. CT, EGD, Colonoscopy as above. - Elevated LFTs, Liver cirrhosis. Dx by liver biopsy in 2015 at [facility]. Drinks 2-3 beers per week. Previous liver workup in 2015--> Hep C Ab (+), BRITNI negative, AMA < 20.0, ASMA negative, Iron saturation 35.2%, Ferritin 218, Alpha 1 Antitrypsin 108, Ceruloplasmin 15, AFP 2.2. CT as above. AFP 1.6. Ceruloplasmin 14. (this was low in past as well). 24 hour urine for copper level pending. LFTs improved - Hepatitis C Antibodies. HCV genotype pending, viral load 662. - Pancytopenia, secondary to cirrhosis, ETOH use. - Coagulopathy. Stable. - Wheezing/sob. Duonebs ordered, likely some degree of his sob is related to ascites - Hypokalemia, Hyponatremia, Hypocalcemia. Per attending. - 2nd toe ulcer, podiatry following, S/P right middle phalanx second digit bone biopsy, repair of extensor digitorum longus tendon rupture, primary closure of right second digit laceration. - Abnormal u/a with cx Ecoli. Levaquin - Hx microscopic colitis in 2014, by path. PLAN: - Low salt diet - Await cytology from peritoneal fluid - Await 24 hour urine for copper - Await HCV Genotype - Cont. Lasix 20mg po daily - Cont. Spironolactone 25mg po daily - Cont. PPI - Monitor HH - Transfuse as necessary - No NSAIDs - ETOH Cessation - Rpt. Colonoscopy in 10 years - Rpt. Upper endoscopy in 3 years - Supportive care - Further recommendations to follow based on results of above - PT seen and examined by Dr. Tang and myself and this note is written on her behalf (Meri Butler) Meri Butler Mar 15, 2017 10:23 Terri Tang MD Mar 15, 2017 18:19
--- NOTE | 2017-03-15 12:06 | HHI.NPPN ---
Subjective History of Present Illness 56-year-old male with past medical history of alcoholism and hepatitis C with cirrhosis of the liver, history of back sores was brought to the hospital because of abdominal pain and weakness. I was called to see the patient because of elevated creatinine. His creatinine on admission was 1.0 and it stayed in the range of 0.8-0.9 and was increased to 2.0 -2.1 until 03/14/17. Additional Remarks Patient is alert, no SOB, on room air, eating well. Review of Systems General Constitutional: Fatigue Cardiovascular Cardiac: COPE Gastrointestinal Gastrointestinal: Abdominal Pain Objective Data Data Vital Signs Date Time Temp Pulse Resp B/P (MAP) Pulse Ox O2 Delivery O2 Flow Rate FiO2 03/15/17 08:00 96.9 91 16 94/58 (70) 99 03/15/17 04:00 97.8 92 17 98/61 (73) 97 03/15/17 00:00 96.8 87 17 119/65 (83) 98 03/14/17 20:00 96.1 83 17 95/63 (74) 98 03/14/17 20:00 84 03/14/17 16:00 97.5 95 16 108/65 (79) 98 -: 03/14/17 0545 03/14/17 0545 Microbiology 03/15/17 Urine Culture, Received Pending Physical Exam General Appearance: No Acute Distress, Comfortable Eyes Eye Exam: Pupils Equal Throat Throat Exam: Oral Mucosa [place] & Moist Pulmonary Resp Exam: Breath Sounds Equal, No Distress, Rhonchi, Decreased Bases Cardiology CV Exam: Regular, Normal Sinus Rhythm Gastrointestinal/Abdomen GI Exam: Soft, Non-Tender, Bowel Sounds Present, Distended Extremeties Extremities Exam: Trace Edema Neurologic Neuro Exam: Alert, Awake, Oriented Psychiatric Psych Exam: Appropriate Responses Assessment/Plan Assessment Summary: CRISTINA/Acute Renal Failure Problem List: (1) Acute kidney injury ICD Codes: N17.9 - Acute kidney failure, unspecified (2) Cirrhosis ICD Codes: K74.60 - Cirrhosis Status: Acute (3) Hypothyroidism ICD Codes: E03.9 - Hypothyroidism Status: Acute (4) Alcohol abuse ICD Codes: F10.10 - Alcohol abuse Status: Acute (5) Anemia ICD Codes: D64.9 - Anemia Status: Acute (6) Ascites ICD Codes: R18.8 - Ascites Status: Acute (7) Hyponatremia ICD Codes: E87.1 - Hyponatremia Status: Acute Plan Patient has been non oliguric, BP is stable, Urine Na. was high and has no Eosinophils. Most likely has ATN causing CRISTINA. Follow the urine out put and BMP. Avoid Nephrotoxins. Dulce Pacheco MD Mar 15, 2017 12:06
--- NOTE | 2017-03-15 16:02 | PD.POD ---
Subjective Podiatric Problems s/p bone biopsy R 2nd toe, extensor tendon repair, I&D open fracture, Dr Araujo 03/12/17 Pain scale used: 0-10 numeric scale Pain score: 0 Past Med/Surg/Social History Past Medical History HEENT: DENIES HX OF: Cataracts, Glaucoma, Recurrent ear infections, Recurrent sinusitis, Other HEENT history Endocrine: DENIES HX OF: Diabetes mellitus, Graves disease, Hyperthyroidism, Hypothyroidism, Other endocrine history Respiratory: DENIES HX OF: Allergies/hay fever, Asthma, COPD, CPAP use, Sleep apnea, Other respiratory history Cardiovascular: DENIES HX OF: Abdominal aortic aneurysm, Angina, Atrial fibrillation, Cardiac arrhythmias, Coronary artery disease, Deep venous thrombosis, Heart failure, Heart valve disease, Hyperlipidemia, Hypertension, Myocardial infarction, Peripheral vascular dz, Other CV history Gastrointestinal: DENIES HX OF: Colitis, GERD, Irritable bowel syndrome, Liver disease, Pancreatitis, Peptic ulcer disease, Other GI history Genitourinary: DENIES HX OF: Chlamydia, Gonorrhea, Hemodialysis, Herpes genitalis, Human papillomavirus, Kidney disease, Kidney failure, Kidney stones, Past UTI, Peritoneal dialysis, Urinary incontinence, Other history Genitourinary - male: DENIES HX OF: Benign prost. hyperplasia, Erectile dysfunction, Prostatitis, Testicular problems, Undescended testicle Musculoskeletal: REPORTS HX OF: Gout Cancer/Hematology: DENIES HX OF: Anemia, Bladder Cancer, Blood cancer, Brain cancer, Breast cancer, Colorectal cancer, Endocrine cancer, Eye cancer, GI cancer, cancer, Kidney cancer, Leukemia, Liver cancer, Lung cancer, Lymphoma , Musculoskeletal cancer, Neurologic cancer, Oral cancer, Skin cancer, Stomach cancer, Thyroid cancer, Other cancer/hematology Cancer - male: DENIES HX OF: Prostate cancer, Testicular cancer Infectious disease: REPORTS HX OF: Mumps, DENIES HX OF: AIDS, Chickenpox, Hepatitis, HIV, Measles, MRSA, Polio, Positive PPD, Rheumatic fever, Rubella, Syphilis, Tuberculosis, Vanc-resistant enterococc, Other inf disease history Integumentary: DENIES HX OF: Acne, Eczema, Psoriasis, Other integumentary hx Neurologic: DENIES HX OF: ADHD, Autism, Dementia, Developmental delay, Headaches, Multiple sclerosis, Parkinson disease, Peripheral neuropathy, Restless leg syndrome, Seizures, Stroke, Transient ischemic attack, Other neurologic history Psychiatric: DENIES HX OF: Anorexia nervosa, Anxiety, Bipolar disorder, Bulimia , Depression, Schizophrenia, Other psychiatric history Genetic/metabolic: DENIES HX OF: Cystic fibrosis, Down syndrome, Other genetic history, Other metabolic history Events: DENIES HX OF: Anaphylaxis, Gunshot wound, Motor vehicle accident, Other events Disabilities: DENIES HX OF: Hearing deficit, Vision deficit, Hemiparesis, Paraplegia, Quadriplegia, Other disabilities Past Surgical History HEENT: DENIES HX OF: Cataract extraction, Dental surgery, Laryngectomy, Tonsillectomy, Other head surgery, Other eye surgery, Other ear surgery, Other nasal surgery, Other throat surgery Endocrine: DENIES HX OF: Parathyroidectomy, Thyroid surgery, Other endocrine surgery Respiratory: DENIES HX OF: Bronchoscopy, Lobectomy, Other chest surgery Cardiovascular: DENIES HX OF: Angiogram, Angioplasty, CABG surgery, Carotid endarterectomy, Coronary stent, Heart transplant, Pacemaker, Valve replacement, Other cardiac surgery Gastrointestinal: REPORTS HX OF: Other GI surgery (Liver bx), DENIES HX OF: Appendectomy, Cholecystectomy, Colectomy, subtotal, Colectomy, total, Gastric bypass, Hernia repair, Splenectomy Genitourinary: DENIES HX OF: Bladder surgery, Kidney stone extraction, Nephrectomy, Other surgery Genitourinary - male: DENIES HX OF: Prostatectomy, TURP, Vasectomy Musculoskeletal: DENIES HX OF: Joint replacement, Other musculoskeletal srg Neurologic: DENIES HX OF: Craniotomy, Spinal surgery, Other neurologic surgery Breast: DENIES HX OF: Breast biopsy, Lumpectomy, Mastectomy, bilateral, Mastectomy, left, Mastectomy, right, Other breast surgery Social History Smoking Status: Current Every Day Smoker Objective Vital Signs Vital Signs Date Time Temp Pulse Resp B/P (MAP) Pulse Ox O2 Delivery O2 Flow Rate FiO2 03/15/17 12:00 97.4 101 17 94/61 (72) 98 03/15/17 08:00 96.9 91 16 94/58 (70) 99 03/15/17 04:00 97.8 92 17 98/61 (73) 97 03/15/17 00:00 96.8 87 17 119/65 (83) 98 03/14/17 20:00 96.1 83 17 95/63 (74) 98 03/14/17 20:00 84 Coded Allergies: No Known Allergies (Verified , 11/21/14) Assessment & Plan A/P s/p bone biopsy R 2nd toe, extensor tendon repair, I&D open fracture, Dr Araujo 03/12/17 Bone biopsy shows acute osteomyelitis Discussed with patient findings and he wants to think about it before moving forward with amputation of R 2nd toe. Will discuss again tomorrow. Continue IV antibiotics Sukhi Capps DPM Mar 15, 2017 16:02
--- NOTE | 2017-03-15 16:06 | ECHRPT ---
Indication: HEART FAILURE CONCLUSIONS Normal left ventricular size. The left ventricular systolic function is low normal with an estimated ejection fraction in the [facility] of 50- 55%. There is trace tricuspid valve regurgitation. Normal estimated pulmonary pressures. BP: 98 / 61 HR: 92 Rhythm: Sinus MEASUREMENTS (Male / Female) Normal Values Technical Quality:Very technically difficult study 2D ECHO LV Diastolic Diameter PLAX 4.1 cm 4.2 - 5.9 / 3.9 - 5.3 cm LV Systolic Diameter PLAX 3.0 cm IVS Diastolic Thickness 0.9 cm 0.6 - 1.0 / 0.6 - 0.9 cm LVPW Diastolic Thickness 0.6 cm 0.6 - 1.0 / 0.6 - 0.9 cm LV Relative Wall Thickness 0.4 LVOT Diameter 2.0 cm Aortic Root Diameter 2.7 cm LA Systolic Diameter LX 3.4 cm 3.0 - 4.0 / 2.7 - 3.8 cm M-MODE AV Cusp Separation MM 1.9 cm DOPPLER TR Peak Velocity 212.0 cm/s TR Peak Gradient 18.0 mmHg Right Atrial Pressure 10.0 mmHg Pulmonary Artery Systolic Pressu 28.0 mmHg Right Ventricular Systolic Press 28.0 mmHg FINDINGS LEFT VENTRICLE Normal left ventricular size. The left ventricular systolic function is low normal with an estimated ejection fraction in the [facility] of 50- 55%. TRICUSPID VALVE There is trace tricuspid valve regurgitation. Normal estimated pulmonary pressures. Jaspreet Moulton MD, FACC (Electronically Signed) Final Date:15 March 2017 16:05
[2017-03-15] MEDS: cefTRIAXone INJ 1,000 MG in SODIUM CHLORIDE 0.9% INJ 100 ML IV SCH (16:37)
--- NOTE | 2017-03-15 17:47 | HHI.PR ---
Subjective Remarks Patient seen this morning around 10 AM. Says he is feeling generally better today. Denies any chest pain. Says that shortness of breath is improved.patient denies any further hemoptysis today. Objective Vital Signs Date Time Temp Pulse Resp B/P (MAP) Pulse Ox O2 Delivery O2 Flow Rate FiO2 03/15/17 16:00 96.4 87 17 100/69 (79) 100 03/15/17 12:00 97.4 101 17 94/61 (72) 98 03/15/17 08:00 96.9 91 16 94/58 (70) 99 03/15/17 04:00 97.8 92 17 98/61 (73) 97 03/15/17 00:00 96.8 87 17 119/65 (83) 98 03/14/17 20:00 96.1 83 17 95/63 (74) 98 03/14/17 20:00 84 I/O 03/14/17 03/14/17 03/14/17 03/15/17 03/15/17 03/15/17 07:00 15:00 23:00 07:00 15:00 23:00 Intake Total 100 ml 600 ml 340 ml 100 ml Output Total 200 ml 300 ml 400 ml Balance -100 ml 300 ml -60 ml 100 ml Intake Oral 500 ml 240 ml IV Total 100 ml 100 ml 100 ml 100 ml Output Urine Total 200 ml 300 ml 400 ml # Bowel Movements 1 Result Diagram: 03/14/17 0545 03/14/17 0545 Objective Remarks GENERAL: patient awake, alert. appears to be breathing comfortably today. SKIN: Warm and dry. HEAD: Normocephalic. EYES: No scleral icterus. No injection or drainage. NECK: Supple, trachea midline. No JVD. CARDIOVASCULAR: Regular rate and rhythm without murmurs, gallops, or rubs. RESPIRATORY: Breath sounds equal bilaterally. No accessory muscle use. GASTROINTESTINAL: Abdomen soft today. No rebound or guarding. nontender. MUSCULOSKELETAL: No cyanosis, or edema. BACK: Nontender without obvious deformity. No CVA tenderness. A/P Assessment and Plan ==== 03/15/17 //Respiratory failure/atypical pneumonia -As seen on CT. Pulmonology following 03/15. Start Levaquin for atypical pneumonia. //Hemoptysis. This appears to have resolved. Continue to monitor. //Coagulopathy. Secondary liver disease. Low fibrinogen on labs 03/14. Replace if there is any bleeding. Hemoglobin currently stable. //acute kidney injury. Repeat labs ordered and pending. //Thrombocytopenia. Repeat labs ordered and pending. Follow labs. //Continue antibiotics for UTI, osteomyelitis right foot. Surgical cultures negative today //Alcohol withdrawal. Improved on Librium. Taper Librium today. //Postop right toe debridement with bone biopsy. -Cultures negative, however bot biopsy-positive for osteomyelitis.. Continue broad-spectrum antibiotics. 56 y/o male with a history of cirrhosis, Hep C and seizures from alcohol withdrawal presented to the ED with weakness, dizziness and sob. //Sepsis on admission -UTI, osteomyelitis, pneumonia -Continue antibiotics as per infectious disease. //Respiratory failure/atypical pneumonia -As seen on CT. Pulmonology following 03/15. Start Levaquin for atypical pneumonia. //UTI- UA culture >100K, E.Coli, Sensitive to Rocephin. - Continue Rocephin . //ostemyeltis right foot, second toe - Bone biopsy shows osteomyelitis. -Podiatry following. Appreciate assistance. Possible second toe resection. -Continue antibiotics as per infectious disease. //Acute respiratory failure. //GI Bleed, hgb 6.9 on admission, occult stool positive - Consult GI . Appreciate recommendations. Plan for CT of the abdomen and pelvis today, EGD colonoscopy planned. - Protonix drip, and Sandostatin drip - 2 units PRBC transfused. Post transfusion H&H 9.4/27.9. - Monitor H&H. -GI following. Appreciate assistance. //Carty's esophagus. We'll need continue on PPI. Follow up GI as outpatient //Liver failure, cirrhosis //Abdominal pain, patient with diarrhea for 2 months, r/o colitis -CT abdomen on admission reviewed -Paracentesis negative for SBP. GI following. Appreciate assistance. //Lactic acidosis. Improved 2.1 on 03/12. Likely secondary to liver disease. //Hyponatremia, hypokalemia, hypomagnesemia, hypocalcemia - Monitor electrolytes -Follow-up labs and replace as necessary. //Tobacco abuse, chronic: Encouraged to quit. Counseled. Declines use of nicotine patch. DVT prophylaxis: SCDs Discharge Planning s/p surgical debridement of suspected osteomyelitis. Infectious disease and podiatry following. -difficult discharge.patient is self-pay. Appreciate case management assistance. London Gomez MD Mar 15, 2017 17:47
[2017-03-15] MEDS ORDERED: LEVOFLOXACIN 750 MG TAB PO ONE (18:00)
[2017-03-15] MEDS: RESP: ALBUTEROL 2.5 MG/IPRATROPIUM 0.5 MG NEB (PRN) NEB (21:19)
[2017-03-15] MEDS: ZOLPIDEM TARTRATE 5 MG TAB PO PRN (21:49)
[2017-03-15 23:52] LABS: HEPATITIS C RNA GENOTYPE 1a or 1b (NOT DETECTD)
[2017-03-16] VITALS: BP 99/53; PULSE 76; RESP 20; TEMP 97.4; O2SAT 100
[2017-03-16] MEDS: metroNIDAZOLE 500 MG INJ 100 ML IV SCH ×2 (06:27→14:04)
[2017-03-16 08:00] VITALS: BP 106/69; PULSE 102; RESP 24; TEMP 97.9; O2SAT 97
[2017-03-16] MEDS: PANTOPRAZOLE SOD 40 MG DELAYED RELEASE TAB PO SCH (08:33)
[2017-03-16] MEDS: THIAMINE HCL 100 MG TAB PO SCH (08:34)
[2017-03-16] MEDS: SODIUM CHLORIDE 0.9% FLUSH 10 ML FLUSH IV FLUSH SCH ×2 (08:34→20:07)
[2017-03-16] MEDS: DOCUSATE SODIUM 50 MG/SENNA 8.6 MG TAB PO SCH ×2 (08:34→20:07)
--- NOTE | 2017-03-16 09:07 | HHI.PR ---
Subjective Remarks alert c/o blood tinged sputum CT CHEST ? PNA Objective Vital Signs Date Time Temp Pulse Resp B/P (MAP) Pulse Ox O2 Delivery O2 Flow Rate FiO2 03/16/17 08:00 97.9 102 24 106/69 (81) 97 03/16/17 00:00 97.4 76 20 99/53 (68) 100 03/16/17 00:00 76 03/15/17 21:21 95 03/15/17 20:00 98 03/15/17 20:00 97.4 98 16 102/62 (75) 93 03/15/17 16:00 96.4 87 17 100/69 (79) 100 03/15/17 12:00 97.4 101 17 94/61 (72) 98 I/O 03/15/17 03/15/17 03/15/17 03/16/17 03/16/17 03/16/17 07:00 15:00 23:00 07:00 15:00 23:00 Intake Total 340 ml 1160 ml Output Total 400 ml 400 ml Balance -60 ml 760 ml Intake Oral 240 ml 960 ml IV Total 100 ml 200 ml Output Urine Total 400 ml 400 ml # Bowel Movements 2 Result Diagram: 03/14/17 0545 03/14/17 0545 Assessment and Plan Assessment and Plan PNA , ATYPICAL HEMOPTYSIS PLAN ANTIBX BRONCHOSCOPY Ruthie Hendricks MD Mar 16, 2017 09:07
[2017-03-16 09:40] LABS: AUTOMATED NEUTROPHIL # 3.6 TH/MM3 (1.8-7.7); BASOPHIL # 0.1 TH/MM3 (0-0.2); BASOPHIL % 1.2 % (0.0-2.0); EOSINOPHIL # 0.2 TH/MM3 (0-0.4); EOSINOPHIL % 3.4 % (0.0-4.0); HEMATOCRIT 24.4 % (39.0-51.0); LYMPH % 25.3 % (9.0-44.0); LYMPHOCYTE # 1.5 TH/MM3 (1.0-4.8); MEAN CELL VOLUME 104.6 FL (80.0-100.0); MEAN CORPUSCULAR HEMOGLOBIN 35.3 PG (27.0-34.0); MEAN CORPUSCULAR HGB CONC 33.7 % (32.0-36.0); NEUT % 60.1 % (16.0-70.0); PLATELET COUNT 90 TH/MM3 (150-450); RED BLOOD COUNT 2.33 MIL/MM3 (4.50-5.90); RED CELL DISTRIBUTION WIDTH 18.2 % (11.6-17.2)
[2017-03-16 09:49] LABS: HEMO FLAGS AUTO DIFF
[2017-03-16 10:07] LABS: ALKALINE PHOSPHATASE 67 U/L (45-117); ALT (GPT) 8 U/L (12-78); ANION GAP 9 MEQ/L (5-15); AST (GOT) 30 U/L (15-37); BICARBONATE 16.9 MEQ/L (21.0-32.0); BLOOD UREA NITROGEN 19 MG/DL (7-18); CHLORIDE 113 MEQ/L (98-107); GLOMERULAR FILTRATION RATE 14 ML/MIN (>89); POTASSIUM 4.6 MEQ/L (3.5-5.1); SODIUM (NA) 139 MEQ/L (136-145); TOTAL BILIRUBIN ADULT 0.9 MG/DL (0.2-1.0)
--- NOTE | 2017-03-16 10:24 | HHI.GIFU ---
Subjective Remarks Resting in bed. States he coughed up a small amount of sputum yesterday with a scant amount of sputum streaked in it. Denies nausea/vomiting. Tolerating diet. Mild abdominal tenderness. Objective Vitals I&O Vital Signs Date Time Temp Pulse Resp B/P (MAP) Pulse Ox O2 Delivery O2 Flow Rate FiO2 03/16/17 08:00 97.9 102 24 106/69 (81) 97 03/16/17 00:00 97.4 76 20 99/53 (68) 100 03/16/17 00:00 76 03/15/17 21:21 95 03/15/17 20:00 98 03/15/17 20:00 97.4 98 16 102/62 (75) 93 03/15/17 16:00 96.4 87 17 100/69 (79) 100 03/15/17 12:00 97.4 101 17 94/61 (72) 98 I/O 03/15/17 03/15/17 03/15/17 03/16/17 03/16/17 03/16/17 07:00 15:00 23:00 07:00 15:00 23:00 Intake Total 340 ml 1160 ml Output Total 400 ml 400 ml Balance -60 ml 760 ml Intake Oral 240 ml 960 ml IV Total 100 ml 200 ml Output Urine Total 400 ml 400 ml # Bowel Movements 2 Laboratory Laboratory Tests Test 03/15/17 14:36 03/16/17 09:08 White Blood Count 6.0 Red Blood Count 2.33 Hemoglobin 8.2 Hematocrit 24.4 Mean Corpuscular Volume 104.6 Mean Corpuscular Hemoglobin 35.3 Mean Corpuscular Hemoglobin Concent 33.7 Red Cell Distribution Width 18.2 Platelet Count 90 Mean Platelet Volume 7.3 Neutrophils (%) (Auto) 60.1 Lymphocytes (%) (Auto) 25.3 Monocytes (%) (Auto) 10.0 Eosinophils (%) (Auto) 3.4 Basophils (%) (Auto) 1.2 Neutrophils # (Auto) 3.6 Lymphocytes # (Auto) 1.5 Monocytes # (Auto) 0.6 Eosinophils # (Auto) 0.2 Basophils # (Auto) 0.1 CBC Comment AUTO DIFF Blood Urea Nitrogen 19 Creatinine 4.50 Random Glucose 118 Total Protein 6.7 Albumin 1.7 Calcium Level 8.0 Phosphorus Level 1.5 Alkaline Phosphatase 67 Aspartate Amino Transf (AST/SGOT) 30 Alanine Aminotransferase (ALT/SGPT) 8 Total Bilirubin 0.9 Sodium Level 139 Potassium Level 4.6 Chloride Level 113 Carbon Dioxide Level 16.9 Anion Gap 9 Estimat Glomerular Filtration Rate 14 Random Vancomycin Level 38.8 Date/Time Source Procedure Growth Status 03/10/17 19:35 Blood Peripheral Aerobic Blood Culture - Final NO GROWTH IN 5 DAYS Complete 03/10/17 19:35 Blood Peripheral Anaerobic Blood Culture - Final NO GROWTH IN 5 DAYS Complete 03/13/17 13:28 Fluid Peritoneal Fluid Gram Stain - Final Complete 03/13/17 13:28 Fluid Peritoneal Fluid Body Fluid Culture - Final NO GROWTH IN 72 HRS.--AEROBICALLY OR ... Complete 03/15/17 02:55 Urine Clean Catch Urine Culture Pending Received 03/12/17 13:27 Wound Toe Gram Stain - Final Complete 03/12/17 13:27 Wound Toe Wound Culture - Final NO GROWTH IN 72 HRS.--AEROBICALLY OR ... Complete Imaging Last Impressions Chest X-Ray 03/14/17 0000 Signed Impressions: Service Date/Time: Tuesday, March 14, 2017 13:42 - CONCLUSION: 1. Resolving right perihilar edema with persistent left-sided edema versus pneumonia Gigi Polanco MD Chest CT 03/14/17 0000 Signed Impressions: Service Date/Time: Tuesday, March 14, 2017 22:15 - CONCLUSION: 1. Mild bilateral pleural effusions. 2. Areas of interstitial consolidation seen in the upper lungs bilaterally. These are nonspecific. Viral or atypical pneumonias could have this appearance. 3. Increased density seen at the posterior lower lobes bilaterally likely related to atelectasis from the effusions. Some degree of alveolar consolidation cannot be excluded. 4. Possible changes of cirrhosis in the liver with a moderate amount of ascites seen in the upper abdomen. 5. Calcified gallstones. Aftab Barney MD Cyst Biopsy Asp-Paracentesis US 03/13/17 0000 Signed Impressions: Service Date/Time: Monday, March 13, 2017 13:10 - CONCLUSION: Uncomplicated ultrasound guided paracentesis. Gigi Polanco MD Foot X-Ray 03/12/17 0000 Signed Impressions: Service Date/Time: Sunday, March 12, 2017 13:50 - CONCLUSION: Possible fusion of the 2nd PIP joint. No acute fracture is seen. Edgar Cunha MD Foot MRI 03/11/17 0000 Signed Impressions: Service Date/Time: Saturday, March 11, 2017 11:23 - CONCLUSION: #1. No evidence of osteomyelitis within the first digit. Severe degenerative changes are seen at the MTP joint. #2. Fracture dislocation of the second digit at the PIP joint. The marrow edema and abnormal enhancement appears to be confined to the middle phalanx. Milka Espino MD Lower Extremity Ultrasound 03/09/17 0000 Signed Impressions: Service Date/Time: February 18:36 - CONCLUSION: No DVT of the left lower extremity. Aftab Tidwell MD Abdomen/Pelvis CT 03/09/17 0000 Signed Impressions: Service Date/Time: February 15:29 - CONCLUSION: 1. Possible left-sided iliac vein/femoral vein deep vein thrombosis. Recommend lower extremity Doppler venous ultrasound to evaluate for DVT. 2. Evidence of cirrhosis again identified. 3. Cholelithiasis. 4. Moderate ascites. Aftab Lynn MD Physical Exam HEENT: Normocephalic; atraumatic; no jaundice. CHEST: Resp. even/shallow CARDIAC: RRR, diminished ABDOMEN: Soft, mildly distended, mild diffuse tenderness, small to mod ascites , bowel sounds are present in all four quadrants. EXTREMITIES: Right splint/essence drsg d/i [employer]SEM[employer]: No focal deficits; lethargic and oriented times three. Assessment and Plan Plan ASSESSMENT: - Severe anemia. 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 Gastritis and gastropathy alcohol related most likely. Normal colonoscopy. Pathology minimal chronic gastritis , negative for H. Pylori. Esophagus distal biopsy with intestinalized mucosa consistent with Carty's esophagus, with mild chronic inflammation, negative for dysplasia or malignancy. HH 8.2/24.4. S/P 2 units PRBC. PPI. - Ascites, worsening distention and pain. CT from 03/09 showed moderate ascites. S/P US Guided paracentesis (03/13/17)---> 4,900cc removed. Neutrophils 2. Cx with no growth x 48 hours. Cytology pending. Diuretics stopped secondary to worsening renal function. He has some mild ascites/tenderness, but improved. - Lower abdominal cramping, hx of diarrhea. Pt with hx of microscopic colitis. CT scan abdomen and pelvis (03/09/17)---> possible left sided iliac vein/ femoral vein deep vein thrombosis, recommend lower extremity doppler venous us to evaluate for DVT, evidence of cirrhosis again identified, cholelithiasis, moderate ascites. Still with some mild tenderness on exam. S/P Colonoscopy as above. Improved. - Abnormal weight loss. Reports significant weight loss over past 2 months, unable to quantify. CT, EGD, Colonoscopy as above. - Elevated LFTs, Liver cirrhosis. Dx by liver biopsy in 2015 at [facility]. Drinks 2-3 beers per week. Previous liver workup in 2015--> Hep C Ab (+), BRITNI negative, AMA < 20.0, ASMA negative, Iron saturation 35.2%, Ferritin 218, Alpha 1 Antitrypsin 108, Ceruloplasmin 15, AFP 2.2. CT as above. AFP 1.6. Ceruloplasmin 14. (this was low in past as well). 24 hour urine for copper level pending. LFTs improved - Hepatitis C Antibodies. HCV genotype 1a or 1b, viral load 662. - Pancytopenia, secondary to cirrhosis, ETOH use. - Coagulopathy. Stable. - Hemoptysis. States he had a scant amount of blood streaked in small amount of sputum. No n/v. - ARF with electrolyte abnormalities. creat. 4.50 today, sudden worsening. Renal following. Diuretics stopped - 2nd toe ulcer, podiatry following, S/P right middle phalanx second digit bone biopsy, repair of extensor digitorum longus tendon rupture, primary closure of right second digit laceration. - Abnormal u/a with cx Ecoli. Levaquin - Hx microscopic colitis in 2014, by path. PLAN: - Low salt diet - Await cytology from peritoneal fluid - Await 24 hour urine for copper - Cont. PPI - Diuretics stopped secondary to sudden worsening of kidney function - Monitor HH - Transfuse as necessary - No NSAIDs - ETOH Cessation - Rpt. Colonoscopy in 10 years - Rpt. Upper endoscopy in 3 years - Supportive care - Further recommendations to follow based on results of above - PT seen and examined by Dr. Tang and myself and this note is written on her behalf Meri Butler Mar 16, 2017 10:24
[2017-03-16 10:43] LABS: PLATELET ESTIMATE SMEAR LOW (NORMAL); PLATELET MORPHOLOGY NORMAL (NORMAL); SCAN/DIFF AUTO DIFF CONFIRMED
[2017-03-16 11:57] VITALS: BP 93/64; PULSE 95; RESP 16; TEMP 97.7; O2SAT 98
[2017-03-16] MEDS: cefTRIAXone INJ 1,000 MG in SODIUM CHLORIDE 0.9% INJ 100 ML IV SCH (15:51)
[2017-03-16 16:00] VITALS: BP 96/58; PULSE 99; RESP 18; TEMP 96.7; O2SAT 97
[2017-03-16] MEDS ORDERED: SODIUM BICARBONATE 8.4% INJ 100 MEQ in WATER STERILE FOR INJ 850 ML IV SCH (18:30)
--- NOTE | 2017-03-16 18:39 | HHI.IDPN ---
Subjective Subjective Remarks Eventr s notes dw Dr Gomez and Rn Pt is now in renal failure, oliguric sp paracenthsis on 03/13 5 L rmoved (4900cc) no e/o SBP Bone bx + for osteo, clx with nl skin pattie Pt is afebrile, but noted to be hypothermic and hypotensive on 03/12-03/13 CT chest with PNA, apparently episode of hemoptyssis Antibiotics CFTX vanco: last dose 03/13 flagyl Allergies: Coded Allergies: No Known Allergies (Verified , 11/21/14) Objective . Vital Signs Date Time Temp Pulse Resp B/P (MAP) Pulse Ox O2 Delivery O2 Flow Rate FiO2 03/16/17 16:00 96.7 99 18 96/58 (71) 97 03/16/17 11:57 97.7 95 16 93/64 (74) 98 03/16/17 08:00 102 03/16/17 08:00 97.9 102 24 106/69 (81) 97 03/16/17 00:00 97.4 76 20 99/53 (68) 100 03/16/17 00:00 76 03/15/17 21:21 95 03/15/17 20:00 98 03/15/17 20:00 97.4 98 16 102/62 (75) 93 03/16/17 03/16/17 03/17/17 15:00 23:00 07:00 Intake Total 825 ml Output Total 300 ml Balance 525 ml Intake Oral 825 ml Output Urine Total 300 ml # Bowel Movements 0 . Laboratory Tests Test 03/16/17 09:08 White Blood Count 6.0 TH/MM3 Red Blood Count 2.33 MIL/MM3 Hemoglobin 8.2 GM/DL Hematocrit 24.4 % Mean Corpuscular Volume 104.6 FL Mean Corpuscular Hemoglobin 35.3 PG Mean Corpuscular Hemoglobin Concent 33.7 % Red Cell Distribution Width 18.2 % Platelet Count 90 TH/MM3 Mean Platelet Volume 7.3 FL Neutrophils (%) (Auto) 60.1 % Lymphocytes (%) (Auto) 25.3 % Monocytes (%) (Auto) 10.0 % Eosinophils (%) (Auto) 3.4 % Basophils (%) (Auto) 1.2 % Neutrophils # (Auto) 3.6 TH/MM3 Lymphocytes # (Auto) 1.5 TH/MM3 Monocytes # (Auto) 0.6 TH/MM3 Eosinophils # (Auto) 0.2 TH/MM3 Basophils # (Auto) 0.1 TH/MM3 CBC Comment AUTO DIFF Differential Comment AUTO DIFF CONFIRMED Platelet Estimate LOW Platelet Morphology Comment NORMAL Laboratory Tests Test 03/16/17 09:08 Blood Urea Nitrogen 19 MG/DL Creatinine 4.50 MG/DL Random Glucose 118 MG/DL Total Protein 6.7 GM/DL Albumin 1.7 GM/DL Calcium Level 8.0 MG/DL Phosphorus Level 1.5 MG/DL Alkaline Phosphatase 67 U/L Aspartate Amino Transf (AST/SGOT) 30 U/L Alanine Aminotransferase (ALT/SGPT) 8 U/L Total Bilirubin 0.9 MG/DL Sodium Level 139 MEQ/L Potassium Level 4.6 MEQ/L Chloride Level 113 MEQ/L Carbon Dioxide Level 16.9 MEQ/L Anion Gap 9 MEQ/L Estimat Glomerular Filtration Rate 14 ML/MIN Microbiology Date/Time Source Procedure Growth Status 03/15/17 02:55 Urine Clean Catch Urine Culture - Preliminary Yeast-Id To Follow Resulted Imaging Last Impressions Chest X-Ray 03/14/17 0000 Signed Impressions: Service Date/Time: Tuesday, March 14, 2017 13:42 - CONCLUSION: 1. Resolving right perihilar edema with persistent left-sided edema versus pneumonia Gigi Polanco MD Chest CT 03/14/17 0000 Signed Impressions: Service Date/Time: Tuesday, March 14, 2017 22:15 - CONCLUSION: 1. Mild bilateral pleural effusions. 2. Areas of interstitial consolidation seen in the upper lungs bilaterally. These are nonspecific. Viral or atypical pneumonias could have this appearance. 3. Increased density seen at the posterior lower lobes bilaterally likely related to atelectasis from the effusions. Some degree of alveolar consolidation cannot be excluded. 4. Possible changes of cirrhosis in the liver with a moderate amount of ascites seen in the upper abdomen. 5. Calcified gallstones. Aftab Barney MD Cyst Biopsy Asp-Paracentesis US 03/13/17 0000 Signed Impressions: Service Date/Time: Monday, March 13, 2017 13:10 - CONCLUSION: Uncomplicated ultrasound guided paracentesis. Gigi Polanco MD Foot X-Ray 03/12/17 0000 Signed Impressions: Service Date/Time: Sunday, March 12, 2017 13:50 - CONCLUSION: Possible fusion of the 2nd PIP joint. No acute fracture is seen. Edgar Cunha MD Foot MRI 03/11/17 0000 Signed Impressions: Service Date/Time: Saturday, March 11, 2017 11:23 - CONCLUSION: #1. No evidence of osteomyelitis within the first digit. Severe degenerative changes are seen at the MTP joint. #2. Fracture dislocation of the second digit at the PIP joint. The marrow edema and abnormal enhancement appears to be confined to the middle phalanx. Milka Espino MD Lower Extremity Ultrasound 03/09/17 0000 Signed Impressions: Service Date/Time: February 18:36 - CONCLUSION: No DVT of the left lower extremity. Aftab Tidwell MD Abdomen/Pelvis CT 03/09/17 0000 Signed Impressions: Service Date/Time: February 15:29 - CONCLUSION: 1. Possible left-sided iliac vein/femoral vein deep vein thrombosis. Recommend lower extremity Doppler venous ultrasound to evaluate for DVT. 2. Evidence of cirrhosis again identified. 3. Cholelithiasis. 4. Moderate ascites. Aftab Lynn MD Physical Exam CONSTITUTIONAL/GENERAL: This is a thin deshelved patient, in no apparent distress. Confused Shaking TUBES/LINES/DRAINS: SKIN: No jaundice, rashes, HEAD: Atraumatic. Normocephalic. EYES: Pupils equal and round and reactive. Extraocular motions intact. No scleral icterus. No injection or drainage. Fundi not examined. ENT: Hearing grossly normal. Nose without bleeding or purulent drainage. Oral mucosae without visible erythema, exudates, masses, or lesions. NECK: Trachea midline. Supple, nontender. CARDIOVASCULAR: Regular rate and rhythm without murmurs, gallops, or rubs. No JVD. Peripheral pulses symmetric. RESPIRATORY/CHEST: Symmetric, unlabored respirations. Clear to auscultation. Breath sounds equal bilaterally. No wheezes, rales, or rhonchi. GASTROINTESTINAL: Abdomen soft, but with some balloting , non-tender, much less distended sp paracenthesis. No hepato-splenomegaly, or palpable masses. No guarding. Bowel sounds present. GENITOURINARY: Without palpable bladder distension foely in place with small amount of quite concentrated appearing urine MUSCULOSKELETAL: Extremities without clubbing, cyanosis, or edema. R foot w surg dressing in place NEUROLOGICAL: Awake and alert. oriented x 3 Motor and sensory grossly within normal limits. Follows commands. Clear speech.. Moves all extremities. not tremorous PSYCHIATRIC: Calm. Cooperative Assessment & Plan Remarks R 2nd digit with open laceration and tendon rupture of the extensor at the PIP and osteo, clx negative Infected wounf of R 2nd digit , growing mixed gram+/gram - pattie: GNBs, Strep PNA Hemoptysis GIB Liver cirrhossis Ascites sp paracenthesis - no e/o SBP on ascitic fluid exam ARF ? ATN ( pt was hypotensive on 03/12-) ? hepatorenal syndome - vanco levels are high, dc vanco avoid nephrotoxic meds cont CFTX dc flagyl fu sputum clx dw Maryanne Lemus RN, MD Mar 16, 2017 18:39
--- NOTE | 2017-03-16 19:28 | PD.POD ---
Subjective Podiatric Problems s/p bone biopsy R 2nd toe, extensor tendon repair, I&D open fracture, Dr Araujo 03/12/17 Pain scale used: 0-10 numeric scale Pain score: 0 Past Med/Surg/Social History Past Medical History PFSH Reviewed: Yes HEENT: REPORTS HX OF: Cataracts Endocrine: REPORTS HX OF: Diabetes mellitus Musculoskeletal: REPORTS HX OF: Gout Infectious disease: REPORTS HX OF: Mumps Past Surgical History Gastrointestinal: REPORTS HX OF: Other GI surgery (Liver bx) Social History Smoking Status: Current Every Day Smoker Objective Vital Signs Vital Signs Date Time Temp Pulse Resp B/P (MAP) Pulse Ox O2 Delivery O2 Flow Rate FiO2 03/16/17 16:00 96.7 99 18 96/58 (71) 97 03/16/17 11:57 97.7 95 16 93/64 (74) 98 03/16/17 08:00 102 03/16/17 08:00 97.9 102 24 106/69 (81) 97 03/16/17 00:00 97.4 76 20 99/53 (68) 100 03/16/17 00:00 76 03/15/17 21:21 95 03/15/17 20:00 98 03/15/17 20:00 97.4 98 16 102/62 (75) 93 Coded Allergies: No Known Allergies (Verified , 11/21/14) Physical Exam Remarks dorsal R 2nd toe incision clean and dry, approximated with nylon suture. No purulence noted. Toe is edematous, but not erythematous. Minimal tenderness with bandage removal. Assessment & Plan A/P s/p bone biopsy R 2nd toe, extensor tendon repair, I&D open fracture, Dr Araujo 03/12/17 Bone biopsy shows acute osteomyelitis Discussed with patient findings and he wants to move forward with IV antibiotics and refuses amputation at this time. Discussed pros and cons with him with his current living conditions. Discussed he will need sutures removed in approx 2 weeks and must keep clean , dry, and bandage intact and changed weekly until sutures out. Follow up with Dr Araujo in 2 weeks. Ordered dressing change weekly to R foot. WBAT R foot in surgical shoe Podiatry signing off. Re-consult if new issues arise Discharge Planning Need Campus Security Director to answer patient questions regarding how IV antibiotics will work in his situation. Sukhi Capps DPKeri Mar 16, 2017 19:28
[2017-03-16 20:00] VITALS: BP 109/68; PULSE 98; RESP 20; TEMP 98.5; O2SAT 100
[2017-03-16] MEDS: ALBUMIN HUMAN 25% 12.5 GM/50 ML BAGP IV SCH (20:07)
[2017-03-16] MEDS ORDERED: SODIUM BICARBONATE 8.4% INJ 100 MEQ in WATER STERILE FOR INJ 900 ML IV SCH (21:00)
[2017-03-16 21:35] LABS: INTERNATIONAL NORMALIZED RATIO 1.8 RATIO; PROTHROMBIN TIME - PATIENT 20.9 SEC (9.8-11.6)
--- NOTE | 2017-03-16 21:42 | HHI.NPPN ---
Subjective History of Present Illness 56-year-old male with past medical history of alcoholism and hepatitis C with cirrhosis of the liver, history of back sores was brought to the hospital because of abdominal pain and weakness. I was called to see the patient because of elevated creatinine. His creatinine on admission was 1.0 and it stayed in the range of 0.8-0.9 and was increased to 2.0 -2.1 until 03/14/17. Additional Remarks Patient is alert, no SOB, on room air, denies SOB, feeling weak. Review of Systems General Constitutional: Fatigue Cardiovascular Cardiac: COPE Gastrointestinal Gastrointestinal: Abdominal Pain Objective Data Data 03/16/17 03/17/17 19:00 07:00 Intake Total 925 ml Output Total 300 ml Balance 625 ml Intake Oral 825 ml IV Total 100 ml Output Urine Total 300 ml # Bowel Movements 0 Vital Signs Date Time Temp Pulse Resp B/P (MAP) Pulse Ox O2 Delivery O2 Flow Rate FiO2 03/16/17 20:00 98.5 98 20 109/68 (82) 100 03/16/17 16:00 96.7 99 18 96/58 (71) 97 03/16/17 11:57 97.7 95 16 93/64 (74) 98 03/16/17 08:00 102 03/16/17 08:00 97.9 102 24 106/69 (81) 97 03/16/17 00:00 97.4 76 20 99/53 (68) 100 03/16/17 00:00 76 -: 03/16/17 0908 03/16/17 0908 Physical Exam General Appearance: No Acute Distress, Comfortable Eyes Eye Exam: Pupils Equal Throat Throat Exam: Oral Mucosa [place] & Moist Pulmonary Resp Exam: Breath Sounds Equal, No Distress, Rhonchi, Decreased Bases Cardiology CV Exam: Regular, Normal Sinus Rhythm Gastrointestinal/Abdomen GI Exam: Soft, Non-Tender, Bowel Sounds Present, Distended Extremeties Extremities Exam: Trace Edema Neurologic Neuro Exam: Alert, Awake, Oriented Psychiatric Psych Exam: Appropriate Responses Assessment/Plan Assessment Summary: CRISTINA/Acute Renal Failure Problem List: (1) Acute kidney injury ICD Codes: N17.9 - Acute kidney failure, unspecified (2) Cirrhosis ICD Codes: K74.60 - Cirrhosis Status: Acute (3) Hypothyroidism ICD Codes: E03.9 - Hypothyroidism Status: Acute (4) Alcohol abuse ICD Codes: F10.10 - Alcohol abuse Status: Acute (5) Anemia ICD Codes: D64.9 - Anemia Status: Acute (6) Ascites ICD Codes: R18.8 - Ascites Status: Acute (7) Hyponatremia ICD Codes: E87.1 - Hyponatremia Status: Acute Plan Patient has been non oliguric, BP is stable, Urine Na. was high and has no Eosinophils. Most likely has ATN causing CRISTINA. Follow the urine out put and BMP. Has increase Creatinine and urine out put dropped. Started on IVF with NaHco3, if continue to get worse, possible HD. Dulce Pacheco MD Mar 16, 2017 21:42
[2017-03-16 23:00] VITALS: PULSE 95
[2017-03-16] MEDS: ZOLPIDEM TARTRATE 5 MG TAB PO PRN (23:37)
--- NOTE | 2017-03-16 23:43 | HHI.PR ---
Subjective Remarks Patient seen this morning around 11:30 AM. Says he is feeling all right. Denies any chest pain or shortness of breath. Objective Vital Signs Date Time Temp Pulse Resp B/P (MAP) Pulse Ox O2 Delivery O2 Flow Rate FiO2 03/16/17 20:00 98.5 98 20 109/68 (82) 100 03/16/17 16:00 96.7 99 18 96/58 (71) 97 03/16/17 11:57 97.7 95 16 93/64 (74) 98 03/16/17 08:00 102 03/16/17 08:00 97.9 102 24 106/69 (81) 97 03/16/17 00:00 97.4 76 20 99/53 (68) 100 03/16/17 00:00 76 I/O 03/16/17 03/16/17 03/16/17 03/17/17 03/17/17 03/17/17 07:00 15:00 23:00 07:00 15:00 23:00 Intake Total 925 ml Output Total 300 ml Balance 625 ml Intake Oral 825 ml IV Total 100 ml Output Urine Total 300 ml # Bowel Movements 0 Result Diagram: 03/16/1708 03/16/17907 Objective Remarks GENERAL: patient awake, alert. appears to be breathing comfortably today.no change on exam today. SKIN: Warm and dry. HEAD: Normocephalic. EYES: No scleral icterus. No injection or drainage. NECK: Supple, trachea midline. No JVD. CARDIOVASCULAR: Regular rate and rhythm without murmurs, gallops, or rubs. RESPIRATORY: Breath sounds equal bilaterally. No accessory muscle use. GASTROINTESTINAL: Abdomen soft today. No rebound or guarding. nontender. MUSCULOSKELETAL: No cyanosis, or edema. BACK: Nontender without obvious deformity. No CVA tenderness. A/P Assessment and Plan ==== 03/16/17 //Respiratory failure/atypical pneumonia -As seen on CT. Pulmonology following 03/16 respiratory status appears to be improving. Continue Levaquin. //Acute kidney injury. worseningCreatinine 4.5 from 2.2. Expect this is secondary to hypotension versus vancomycin toxicity. Nephrology following. FENa indicates renal. possible ATN from hypotension on 03/12.at fluids and schedule albumin. Discussed with infectious disease.Appreciate assistance. //Hemoptysis. This appears to have resolved. Continue to monitor. //Coagulopathy. Secondary liver disease. Low fibrinogen on labs 03/14. Appears to be improving in the 120s today. Replace if there is any bleeding. Hemoglobin continues stable. Platelets improving in the 90s. //Thrombocytopenia. Platelets improving in the 90s today. Follow labs. //Continue antibiotics for UTI, osteomyelitis right foot. Surgical cultures negative today //Alcohol withdrawal. Improved on Librium. Taper Librium today. //Postop right toe debridement with bone biopsy. -Cultures negative, however biopsy-positive for osteomyelitis.. Continue broad- spectrum antibiotics. Patient to decide on resection. 56 y/o male with a history of cirrhosis, Hep C and seizures from alcohol withdrawal presented to the ED with weakness, dizziness and sob. //Sepsis on admission -UTI, osteomyelitis, pneumonia -Continue antibiotics as per infectious disease. //Respiratory failure/atypical pneumonia -As seen on CT. Pulmonology following 03/15. Start Levaquin for atypical pneumonia. //UTI- UA culture >100K, E.Coli, Sensitive to Rocephin. - Continue Rocephin . //ostemyeltis right foot, second toe - Bone biopsy shows osteomyelitis. -Podiatry following. Appreciate assistance. Possible second toe resection. -Continue antibiotics as per infectious disease. //Acute respiratory failure. //GI Bleed, hgb 6.9 on admission, occult stool positive - Consult GI . Appreciate recommendations. Plan for CT of the abdomen and pelvis today, EGD colonoscopy planned. - Protonix drip, and Sandostatin drip - 2 units PRBC transfused. Post transfusion H&H 9.4/27.9. - Monitor H&H. -GI following. Appreciate assistance. //Carty's esophagus. We'll need continue on PPI. Follow up GI as outpatient //Liver failure, cirrhosis //Abdominal pain, patient with diarrhea for 2 months, r/o colitis -CT abdomen on admission reviewed -Paracentesis negative for SBP. GI following. Appreciate assistance. //Lactic acidosis. Improved 2.1 on 10/1. Likely secondary to liver disease. //Hyponatremia, hypokalemia, hypomagnesemia, hypocalcemia - Monitor electrolytes -Follow-up labs and replace as necessary. //Tobacco abuse, chronic: Encouraged to quit. Counseled. Declines use of nicotine patch. DVT prophylaxis: SCDs Discharge Planning s/p surgical debridement of suspected osteomyelitis. Infectious disease and podiatry following. -difficult discharge.patient is self-pay. Appreciate case management assistance. London Gomez MD Mar 16, 2017 23:43
[2017-03-17] VITALS (8 sets, daily range): BP systolic 91–135; BP diastolic 49–85; PULSE 49–118; RESP 14–28; TEMP 91–99.6; O2SAT 96–99
[2017-03-17] MEDS: PANTOPRAZOLE SOD 40 MG DELAYED RELEASE TAB PO SCH (08:35)
[2017-03-17] MEDS: SODIUM CHLORIDE 0.9% FLUSH 10 ML FLUSH IV FLUSH SCH ×2 (08:35→20:36)
[2017-03-17] MEDS: ALBUMIN HUMAN 25% 12.5 GM/50 ML BAGP IV SCH (08:35)
[2017-03-17] MEDS: DOCUSATE SODIUM 50 MG/SENNA 8.6 MG TAB PO SCH ×2 (08:35→20:36)
[2017-03-17] MEDS: THIAMINE HCL 100 MG TAB PO SCH (08:35)
[2017-03-17] MEDS: RESP: ALBUTEROL 2.5 MG/IPRATROPIUM 0.5 MG NEB (PRN) NEB (09:14)
--- NOTE | 2017-03-17 09:14 | HHI.GIFU ---
Subjective Remarks Resting in bed. Respirations shallow and tachypneic. Abdomen mildly distended , mild discomfort. (Meri Butler) Objective Vitals I&O Vital Signs Date Time Temp Pulse Resp B/P (MAP) Pulse Ox O2 Delivery O2 Flow Rate FiO2 03/17/17 08:00 96.9 98 28 119/85 (96) 99 03/17/17 04:00 97.0 118 22 108/69 (82) 97 03/17/17 00:00 97.9 97 18 109/67 (81) 98 03/16/17 23:00 95 03/16/17 20:00 98.5 98 20 109/68 (82) 100 03/16/17 16:00 96.7 99 18 96/58 (71) 97 03/16/17 11:57 97.7 95 16 93/64 (74) 98 I/O 03/16/17 03/16/17 03/16/17 03/17/17 03/17/17 03/17/17 06:59 14:59 22:59 06:59 14:59 22:59 Intake Total 925 ml 412 ml Output Total 300 ml 200 ml Balance 625 ml 212 ml Intake Oral 825 ml IV Total 100 ml 412 ml Output Urine Total 300 ml 200 ml # Bowel Movements 0 Laboratory Laboratory Tests Test 03/16/17 09:08 03/16/17 20:15 White Blood Count 6.0 Red Blood Count 2.33 Hemoglobin 8.2 Hematocrit 24.4 Mean Corpuscular Volume 104.6 Mean Corpuscular Hemoglobin 35.3 Mean Corpuscular Hemoglobin Concent 33.7 Red Cell Distribution Width 18.2 Platelet Count 90 Mean Platelet Volume 7.3 Neutrophils (%) (Auto) 60.1 Lymphocytes (%) (Auto) 25.3 Monocytes (%) (Auto) 10.0 Eosinophils (%) (Auto) 3.4 Basophils (%) (Auto) 1.2 Neutrophils # (Auto) 3.6 Lymphocytes # (Auto) 1.5 Monocytes # (Auto) 0.6 Eosinophils # (Auto) 0.2 Basophils # (Auto) 0.1 CBC Comment AUTO DIFF Differential Comment AUTO DIFF CONFIRMED Platelet Estimate LOW Platelet Morphology Comment NORMAL Blood Urea Nitrogen 19 Creatinine 4.50 Random Glucose 118 Total Protein 6.7 Albumin 1.7 Calcium Level 8.0 Phosphorus Level 1.5 Alkaline Phosphatase 67 Aspartate Amino Transf (AST/SGOT) 30 Alanine Aminotransferase (ALT/SGPT) 8 Total Bilirubin 0.9 Sodium Level 139 Potassium Level 4.6 Chloride Level 113 Carbon Dioxide Level 16.9 Anion Gap 9 Estimat Glomerular Filtration Rate 14 Random Vancomycin Level 38.8 Prothrombin Time 20.9 Prothromb Time International Ratio 1.8 Fibrinogen 129 Date/Time Source Procedure Growth Status 03/10/17 19:35 Blood Peripheral Aerobic Blood Culture - Final NO GROWTH IN 5 DAYS Complete 03/10/17 19:35 Blood Peripheral Anaerobic Blood Culture - Final NO GROWTH IN 5 DAYS Complete 03/13/17 13:28 Fluid Peritoneal Fluid Gram Stain - Final Complete 03/13/17 13:28 Fluid Peritoneal Fluid Body Fluid Culture - Final NO GROWTH IN 72 HRS.--AEROBICALLY OR ... Complete 03/15/17 02:55 Urine Clean Catch Urine Culture - Preliminary Yeast-Id To Follow Resulted 03/12/17 13:27 Wound Toe Gram Stain - Final Complete 03/12/17 13:27 Wound Toe Wound Culture - Final NO GROWTH IN 72 HRS.--AEROBICALLY OR ... Complete Imaging Last Impressions Chest X-Ray 03/14/17 0000 Signed Impressions: Service Date/Time: Tuesday, March 14, 2017 13:42 - CONCLUSION: 1. Resolving right perihilar edema with persistent left-sided edema versus pneumonia Gigi Polanco MD Chest CT 03/14/17 0000 Signed Impressions: Service Date/Time: Tuesday, March 14, 2017 22:15 - CONCLUSION: 1. Mild bilateral pleural effusions. 2. Areas of interstitial consolidation seen in the upper lungs bilaterally. These are nonspecific. Viral or atypical pneumonias could have this appearance. 3. Increased density seen at the posterior lower lobes bilaterally likely related to atelectasis from the effusions. Some degree of alveolar consolidation cannot be excluded. 4. Possible changes of cirrhosis in the liver with a moderate amount of ascites seen in the upper abdomen. 5. Calcified gallstones. Aftab Barney MD Cyst Biopsy Asp-Paracentesis US 03/13/17 0000 Signed Impressions: Service Date/Time: Monday, March 13, 2017 13:10 - CONCLUSION: Uncomplicated ultrasound guided paracentesis. Gigi Polanco MD Foot X-Ray 03/12/17 0000 Signed Impressions: Service Date/Time: Sunday, March 12, 2017 13:50 - CONCLUSION: Possible fusion of the 2nd PIP joint. No acute fracture is seen. Edgar Cunha MD Foot MRI 03/11/17 0000 Signed Impressions: Service Date/Time: Saturday, March 11, 2017 11:23 - CONCLUSION: #1. No evidence of osteomyelitis within the first digit. Severe degenerative changes are seen at the MTP joint. #2. Fracture dislocation of the second digit at the PIP joint. The marrow edema and abnormal enhancement appears to be confined to the middle phalanx. Milka Espino MD Lower Extremity Ultrasound 03/09/17 0000 Signed Impressions: Service Date/Time: February 18:36 - CONCLUSION: No DVT of the left lower extremity. Aftab Tidwell MD Abdomen/Pelvis CT 03/09/17 0000 Signed Impressions: Service Date/Time: February 15:29 - CONCLUSION: 1. Possible left-sided iliac vein/femoral vein deep vein thrombosis. Recommend lower extremity Doppler venous ultrasound to evaluate for DVT. 2. Evidence of cirrhosis again identified. 3. Cholelithiasis. 4. Moderate ascites. Aftab Lynn MD Physical Exam HEENT: Normocephalic; atraumatic; no jaundice. CHEST: Resp. even/shallow, tachypneic CARDIAC: RRR, diminished ABDOMEN: Soft, mild-mod distended, mild diffuse tenderness, small to mod ascites, bowel sounds are present in all four quadrants. EXTREMITIES: Right splint/essence drsg d/i CHEMICAL TESTER: No focal deficits; lethargic and oriented times three. (Meri Butler [facility]) Assessment and Plan Plan ASSESSMENT: - Severe anemia. 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 Gastritis and gastropathy alcohol related most likely. Normal colonoscopy. Pathology minimal chronic gastritis , negative for H. Pylori. Esophagus distal biopsy with intestinalized mucosa consistent with Carty's esophagus, with mild chronic inflammation, negative for dysplasia or malignancy. HH stable. S/P 2 units PRBC. PPI. - Ascites, worsening distention and pain. CT from 03/09 showed moderate ascites. S/P US Guided paracentesis (03/13/17)---> 4,900cc removed. Neutrophils 2. Cx with no growth x 48 hours. Cytology rare mesothelial cells and scattered lymphocytes are present, negative for malignant cells, scattered lymphocytes are present negative for malignant. Diuretics stopped secondary to worsening renal function. He has mild to moderate ascites today, he does seem more tachypneic and unsure if his ascites is contributing to this. - Lower abdominal cramping, hx of diarrhea. Pt with hx of microscopic colitis. CT scan abdomen and pelvis (03/09/17)---> possible left sided iliac vein/ femoral vein deep vein thrombosis, recommend lower extremity doppler venous us to evaluate for DVT, evidence of cirrhosis again identified, cholelithiasis, moderate ascites. Still with some mild tenderness on exam. S/P Colonoscopy as above. Improved. - Abnormal weight loss. Reports significant weight loss over past 2 months, unable to quantify. CT, EGD, Colonoscopy as above. - Elevated LFTs, Liver cirrhosis. Dx by liver biopsy in 2014 at [facility]. Drinks 2-3 beers per week. Previous liver workup in 2015--> Hep C Ab (+), BRITNI negative, AMA < 20.0, ASMA negative, Iron saturation 35.2%, Ferritin 218, Alpha 1 Antitrypsin 108, Ceruloplasmin 15, AFP 2.2. CT as above. AFP 1.6. Ceruloplasmin 14. (this was low in past as well). 24 hour urine for copper level 4. LFTs improved - Hepatitis C Antibodies. HCV genotype 1a or 1b, viral load 662. - Pancytopenia, secondary to cirrhosis, ETOH use. - Coagulopathy. Stable. - Hemoptysis. States he had a scant amount of blood streaked in small amount of sputum. No n/v. - ARF with electrolyte abnormalities. creat. 4.50 yesterday (sudden worsening). Renal following---> Most likely has ATN causing CRISTINA. Diuretics stopped. Today's labs pending. - 2nd toe ulcer, podiatry following, S/P right middle phalanx second digit bone biopsy, repair of extensor digitorum longus tendon rupture, primary closure of right second digit laceration. - Abnormal u/a with cx Ecoli. Levaquin - Hx microscopic colitis in 2014, by path. PLAN: - Low salt diet - Cont. PPI - Monitor HH - Transfuse as necessary - Lower limited US, evaluate ascites - No NSAIDs - ETOH Cessation - Rpt. Colonoscopy in 10 years - Rpt. Upper endoscopy in 3 years - Diuretics stopped secondary to sudden worsening of kidney function - Supportive care - Further recommendations to follow based on results of above - PT seen and examined by Dr. Tang and myself and this note is written on her behalf (Meri Butler) Physician Comments seen, examined agree with above us noted-ascites s/p paracentesis -3,400 ml fluid removed agitated trying to find his ID albumin infusion us guided paracentesis supportive care poor prognosis (Terri Tang MD) Meri Butler Mar 17, 2017 09:13 Terri Tang MD Mar 17, 2017 15:52
--- NOTE | 2017-03-17 09:50 | RADRPT ---
EXAM DATE/TIME: 03/17/2017 09:27 [facility] COMPARISON: No previous studies available for comparison. INDICATIONS : Ascites. MEDICAL HISTORY : Arthritis. Cirrhosis. Seizures. Chest pain. Abdominal pain. Mumps. Gout. Depression. Anxiety. Substan ce use. SURGICAL HISTORY : Liver biopsy. Paracentesis. ENCOUNTER: Subsequent ACUITY: 4-6 days PAIN SCORE: 2/10 LOCATION: Abdomen. AREA EVALUATED: Abdominal quadrants. FINDINGS: Imaging of the abdomen and pelvis was performed to evaluate for ascites for possible paracentesis. La rge amount of abdominal ascites in all 4 quadrants. CONCLUSION: Large amount of abdominal ascites. Charli Douglass MD on March 17, 2017 at 9:49 Board Certified Radiologist. This report was verified electronically.
--- NOTE | 2017-03-17 10:50 | RADRPT ---
EXAM DATE/TIME: 03/17/2017 09:48 [facility] COMPARISON: CHEST SINGLE AP, March 14, 2017, 13:42. INDICATIONS : Evaluate diaphragm MEDICAL HISTORY : Hepatitis C. Cirrhosis. SURGICAL HISTORY : None. ENCOUNTER: Subsequent ACUITY: 1 week PAIN SCORE: 7/10 LOCATION: Bilateral chest FINDINGS: A single view of the chest demonstrates left perihilar and left lower lobe density partially obscurin g the left hemidiaphragm. Right lung is relatively clear although there is slight volume loss. Heart normal in size. Osseous structures are intact. CONCLUSION: 1. Left perihilar and left lower lobe density partially obscuring left hemidiaphragm likely infiltrat e. Charli Douglass MD on March 17, 2017 at 10:47 Board Certified Radiologist. This report was verified electronically.
[2017-03-17 10:52] LABS: BLOOD GAS BASE EXCESS -9.5 mmol/L (-2-2); BLOOD GAS CARBOXYHEMOGLOBIN 1.4 % (0-4); BLOOD GAS HCO3 14 mmol/L (22-26); BLOOD GAS O2 HGB SATURATION 94 % (90-100); BLOOD GAS PCO2 21 mmHg (38-42); BLOOD GAS PO2 77 mmHg (61-120); BLOOD GAS TOTAL HGB 7.5 G/DL (12.0-16.0); TEMP CORR TO 98.6
[2017-03-17 10:53] LABS: CRITICAL VALUE YES; DRAW SITE LT RADIAL; FIO2 21 %; NUMBER OF ARTERIAL PUNCTURES 1; OXYGEN DEVICE ROOM AIR; STAT YES; ULNAR PULSE PRESENT
[2017-03-17 10:56] LABS: AUTOMATED NEUTROPHIL # 3.2 TH/MM3 (1.8-7.7); BASOPHIL # 0.1 TH/MM3 (0-0.2); BASOPHIL % 1.3 % (0.0-2.0); EOSINOPHIL # 0.3 TH/MM3 (0-0.4); HEMO FLAGS DIFF FINAL; LYMPH % 28.9 % (9.0-44.0); LYMPHOCYTE # 1.7 TH/MM3 (1.0-4.8); MEAN CELL VOLUME 104.7 FL (80.0-100.0); MEAN CORPUSCULAR HEMOGLOBIN 35.3 PG (27.0-34.0); MEAN CORPUSCULAR HGB CONC 33.7 % (32.0-36.0); MONO % 12.8 % (0.0-8.0); PLATELET COUNT 101 TH/MM3 (150-450); RED BLOOD COUNT 2.38 MIL/MM3 (4.50-5.90); RED CELL DISTRIBUTION WIDTH 18.5 % (11.6-17.2); WHITE BLOOD COUNT 6.1 TH/MM3 (4.0-11.0)
--- NOTE | 2017-03-17 11:06 | HHI.NPPN ---
Subjective History of Present Illness 56-year-old male with past medical history of alcoholism and hepatitis C with cirrhosis of the liver, history of back sores was brought to the hospital because of abdominal pain and weakness. I was called to see the patient because of elevated creatinine. His creatinine on admission was 1.0 and it stayed in the range of 0.8-0.9 and was increased to 2.0 -2.1 until 03/14/17. Additional Remarks Patient is alert, no SOB, on room air, no nausea. Review of Systems General Constitutional: Fatigue Cardiovascular Cardiac: COPE Gastrointestinal Gastrointestinal: Abdominal Pain Objective Data Data Vital Signs Date Time Temp Pulse Resp B/P (MAP) Pulse Ox O2 Delivery O2 Flow Rate FiO2 03/17/17 08:00 96.9 98 28 119/85 (96) 99 03/17/17 04:00 97.0 118 22 108/69 (82) 97 03/17/17 00:00 97.9 97 18 109/67 (81) 98 03/16/17 23:00 95 03/16/17 20:00 98.5 98 20 109/68 (82) 100 03/16/17 16:00 96.7 99 18 96/58 (71) 97 03/16/17 11:57 97.7 95 16 93/64 (74) 98 -: 03/17/17 1035 03/16/17 0908 Physical Exam General Appearance: No Acute Distress, Comfortable Eyes Eye Exam: Pupils Equal Throat Throat Exam: Oral Mucosa [employer] & Moist Pulmonary Resp Exam: Breath Sounds Equal, No Distress, Rhonchi, Decreased Bases Cardiology CV Exam: Regular, Normal Sinus Rhythm Gastrointestinal/Abdomen GI Exam: Soft, Non-Tender, Bowel Sounds Present, Distended Extremeties Extremities Exam: Trace Edema Neurologic Neuro Exam: Alert, Awake, Oriented Psychiatric Psych Exam: Appropriate Responses Assessment/Plan Assessment Summary: CRISTINA/Acute Renal Failure Problem List: (1) Acute kidney injury ICD Codes: N17.9 - Acute kidney failure, unspecified (2) Cirrhosis ICD Codes: K74.60 - Cirrhosis Status: Acute (3) Hypothyroidism ICD Codes: E03.9 - Hypothyroidism Status: Acute (4) Alcohol abuse ICD Codes: F10.10 - Alcohol abuse Status: Acute (5) Anemia ICD Codes: D64.9 - Anemia Status: Acute (6) Ascites ICD Codes: R18.8 - Ascites Status: Acute (7) Hyponatremia ICD Codes: E87.1 - Hyponatremia Status: Acute Plan Patient has been non oliguric, BP is stable, Urine Na. was high and has no Eosinophils. Most likely has ATN causing CRISTINA. Urine out put is 500 ml in last 24 hrs. On IVF with NaHco3, No new BMP, just done, will follow. Going for Paracentesis. D/W the patient about possible Dialysis. Dulce Pacheco MD Mar 17, 2017 11:06
[2017-03-17 11:18] LABS: ALT (GPT) 8 U/L (12-78); ANION GAP 9 MEQ/L (5-15); AST (GOT) 31 U/L (15-37); BICARBONATE 17.5 MEQ/L (21.0-32.0); BLOOD UREA NITROGEN 24 MG/DL (7-18); CHLORIDE 112 MEQ/L (98-107); GLOMERULAR FILTRATION RATE 12 ML/MIN (>89); MAGNESIUM 0.9 MG/DL (1.5-2.5); POTASSIUM 4.7 MEQ/L (3.5-5.1); SODIUM (NA) 138 MEQ/L (136-145)
[2017-03-17 11:20] LABS: ALKALINE PHOSPHATASE 70 U/L (45-117)
[2017-03-17] MEDS ORDERED: LIDOCAINE HCL 1% 20 ML VIAL SQ ONE (11:44)
[2017-03-17] MEDS: LORazepam 1 MG TAB PO PRN (13:20)
[2017-03-17 13:34] LABS: PERITONEAL HISTIOCYTES 23 %; PERITONEAL LYMPHS 61 %; PERITONEAL MESOTHELIAL 11 %; PERITONEAL MONOS 2 %; PERITONEAL POLYS(SEGS) 2 %
[2017-03-17 13:35] LABS: PERITONEAL WBC 90 /MM3 (0-10)
--- NOTE | 2017-03-17 14:40 | PD.CONS ---
Consult Service Palliative Care Consult Requested By Dr. Gomez Primary Care Physician No Primary Care Physician Reason for Consultation a. To assist with evaluation and management of symptoms including: Confusion , pain, dyspnea. b. To assist medical decision maker(s) with: better understanding of current medical conditions; weighing benefits/burdens of medical treatment options; making medical treatment decisions. HPI History of Present Illness 56-year-old male presented to the emergency room 03/08/17 with complaints of progressive fatigue, diarrhea, dizziness and dyspnea on exertion. He was admitted with GI bleed and right toe ulcer. ED course: * Laboratory - WBC 3.7, hemoglobin 6.9, hematocrit 19.6, platelets 124, sodium 130, potassium 3.9, BUN 10, creatinine 1.03. Hemoccult positive. * Microbiology - on admission urinalysis showed Escherichia coli. Gram stain and wound culture of foot wound showed strep, not A, B or D During admission he has developed new onset acute kidney injury, felt to be most likely caused by ATN. Nephrology is discussing possible dialysis with patient. He has undergone paracentesis on 03/13 (4900 cc) and 03/17 (no report available). He has also undergone right middle phalanx second digit bone biopsy with repair of extensor digitorum longus tendon rupture and primary closure of right second digit laceration. He is currently being followed by infectious disease, nephrology, gastroenterology, podiatry and palliative care. During conversation with the patient he had difficulty answering simple questions and was confused about many details of his life. He is concerned about where he will stay when he gets out of the hospital. He does remember living in the [facility] but cannot remember how long he was there. He is able to recall his 3 sisters names with some difficulty. He named his sister Margarita as his healthcare surrogate and his sister Ese as his alternate healthcare surrogate. He states his sister Heidi would be unable to help him with his decisions. . Function/Cognitive Trajectory Patient was previously ambulatory, worked in construction. He has a very poor recollection of the last several years, likely due to increasing alcoholism, but relates that prior to admission he was extremely weak and able to walk only a couple of steps without stopping. Review of Systems ROS Limitations: Clinical Condition, Altered Mental Status Constitutional: COMPLAINS OF: Fatigue, Weight loss, Generalized weakness Respiratory: COMPLAINS OF: Shortness of breath Cardiovascular: COMPLAINS OF: Dyspnea on Exertion Gastrointestinal: COMPLAINS OF: Abdominal pain, Black stools, Diarrhea Integumentary: COMPLAINS OF: Abnormal pigmentation Hematologic/Lymphatics: COMPLAINS OF: History of transfusions Neurologic: COMPLAINS OF: Abnormal gait, Seizures Psychiatric: COMPLAINS OF: Confusion Past Family Social History Coded Allergies: No Known Allergies (Verified , 11/21/14) Past Medical History Liver Cirrhosis Hep C Ab, patient does not recall a history of this. Microscopic colitis Seizure OA Gout . Past Surgical History EGD/Colonoscopy Liver biopsy in 2014 . Reported Medications Reported Meds & Active Scripts Active No Active Prescriptions or Reported Medications . Current Medications Medications (Trade) Dose Ordered Sig/Darrick Route Start Time Stop Time Status Last Admin (Catapres) 0.1 mg Q4H PRN PO 03/08/17 17:45 03/09/17 12:51 (NS Flush) 2 ml UNSCH PRN IV FLUSH 03/08/17 17:45 (NS Flush) 2 ml BID IV FLUSH 03/08/17 21:00 03/17/17 08:35 (Tylenol) 650 mg Q4H PRN PO 03/08/17 17:45 (Zofran Inj) 4 mg Q6H PRN IVP 03/08/17 17:45 (Tylenol) 650 mg Q6H PRN PO 03/08/17 17:45 (Dolores-Colace) 1 tab BID PO 03/08/17 21:00 03/16/17 08:34 (Dulcolax Supp) 10 mg DAILY PRN RECTAL 03/08/17 17:45 (Romazicon Inj) 0.2 mg Q1M PRN IV PUSH 03/09/17 13:45 (Ativan) 1 mg Q4H PRN PO 03/09/17 13:45 03/17/17 13:20 (Ativan Inj) 1 mg Q4H PRN IV PUSH 03/09/17 13:45 (Ativan) 2 mg Q2H PRN PO 03/09/17 13:45 (Ativan Inj) 2 mg Q2H PRN IV PUSH 03/09/17 13:45 03/11/17 21:56 (Ativan Inj) 2 mg Q1H PRN IV PUSH 03/09/17 13:45 (Ativan Inj) 2 mg Q15M PRN IV PUSH 03/09/17 13:45 Ceftriaxone Sodium 1000 mg/ Sodium Chloride 100 ml @ 200 mls/hr Q24H IV 03/09/17 16:00 03/16/17 15:51 (Ambien) 5 mg HS PRN PO 03/09/17 21:00 03/16/17 23:37 (Protonix) 40 mg DAILY PO 03/11/17 09:00 03/17/17 08:35 (Vitamin B1) 100 mg DAILY PO 03/12/17 09:00 03/17/17 08:35 (Duoneb Neb) 1 ampule Q6HR NEB PRN NEB 03/13/17 11:45 03/17/17 09:14 (Librium) 5 mg BID PO 03/15/17 21:00 03/17/17 08:35 (Levaquin) 750 mg Q48H PO 03/17/17 18:00 (Albumin 25% Inj) 12.5 gm Q12H IV 03/16/17 20:00 03/17/17 08:35 . Family History Brother: liver cancer Sister: ETOH abuse Father: throat cancer in his 50s. Mother: Natural causes mid 70s. . Substance Use Tobacco: Smokes half a pack of cigarettes daily. He claims he started when he was 39. Alcohol: Has a long history of heavy alcohol use with beer and Roberto Skaggs, most recently Drinks 2 beers daily. Prescription med abuse: Illicits: Occasional marijuana. . 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 Due to his confusion, he was unable to provide a better timeline. He was not in the . He was raised in the [employer] [place]. . Spiritual/Cultural Factors [employer] . Living Will: Never completed Health Care Surrogate: Copy in medical record Durable Power of School Plant Consultant: Never completed Physical Exam Vital Signs Date Time Temp Pulse Resp B/P (MAP) Pulse Ox O2 Delivery O2 Flow Rate FiO2 03/17/17 12:13 91.0 117 16 91/60 (70) 96 03/17/17 12:00 98 03/17/17 12:00 96.6 101 20 112/69 (83) 99 03/17/17 12:00 98.0 117 16 91/60 (70) 98 03/17/17 11:09 96.6 49 14 135/49 (77) 98 03/17/17 08:00 102 03/17/17 08:00 96.9 98 28 119/85 (96) 99 03/17/17 04:00 97.0 118 22 108/69 (82) 97 03/17/17 00:00 97.9 97 18 109/67 (81) 98 03/16/17 23:00 95 03/16/17 20:00 98.5 98 20 109/68 (82) 100 03/16/17 16:00 96.7 99 18 96/58 (71) 97 . 03/17/17 03/18/17 19:00 07:00 Intake Total 300 ml Balance 300 ml IV Total 300 ml . Exam CONSTITUTIONAL/GENERAL: This is an unkempt, middle age, cachectic male lying in bed in no acute distress. TUBES/LINES/DRAINS: Left forearm PIV SKIN: Jaundiced, ecchymotic areas on bilateral upper extremities. Left foot wrapped in surgical bandage. HEAD: Atraumatic. Normocephalic. EYES: Pupils equal and round and reactive. Extraocular motions intact. Mild scleral icterus.. No injection or drainage. Fundi not examined. ENT: Hearing grossly normal. Nose without bleeding or purulent drainage. Throat without visible erythema, exudates, masses, or lesions. NECK: Trachea midline. Supple, nontender. No palpable thyroid enlargement or nodularity. CARDIOVASCULAR: Regular rate and rhythm without murmurs, gallops, or rubs. No JVD. Peripheral pulses symmetric. RESPIRATORY/CHEST: Symmetric, unlabored respirations. Clear, diminished to auscultation. Breath sounds equal bilaterally. No wheezes, rales, or rhonchi. GASTROINTESTINAL: Abdomen soft, tender to palpation, nondistended. No guarding. Bowel sounds present. GENITOURINARY: Without palpable bladder distension. Castillo catheter in place. MUSCULOSKELETAL: Extremities without clubbing, cyanosis, or edema. No joint tenderness or effusion noted. No calf tenderness. No mottling or clubbing. NEUROLOGICAL: Awake and alert, oriented to self and place, otherwise confused, unable to provide clear history. Frequently referred to the student nurse in the room as "Cap", referring to a friend of his with whom he had been living in the [facility]. Motor and sensory grossly within normal limits. Follows commands. Moves all extremities. PSYCHIATRIC: Flat affect, calm, cooperative. . Diagnostic Tests Laboratory Laboratory Tests Test 03/14/17 14:13 03/14/17 14:38 03/15/17 02:55 03/15/17 14:36 Blood Gas Puncture Site RT RADIAL Blood Gas Patient Temperature 98.6 Blood Gas HCO3 15 mmol/L (22-26) Blood Gas Base Excess -8.0 mmol/L (-2-2) Blood Gas Oxygen Saturation 93 % (90-100) Arterial Blood pH 7.44 (7.380-7.420) Arterial Blood Partial Pressure CO2 23 mmHg (38-42) Arterial Blood Partial Pressure O2 70 mmHg (61-120) Arterial Blood Oxygen Content 10.8 Vol % (12.0-20.0) Arterial Blood Carboxyhemoglobin 1.6 % (0-4) Arterial Blood Methemoglobin 0.7 % (0-2) Blood Gas Hemoglobin 8.2 G/DL (12.0-16.0) Blood Gas Inspired Oxygen 21 % Prothrombin Time 20.9 SEC (9.8-11.6) Prothromb Time International Ratio 1.8 RATIO Fibrinogen 77 mg/dL (227-377) Urine Color YELLOW (YELLW/STRAW) Urine Turbidity CLEAR (CLEAR) Urine pH 5.0 (5.0-8.5) Urine Specific [place] 1.007 (1.002-1.035) Urine Protein NEG mg/dL (NEG-TRACE) Urine Glucose (UA) NEG mg/dL (NEG) Urine Ketones NEG mg/dL (NEG) Urine Occult Blood SMALL (NEG) Urine Nitrite NEG (NEG) Urine Bilirubin NEG (NEG) Urine Urobilinogen LESS THAN 2.0 MG/DL (LESS Urine Leukocyte Esterase LARGE (NEG) Urine RBC 18 /hpf (0-3) Urine WBC 11 /hpf (0-5) Urine Squamous Epithelial Cells 1 /hpf (0-5) Urine Bacteria FEW /hpf (NONE) Urine Hyaline Casts 6 /lpf (RARE) Urine Mucus FEW /lpf (OCC) Urine Yeast (Budding) FEW (NONE) Microscopic Urinalysis Comment CULTURE INDICATED Urine Eosinophils NONE SEEN /HPF (NONE SEEN) Urine Random Creatinine 28.5 MG/DL Urine Random Sodium 123 MEQ/L Urine Random Potassium 24 MEQ/L Urine Random Chloride 149 MEQ/L Urine Collection Duration 24 h Urine Total Volume 400 mL Urine Copper 4 mcg/24 h (<=60) Test 03/16/17 09:08 03/16/17 20:15 03/17/17 10:35 03/17/17 10:36 White Blood Count 6.0 TH/MM3 (4.0-11.0) 6.1 TH/MM3 (4.0-11.0) Red Blood Count 2.33 MIL/MM3 (4.50-5.90) 2.38 MIL/MM3 (4.50-5.90) Hemoglobin 8.2 GM/DL (13.0-17.0) 8.4 GM/DL (13.0-17.0) Hematocrit 24.4 % (39.0-51.0) 25.0 % (39.0-51.0) Mean Corpuscular Volume 104.6 FL (80.0-100.0) 104.7 FL (80.0-100.0) Mean Corpuscular Hemoglobin 35.3 PG (27.0-34.0) 35.3 PG (27.0-34.0) Mean Corpuscular Hemoglobin Concent 33.7 % (32.0-36.0) 33.7 % (32.0-36.0) Red Cell Distribution Width 18.2 % (11.6-17.2) 18.5 % (11.6-17.2) Platelet Count 90 TH/MM3 (150-450) 101 TH/MM3 (150-450) Mean Platelet Volume 7.3 FL (7.0-11.0) 7.2 FL (7.0-11.0) Neutrophils (%) (Auto) 60.1 % (16.0-70.0) 52.0 % (16.0-70.0) Lymphocytes (%) (Auto) 25.3 % (9.0-44.0) 28.9 % (9.0-44.0) Monocytes (%) (Auto) 10.0 % (0.0-8.0) 12.8 % (0.0-8.0) Eosinophils (%) (Auto) 3.4 % (0.0-4.0) 5.0 % (0.0-4.0) Basophils (%) (Auto) 1.2 % (0.0-2.0) 1.3 % (0.0-2.0) Neutrophils # (Auto) 3.6 TH/MM3 (1.8-7.7) 3.2 TH/MM3 (1.8-7.7) Lymphocytes # (Auto) 1.5 TH/MM3 (1.0-4.8) 1.7 TH/MM3 (1.0-4.8) Monocytes # (Auto) 0.6 TH/MM3 (0-0.9) 0.8 TH/MM3 (0-0.9) Eosinophils # (Auto) 0.2 TH/MM3 (0-0.4) 0.3 TH/MM3 (0-0.4) Basophils # (Auto) 0.1 TH/MM3 (0-0.2) 0.1 TH/MM3 (0-0.2) CBC Comment AUTO DIFF DIFF FINAL Differential Comment AUTO DIFF CONFIRMED Platelet Estimate LOW (NORMAL) Platelet Morphology Comment NORMAL (NORMAL) Blood Urea Nitrogen 19 MG/DL (7-18) 24 MG/DL (7-18) Creatinine 4.50 MG/DL (0.60-1.30) 5.18 MG/DL (0.60-1.30) Random Glucose 118 MG/DL (74-106) 115 MG/DL (74-106) Total Protein 6.7 GM/DL (6.4-8.2) 7.2 GM/DL (6.4-8.2) Albumin 1.7 GM/DL (3.4-5.0) 2.1 GM/DL (3.4-5.0) Calcium Level 8.0 MG/DL (8.5-10.1) 7.9 MG/DL (8.5-10.1) Phosphorus Level 1.5 MG/DL (2.5-4.9) 1.6 MG/DL (2.5-4.9) Alkaline Phosphatase 67 U/L (45-117) 70 U/L (45-117) Aspartate Amino Transf (AST/SGOT) 30 U/L (15-37) 31 U/L (15-37) Alanine Aminotransferase (ALT/SGPT) 8 U/L (12-78) 8 U/L (12-78) Total Bilirubin 0.9 MG/DL (0.2-1.0) 1.0 MG/DL (0.2-1.0) Sodium Level 139 MEQ/L (136-145) 138 MEQ/L (136-145) Potassium Level 4.6 MEQ/L (3.5-5.1) 4.7 MEQ/L (3.5-5.1) Chloride Level 113 MEQ/L (98-107) 112 MEQ/L (98-107) Carbon Dioxide Level 16.9 MEQ/L (21.0-32.0) 17.5 MEQ/L (21.0-32.0) Anion Gap 9 MEQ/L (5-15) 9 MEQ/L (5-15) Estimat Glomerular Filtration Rate 14 ML/MIN (>89) 12 ML/MIN (>89) Random Vancomycin Level 38.8 COMMENT Prothrombin Time 20.9 SEC (9.8-11.6) Prothromb Time International Ratio 1.8 RATIO Fibrinogen 129 mg/dL (227-377) Magnesium Level 0.9 MG/DL (1.5-2.5) Total Creatine Kinase 28 U/L (39-308) B-Type Natriuretic Peptide 1189 PG/ML (0-100) Blood Gas Puncture Site LT RADIAL Blood Gas Patient Temperature 98.6 Blood Gas HCO3 14 mmol/L (22-26) Blood Gas Base Excess -9.5 mmol/L (-2-2) Blood Gas Oxygen Saturation 94 % (90-100) Arterial Blood pH 7.44 (7.380-7.420) Arterial Blood Partial Pressure CO2 21 mmHg (38-42) Arterial Blood Partial Pressure O2 77 mmHg (61-120) Arterial Blood Oxygen Content 10.0 Vol % (12.0-20.0) Arterial Blood Carboxyhemoglobin 1.4 % (0-4) Arterial Blood Methemoglobin 1.0 % (0-2) Blood Gas Hemoglobin 7.5 G/DL (12.0-16.0) Oxygen Delivery Device ROOM AIR Blood Gas Inspired Oxygen 21 % Test 03/17/17 11:23 Peritoneal Fluid WBC 90 /MM3 (0-10) Peritoneal Fluid RBC 0 /MM3 (0-0) Peritoneal Fluid Neutrophils 2 % Peritoneal Fluid Lymphocytes 61 % Peritoneal Fluid Monocytes 2 % Peritoneal Fluid Histiocytes 23 % Peritoneal Fluid Mesothelial Cells 11 % Peritoneal Fluid Albumin 0.4 G/DL . Result Diagram: 03/17/17 1035 03/17/171034 Microbiology Microbiology Date/Time Source Procedure Growth Status 03/17/17 11:23 Fluid Peritoneal Fluid Gram Stain Pending Received 03/17/17 11:23 Fluid Peritoneal Fluid Body Fluid Culture Pending Received 03/15/17 02:55 Urine Clean Catch Urine Culture - Preliminary Yeast-Id To Follow Resulted . Imaging Last Impressions Chest X-Ray 03/17/17 0000 Signed Impressions: Service Date/Time: Friday, March 17, 2017 09:48 - CONCLUSION: 1. Left perihilar and left lower lobe density partially obscuring left hemidiaphragm likely infiltrate. Charli Douglass MD Abdomen Ultrasound 03/17/17 0000 Signed Impressions: Service Date/Time: Friday, March 17, 2017 09:27 - CONCLUSION: Large amount of abdominal ascites. Charli Douglass MD Chest CT 03/14/17 0000 Signed Impressions: Service Date/Time: Tuesday, March 14, 2017 22:15 - CONCLUSION: 1. Mild bilateral pleural effusions. 2. Areas of interstitial consolidation seen in the upper lungs bilaterally. These are nonspecific. Viral or atypical pneumonias could have this appearance. 3. Increased density seen at the posterior lower lobes bilaterally likely related to atelectasis from the effusions. Some degree of alveolar consolidation cannot be excluded. 4. Possible changes of cirrhosis in the liver with a moderate amount of ascites seen in the upper abdomen. 5. Calcified gallstones. Aftab Barney MD Cyst Biopsy Asp-Paracentesis US 03/13/17 0000 Signed Impressions: Service Date/Time: Monday, March 13, 2017 13:10 - CONCLUSION: Uncomplicated ultrasound guided paracentesis. Gigi Polanco MD Foot X-Ray 03/12/17 0000 Signed Impressions: Service Date/Time: Sunday, March 12, 2017 13:50 - CONCLUSION: Possible fusion of the 2nd PIP joint. No acute fracture is seen. Edgar Cunha MD Foot MRI 03/11/17 0000 Signed Impressions: Service Date/Time: Saturday, March 11, 2017 11:23 - CONCLUSION: #1. No evidence of osteomyelitis within the first digit. Severe degenerative changes are seen at the MTP joint. #2. Fracture dislocation of the second digit at the PIP joint. The marrow edema and abnormal enhancement appears to be confined to the middle phalanx. Milka Espino MD Lower Extremity Ultrasound 03/09/17 0000 Signed Impressions: Service Date/Time: February 18:36 - CONCLUSION: No DVT of the left lower extremity. Aftab Tidwell MD Abdomen/Pelvis CT 03/09/17 0000 Signed Impressions: Service Date/Time: February 15:29 - CONCLUSION: 1. Possible left-sided iliac vein/femoral vein deep vein thrombosis. Recommend lower extremity Doppler venous ultrasound to evaluate for DVT. 2. Evidence of cirrhosis again identified. 3. Cholelithiasis. 4. Moderate ascites. Aftab Lynn MD Procedures 03/12/17 - right middle phalanx second digit bone biopsy with repair of extensor digitorum longus tendon rupture and closure of laceration 03/13/17- paracentesis 03/17/17 - paracentesis . Patient/Family Conference Present at Family Conference: Spoke with his sister, Margarita, by phone and updated her as to patient condition, to include liver disease, kidney disease and foot infection. She states that he had called her about once a week up until the last 2 months when he had lost his phone. The family thought that perhaps he was after Hurricaine Adriana. She states that in their many conversations together Lamonte related his poor state of health to her and his dissatisfaction with his quality of life. Based on those conversations she has determined that Lamonte would prefer to be made a DO NOT RESUSCITATE then to undergo multiple aggressive procedures that might prolong the quantity of life but would deeply impair his quality of life. Although she is named the primary health care surrogate by the patient, she wishes to consult with both of her sisters to confirm that their feelings are similar to hers. Contact information was provided for follow-up questions or medical updates. The role and purpose of palliative care to include those items listed below was included in this discussion . Family Conference Location: Telephone Issues Discussed: * Palliative care role, purpose, approach * Additional medical, psychosocial, and spiritual history * Patients general health, functional status, and cognitive changes in the months leading up to the current hospitalization * Patient/family understanding of the current medical problems * Patient/family understanding of prognosis * Patients goals of care as best understood from advance directives and/or conversations and/or values * Current medical treatment options and benefits/burdens of those options * Likely scenarios comparing ongoing aggressive care with a transition to comfort measures only * Questions answered to the best of my ability * Palliative care contact information provided . 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 Due to his confusion, he was unable to provide a better timeline. He was not in the . He was raised in the [employer] [place]. Spiritual: [employer] Legal: He has named his sister, Margarita, as his healthcare surrogate with his sister Ese has alternate. Ethical issues impacting care: Patient is homeless and is currently unable to care for himself. . Important Contacts Sister - Margarita Gomez , Sister - Ese Van , Prognosis His prognosis is very poor. He has severe liver cirrhosis with a history of hepatitis and is now auto anticoagulated. His INR is 1.8 on no anticoagulant. He has required paracentesis twice in the last 4 days. He has also developed acute kidney injury thought to be related to acute tubular necrosis while in the hospital and is now approaching the need for dialysis. He has developed a GI bleed and biopsy is pending. He is now confused and unable to provide care for himself. As he lives in the [facility] and is homeless, he has developed a left second toe injury that required surgical repair, debridement and is infected. He has multiple organs in failure or compromise is at extremely high risk for repeat hospitalizations. Code Status: No Code Plan PLAN: Legal decision maker: Sister - Margarita Gomez , is his first health care surrogate, his alternate is his other sister - Ese Araujo , Goals: His sister believes that it is in his best interest to orient his goals towards comfort. CODE STATUS: DNR SYMPTOMS: * Confusion - student nurse at bedside notes that the patient is more confused today than he was yesterday. Ammonia level 03/10/17 was 45. Would recommend rechecking ammonia level at some point to determine its contribution to his confusion. * Pain- states his pain is in his abdomen, worse as ascites worsens, which is exacerbated by the discomfort of the paracentesis. He is currently receiving no narcotics. * Dyspnea - he does have a history of tobacco use and per Dr. Terry's note may have atypical pneumonia with hemoptysis. He is currently receiving Levaquin and Rocephin per ID. Oxygen is available as needed. He may benefit from low- dose benzodiazepine on an as-needed basis for symptomatic dyspnea. Summary In summary this is an ill 56-year-old male with chronic alcohol and tobacco abuse with sequelae of liver and kidney compromise. He is now confused and was confirmed to have a GI bleed on admission. He also has a left second toe infection and confirmed osteomyelitis. He has multiple medical comorbidities and is very cachectic. He currently lacks the ability to take care of himself. After extensive discussion with his sister, Margarita, who he has named as his healthcare surrogate, she feels he would be very unhappy with the quality of life that aggressive care offered him and that while she would like him to be treated for his current medical illnesses she does not wish aggressive medical resuscitation, based on her frequent conversations with her brother. Palliative care will continue to follow the patient during hospital course as condition evolves, to assist patient/decision-maker with understanding of their medical conditions, weighing benefits/burdens of treatment options, for clarification of goals of treatment. Additionally will assist with any symptoms of palliative concern Thank you for the opportunity to participate in the care of Mr. Valentin. Attestation To help prompt me to consider important information that might be impacting today's encounter and assessment, information from prior notes written by myself or my colleagues may have been "brought forward" into today's note. My signature on this note, however, is an attestation that I personally performed the exam, history, and/or decision-making noted today, and, unless otherwise indicated, the interactions with patient, family, and staff as well as the review of records all occurred today. I also attest that the listed assessment and stated plan reflect my best clinical judgment today based on the combination of historical information, prior notes, and today's exam/ interactions. When time spent is documented, it refers only to time spent today by the signer, or if indicated, combined time spent today by collaborating physician/nurse practitioner. Allison Blair [facility] Mar 17, 2017 14:40
--- NOTE | 2017-03-17 15:51 | HHI.PR ---
Addendum to Inpatient Note Additional Information seen around 1500 full note to follow Confusedf Minimal dark urine in foely bag Abd slightly tender to palpation Maryanne Tejeda MD Mar 17, 2017 15:51
[2017-03-17] MEDS: LEVOFLOXACIN 750 MG TAB PO SCH (16:13)
[2017-03-17] MEDS: cefTRIAXone INJ 1,000 MG in SODIUM CHLORIDE 0.9% INJ 100 ML IV SCH (16:13)
--- NOTE | 2017-03-17 16:25 | RADRPT ---
EXAM DATE/TIME: 03/17/2017 10:22 [place] COMPARISON: No previous studies available for comparison. INDICATIONS : Ascites. MEDICAL HISTORY : Arthritis. Cirrhosis. Seizures. Chest pain. Abdominal pain. Mumps. Gout. Depression. Anxiety. Substa nce use. SURGICAL HISTORY : Liver biopsy. Paracentesis. ENCOUNTER: Subsequent ACUITY: 1 day PAIN SCORE: 0/10 LOCATION: Right FLUID: Total volume of 3400 cc of clear, yellow fluid was removed. Fluid was sent to lab for ordered studies. Post procedure scanning reveals no hematoma or other complication. TECHNIQUE: 1. Ultrasound guidance for abdominal paracentesis. 2. Paracentesis. The risks, benefits, and alternatives to ultrasound guided paracentesis were explained to the patient in detail including the risk of bleeding and infection. Written and verbal informed consent was obt ained. With the patient on the ultrasound table, ultrasound imaging was used to select the most appropriate approach for paracentesis. Overlying skin was prepped and draped in the usual sterile fashion and wi th a local anesthetic, a dermatotomy was made with an 11 blade scalpel. A 6 Vietnamese [id number] ca theter was introduced into the peritoneal cavity and fluid was collected. The patient tolerated the procedure well and left the ultrasound suite in stable condition. CONCLUSION: Uncomplicated ultrasound guided paracentesis. Charli Douglass MD on March 17, 2017 at 16:23 Board Certified Radiologist. This report was verified electronically.
--- NOTE | 2017-03-17 16:41 | HHI.PR ---
Subjective Remarks alert weak cachectic Objective GENERAL: SKIN: Warm and dry. HEAD: Atraumatic. Normocephalic. EYES: Pupils equal and round. No scleral icterus. No injection or drainage. ENT: No nasal bleeding or discharge. Mucous membranes pink and moist. NECK: Trachea midline. No JVD. CARDIOVASCULAR: Regular rate and rhythm. RESPIRATORY: No accessory muscle use. Clear to auscultation. Breath sounds equal bilaterally. GASTROINTESTINAL: Abdomen soft, non-tender, nondistended. Hepatic and splenic margins not palpable. MUSCULOSKELETAL: Extremities without clubbing, cyanosis, or edema. No obvious deformities. NEUROLOGICAL: Awake and alert. No obvious cranial nerve deficits. Motor grossly within normal limits. Five out of 5 muscle strength in the arms and legs. Normal speech. PSYCHIATRIC: Appropriate mood and affect; insight and judgment normal. Laboratory Tests Test 03/15/17 02:55 03/15/17 14:36 03/16/17 09:08 03/16/17 20:15 Urine Occult Blood SMALL (NEG) Urine Leukocyte Esterase LARGE (NEG) Urine RBC 18 /hpf (0-3) Urine WBC 11 /hpf (0-5) Urine Bacteria FEW /hpf (NONE) Urine Mucus FEW /lpf (OCC) Urine Yeast (Budding) FEW (NONE) Red Blood Count 2.33 MIL/MM3 (4.50-5.90) Hemoglobin 8.2 GM/DL (13.0-17.0) Hematocrit 24.4 % (39.0-51.0) Mean Corpuscular Volume 104.6 FL (80.0-100.0) Mean Corpuscular Hemoglobin 35.3 PG (27.0-34.0) Red Cell Distribution Width 18.2 % (11.6-17.2) Platelet Count 90 TH/MM3 (150-450) Monocytes (%) (Auto) 10.0 % (0.0-8.0) Platelet Estimate LOW (NORMAL) Blood Urea Nitrogen 19 MG/DL (7-18) Creatinine 4.50 MG/DL (0.60-1.30) Random Glucose 118 MG/DL (74-106) Albumin 1.7 GM/DL (3.4-5.0) Calcium Level 8.0 MG/DL (8.5-10.1) Phosphorus Level 1.5 MG/DL (2.5-4.9) Alanine Aminotransferase (ALT/SGPT) 8 U/L (12-78) Chloride Level 113 MEQ/L (98-107) Carbon Dioxide Level 16.9 MEQ/L (21.0-32.0) Estimat Glomerular Filtration Rate 14 ML/MIN (>89) Prothrombin Time 20.9 SEC (9.8-11.6) Fibrinogen 129 mg/dL (227-377) Test 03/17/17 10:35 03/17/17 10:36 03/17/17 11:23 Red Blood Count 2.38 MIL/MM3 (4.50-5.90) Hemoglobin 8.4 GM/DL (13.0-17.0) Hematocrit 25.0 % (39.0-51.0) Mean Corpuscular Volume 104.7 FL (80.0-100.0) Mean Corpuscular Hemoglobin 35.3 PG (27.0-34.0) Red Cell Distribution Width 18.5 % (11.6-17.2) Platelet Count 101 TH/MM3 (150-450) Monocytes (%) (Auto) 12.8 % (0.0-8.0) Eosinophils (%) (Auto) 5.0 % (0.0-4.0) Blood Urea Nitrogen 24 MG/DL (7-18) Creatinine 5.18 MG/DL (0.60-1.30) Random Glucose 115 MG/DL (74-106) Albumin 2.1 GM/DL (3.4-5.0) Calcium Level 7.9 MG/DL (8.5-10.1) Phosphorus Level 1.6 MG/DL (2.5-4.9) Magnesium Level 0.9 MG/DL (1.5-2.5) Alanine Aminotransferase (ALT/SGPT) 8 U/L (12-78) Chloride Level 112 MEQ/L (98-107) Carbon Dioxide Level 17.5 MEQ/L (21.0-32.0) Estimat Glomerular Filtration Rate 12 ML/MIN (>89) Total Creatine Kinase 28 U/L (39-308) B-Type Natriuretic Peptide 1189 PG/ML (0-100) Blood Gas HCO3 14 mmol/L (22-26) Blood Gas Base Excess -9.5 mmol/L (-2-2) Arterial Blood pH 7.44 (7.380-7.420) Arterial Blood Partial Pressure CO2 21 mmHg (38-42) Arterial Blood Oxygen Content 10.0 Vol % (12.0-20.0) Blood Gas Hemoglobin 7.5 G/DL (12.0-16.0) Peritoneal Fluid WBC 90 /MM3 (0-10) Vital Signs Date Time Temp Pulse Resp B/P (MAP) Pulse Ox O2 Delivery O2 Flow Rate FiO2 03/17/17 12:13 91.0 117 16 91/60 (70) 96 03/17/17 12:00 98 03/17/17 12:00 96.6 101 20 112/69 (83) 99 03/17/17 12:00 98.0 117 16 91/60 (70) 98 03/17/17 11:09 96.6 49 14 135/49 (77) 98 03/17/17 08:00 102 03/17/17 08:00 96.9 98 28 119/85 (96) 99 03/17/17 04:00 97.0 118 22 108/69 (82) 97 03/17/17 00:00 97.9 97 18 109/67 (81) 98 03/16/17 23:00 95 03/16/17 20:00 98.5 98 20 109/68 (82) 100 I/O 03/16/17 03/16/17 03/16/17 03/17/17 03/17/17 03/17/17 07:00 15:00 23:00 07:00 15:00 23:00 Intake Total 1025 ml 412 ml 300 ml Output Total 300 ml 200 ml Balance 725 ml 212 ml 300 ml Intake Oral 825 ml IV Total 200 ml 412 ml 300 ml Output Urine Total 300 ml 200 ml # Bowel Movements 0 Result Diagram: 03/17/17 1035 03/17/17 1035 Assessment and Plan Assessment and Plan PNA , ATYPICAL HEMOPTYSIS chest XRAY LEFT LUNG DENSITY RENAL FAILURE PLAN ANTIBX BRONCHOSCOPY MONDAY, IF CONDITION PERMITS Ruthie Hendricks MD Mar 17, 2017 16:41
[2017-03-17] MEDS: ALBUMIN HUMAN 25% 25 GM/100 ML BAGP IV SCH (17:36)
[2017-03-17] MEDS ORDERED: WATER STERILE FOR IV SCH (18:30)
[2017-03-17] MEDS ORDERED: SODIUM BICARBONATE IV SCH (18:30)
--- NOTE | 2017-03-17 18:41 | HHI.PR ---
Subjective Remarks Patient had shortness of breath this morning, together with abdominal distention , ascites. This improved greatly following paracentesis. He says that his breathing is much more comfortable after paracentesis. Objective Vital Signs Date Time Temp Pulse Resp B/P (MAP) Pulse Ox O2 Delivery O2 Flow Rate FiO2 03/17/17 12:13 91.0 117 16 91/60 (70) 96 03/17/17 12:00 98 03/17/17 12:00 96.6 101 20 112/69 (83) 99 03/17/17 12:00 98.0 117 16 91/60 (70) 98 03/17/17 11:09 96.6 49 14 135/49 (77) 98 03/17/17 08:00 102 03/17/17 08:00 96.9 98 28 119/85 (96) 99 03/17/17 04:00 97.0 118 22 108/69 (82) 97 03/17/17 00:00 97.9 97 18 109/67 (81) 98 03/16/17 23:00 95 03/16/17 20:00 98.5 98 20 109/68 (82) 100 I/O 03/16/17 03/16/17 03/16/17 03/17/17 03/17/17 03/17/17 07:00 15:00 23:00 07:00 15:00 23:00 Intake Total 1025 ml 412 ml 300 ml 340 ml Output Total 300 ml 200 ml Balance 725 ml 212 ml 300 ml 340 ml Intake Oral 825 ml 240 ml IV Total 200 ml 412 ml 300 ml 100 ml Output Urine Total 300 ml 200 ml # Bowel Movements 0 Result Diagram: 03/17/17 1035 03/17/17 1035 Objective Remarks GENERAL: patient awake, alert. appears to be breathing comfortably following paracentesis. SKIN: Warm and dry. HEAD: Normocephalic. EYES: No scleral icterus. No injection or drainage. NECK: Supple, trachea midline. No JVD. CARDIOVASCULAR: Regular rate and rhythm without murmurs, gallops, or rubs. RESPIRATORY: Breath sounds equal bilaterally. No accessory muscle use. GASTROINTESTINAL: Abdomen soft today. No rebound or guarding. nontender. MUSCULOSKELETAL: No cyanosis, or edema. BACK: Nontender without obvious deformity. No CVA tenderness. A/P Assessment and Plan 56 y/o male with a history of cirrhosis, Hep C and seizures from alcohol withdrawal presented to the ED with weakness, dizziness and sob. Patient has been dealing with alcohol withdrawal, hepatic encephalopathy, severe sepsis, osteomyelitis of the right foot second toe, ascites secondary to cirrhosis, atypical pneumonia, acute kidney injury with creatinine above 5. Infectious disease, pulmonology, nephrology, gastroenterology following. Patient continues confused. Consulted palliative care on 03/17 as per patient's wishes. ==== 03/17/17 //Respiratory failure/atypical pneumonia -Called this morning by nursing due to worsening respiratory status, tachypnea. ABG ordered and with anabolic acidosis, respiratory compensation as before. Paracentesis performed with 3.9 L out improving breathing markedly. Continue antibiotics as per pulmonology. //Oliguric acute kidney injury. Worsening. Creatinine 5.8 from normal baseline. Possibly secondary to supratherapeutic vancomycin versus hypertension secondary to sepsis. Difficult situation due to recurrent ascites which worsens respiratory status. //Hypomagnesemia. 0.9. Replaced. Hypophosphatemia. 1.6. Replace. //BNP elevation. BNP elevated 1189, however echocardiogram is with normal ejection fraction. Uncertain reason for elevation. Could be secondary to pneumonia. //Atypical pneumonia //Hemoptysis. -This appears to have improved. Pulmonology following. Continue Levaquin. Continue to monitor. //Coagulopathy. Secondary liver disease. Low fibrinogen on labs 03/14. Appears to be improving in the 120s on 03/16. Replace if there is any bleeding. Hemoglobin continues stable. Platelets improving in the 90s. //Thrombocytopenia. Secondary to liver disease. Platelets improving in the 100s today. Follow labs. //Continue antibiotics for UTI, osteomyelitis right foot. Surgical cultures negative today //Alcohol withdrawal. Improved on Librium. Patient did have some tremors today. We'll hold off on further tapering Librium. Plan Taper Librium. //Postop right toe debridement with bone biopsy. -Cultures negative, however biopsy-positive for osteomyelitis.. Continue broad- spectrum antibiotics. -03/17. Patient decided for resection, however due to worsening respiratory status secondary to ascites, worsening renal function, I decided to hold off going to the OR today. //Sepsis on admission -UTI, osteomyelitis, pneumonia -Continue antibiotics as per infectious disease. //Respiratory failure/atypical pneumonia -As seen on CT. Pulmonology following 03/15. Start Levaquin for atypical pneumonia. //UTI- UA culture >100K, E.Coli, Sensitive to Rocephin. - Continue Rocephin . //ostemyeltis right foot, second toe - Bone biopsy shows osteomyelitis. -Podiatry following. Appreciate assistance. Possible second toe resection. -Continue antibiotics as per infectious disease. //Acute respiratory failure. //GI Bleed, hgb 6.9 on admission, occult stool positive - Consult GI . Appreciate recommendations. Plan for CT of the abdomen and pelvis today, EGD colonoscopy planned. - Protonix drip, and Sandostatin drip - 2 units PRBC transfused. Post transfusion H&H 9.4/27.9. - Monitor H&H. -GI following. Appreciate assistance. //Carty's esophagus. We'll need continue on PPI. Follow up GI as outpatient //Liver failure, cirrhosis //Abdominal pain, patient with diarrhea for 2 months, r/o colitis -CT abdomen on admission reviewed -Paracentesis negative for SBP. GI following. Appreciate assistance. //Lactic acidosis. Improved 2.1 on 03/12. Likely secondary to liver disease. //Hyponatremia, hypokalemia, hypomagnesemia, hypocalcemia - Monitor electrolytes -Follow-up labs and replace as necessary. //Tobacco abuse, chronic: Encouraged to quit. Counseled. Declines use of nicotine patch. DVT prophylaxis: SCDs Discharge Planning s/p surgical debridement of suspected osteomyelitis. Infectious disease and podiatry following. -difficult discharge.patient is self-pay. Appreciate case management assistance. London Gomez MD Mar 17, 2017 18:41
[2017-03-17] MEDS ORDERED: SODIUM PHOSPHATE INJ 15 MMOL in SODIUM CHLORIDE 0.9% INJ 150 ML IV ONE (20:00)
[2017-03-17] MEDS: RIFAXIMIN 550 MG TAB PO SCH (20:36)
[2017-03-17] MEDS: MAGNESIUM SULFATE 1 GM PREMIX 100 ML IV SCH ×2 (20:36→21:41)
--- NOTE | 2017-03-17 23:23 | HHI.IDPN ---
Subjective Subjective Remarks Remains in renal failure, oliguric Antibiotics CFTX vanco: last dose 03/13 levaquine flagyl Allergies: Coded Allergies: No Known Allergies (Verified , 11/21/14) Objective . Vital Signs Date Time Temp Pulse Resp B/P (MAP) Pulse Ox O2 Delivery O2 Flow Rate FiO2 03/17/17 20:00 99.6 101 17 104/64 (77) 99 03/17/17 12:13 91.0 117 16 91/60 (70) 96 03/17/17 12:00 98 03/17/17 12:00 96.6 101 20 112/69 (83) 99 03/17/17 12:00 98.0 117 16 91/60 (70) 98 03/17/17 11:09 96.6 49 14 135/49 (77) 98 03/17/17 08:00 102 03/17/17 08:00 96.9 98 28 119/85 (96) 99 03/17/17 04:00 97.0 118 22 108/69 (82) 97 03/17/17 00:00 97.9 97 18 109/67 (81) 98 03/17/17 03/17/17 03/18/17 15:00 23:00 07:00 Intake Total 300 ml 340 ml Output Total 200 ml Balance 300 ml 140 ml Intake Oral 240 ml IV Total 300 ml 100 ml Output Urine Total 200 ml # Bowel Movements 0 . Laboratory Tests Test 03/16/17 09:08 03/17/17 10:35 White Blood Count 6.0 TH/MM3 6.1 TH/MM3 Red Blood Count 2.33 MIL/MM3 2.38 MIL/MM3 Hemoglobin 8.2 GM/DL 8.4 GM/DL Hematocrit 24.4 % 25.0 % Mean Corpuscular Volume 104.6 FL 104.7 FL Mean Corpuscular Hemoglobin 35.3 PG 35.3 PG Mean Corpuscular Hemoglobin Concent 33.7 % 33.7 % Red Cell Distribution Width 18.2 % 18.5 % Platelet Count 90 TH/MM3 101 TH/MM3 Mean Platelet Volume 7.3 FL 7.2 FL Neutrophils (%) (Auto) 60.1 % 52.0 % Lymphocytes (%) (Auto) 25.3 % 28.9 % Monocytes (%) (Auto) 10.0 % 12.8 % Eosinophils (%) (Auto) 3.4 % 5.0 % Basophils (%) (Auto) 1.2 % 1.3 % Neutrophils # (Auto) 3.6 TH/MM3 3.2 TH/MM3 Lymphocytes # (Auto) 1.5 TH/MM3 1.7 TH/MM3 Monocytes # (Auto) 0.6 TH/MM3 0.8 TH/MM3 Eosinophils # (Auto) 0.2 TH/MM3 0.3 TH/MM3 Basophils # (Auto) 0.1 TH/MM3 0.1 TH/MM3 CBC Comment AUTO DIFF DIFF FINAL Differential Comment AUTO DIFF CONFIRMED Platelet Estimate LOW Platelet Morphology Comment NORMAL Laboratory Tests Test 03/16/17 09:08 03/17/17 10:35 Blood Urea Nitrogen 19 MG/DL 24 MG/DL Creatinine 4.50 MG/DL 5.18 MG/DL Random Glucose 118 MG/DL 115 MG/DL Total Protein 6.7 GM/DL 7.2 GM/DL Albumin 1.7 GM/DL 2.1 GM/DL Calcium Level 8.0 MG/DL 7.9 MG/DL Phosphorus Level 1.5 MG/DL 1.6 MG/DL Alkaline Phosphatase 67 U/L 70 U/L Aspartate Amino Transf (AST/SGOT) 30 U/L 31 U/L Alanine Aminotransferase (ALT/SGPT) 8 U/L 8 U/L Total Bilirubin 0.9 MG/DL 1.0 MG/DL Sodium Level 139 MEQ/L 138 MEQ/L Potassium Level 4.6 MEQ/L 4.7 MEQ/L Chloride Level 113 MEQ/L 112 MEQ/L Carbon Dioxide Level 16.9 MEQ/L 17.5 MEQ/L Anion Gap 9 MEQ/L 9 MEQ/L Estimat Glomerular Filtration Rate 14 ML/MIN 12 ML/MIN Magnesium Level 0.9 MG/DL Total Creatine Kinase 28 U/L B-Type Natriuretic Peptide 1189 PG/ML Microbiology Date/Time Source Procedure Growth Status 03/17/17 11:23 Fluid Peritoneal Fluid Gram Stain - Final Resulted 03/17/17 11:23 Fluid Peritoneal Fluid Body Fluid Culture Pending Resulted 03/15/17 02:55 Urine Clean Catch Urine Culture - Preliminary Yeast-Id To Follow Resulted Imaging Last Impressions Cyst Biopsy Asp-Paracentesis US 03/17/17 0000 Signed Impressions: Service Date/Time: Friday, March 17, 2017 10:22 - CONCLUSION: Uncomplicated ultrasound guided paracentesis. Charli Douglass MD Chest X-Ray 03/17/17 0000 Signed Impressions: Service Date/Time: Friday, March 17, 2017 09:48 - CONCLUSION: 1. Left perihilar and left lower lobe density partially obscuring left hemidiaphragm likely infiltrate. Charli Douglass MD Abdomen Ultrasound 03/17/17 0000 Signed Impressions: Service Date/Time: Friday, March 17, 2017 09:27 - CONCLUSION: Large amount of abdominal ascites. Charli Douglass MD Chest CT 03/14/17 0000 Signed Impressions: Service Date/Time: Tuesday, March 14, 2017 22:15 - CONCLUSION: 1. Mild bilateral pleural effusions. 2. Areas of interstitial consolidation seen in the upper lungs bilaterally. These are nonspecific. Viral or atypical pneumonias could have this appearance. 3. Increased density seen at the posterior lower lobes bilaterally likely related to atelectasis from the effusions. Some degree of alveolar consolidation cannot be excluded. 4. Possible changes of cirrhosis in the liver with a moderate amount of ascites seen in the upper abdomen. 5. Calcified gallstones. Aftab Barney MD Foot X-Ray 03/12/17 0000 Signed Impressions: Service Date/Time: Sunday, March 12, 2017 13:50 - CONCLUSION: Possible fusion of the 2nd PIP joint. No acute fracture is seen. Edgar Cunha MD Foot MRI 03/11/17 0000 Signed Impressions: Service Date/Time: Saturday, March 11, 2017 11:23 - CONCLUSION: #1. No evidence of osteomyelitis within the first digit. Severe degenerative changes are seen at the MTP joint. #2. Fracture dislocation of the second digit at the PIP joint. The marrow edema and abnormal enhancement appears to be confined to the middle phalanx. Milka Espino MD Lower Extremity Ultrasound 03/09/17 0000 Signed Impressions: Service Date/Time: February 18:36 - CONCLUSION: No DVT of the left lower extremity. Aftab Tidwell MD Abdomen/Pelvis CT 03/09/17 0000 Signed Impressions: Service Date/Time: February 15:29 - CONCLUSION: 1. Possible left-sided iliac vein/femoral vein deep vein thrombosis. Recommend lower extremity Doppler venous ultrasound to evaluate for DVT. 2. Evidence of cirrhosis again identified. 3. Cholelithiasis. 4. Moderate ascites. Aftab Lynn MD Physical Exam CONSTITUTIONAL/GENERAL: This is a thin deshelved patient, in no apparent distress. Confused Shaking TUBES/LINES/DRAINS: SKIN: No jaundice, rashes, CARDIOVASCULAR: Regular rate and rhythm without murmurs, gallops, or rubs. No JVD. Peripheral pulses symmetric. RESPIRATORY/CHEST: Symmetric, unlabored respirations. Clear to auscultation. Breath sounds equal bilaterally. No wheezes, rales, or rhonchi. GASTROINTESTINAL: Abdomen soft, but with some balloting , non-tender, much less distended sp paracenthesis. No hepato-splenomegaly, or palpable masses. No guarding. Bowel sounds present. GENITOURINARY: Without palpable bladder distension foely in place with small amount of tea coloured urine MUSCULOSKELETAL: Extremities without clubbing, cyanosis, or edema. R foot w surg dressing in place NEUROLOGICAL: Awake and alert. oriented x 3 Motor and sensory grossly within normal limits. Follows commands. Clear speech.. Moves all extremities. not tremorous PSYCHIATRIC: Calm. Cooperative Assessment & Plan Remarks R 2nd digit with open laceration and tendon rupture of the extensor at the PIP and osteo, clx negative Infected wounf of R 2nd digit , growing mixed gram+/gram - pattie: GNBs, Strep PNA Hemoptysis GIB Liver cirrhossis Ascites sp paracenthesis - no e/o SBP on ascitic fluid exam ARF ? ATN ( pt was hypotensive on 03/12-) ? hepatorenal syndome - vanco levels are high, avoid nephrotoxic meds cont CFTX dw palliative are team Maryanne Tejeda MD Mar 17, 2017 23:23
[2017-03-18] VITALS (7 sets, daily range): BP systolic 103–118; BP diastolic 66–83; PULSE 101–110; RESP 18–21; TEMP 96.8–97.7; O2SAT 95–100
[2017-03-18] MEDS: LORazepam 1 MG TAB PO PRN ×3 (02:31→22:30)
[2017-03-18 03:45] LABS: AUTOMATED NEUTROPHIL # 2.7 TH/MM3 (1.8-7.7); BASOPHIL % 0.9 % (0.0-2.0); EOSINOPHIL # 0.3 TH/MM3 (0-0.4); EOSINOPHIL % 5.7 % (0.0-4.0); HEMATOCRIT 21.4 % (39.0-51.0); LYMPH % 30.7 % (9.0-44.0); LYMPHOCYTE # 1.7 TH/MM3 (1.0-4.8); MEAN CELL VOLUME 104.6 FL (80.0-100.0); MEAN CORPUSCULAR HEMOGLOBIN 35.6 PG (27.0-34.0); MEAN CORPUSCULAR HGB CONC 34.1 % (32.0-36.0); MONO % 13.8 % (0.0-8.0); NEUT % 48.9 % (16.0-70.0); PLATELET COUNT 88 TH/MM3 (150-450); RED BLOOD COUNT 2.05 MIL/MM3 (4.50-5.90); RED CELL DISTRIBUTION WIDTH 18.5 % (11.6-17.2); WHITE BLOOD COUNT 5.5 TH/MM3 (4.0-11.0)
[2017-03-18 03:49] LABS: BICARBONATE 18.6 MEQ/L (21.0-32.0); HEMO FLAGS AUTO DIFF; POTASSIUM 4.9 MEQ/L (3.5-5.1)
[2017-03-18] MEDS: ALBUMIN HUMAN 25% 25 GM/100 ML BAGP IV SCH ×2 (04:00→15:17)
[2017-03-18 04:22] LABS: BANDS 2 % (0-6); BASOPHILS 3 % (0-2); EOSINOPHILS 6 % (0-4); MYELOCYTES 1 % (0-0); NEUTROPHIL # MANUAL DIFF 3.5 TH/MM3 (1.8-7.7); POLYS (SEG NEUTROPHILS) 61 % (16-70); WBC DIFF SAMPLE 100
[2017-03-18 04:24] LABS: BURR CELLS 1+ (NORMAL); OVALOCYTES 1+ (NORMAL); PLATELET ESTIMATE SMEAR LOW (NORMAL); PLATELET MORPHOLOGY NORMAL (NORMAL); SCAN/DIFF FINAL DIFF MANUAL
[2017-03-18] MEDS: THIAMINE HCL 100 MG TAB PO SCH (10:08)
[2017-03-18] MEDS: SODIUM CHLORIDE 0.9% FLUSH 10 ML FLUSH IV FLUSH SCH ×2 (10:08→20:21)
[2017-03-18] MEDS: PANTOPRAZOLE SOD 40 MG DELAYED RELEASE TAB PO SCH (10:08)
[2017-03-18] MEDS: RIFAXIMIN 550 MG TAB PO SCH ×2 (10:08→20:21)
[2017-03-18] MEDS: DOCUSATE SODIUM 50 MG/SENNA 8.6 MG TAB PO SCH ×2 (10:08→20:21)
--- NOTE | 2017-03-18 11:54 | HHI.NPPN ---
Subjective History of Present Illness 56-year-old male with past medical history of alcoholism and hepatitis C with cirrhosis of the liver, history of back sores was brought to the hospital because of abdominal pain and weakness. I was called to see the patient because of elevated creatinine. His creatinine on admission was 1.0 and it stayed in the range of 0.8-0.9 and was increased to 2.0 -2.1 until 03/14/17. Additional Remarks Patient is alert, no SOB, not eating well, no vomiting. Review of Systems General Constitutional: Fatigue Cardiovascular Cardiac: COPE Gastrointestinal Gastrointestinal: Abdominal Pain Objective Data Data 03/18/17 03/19/17 19:00 07:00 Intake Total 120 ml Balance 120 ml Intake Oral 120 ml Vital Signs Date Time Temp Pulse Resp B/P (MAP) Pulse Ox O2 Delivery O2 Flow Rate FiO2 03/18/17 08:00 97.7 105 19 103/70 (81) 96 03/18/17 04:00 96.8 101 18 118/72 (87) 100 03/18/17 00:00 97.7 104 18 106/66 (79) 98 03/17/17 20:15 100 03/17/17 20:00 99.6 101 17 104/64 (77) 99 03/17/17 12:13 91.0 117 16 91/60 (70) 96 03/17/17 12:00 98 03/17/17 12:00 96.6 101 20 112/69 (83) 99 03/17/17 12:00 98.0 117 16 91/60 (70) 98 -: 03/18/17 0323 03/18/17 0323 Physical Exam General Appearance: No Acute Distress, Comfortable Eyes Eye Exam: Pupils Equal Throat Throat Exam: Oral Mucosa Danielson & Moist Pulmonary Resp Exam: Breath Sounds Equal, No Distress, Rhonchi, Decreased Bases Cardiology CV Exam: Regular, Normal Sinus Rhythm Gastrointestinal/Abdomen GI Exam: Soft, Non-Tender, Bowel Sounds Present, Distended Extremeties Extremities Exam: Trace Edema Neurologic Neuro Exam: Alert, Awake, Oriented Psychiatric Psych Exam: Appropriate Responses Assessment/Plan Assessment Summary: CRISTINA/Acute Renal Failure Problem List: (1) Acute kidney injury ICD Codes: N17.9 - Acute kidney failure, unspecified (2) Cirrhosis ICD Codes: K74.60 - Cirrhosis Status: Acute (3) Hypothyroidism ICD Codes: E03.9 - Hypothyroidism Status: Acute (4) Alcohol abuse ICD Codes: F10.10 - Alcohol abuse Status: Acute (5) Anemia ICD Codes: D64.9 - Anemia Status: Acute (6) Ascites ICD Codes: R18.8 - Ascites Status: Acute (7) Hyponatremia ICD Codes: E87.1 - Hyponatremia Status: Acute Plan Patient has been non oliguric, BP is stable, Urine Na. was high and has no Eosinophils. Most likely has ATN causing CRISTINA. Urine out put decreased to 300 ml in last 24 hrs. On IVF with NaHco3, Has Paracentesis and 3.4 liters removed. Urine out put was low due to paracentesis also. No acute indication for HD at present. Will watch for any renal recovery, possible HD if continue to get worse. Dulce Pacheco MD Mar 18, 2017 11:54
--- NOTE | 2017-03-18 11:55 | HHI.PR ---
Subjective Remarks Follow-up for shortness of breath and cough Shortness of breath still better, still with cough but improving. No fever. Complaining of diarrhea once daily. Mild abdominal pain stable Objective Vitals Vital Signs Date Time Temp Pulse Resp B/P (MAP) Pulse Ox O2 Delivery O2 Flow Rate FiO2 03/18/17 08:00 97.7 105 19 103/70 (81) 96 03/18/17 04:00 96.8 101 18 118/72 (87) 100 03/18/17 00:00 97.7 104 18 106/66 (79) 98 03/17/17 20:15 100 03/17/17 20:00 99.6 101 17 104/64 (77) 99 03/17/17 12:13 91.0 117 16 91/60 (70) 96 03/17/17 12:00 98 03/17/17 12:00 96.6 101 20 112/69 (83) 99 03/17/17 12:00 98.0 117 16 91/60 (70) 98 I/O 03/17/17 03/17/17 03/17/17 03/18/17 03/18/17 03/18/17 06:59 14:59 22:59 06:59 14:59 22:59 Intake Total 412 ml 300 ml 740 ml 240 ml 120 ml Output Total 200 ml 300 ml Balance 212 ml 300 ml 440 ml 240 ml 120 ml Intake Oral 640 ml 240 ml 120 ml IV Total 412 ml 300 ml 100 ml Output Urine Total 200 ml 300 ml # Voids 2 # Bowel Movements 0 Result Diagram: 03/18/17 0323 03/18/17 032 Objective Remarks GENERAL: Not in distress, awake. EYES: No scleral icterus. No injection or drainage. CARDIOVASCULAR: Regular rate and rhythm without murmurs, gallops, or rubs. RESPIRATORY: Breath sounds equal bilaterally. No accessory muscle use. GASTROINTESTINAL: Abdomen soft, nontender. MUSCULOSKELETAL: No cyanosis, or edema. Alert, awake, oriented. No asterixis. A/P Problem List: (1) GI bleed ICD Code: K92.2 - Gastrointestinal hemorrhage, unspecified Status: Acute (2) Toe ulcer, right ICD Code: L97.519 - Non-pressure chronic ulcer of other part of right foot with unspecified severity Status: Acute (3) Abdominal pain ICD Code: R10.9 - Abdominal pain Status: Acute Assessment and Plan 56 y/o male with a history of cirrhosis, Hep C and seizures from alcohol withdrawal presented to the ED with weakness, dizziness and sob. Patient has been dealing with alcohol withdrawal, hepatic encephalopathy, severe sepsis, osteomyelitis of the right foot second toe, ascites secondary to cirrhosis, atypical pneumonia, acute kidney injury with creatinine above 5. Infectious disease, pulmonology, nephrology, gastroenterology following. Sepsis on admission: UTI, osteomyelitis, pneumonia, right second digit infection - Urine Cx grew E. Coli. Status post antibiotics. On CTX and levaquin as per infectious disease. Cultures negative, however biopsy-positive for osteomyelitis. See below s/p bone biopsy R 2nd toe, extensor tendon repair, osteomyelitis - s/p I&D open fracture 03/12/17, Bone biopsy shows acute osteomyelitis. Infectious disease following. Continue ceftriaxone. Per podiatry, needs suture removal in 2 weeks (March 30). Patient refuses amputation and would like to continue antibiotics. Dressing changes daily, follow-up with podiatry 2 weeks post discharge. WBAT R foot in surgical shoe. Podiatry signed off. Respiratory failure/atypical pneumonia -As seen on CT. Pulmonology following, continue antibiotics, for possible bronchoscopy on Monday. Also improved after paracentesis UTI- UA culture >100K, E.Coli, Sensitive to Rocephin. ostemyeltis right foot, second toe - Bone biopsy shows osteomyelitis. Podiatry following. Appreciate assistance. Possible second toe resection. Antibiotics per infectious disease GI Bleed, hgb 6.9 on admission, occult stool positive -Per GI recommendations. s/p transfusion, monitor Hgb. s/p EGD and colonoscopy, showed gastritis, barett's and gastropathy, negative colonoscopy. Carty's esophagus- continue on PPI. Follow up GI as outpatient Liver failure, cirrhosis, r/o colitis, ascitis -CT abdomen on admission reviewed -Paracentesis negative for SBP. Better after paracentesis, 3.9 L removed. GI following. Appreciate assistance. Coagulopathy, thrombocytopenia - Secondary liver disease. Low fibrinogen on labs 03/14. Appears to be improving in the 120s on 03/16. Replace if there is any bleeding. Hemoglobin continues stable. Platelets stable. Acute renal failure secondary to acute tubular necrosis-? Hepatorenal syndrome , nephrology following, being evaluated for need for dialysis. Nonoliguric. Creatinine stable. Palliative care following. DVT prophylaxis: SCDs Discharge Planning s/p surgical debridement of suspected osteomyelitis. Infectious disease following awaiting final recommendation. Patient is self- pay. Jayshree Emery MD Mar 18, 2017 11:55
[2017-03-18] MEDS: cefTRIAXone INJ 1,000 MG in SODIUM CHLORIDE 0.9% INJ 100 ML IV SCH (16:38)
[2017-03-19] VITALS: BP 118/79; PULSE 118; RESP 21; TEMP 97; O2SAT 96
[2017-03-19] MEDS: ALBUMIN HUMAN 25% 25 GM/100 ML BAGP IV SCH ×2 (04:02→16:42)
[2017-03-19 08:00] VITALS: BP 105/69; PULSE 112; RESP 19; TEMP 97.8; O2SAT 95
[2017-03-19] MEDS: PANTOPRAZOLE SOD 40 MG DELAYED RELEASE TAB PO SCH (08:49)
[2017-03-19] MEDS: RIFAXIMIN 550 MG TAB PO SCH ×2 (08:49→20:31)
[2017-03-19] MEDS: DOCUSATE SODIUM 50 MG/SENNA 8.6 MG TAB PO SCH ×2 (08:49→20:31)
[2017-03-19] MEDS: THIAMINE HCL 100 MG TAB PO SCH (08:49)
[2017-03-19] MEDS: SODIUM CHLORIDE 0.9% FLUSH 10 ML FLUSH IV FLUSH SCH ×2 (08:50→20:31)
--- NOTE | 2017-03-19 10:50 | HHI.NPPN ---
Subjective History of Present Illness 56-year-old male with past medical history of alcoholism and hepatitis C with cirrhosis of the liver, history of back sores was brought to the hospital because of abdominal pain and weakness. I was called to see the patient because of elevated creatinine. His creatinine on admission was 1.0 and it stayed in the range of 0.8-0.9 and was increased to 2.0 -2.1 until 03/14/17. Additional Remarks Patient is alert, no SOB, now started eating better, no vomiting, has been on room air. Review of Systems General Constitutional: Fatigue Cardiovascular Cardiac: COPE Gastrointestinal Gastrointestinal: Abdominal Pain Objective Data Data 03/19/17 03/20/17 18:59 06:59 Intake Total 120 ml Balance 120 ml Intake Oral 120 ml Vital Signs Date Time Temp Pulse Resp B/P (MAP) Pulse Ox O2 Delivery O2 Flow Rate FiO2 03/19/17 08:00 97.8 112 19 105/69 (81) 95 03/19/17 00:00 97.0 118 21 118/79 (92) 96 03/18/17 20:00 97.5 110 21 117/76 (90) 97 03/18/17 19:22 106 03/18/17 16:00 97.5 109 19 117/83 (94) 95 03/18/17 12:00 97.0 101 19 113/74 (87) 99 -: 03/18/17 0323 03/18/17 0323 Physical Exam General Appearance: No Acute Distress, Comfortable Eyes Eye Exam: Pupils Equal Throat Throat Exam: Oral Mucosa [place] & Moist Pulmonary Resp Exam: Breath Sounds Equal, No Distress, Rhonchi, Decreased Bases Cardiology CV Exam: Regular, Normal Sinus Rhythm Gastrointestinal/Abdomen GI Exam: Soft, Non-Tender, Bowel Sounds Present, Distended Extremeties Extremities Exam: Trace Edema Neurologic Neuro Exam: Alert, Awake, Oriented Psychiatric Psych Exam: Appropriate Responses Assessment/Plan Assessment Summary: CRISTINA/Acute Renal Failure Problem List: (1) Acute kidney injury ICD Codes: N17.9 - Acute kidney failure, unspecified (2) Cirrhosis ICD Codes: K74.60 - Cirrhosis Status: Acute (3) Hypothyroidism ICD Codes: E03.9 - Hypothyroidism Status: Acute (4) Alcohol abuse ICD Codes: F10.10 - Alcohol abuse Status: Acute (5) Anemia ICD Codes: D64.9 - Anemia Status: Acute (6) Ascites ICD Codes: R18.8 - Ascites Status: Acute (7) Hyponatremia ICD Codes: E87.1 - Hyponatremia Status: Acute Plan Patient has been non oliguric, BP is stable, Urine Na. was high and has no Eosinophils. Most likely has ATN causing CRISTINA. On IVF with NaHco3, Has Paracentesis and 3.4 liters removed. Urine out put was low due to paracentesis also. No acute indication for HD at present. No BMP done today. Urine out put increased to 700 ml in 24 hrs. Dulce Pacheco MD Mar 19, 2017 10:50
--- NOTE | 2017-03-19 11:04 | HHI.GIFU ---
Subjective Remarks Patient is resting in bed complaints of abd pain and trouble swallowing. Per nurse, patient has poor appetite, no bleeding reported (Hong Major) Objective Vitals I&O Vital Signs Date Time Temp Pulse Resp B/P (MAP) Pulse Ox O2 Delivery O2 Flow Rate FiO2 03/19/17 08:00 97.8 112 19 105/69 (81) 95 03/19/17 00:00 97.0 118 21 118/79 (92) 96 03/18/17 20:00 97.5 110 21 117/76 (90) 97 03/18/17 19:22 106 03/18/17 16:00 97.5 109 19 117/83 (94) 95 03/18/17 12:00 97.0 101 19 113/74 (87) 99 I/O 03/18/17 03/18/17 03/18/17 03/19/17 03/19/17 03/19/17 07:00 15:00 23:00 07:00 15:00 23:00 Intake Total 240 ml 120 ml 1500 ml 340 ml 120 ml Output Total 700 ml Balance 240 ml 120 ml 800 ml 340 ml 120 ml Intake Oral 240 ml 120 ml 1300 ml 240 ml 120 ml IV Total 200 ml 100 ml Output Urine Total 700 ml # Voids 2 2 # Bowel Movements 2 Laboratory Date/Time Source Procedure Growth Status 03/10/17 19:35 Blood Peripheral Aerobic Blood Culture - Final NO GROWTH IN 5 DAYS Complete 03/10/17 19:35 Blood Peripheral Anaerobic Blood Culture - Final NO GROWTH IN 5 DAYS Complete 03/17/17 11:23 Fluid Peritoneal Fluid Gram Stain - Final Resulted 03/17/17 11:23 Fluid Peritoneal Fluid Body Fluid Culture - Preliminary NO GROWTH IN 48 HOURS. Resulted 03/15/17 02:55 Urine Clean Catch Urine Culture - Preliminary Yeast-Id To Follow Resulted 03/12/17 13:27 Wound Toe Gram Stain - Final Complete 03/12/17 13:27 Wound Toe Wound Culture - Final NO GROWTH IN 72 HRS.--AEROBICALLY OR ... Complete Imaging Last Impressions Cyst Biopsy Asp-Paracentesis US 03/17/17 0000 Signed Impressions: Service Date/Time: Friday, March 17, 2017 10:22 - CONCLUSION: Uncomplicated ultrasound guided paracentesis. Charli Douglass MD Chest X-Ray 03/17/17 0000 Signed Impressions: Service Date/Time: Friday, March 17, 2017 09:48 - CONCLUSION: 1. Left perihilar and left lower lobe density partially obscuring left hemidiaphragm likely infiltrate. Charli Douglass MD Abdomen Ultrasound 03/17/17 Signed Impressions: Service Date/Time: Friday, March 17, 2017 09:27 - CONCLUSION: Large amount of abdominal ascites. Charli Douglass MD Chest CT 03/14/17 Signed Impressions: Service Date/Time: Tuesday, March 14, 2017 22:15 - CONCLUSION: 1. Mild bilateral pleural effusions. 2. Areas of interstitial consolidation seen in the upper lungs bilaterally. These are nonspecific. Viral or atypical pneumonias could have this appearance. 3. Increased density seen at the posterior lower lobes bilaterally likely related to atelectasis from the effusions. Some degree of alveolar consolidation cannot be excluded. 4. Possible changes of cirrhosis in the liver with a moderate amount of ascites seen in the upper abdomen. 5. Calcified gallstones. Aftab Barney MD Foot X-Ray 03/12/17 Signed Impressions: Service Date/Time: Sunday, March 12, 2017 13:50 - CONCLUSION: Possible fusion of the 2nd PIP joint. No acute fracture is seen. Edgar Cunha MD Foot MRI 03/11/17 0000 Signed Impressions: Service Date/Time: Saturday, March 11, 2017 11:23 - CONCLUSION: #1. No evidence of osteomyelitis within the first digit. Severe degenerative changes are seen at the MTP joint. #2. Fracture dislocation of the second digit at the PIP joint. The marrow edema and abnormal enhancement appears to be confined to the middle phalanx. Milka Espino MD Lower Extremity Ultrasound 03/09/17 0000 Signed Impressions: Service Date/Time: February 18:36 - CONCLUSION: No DVT of the left lower extremity. Aftab Tidwell MD Abdomen/Pelvis CT 03/09/17 0000 Signed Impressions: Service Date/Time: February 15:29 - CONCLUSION: 1. Possible left-sided iliac vein/femoral vein deep vein thrombosis. Recommend lower extremity Doppler venous ultrasound to evaluate for DVT. 2. Evidence of cirrhosis again identified. 3. Cholelithiasis. 4. Moderate ascites. Aftab Lynn MD Physical Exam HEENT: Normocephalic; atraumatic; no jaundice. CHEST: Resp. even/shallow, tachypneic CARDIAC: RRR, diminished ABDOMEN: Soft, mild-mod distended, mild diffuse tenderness, bowel sounds are present in all four quadrants. EXTREMITIES: Right splint/essence drsg d/i COTTON BROKER: No focal deficits; lethargic and oriented times three. ([employer]ong Major [employer]) Assessment and Plan Plan ASSESSMENT: - Severe anemia. 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 Gastritis and gastropathy alcohol related most likely. Normal colonoscopy. Pathology minimal chronic gastritis , negative for H. Pylori. Esophagus distal biopsy with intestinalized mucosa consistent with Carty's esophagus, with mild chronic inflammation, negative for dysplasia or malignancy. HH stable. S/P 2 units PRBC. PPI. - Ascites, worsening distention and pain. CT from 03/09 showed moderate ascites. S/P US Guided paracentesis (03/13/17)---> 4,900cc removed. Neutrophils 2. Cx with no growth x 48 hours. Cytology rare mesothelial cells and scattered lymphocytes are present, negative for malignant cells, scattered lymphocytes are present negative for malignant. Diuretics stopped secondary to worsening renal function. He has mild to moderate ascites today, he does seem more tachypneic and unsure if his ascites is contributing to this. - Lower abdominal cramping, hx of diarrhea. Pt with hx of microscopic colitis. CT scan abdomen and pelvis (03/09/17)---> possible left sided iliac vein/ femoral vein deep vein thrombosis, recommend lower extremity doppler venous us to evaluate for DVT, evidence of cirrhosis again identified, cholelithiasis, moderate ascites. Still with some mild tenderness on exam. S/P Colonoscopy as above. Improved. - Abnormal weight loss. Reports significant weight loss over past 2 months, unable to quantify. CT, EGD, Colonoscopy as above. - Elevated LFTs, Liver cirrhosis. Dx by liver biopsy in 2014 at [facility]. Drinks 2-3 beers per week. Previous liver workup in 2015--> Hep C Ab (+), BRITNI negative, AMA < 20.0, ASMA negative, Iron saturation 35.2%, Ferritin 218, Alpha 1 Antitrypsin 108, Ceruloplasmin 15, AFP 2.2. CT as above. AFP 1.6. Ceruloplasmin 14. (this was low in past as well). 24 hour urine for copper level 4. LFTs improved - Hepatitis C Antibodies. HCV genotype 1a or 1b, viral load 662. - Pancytopenia, secondary to cirrhosis, ETOH use. - Coagulopathy. Stable. - Hemoptysis. States he had a scant amount of blood streaked in small amount of sputum. No n/v. - ARF with electrolyte abnormalities. creat. 4.50 yesterday (sudden worsening). Renal following---> Most likely has ATN causing CRISTINA. Diuretics stopped. Today's labs pending. - 2nd toe ulcer, podiatry following, S/P right middle phalanx second digit bone biopsy, repair of extensor digitorum longus tendon rupture, primary closure of right second digit laceration. - Abnormal u/a with cx Ecoli. Levaquin - Hx microscopic colitis in 2014, by path. 03/19/17-- Drop inhgb today , no bleeding reported, continue to have poor appetite. Reports trouble swallowing, he had recent EGD as above. He is s/p paracentesis on (02/15/17) 3400 cc fo clear yellow fluid was removed WBC 90, rest normal, cx no growth for 48 hrs PLAN: - Low salt diet - Cont. PPI - Monitor HH - Transfuse as necessary - No NSAIDs - ETOH Cessation - Rpt. Colonoscopy in 10 years - Rpt. Upper endoscopy in 3 years - Diuretics stopped secondary to sudden worsening of kidney function - Supportive care - Further recommendations to follow based on results of above - PT seen and examined by Dr. Tang and myself and this note is written on her behalf (Hong Major) Hong Major Mar 19, 2017 11:04 Terri Tang MD Mar 19, 2017 14:00
[2017-03-19 12:00] VITALS: BP 99/64; PULSE 111; RESP 19; TEMP 97.7; O2SAT 97
--- NOTE | 2017-03-19 12:23 | HHI.PR ---
Subjective Remarks Follow-up for secondary infection No overnight events, pain is controlled, no complaints. Afebrile. No diarrhea. Patient would like to eat more. Objective Vitals Vital Signs Date Time Temp Pulse Resp B/P (MAP) Pulse Ox O2 Delivery O2 Flow Rate FiO2 03/19/17 08:00 97.8 112 19 105/69 (81) 95 03/19/17 00:00 97.0 118 21 118/79 (92) 96 03/18/17 20:00 97.5 110 21 117/76 (90) 97 03/18/17 19:22 106 03/18/17 16:00 97.5 109 19 117/83 (94) 95 I/O 03/18/17 03/18/17 03/18/17 03/19/17 03/19/17 03/19/17 07:00 15:00 23:00 07:00 15:00 23:00 Intake Total 240 ml 120 ml 1500 ml 340 ml 120 ml Output Total 700 ml Balance 240 ml 120 ml 800 ml 340 ml 120 ml Intake Oral 240 ml 120 ml 1300 ml 240 ml 120 ml IV Total 200 ml 100 ml Output Urine Total 700 ml # Voids 2 2 # Bowel Movements 2 Result Diagram: 03/18/17 0323 03/18/17322 Objective Remarks GENERAL: Not in distress, awake. EYES: No scleral icterus. No injection or drainage. CARDIOVASCULAR: Regular rate and rhythm without murmurs, gallops, or rubs. RESPIRATORY: Breath sounds equal bilaterally. No accessory muscle use. GASTROINTESTINAL: Abdomen soft, nontender. MUSCULOSKELETAL: No cyanosis, or edema. Right foot dressings in place. Alert, awake, oriented. No asterixis. A/P Problem List: (1) GI bleed ICD Code: K92.2 - Gastrointestinal hemorrhage, unspecified Status: Acute (2) Toe ulcer, right ICD Code: L97.519 - Non-pressure chronic ulcer of other part of right foot with unspecified severity Status: Acute (3) Abdominal pain ICD Code: R10.9 - Abdominal pain Status: Acute Assessment and Plan 56 y/o male with a history of cirrhosis, Hep C and seizures from alcohol withdrawal presented to the ED with weakness, dizziness and sob. Patient has been dealing with alcohol withdrawal, hepatic encephalopathy, severe sepsis, osteomyelitis of the right foot second toe, ascites secondary to cirrhosis, atypical pneumonia, acute kidney injury with creatinine above 5. Infectious disease, pulmonology, nephrology, gastroenterology following. Sepsis on admission: UTI, osteomyelitis, pneumonia, right second digit infection - Urine Cx grew E. Coli. Status post antibiotics. On CTX and levaquin as per infectious disease. Cultures negative, however biopsy-positive for osteomyelitis. See below s/p bone biopsy R 2nd toe, extensor tendon repair, osteomyelitis - s/p I&D open fracture 03/12/17, Bone biopsy shows acute osteomyelitis. Infectious disease following. Continue ceftriaxone and vancomycin, high random vancomycin levels. Per podiatry, needs suture removal in 2 weeks (March 30). Patient refuses amputation and would like to continue antibiotics. Dressing changes daily, follow-up with podiatry 2 weeks post discharge.WBAT R foot in surgical shoe. Podiatry signed off. Check vancomycin levels tomorrow and BMP. Respiratory failure/atypical pneumonia -As seen on CT. Pulmonology following, continue antibiotics, for possible bronchoscopy on Monday. Also improved after paracentesis UTI- UA culture >100K, E.Coli, Sensitive to Rocephin. GI Bleed, hgb 6.9 on admission, occult stool positive -Per GI recommendations. s/p transfusion, monitor Hgb. s/p EGD and colonoscopy, showed gastritis, barett's and gastropathy, negative colonoscopy. Carty's esophagus- continue on PPI. Follow up GI as outpatient Liver failure, cirrhosis, r/o colitis, ascites -Paracentesis negative for SBP. Better after paracentesis, 3.9 L removed. GI following. Appreciate assistance. Coagulopathy, thrombocytopenia - Secondary liver disease. Low fibrinogen on labs 03/14. Appears to be improving in the 120s on 03/16. Replace if there is any bleeding. Hemoglobin continues stable. Platelets stable. Acute renal failure secondary to acute tubular necrosis-? Hepatorenal syndrome , nephrology following, being evaluated for need for dialysis. Nonoliguric. Creatinine stable. Recheck BMP tomorrow. Palliative care following. DVT prophylaxis: SCDs Discharge Planning s/p surgical debridement of suspected osteomyelitis. Infectious disease following awaiting final recommendation. Patient is self- pay. Jayshree Emery MD Mar 19, 2017 12:22
[2017-03-19 16:00] VITALS: BP 105/72; PULSE 111; RESP 19; TEMP 97.4; O2SAT 98
[2017-03-19] MEDS: cefTRIAXone INJ 1,000 MG in SODIUM CHLORIDE 0.9% INJ 100 ML IV SCH (16:44)
[2017-03-19] MEDS: LEVOFLOXACIN 750 MG TAB PO SCH (17:30)
[2017-03-19 19:18] VITALS: PULSE 112
[2017-03-19 20:00] VITALS: BP 100/78; PULSE 111; RESP 18; TEMP 97.7; O2SAT 97
[2017-03-20] VITALS (10 sets, daily range): BP systolic 93–109; BP diastolic 63–77; PULSE 78–120; RESP 18–24; TEMP 92.4–97.7; O2SAT 91–100
[2017-03-20] MEDS: ALBUMIN HUMAN 25% 25 GM/100 ML BAGP IV SCH ×2 (04:00→15:07)
[2017-03-20 06:58] LABS: AUTOMATED NEUTROPHIL # 3.9 TH/MM3 (1.8-7.7); BASOPHIL % 0.8 % (0.0-2.0); EOSINOPHIL # 0.1 TH/MM3 (0-0.4); EOSINOPHIL % 1.8 % (0.0-4.0); HEMATOCRIT 22.5 % (39.0-51.0); LYMPH % 19.8 % (9.0-44.0); LYMPHOCYTE # 1.1 TH/MM3 (1.0-4.8); MEAN CELL VOLUME 103.6 FL (80.0-100.0); MEAN CORPUSCULAR HEMOGLOBIN 34.8 PG (27.0-34.0); MEAN CORPUSCULAR HGB CONC 33.6 % (32.0-36.0); MONO % 6.7 % (0.0-8.0); NEUT % 70.9 % (16.0-70.0); PLATELET COUNT 97 TH/MM3 (150-450); RED BLOOD COUNT 2.17 MIL/MM3 (4.50-5.90); RED CELL DISTRIBUTION WIDTH 18.1 % (11.6-17.2); WHITE BLOOD COUNT 5.4 TH/MM3 (4.0-11.0)
[2017-03-20 07:04] LABS: HEMO FLAGS AUTO DIFF
[2017-03-20 07:37] LABS: POTASSIUM 4.8 MEQ/L (3.5-5.1)
[2017-03-20 07:57] LABS: SCAN/DIFF AUTO DIFF CONFIRMED
[2017-03-20] MEDS: DOCUSATE SODIUM 50 MG/SENNA 8.6 MG TAB PO SCH ×2 (08:07→20:28)
[2017-03-20] MEDS: PANTOPRAZOLE SOD 40 MG DELAYED RELEASE TAB PO SCH (08:07)
[2017-03-20] MEDS: SODIUM CHLORIDE 0.9% FLUSH 10 ML FLUSH IV FLUSH SCH ×2 (08:07→20:28)
[2017-03-20] MEDS: RIFAXIMIN 550 MG TAB PO SCH ×2 (08:07→20:28)
[2017-03-20] MEDS: THIAMINE HCL 100 MG TAB PO SCH (08:07)
--- NOTE | 2017-03-20 09:15 | HHI.GIFU ---
Subjective Remarks Resting in bed. Slightly confused today. No n/v. Denies abdominal pain. Has not started breakfast today. (Meri Butler) Objective Vitals I&O Vital Signs Date Time Temp Pulse Resp B/P (MAP) Pulse Ox O2 Delivery O2 Flow Rate FiO2 03/20/17 04:00 106 18 106/74 (85) 96 03/20/17 00:00 97.7 120 18 109/77 (88) 96 03/19/17 20:00 97.7 111 18 100/78 (85) 97 03/19/17 19:18 112 03/19/17 16:00 97.4 111 19 105/72 (83) 98 03/19/17 12:00 97.7 111 19 99/64 (76) 97 I/O 03/19/17 03/19/17 03/19/17 03/20/17 03/20/17 03/20/17 07:00 15:00 23:00 07:00 15:00 23:00 Intake Total 340 ml 120 ml 680 ml Output Total 550 ml 450 ml Balance 340 ml 120 ml 130 ml -450 ml Intake Oral 240 ml 120 ml 480 ml IV Total 100 ml 200 ml Output Urine Total 550 ml 450 ml # Voids 2 # Bowel Movements 1 Laboratory Laboratory Tests Test 03/20/17 06:23 White Blood Count 5.4 Red Blood Count 2.17 Hemoglobin 7.6 Hematocrit 22.5 Mean Corpuscular Volume 103.6 Mean Corpuscular Hemoglobin 34.8 Mean Corpuscular Hemoglobin Concent 33.6 Red Cell Distribution Width 18.1 Platelet Count 97 Mean Platelet Volume 7.2 Neutrophils (%) (Auto) 70.9 Lymphocytes (%) (Auto) 19.8 Monocytes (%) (Auto) 6.7 Eosinophils (%) (Auto) 1.8 Basophils (%) (Auto) 0.8 Neutrophils # (Auto) 3.9 Lymphocytes # (Auto) 1.1 Monocytes # (Auto) 0.4 Eosinophils # (Auto) 0.1 Basophils # (Auto) 0.0 CBC Comment AUTO DIFF Differential Comment AUTO DIFF CONFIRMED Blood Urea Nitrogen 35 Creatinine 5.33 Random Glucose 97 Calcium Level 8.4 Sodium Level 140 Potassium Level 4.8 Chloride Level 113 Carbon Dioxide Level 17.0 Anion Gap 10 Estimat Glomerular Filtration Rate 11 Random Vancomycin Level 20.2 Date/Time Source Procedure Growth Status 03/10/17 19:35 Blood Peripheral Aerobic Blood Culture - Final NO GROWTH IN 5 DAYS Complete 03/10/17 19:35 Blood Peripheral Anaerobic Blood Culture - Final NO GROWTH IN 5 DAYS Complete 03/17/17 11:23 Fluid Peritoneal Fluid Gram Stain - Final Complete 03/17/17 11:23 Fluid Peritoneal Fluid Body Fluid Culture - Final NO GROWTH IN 72 HRS.--AEROBICALLY OR ... Complete 03/15/17 02:55 Urine Clean Catch Urine Culture - Preliminary Yeast-Id To Follow Resulted 03/12/17 13:27 Wound Toe Gram Stain - Final Complete 03/12/17 13:27 Wound Toe Wound Culture - Final NO GROWTH IN 72 HRS.--AEROBICALLY OR ... Complete Imaging Last Impressions Cyst Biopsy Asp-Paracentesis US 03/17/17 0000 Signed Impressions: Service Date/Time: Friday, March 17, 2017 10:22 - CONCLUSION: Uncomplicated ultrasound guided paracentesis. Charli Douglass MD Chest X-Ray 03/17/17 0000 Signed Impressions: Service Date/Time: Friday, March 17, 2017 09:48 - CONCLUSION: 1. Left perihilar and left lower lobe density partially obscuring left hemidiaphragm likely infiltrate. Charli Douglass MD Abdomen Ultrasound 03/17/17 0000 Signed Impressions: Service Date/Time: Friday, March 17, 2017 09:27 - CONCLUSION: Large amount of abdominal ascites. Charli Douglass MD Chest CT 03/14/17 0000 Signed Impressions: Service Date/Time: Tuesday, March 14, 2017 22:15 - CONCLUSION: 1. Mild bilateral pleural effusions. 2. Areas of interstitial consolidation seen in the upper lungs bilaterally. These are nonspecific. Viral or atypical pneumonias could have this appearance. 3. Increased density seen at the posterior lower lobes bilaterally likely related to atelectasis from the effusions. Some degree of alveolar consolidation cannot be excluded. 4. Possible changes of cirrhosis in the liver with a moderate amount of ascites seen in the upper abdomen. 5. Calcified gallstones. Aftab Barney MD Foot X-Ray 03/12/17 0000 Signed Impressions: Service Date/Time: Sunday, March 12, 2017 13:50 - CONCLUSION: Possible fusion of the 2nd PIP joint. No acute fracture is seen. Edgar Cunha MD Foot MRI 03/11/17 0000 Signed Impressions: Service Date/Time: Saturday, March 11, 2017 11:23 - CONCLUSION: #1. No evidence of osteomyelitis within the first digit. Severe degenerative changes are seen at the MTP joint. #2. Fracture dislocation of the second digit at the PIP joint. The marrow edema and abnormal enhancement appears to be confined to the middle phalanx. Milka Espino MD Lower Extremity Ultrasound 03/09/17 0000 Signed Impressions: Service Date/Time: February 18:36 - CONCLUSION: No DVT of the left lower extremity. Aftab Tidwell MD Abdomen/Pelvis CT 03/09/17 0000 Signed Impressions: Service Date/Time: February 15:29 - CONCLUSION: 1. Possible left-sided iliac vein/femoral vein deep vein thrombosis. Recommend lower extremity Doppler venous ultrasound to evaluate for DVT. 2. Evidence of cirrhosis again identified. 3. Cholelithiasis. 4. Moderate ascites. Aftab Lynn MD Physical Exam HEENT: Normocephalic; atraumatic; no jaundice. CHEST: Resp. even/shallow, tachypneic CARDIAC: RRR, diminished ABDOMEN: Soft, mild-mod distended, mild diffuse tenderness, bowel sounds are present in all four quadrants. EXTREMITIES: Right splint/essence drsg d/i AREA RELIEF PILOT: No focal deficits; lethargic and oriented to place and person (Meri Butler) Assessment and Plan Plan ASSESSMENT: - Severe anemia. 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 Gastritis and gastropathy alcohol related most likely. Normal colonoscopy. Pathology minimal chronic gastritis , negative for H. Pylori. Esophagus distal biopsy with intestinalized mucosa consistent with Carty's esophagus, with mild chronic inflammation, negative for dysplasia or malignancy. HH 7.6/22.5. S/P 2 units PRBC. PPI. - Ascites, worsening distention and pain. CT from 03/09 showed moderate ascites. S/P US Guided paracentesis (03/13/17)---> 4,900cc removed. Neutrophils 2. Cx with no growth x 48 hours. Cytology rare mesothelial cells and scattered lymphocytes are present, negative for malignant cells, scattered lymphocytes are present negative for malignant. Diuretics stopped secondary to worsening renal function. S/P US guided paracentesis (03/17/17)--> 3,400cc. Albumin. Creat 5.33, so still off of diuretics. - Lower abdominal cramping, hx of diarrhea. Pt with hx of microscopic colitis. CT scan abdomen and pelvis (03/09/17)---> possible left sided iliac vein/ femoral vein deep vein thrombosis, recommend lower extremity doppler venous us to evaluate for DVT, evidence of cirrhosis again identified, cholelithiasis, moderate ascites. S/P Colonoscopy as above. Improved. - Abnormal weight loss. Reports significant weight loss over past 2 months, unable to quantify. CT, EGD, Colonoscopy as above. - Elevated LFTs, Liver cirrhosis. Dx by liver biopsy in 2014 at [facility]. Drinks 2-3 beers per week. Previous liver workup in 2015--> Hep C Ab (+), BRITNI negative, AMA < 20.0, ASMA negative, Iron saturation 35.2%, Ferritin 218, Alpha 1 Antitrypsin 108, Ceruloplasmin 15, AFP 2.2. CT as above. AFP 1.6. Ceruloplasmin 14. (this was low in past as well). 24 hour urine for copper level 4. LFTs improved - Hepatitis C Antibodies. HCV genotype 1a or 1b, viral load 662. - Pancytopenia, secondary to cirrhosis, ETOH use. - Coagulopathy. Stable. - Hemoptysis. States he had a scant amount of blood streaked in small amount of sputum. No n/v. - ARF with electrolyte abnormalities. creat.5.33. Renal following---> Most likely has ATN causing CRISTINA. Diuretics stopped. - 2nd toe ulcer, podiatry following, S/P right middle phalanx second digit bone biopsy, repair of extensor digitorum longus tendon rupture, primary closure of right second digit laceration. - Abnormal u/a with cx Ecoli. Levaquin - Hx microscopic colitis in 2014, by path. PLAN: - Low salt diet - Cont. PPI - Cont. Albumin - Check ammonia level - Monitor HH - Transfuse as necessary - No NSAIDs - ETOH Cessation - Rpt. Colonoscopy in 10 years - Rpt. Upper endoscopy in 3 years - Diuretics stopped secondary to sudden worsening of kidney function - Supportive care - Further recommendations to follow based on results of above - PT seen and examined by Dr. Diaz and myself and this note is written on his behalf (Meri Butler) Physician Comments Seen and examined with CHRIS, doing better. NO gi bleeding. GI will sign off, fu gi as outpatient for further liver de. Thank you (Jonathon Diaz MD) Meri Butler Mar 20, 2017 09:15 Jonathon Diaz MD Mar 20, 2017 12:38
--- NOTE | 2017-03-20 09:58 | HHI.NPPN ---
Subjective History of Present Illness 56-year-old male with past medical history of alcoholism and hepatitis C with cirrhosis of the liver, history of back sores was brought to the hospital because of abdominal pain and weakness. I was called to see the patient because of elevated creatinine. His creatinine on admission was 1.0 and it stayed in the range of 0.8-0.9 and was increased to 2.0 -2.1 until 03/14/17. Additional Remarks Patient is alert, no SOB, has been on room air, not in distress. Review of Systems General Constitutional: Fatigue Cardiovascular Cardiac: COPE Gastrointestinal Gastrointestinal: Abdominal Pain Objective Data Data Vital Signs Date Time Temp Pulse Resp B/P (MAP) Pulse Ox O2 Delivery O2 Flow Rate FiO2 03/20/17 08:00 99 22 100/75 (83) 91 03/20/17 04:00 106 18 106/74 (85) 96 03/20/17 00:00 97.7 120 18 109/77 (88) 96 03/19/17 20:00 97.7 111 18 100/78 (85) 97 03/19/17 19:18 112 03/19/17 16:00 97.4 111 19 105/72 (83) 98 03/19/17 12:00 97.7 111 19 99/64 (76) 97 -: 03/20/17 0623 03/20/17 0623 Physical Exam General Appearance: No Acute Distress, Comfortable Eyes Eye Exam: Pupils Equal Throat Throat Exam: Oral Mucosa Opp & Moist Pulmonary Resp Exam: Breath Sounds Equal, No Distress, Rhonchi, Decreased Bases Cardiology CV Exam: Regular, Normal Sinus Rhythm Gastrointestinal/Abdomen GI Exam: Soft, Non-Tender, Bowel Sounds Present, Distended Extremeties Extremities Exam: Trace Edema Neurologic Neuro Exam: Alert, Awake, Oriented Psychiatric Psych Exam: Appropriate Responses Assessment/Plan Assessment Summary: CRISTINA/Acute Renal Failure Problem List: (1) Acute kidney injury ICD Codes: N17.9 - Acute kidney failure, unspecified (2) Cirrhosis ICD Codes: K74.60 - Cirrhosis Status: Acute (3) Hypothyroidism ICD Codes: E03.9 - Hypothyroidism Status: Acute (4) Alcohol abuse ICD Codes: F10.10 - Alcohol abuse Status: Acute (5) Anemia ICD Codes: D64.9 - Anemia Status: Acute (6) Ascites ICD Codes: R18.8 - Ascites Status: Acute (7) Hyponatremia ICD Codes: E87.1 - Hyponatremia Status: Acute Plan Patient has been non oliguric, BP is stable, Urine Na. was high and has no Eosinophils. Most likely has ATN causing CRISTINA. On IV Albumin and Ceftriaxone. Has Paracentesis and 3.4 liters removed. Urine out put was low due to paracentesis also. No acute indication for HD at present. Urine out put is 1000 ml in 24 hrs. Creatinine is almost same, no urgent need for HD. Dulce Pacheco MD Mar 20, 2017 09:58
--- NOTE | 2017-03-20 11:45 | RSPPFT ---
DATE OF PROCEDURE: 03/16/17 COMMENTS: Spirometry with FVC of 1.7, FEV1 of 1.3, FEV1/FVC ratio at 76%. A non-significant response to acutely inhaled bronchodilator noted. IMPRESSION: 1. Decreased flow rates. 2. No obstruction; possible airways restriction. 3. If clinically warranted, lung volumes may be helpful.
[2017-03-20] MEDS ORDERED: SODIUM CHLOR 0.9% 250 ML INJ 250 ML IV ONE (13:15)
[2017-03-20] MEDS ORDERED: ACETAMINOPHEN 325 MG TAB PO PRN (13:15)
--- NOTE | 2017-03-20 13:51 | RADRPT ---
EXAM DATE/TIME: 03/20/2017 13:04 [place] COMPARISON: CHEST SINGLE AP, March 17, 2017, 9:48. INDICATIONS : Shortness of breath. MEDICAL HISTORY : None. SURGICAL HISTORY : None. ENCOUNTER: Subsequent ACUITY: 1 week PAIN SCORE: 7/10 LOCATION: chest FINDINGS: Diffuse bilateral perihilar streaky infiltrates and indistinct pulmonary vascularity. Cardiome stalk contours are stable. Remainder of the exam is unchanged. CONCLUSION: 1. Pulmonary edema pattern of central perihilar streaky infiltrates. Jack Kendrick MD on March 20, 2017 at 13:48 Board Certified Radiologist. This report was verified electronically.
--- NOTE | 2017-03-20 14:20 | HHI.PR ---
Subjective Remarks alert weak cachectic Objective Vital Signs Date Time Temp Pulse Resp B/P (MAP) Pulse Ox O2 Delivery O2 Flow Rate FiO2 03/20/17 12:00 92.4 95 21 108/77 (87) 97 03/20/17 08:00 99 22 100/75 (83) 91 03/20/17 04:00 106 18 106/74 (85) 96 03/20/17 00:00 97.7 120 18 109/77 (88) 96 03/19/17 20:00 97.7 111 18 100/78 (85) 97 03/19/17 19:18 112 03/19/17 16:00 97.4 111 19 105/72 (83) 98 I/O 03/19/17 03/19/17 03/19/17 03/20/17 03/20/17 03/20/17 07:00 15:00 23:00 07:00 15:00 23:00 Intake Total 340 ml 120 ml 680 ml Output Total 550 ml 450 ml Balance 340 ml 120 ml 130 ml -450 ml Intake Oral 240 ml 120 ml 480 ml IV Total 100 ml 200 ml Output Urine Total 550 ml 450 ml # Voids 2 # Bowel Movements 1 Result Diagram: 03/20/1762203/20/17622 Objective Remarks GENERAL: SKIN: Warm and dry. HEAD: Atraumatic. Normocephalic. EYES: Pupils equal and round. No scleral icterus. No injection or drainage. ENT: No nasal bleeding or discharge. Mucous membranes pink and moist. NECK: Trachea midline. No JVD. CARDIOVASCULAR: Regular rate and rhythm. RESPIRATORY: No accessory muscle use. Clear to auscultation. Breath sounds equal bilaterally. GASTROINTESTINAL: Abdomen soft, non-tender, nondistended. Hepatic and splenic margins not palpable. MUSCULOSKELETAL: Extremities without clubbing, cyanosis, or edema. No obvious deformities. NEUROLOGICAL: Awake and alert. No obvious cranial nerve deficits. Motor grossly within normal limits. Five out of 5 muscle strength in the arms and legs. Normal speech. PSYCHIATRIC: Appropriate mood and affect; insight and judgment normal. Assessment and Plan Assessment and Plan PNA , ATYPICAL HEMOPTYSIS chest XRAY LEFT LUNG DENSITY RENAL FAILURE PLAN ANTIBX BRONCHOSCOPY Ruthie Hendricks MD Mar 20, 2017 14:19
--- NOTE | 2017-03-20 14:28 | HHI.PR ---
Subjective Remarks Follow-up for foot infection, hypothermia Patient hypothermic today, 92.4. No new complaints other than feeling cold. Mildly short of breath and cough today. No nausea or vomiting. No abdominal pain, no blood per stool. Objective Vitals Vital Signs Date Time Temp Pulse Resp B/P (MAP) Pulse Ox O2 Delivery O2 Flow Rate FiO2 03/20/17 12:00 92.4 95 21 108/77 (87) 97 03/20/17 08:00 99 22 100/75 (83) 91 03/20/17 04:00 106 18 106/74 (85) 96 03/20/17 00:00 97.7 120 18 109/77 (88) 96 03/19/17 20:00 97.7 111 18 100/78 (85) 97 03/19/17 19:18 112 03/19/17 16:00 97.4 111 19 105/72 (83) 98 I/O 03/19/17 03/19/17 03/19/17 03/20/17 03/20/17 03/20/17 07:00 15:00 23:00 07:00 15:00 23:00 Intake Total 340 ml 120 ml 680 ml Output Total 550 ml 450 ml Balance 340 ml 120 ml 130 ml -450 ml Intake Oral 240 ml 120 ml 480 ml IV Total 100 ml 200 ml Output Urine Total 550 ml 450 ml # Voids 2 # Bowel Movements 1 Result Diagram: 03/20/1762203/20/17622 Objective Remarks GENERAL: Not in distress, awake. He says he is cold. EYES: No scleral icterus. No injection or drainage. Pale conjunctiva. CARDIOVASCULAR: Regular rate and rhythm without murmurs, gallops, or rubs. RESPIRATORY: Decreased breath sounds bilaterally, occasional crackles at bases GASTROINTESTINAL: Abdomen soft, nontender. MUSCULOSKELETAL: No cyanosis, or edema. Right foot dressings in place. Alert, awake, oriented. No asterixis. A/P Problem List: (1) GI bleed ICD Code: K92.2 - Gastrointestinal hemorrhage, unspecified Status: Acute (2) Toe ulcer, right ICD Code: L97.519 - Non-pressure chronic ulcer of other part of right foot with unspecified severity Status: Acute (3) Abdominal pain ICD Code: R10.9 - Abdominal pain Status: Acute Assessment and Plan 56 y/o male with a history of cirrhosis, Hep C and seizures from alcohol withdrawal presented to the ED with weakness, dizziness and sob. Patient has been dealing with alcohol withdrawal, hepatic encephalopathy, severe sepsis, osteomyelitis of the right foot second toe, ascites secondary to cirrhosis, atypical pneumonia, acute kidney injury with creatinine above 5. Infectious disease, pulmonology, nephrology, gastroenterology following. Sepsis on admission: UTI, osteomyelitis, pneumonia, right second digit infection - Urine Cx grew E. Coli. Status post antibiotics. On CTX and levaquin as per infectious disease. Cultures negative, however biopsy-positive for osteomyelitis. Random Vancomycin level still elevated. s/p bone biopsy R 2nd toe, extensor tendon repair, osteomyelitis - s/p I&D open fracture 03/12/17, Bone biopsy shows acute osteomyelitis. Infectious disease following. Continue ceftriaxone and vancomycin, high random vancomycin levels. Per podiatry, needs suture removal in 2 weeks (March 30). Patient refuses amputation and would like to continue antibiotics. Dressing changes daily, follow-up with podiatry 2 weeks post discharge.WBAT R foot in surgical shoe. Podiatry signed off. Vancomycin level still elevated at 20. Respiratory failure/atypical pneumonia -As seen on CT. Pulmonology following, continue antibiotics, for possible bronchoscopy per pulmonary.. Also improved after paracentesis, short of breath today, chest x-ray showed mild congestion, will give a dose of Lasix. Hypothermia-could be secondary to anemia? No obvious signs of systemic infection. Also already on vancomycin and ceftriaxone. Continue Bear-hugger, transfuse 1 unit of blood today. UTI- UA culture >100K, E.Coli, Sensitive to Rocephin. GI Bleed, hgb 6.9 on admission, occult stool positive -Per GI recommendations. s/p transfusion, monitor Hgb. s/p EGD and colonoscopy, showed gastritis, barett's and gastropathy, negative colonoscopy. GI has signed off, hemoglobin low, could be causing hypothermia, transfuse 1 unit today. Carty's esophagus- continue on PPI. Follow up GI as outpatient Liver failure, cirrhosis, r/o colitis, ascites -Paracentesis negative for SBP. Better after paracentesis, 3.9 L removed. Check ultrasound and possible paracentesis again today. Alcohol withdrawal-stop Librium, continue CIWA protocol Coagulopathy, thrombocytopenia - Secondary liver disease. Low fibrinogen on labs 03/14. Appears to be improving in the 120s on 03/16. No obvious bleeding, transfuse blood today. Acute renal failure secondary to acute tubular necrosis-? Hepatorenal syndrome , nephrology following, being evaluated for need for dialysis. Nonoliguric. Nephrology following, recheck BMP tomorrow Palliative care following. DVT prophylaxis: SCDs Discharge Planning s/p surgical debridement of suspected osteomyelitis. Infectious disease following awaiting final recommendation. Patient is self-pay. Also needs reevaluation of mobility if more stable tomorrow. Jayshree Emery MD Mar 20, 2017 14:28
[2017-03-20] MEDS ORDERED: FUROSEMIDE 20 MG/2 ML VIAL IV PUSH ONE (14:45)
[2017-03-20] MEDS: cefTRIAXone INJ 1,000 MG in SODIUM CHLORIDE 0.9% INJ 100 ML IV SCH (15:11)
--- NOTE | 2017-03-20 16:30 | HHI.PR ---
Addendum to Inpatient Note Additional Information pt seen around 1500 full note to follow dw RN doing poorly Hypothermic UOP is low BP OK on RA no diarrhea Rec: zosyn, micafungin dapto (avoid nephrotoxic meds including vanco) blood clx stat Maryanne Tejeda MD Mar 20, 2017 16:30
[2017-03-20] MEDS ORDERED: DAPTOmycin INJ 500 MG in SODIUM CHLORIDE 0.9% INJ 100 ML IV SCH (18:00)
[2017-03-20] MEDS ORDERED: MICAFUNGIN INJ 150 MG in SODIUM CHLORIDE 0.9% INJ 100 ML IV SCH (18:00)
[2017-03-20] MEDS: PIPERACIL-TAZO 2.25 GM PREMIX 50 ML IV SCH (18:01)
--- NOTE | 2017-03-20 23:27 | HHI.IDPN ---
Subjective Subjective Remarks pt seen around 1500 delayed entry doing poorly Pt is hypothermic UOP is low BP OK on RA no diarrhea quite confused today very little PO intake Antibiotics CFTX vanco: last dose 03/13 Allergies: Coded Allergies: No Known Allergies (Verified , 11/21/14) Objective . Vital Signs Date Time Temp Pulse Resp B/P (MAP) Pulse Ox O2 Delivery O2 Flow Rate FiO2 03/20/17 22:20 96.2 78 18 97/67 100 03/20/17 22:05 95.0 83 18 100/75 100 03/20/17 20:00 96.9 100 24 93/63 (73) 97 03/20/17 17:03 96.8 03/20/17 16:00 94.5 99 22 101/72 (82) 97 03/20/17 12:00 92.4 95 21 108/77 (87) 97 03/20/17 08:00 99 22 100/75 (83) 91 03/20/17 04:00 106 18 106/74 (85) 96 03/20/17 00:00 97.7 120 18 109/77 (88) 96 03/20/17 03/20/17 03/21/17 14:59 22:59 06:59 Intake Total 625 ml Output Total 450 ml Balance 175 ml Intake Oral 200 ml IV Total 350 ml Blood Product IV Normal Saline Flush 75 ml Output Urine Total 450 ml # Voids 2 # Bowel Movements 1 . Laboratory Tests Test 03/20/17 06:23 White Blood Count 5.4 TH/MM3 Red Blood Count 2.17 MIL/MM3 Hemoglobin 7.6 GM/DL Hematocrit 22.5 % Mean Corpuscular Volume 103.6 FL Mean Corpuscular Hemoglobin 34.8 PG Mean Corpuscular Hemoglobin Concent 33.6 % Red Cell Distribution Width 18.1 % Platelet Count 97 TH/MM3 Mean Platelet Volume 7.2 FL Neutrophils (%) (Auto) 70.9 % Lymphocytes (%) (Auto) 19.8 % Monocytes (%) (Auto) 6.7 % Eosinophils (%) (Auto) 1.8 % Basophils (%) (Auto) 0.8 % Neutrophils # (Auto) 3.9 TH/MM3 Lymphocytes # (Auto) 1.1 TH/MM3 Monocytes # (Auto) 0.4 TH/MM3 Eosinophils # (Auto) 0.1 TH/MM3 Basophils # (Auto) 0.0 TH/MM3 CBC Comment AUTO DIFF Differential Comment AUTO DIFF CONFIRMED Laboratory Tests Test 03/20/17 06:23 Blood Urea Nitrogen 35 MG/DL Creatinine 5.33 MG/DL Random Glucose 97 MG/DL Calcium Level 8.4 MG/DL Sodium Level 140 MEQ/L Potassium Level 4.8 MEQ/L Chloride Level 113 MEQ/L Carbon Dioxide Level 17.0 MEQ/L Anion Gap 10 MEQ/L Estimat Glomerular Filtration Rate 11 ML/MIN Microbiology Date/Time Source Procedure Growth Status 03/20/17 17:15 Blood Peripheral Aerobic Blood Culture Pending Received 03/20/17 17:15 Blood Peripheral Anaerobic Blood Culture Pending Received 03/20/17 17:10 Blood Peripheral Aerobic Blood Culture Pending Received 03/20/17 17:10 Blood Peripheral Anaerobic Blood Culture Pending Received Imaging Last Impressions Chest X-Ray 03/20/17 0000 Signed Impressions: Service Date/Time: Monday, March 20, 2017 13:04 - CONCLUSION: 1. Pulmonary edema pattern of central perihilar streaky infiltrates. Jack Kendrick MD Cyst Biopsy Asp-Paracentesis US 03/17/17 0000 Signed Impressions: Service Date/Time: Friday, March 17, 2017 10:22 - CONCLUSION: Uncomplicated ultrasound guided paracentesis. Charli Douglass MD Abdomen Ultrasound 03/17/17 0000 Signed Impressions: Service Date/Time: Friday, March 17, 2017 09:27 - CONCLUSION: Large amount of abdominal ascites. Charli Douglass MD Chest CT 03/14/17 0000 Signed Impressions: Service Date/Time: Tuesday, March 14, 2017 22:15 - CONCLUSION: 1. Mild bilateral pleural effusions. 2. Areas of interstitial consolidation seen in the upper lungs bilaterally. These are nonspecific. Viral or atypical pneumonias could have this appearance. 3. Increased density seen at the posterior lower lobes bilaterally likely related to atelectasis from the effusions. Some degree of alveolar consolidation cannot be excluded. 4. Possible changes of cirrhosis in the liver with a moderate amount of ascites seen in the upper abdomen. 5. Calcified gallstones. Aftab Barney MD Foot X-Ray 03/12/17 0000 Signed Impressions: Service Date/Time: Sunday, March 12, 2017 13:50 - CONCLUSION: Possible fusion of the 2nd PIP joint. No acute fracture is seen. Edgar Cunha MD Foot MRI 03/11/17 0000 Signed Impressions: Service Date/Time: Saturday, March 11, 2017 11:23 - CONCLUSION: #1. No evidence of osteomyelitis within the first digit. Severe degenerative changes are seen at the MTP joint. #2. Fracture dislocation of the second digit at the PIP joint. The marrow edema and abnormal enhancement appears to be confined to the middle phalanx. Milka Espino MD Lower Extremity Ultrasound 03/09/17 0000 Signed Impressions: Service Date/Time: February 18:36 - CONCLUSION: No DVT of the left lower extremity. Aftab Tidwell MD Abdomen/Pelvis CT 03/09/17 0000 Signed Impressions: Service Date/Time: February 15:29 - CONCLUSION: 1. Possible left-sided iliac vein/femoral vein deep vein thrombosis. Recommend lower extremity Doppler venous ultrasound to evaluate for DVT. 2. Evidence of cirrhosis again identified. 3. Cholelithiasis. 4. Moderate ascites. Aftab Lynn MD Physical Exam CONSTITUTIONAL/GENERAL: This is a thin deshelved patient, in no apparent distress. Confused TUBES/LINES/DRAINS: SKIN: No jaundice, rashes, CARDIOVASCULAR: Regular rate and rhythm without murmurs, gallops, or rubs. No JVD. Peripheral pulses symmetric. RESPIRATORY/CHEST: Symmetric, unlabored respirations. Clear to auscultation. Breath sounds equal bilaterally. No wheezes, rales, or rhonchi. GASTROINTESTINAL: Abdomen soft, but with some balloting , non-tender, mildly to moderately distended No hepato-splenomegaly, or palpable masses. No guarding. Bowel sounds present. GENITOURINARY: Without palpable bladder distension foely in place with small amount of tea coloured urine MUSCULOSKELETAL: Extremities without clubbing, cyanosis, or edema. R foot w surg dressing in place intact NEUROLOGICAL: Awake and alert. Confused. Follows commands. Clear speech.. Moves all extremities. not tremorous PSYCHIATRIC: Calm. Cooperative Assessment & Plan Remarks R 2nd digit with open laceration and tendon rupture of the extensor at the PIP and osteo, clx negative Infected wounf of R 2nd digit , growing mixed gram+/gram - pattie: GNBs, Strep PNA Hemoptysis GIB Liver cirrhossis Ascites sp paracenthesis - no e/o SBP on ascitic fluid exam ARF ? ATN ( pt was hypotensive on 03/12-) ? hepatorenal syndome - vanco levels are high, stopped New issue - hypothermia ? sepsis Rec: start zosyn, micafungin dc CFTX start dapto (avoid nephrotoxic meds including vanco) blood clx stat chk lactic acid dw Maryanen Russell MD Mar 20, 2017 23:27
[2017-03-21] VITALS (7 sets, daily range): BP systolic 86–100; BP diastolic 57–74; PULSE 82–94; RESP 16–24; TEMP 93.5–95.2; O2SAT 94–99
[2017-03-21] MEDS: PIPERACIL-TAZO 2.25 GM PREMIX 50 ML IV SCH ×3 (01:51→12:37)
[2017-03-21] MEDS: ALBUMIN HUMAN 25% 25 GM/100 ML BAGP IV SCH (04:38)
[2017-03-21 08:25] LABS: AUTOMATED NEUTROPHIL # 6.4 TH/MM3 (1.8-7.7); BASOPHIL % 0.6 % (0.0-2.0); EOSINOPHIL # 0.1 TH/MM3 (0-0.4); EOSINOPHIL % 1.2 % (0.0-4.0); HEMATOCRIT 29.9 % (39.0-51.0); LYMPH % 14.4 % (9.0-44.0); LYMPHOCYTE # 1.2 TH/MM3 (1.0-4.8); MEAN CELL VOLUME 102.4 FL (80.0-100.0); MEAN CORPUSCULAR HEMOGLOBIN 33.8 PG (27.0-34.0); MONO % 5.6 % (0.0-8.0); NEUT % 78.2 % (16.0-70.0); PLATELET COUNT 85 TH/MM3 (150-450); RED BLOOD COUNT 2.92 MIL/MM3 (4.50-5.90); WHITE BLOOD COUNT 8.1 TH/MM3 (4.0-11.0)
[2017-03-21 08:41] LABS: HEMO FLAGS AUTO DIFF
[2017-03-21 08:47] LABS: BICARBONATE 14.6 MEQ/L (21.0-32.0); POTASSIUM 5.1 MEQ/L (3.5-5.1)
[2017-03-21] MEDS: PANTOPRAZOLE SOD 40 MG DELAYED RELEASE TAB PO SCH (09:09)
[2017-03-21] MEDS: RIFAXIMIN 550 MG TAB PO SCH (09:09)
[2017-03-21] MEDS: SODIUM CHLORIDE 0.9% FLUSH 10 ML FLUSH IV FLUSH SCH (09:09)
[2017-03-21] MEDS: THIAMINE HCL 100 MG TAB PO SCH (09:09)
[2017-03-21] MEDS: DOCUSATE SODIUM 50 MG/SENNA 8.6 MG TAB PO SCH (09:09)
[2017-03-21 09:11] LABS: PLATELET ESTIMATE SMEAR LOW (NORMAL)
[2017-03-21 09:12] LABS: PLATELET MORPHOLOGY NORMAL (NORMAL); SCAN/DIFF AUTO DIFF CONFIRMED
--- NOTE | 2017-03-21 10:15 | HHI.PR ---
Subjective Remarks The pt was resting in bed. He wanted a hamburger. He said his stomach was tapped recently. He had no acute complaints. Discussed with nursing. Objective Vitals Vital Signs Date Time Temp Pulse Resp B/P (MAP) Pulse Ox O2 Delivery O2 Flow Rate FiO2 03/21/17 09:18 94.5 03/21/17 08:00 93.5 88 16 91/60 (70) 94 03/21/17 04:00 92 24 95/61 (72) 96 03/21/17 01:29 95.1 03/21/17 01:22 82 18 100/74 99 03/21/17 00:00 94 86/63 (71) 03/20/17 23:00 100 03/20/17 22:20 96.2 78 18 97/67 100 03/20/17 22:05 95.0 83 18 100/75 100 03/20/17 20:00 96.9 100 24 93/63 (73) 97 03/20/17 17:03 96.8 03/20/17 16:00 94.5 99 22 101/72 (82) 97 03/20/17 12:00 92.4 95 21 108/77 (87) 97 I/O 03/20/17 03/20/17 03/20/17 03/21/17 03/21/17 03/21/17 07:00 15:00 23:00 07:00 15:00 23:00 Intake Total 625 ml 670 ml Output Total 450 ml 450 ml 250 ml Balance -450 ml 175 ml 420 ml Intake Oral 200 ml 120 ml IV Total 350 ml 200 ml Packed Cells 250 ml Blood Product IV Normal Saline Flush 75 ml 100 ml Output Urine Total 450 ml 450 ml 250 ml # Voids 2 # Bowel Movements 1 0 Result Diagram: 03/21/1780403/21/17804 Imaging Last Impressions Chest X-Ray 03/20/17 0000 Signed Impressions: Service Date/Time: Monday, March 20, 2017 13:04 - CONCLUSION: 1. Pulmonary edema pattern of central perihilar streaky infiltrates. Jack Kendrick MD Cyst Biopsy Asp-Paracentesis US 03/17/17 0000 Signed Impressions: Service Date/Time: Friday, March 17, 2017 10:22 - CONCLUSION: Uncomplicated ultrasound guided paracentesis. Charli Douglass MD Abdomen Ultrasound 03/17/17 0000 Signed Impressions: Service Date/Time: Friday, March 17, 2017 09:27 - CONCLUSION: Large amount of abdominal ascites. Charli Douglass MD Chest CT 03/14/17 0000 Signed Impressions: Service Date/Time: Tuesday, March 14, 2017 22:15 - CONCLUSION: 1. Mild bilateral pleural effusions. 2. Areas of interstitial consolidation seen in the upper lungs bilaterally. These are nonspecific. Viral or atypical pneumonias could have this appearance. 3. Increased density seen at the posterior lower lobes bilaterally likely related to atelectasis from the effusions. Some degree of alveolar consolidation cannot be excluded. 4. Possible changes of cirrhosis in the liver with a moderate amount of ascites seen in the upper abdomen. 5. Calcified gallstones. Aftab Barney MD Foot X-Ray 03/12/17 0000 Signed Impressions: Service Date/Time: Sunday, March 12, 2017 13:50 - CONCLUSION: Possible fusion of the 2nd PIP joint. No acute fracture is seen. Edgar Cunha MD Foot MRI 03/11/17 0000 Signed Impressions: Service Date/Time: Saturday, March 11, 2017 11:23 - CONCLUSION: #1. No evidence of osteomyelitis within the first digit. Severe degenerative changes are seen at the MTP joint. #2. Fracture dislocation of the second digit at the PIP joint. The marrow edema and abnormal enhancement appears to be confined to the middle phalanx. Milka Espino MD Lower Extremity Ultrasound 03/09/17 0000 Signed Impressions: Service Date/Time: February 18:36 - CONCLUSION: No DVT of the left lower extremity. Aftab Tidwell MD Abdomen/Pelvis CT 03/09/17 0000 Signed Impressions: Service Date/Time: February 15:29 - CONCLUSION: 1. Possible left-sided iliac vein/femoral vein deep vein thrombosis. Recommend lower extremity Doppler venous ultrasound to evaluate for DVT. 2. Evidence of cirrhosis again identified. 3. Cholelithiasis. 4. Moderate ascites. Aftab Lynn MD Objective Remarks GENERAL: Not in distress, awake. He says he is cold. EYES: No scleral icterus. No injection or drainage. Pale conjunctiva. CARDIOVASCULAR: Regular rate and rhythm without murmurs, gallops, or rubs. RESPIRATORY: Decreased breath sounds bilaterally, occasional crackles at bases GASTROINTESTINAL: Abdomen soft, nontender. MUSCULOSKELETAL: No cyanosis, or edema. Right foot dressings in place. Alert, awake, oriented. No asterixis. Medications and IVs Current Medications Medications (Trade) Dose Ordered Sig/Darrick Route Start Time Stop Time Status Last Admin (Catapres) 0.1 mg Q4H PRN PO 03/08/17 17:45 03/09/17 12:51 (NS Flush) 2 ml UNSCH PRN IV FLUSH 03/08/17 17:45 03/18/17 15:18 (NS Flush) 2 ml BID IV FLUSH 03/08/17 21:00 03/21/17 09:09 (Tylenol) 650 mg Q4H PRN PO 03/08/17 17:45 (Zofran Inj) 4 mg Q6H PRN IVP 03/08/17 17:45 (Tylenol) 650 mg Q6H PRN PO 03/08/17 17:45 (Dolores-Colace) 1 tab BID PO 03/08/17 21:00 03/21/17 09:09 (Dulcolax Supp) 10 mg DAILY PRN RECTAL 03/08/17 17:45 (Romazicon Inj) 0.2 mg Q1M PRN IV PUSH 03/09/17 13:45 (Ativan) 1 mg Q4H PRN PO 03/09/17 13:45 03/18/17 22:30 (Ativan Inj) 1 mg Q4H PRN IV PUSH 03/09/17 13:45 (Ativan) 2 mg Q2H PRN PO 03/09/17 13:45 03/18/17 10:56 (Ativan Inj) 2 mg Q2H PRN IV PUSH 03/09/17 13:45 03/11/17 21:56 (Ativan Inj) 2 mg Q1H PRN IV PUSH 03/09/17 13:45 (Ativan Inj) 2 mg Q15M PRN IV PUSH 03/09/17 13:45 (Ambien) 5 mg HS PRN PO 03/09/17 21:00 03/16/17 23:37 (Protonix) 40 mg DAILY PO 03/11/17 09:00 03/21/17 09:09 (Vitamin B1) 100 mg DAILY PO 03/12/17 09:00 03/21/17 09:09 (Duoneb Neb) 1 ampule Q6HR NEB PRN NEB 03/13/17 11:45 03/17/17 09:14 (Levaquin) 750 mg Q48H PO 03/17/17 18:00 03/19/17 17:30 (Xifaxan) 550 mg BID PO 03/17/17 21:00 03/21/17 09:09 (Albumin 25% Inj) 25 gm Q12H IV 03/17/17 16:00 03/21/17 04:38 (Tylenol) 650 mg Q4H PRN PO 03/20/17 13:15 03/20/17 21:30 Micafungin Sodium 150 mg/Sodium Chloride 100 ml @ 100 mls/hr Q24H IV 03/20/17 18:00 03/20/17 18:01 Piperacillin Sod/ Tazobactam Sod 50 ml @ 100 mls/hr Q6H IV 03/20/17 18:00 03/21/17 05:51 Daptomycin 500 mg/ Sodium Chloride 100 ml @ 200 mls/hr Q48H IV 03/20/17 18:00 03/20/17 20:28 A/P Problem List: (1) GI bleed ICD Code: K92.2 - Gastrointestinal hemorrhage, unspecified Status: Acute (2) Toe ulcer, right ICD Code: L97.519 - Non-pressure chronic ulcer of other part of right foot with unspecified severity Status: Acute (3) Abdominal pain ICD Code: R10.9 - Abdominal pain Status: Acute Assessment and Plan 56 y/o male with a history of cirrhosis, Hep C and seizures from alcohol withdrawal presented to the ED with weakness, dizziness and sob. Patient has been dealing with alcohol withdrawal, hepatic encephalopathy, severe sepsis, osteomyelitis of the right foot second toe, ascites secondary to cirrhosis, atypical pneumonia, acute kidney injury with creatinine above 5. Infectious disease, pulmonology, nephrology, gastroenterology following. Sepsis on admission: UTI, osteomyelitis, pneumonia, right second digit infection - Urine Cx grew E. Coli. Status post antibiotics. On CTX and levaquin as per infectious disease. Cultures negative, however biopsy-positive for osteomyelitis. s/p bone biopsy R 2nd toe, extensor tendon repair, osteomyelitis - s/p I&D open fracture 03/12/17, Bone biopsy shows acute osteomyelitis. Infectious disease following. Continue ceftriaxone and vancomycin, high random vancomycin levels. Per podiatry, needs suture removal in 2 weeks (March 30). Patient refuses amputation and would like to continue antibiotics. Dressing changes daily, follow-up with podiatry 2 weeks post discharge.WBAT R foot in surgical shoe. Podiatry signed off. Continue Zosyn, daptomycin and micafungin per ID. Respiratory failure/atypical pneumonia -As seen on CT. Pulmonology following, continue antibiotics, for possible bronchoscopy per pulmonary.. Also improved after paracentesis, short of breath today, chest x-ray showed mild congestion, will give a dose of Lasix. Hypothermia-could be secondary to anemia? No obvious signs of systemic infection. Also already on vancomycin and ceftriaxone. Continue Bear-hugger, transfuse 1 unit of blood today. UTI- UA culture >100K, E.Coli, Sensitive to Rocephin. S/p treatment. GI Bleed, hgb 6.9 on admission, occult stool positive -Per GI recommendations. s/p transfusion, monitor Hgb. s/p EGD and colonoscopy, showed gastritis, barett's and gastropathy, negative colonoscopy. GI has signed off, hemoglobin low, could be causing hypothermia, transfuse 1 unit 03/20. Stable. Carty's esophagus- continue on PPI. Follow up GI as outpatient Liver failure, cirrhosis, r/o colitis, ascites -Paracentesis negative for SBP. Better after paracentesis, 3.9 L removed. Paracentesis scheduled for 03/21. Alcohol withdrawal-stop Librium, continue CIWA protocol Coagulopathy, thrombocytopenia - Secondary liver disease. Low fibrinogen on labs 03/14. Appears to be improving in the 120s on 03/16. No obvious bleeding, transfuse blood today. Acute renal failure secondary to acute tubular necrosis-? Hepatorenal syndrome , nephrology following, being evaluated for need for dialysis. Nonoliguric. Nephrology following. Consider dialysis. Palliative care following. DVT prophylaxis: SCDs Discharge Planning s/p surgical debridement of suspected osteomyelitis. Infectious disease following awaiting final recommendation. Patient is self-pay. Lamonte Apodaca DO Mar 21, 2017 10:15
--- NOTE | 2017-03-21 11:59 | HHI.NPPN ---
Subjective History of Present Illness 56-year-old male with past medical history of alcoholism and hepatitis C with cirrhosis of the liver, history of back sores was brought to the hospital because of abdominal pain and weakness. I was called to see the patient because of elevated creatinine. His creatinine on admission was 1.0 and it stayed in the range of 0.8-0.9 and was increased to 2.0 -2.1 until 03/14/17. Additional Remarks Patient is alert, no SOB, not in distress. Review of Systems General Constitutional: Fatigue Cardiovascular Cardiac: COPE Gastrointestinal Gastrointestinal: Abdominal Pain Objective Data Data Vital Signs Date Time Temp Pulse Resp B/P (MAP) Pulse Ox O2 Delivery O2 Flow Rate FiO2 03/21/17 09:18 94.5 03/21/17 08:00 93.5 88 16 91/60 (70) 94 03/21/17 04:00 92 24 95/61 (72) 96 03/21/17 01:29 95.1 03/21/17 01:22 82 18 100/74 99 03/21/17 00:00 94 86/63 (71) 03/20/17 23:00 100 03/20/17 22:20 96.2 78 18 97/67 100 03/20/17 22:05 95.0 83 18 100/75 100 03/20/17 20:00 96.9 100 24 93/63 (73) 97 03/20/17 17:03 96.8 03/20/17 16:00 94.5 99 22 101/72 (82) 97 03/20/17 12:00 92.4 95 21 108/77 (87) 97 -: 03/21/17 0805 03/21/17 08 Microbiology 03/20/17 Aerobic Blood Culture - Preliminary, Resulted NO GROWTH IN 1 DAY 03/20/17 Anaerobic Blood Culture - Preliminary, Resulted NO GROWTH IN 1 DAY 03/20/17 Aerobic Blood Culture - Preliminary, Resulted NO GROWTH IN 1 DAY 03/20/17 Anaerobic Blood Culture - Preliminary, Resulted NO GROWTH IN 1 DAY Physical Exam General Appearance: No Acute Distress, Comfortable Eyes Eye Exam: Pupils Equal Throat Throat Exam: Oral Mucosa [place] & Moist Pulmonary Resp Exam: Breath Sounds Equal, No Distress, Rhonchi, Decreased Bases Cardiology CV Exam: Regular, Normal Sinus Rhythm Gastrointestinal/Abdomen GI Exam: Soft, Non-Tender, Bowel Sounds Present, Distended Extremeties Extremities Exam: Trace Edema Neurologic Neuro Exam: Alert, Awake, Oriented Psychiatric Psych Exam: Appropriate Responses Assessment/Plan Assessment Summary: CRISTINA/Acute Renal Failure Problem List: (1) Acute kidney injury ICD Codes: N17.9 - Acute kidney failure, unspecified (2) Cirrhosis ICD Codes: K74.60 - Cirrhosis Status: Acute (3) Hypothyroidism ICD Codes: E03.9 - Hypothyroidism Status: Acute (4) Alcohol abuse ICD Codes: F10.10 - Alcohol abuse Status: Acute (5) Anemia ICD Codes: D64.9 - Anemia Status: Acute (6) Ascites ICD Codes: R18.8 - Ascites Status: Acute (7) Hyponatremia ICD Codes: E87.1 - Hyponatremia Status: Acute Plan Patient has been non oliguric, BP is stable, Urine Na. was high and has no Eosinophils. Most likely has ATN causing CRISTINA. On IV Albumin and Ceftriaxone. Has Paracentesis and 3.4 liters removed. Urine out put was low due to paracentesis also. No acute indication for HD at present. Urine out put is 700 ml in 24 hrs. Creatinine is 5.4, K is normal. Has Metabolic acidosis, will add NaHco3. I discussed with him possible Dialysis. Dulce Pacheco MD Mar 21, 2017 11:59
[2017-03-21] MEDS ORDERED: SODIUM BICARBONATE 650 MG TAB PO SCH (14:00)
[2017-03-21] MEDS ORDERED: MORPHINE SULFATE 4 MG/ML INJ IV PUSH PRN (15:15)
[2017-03-21] MEDS ORDERED: GLYCOPYRROLATE 0.2 MG/ML VIAL IV PUSH PRN (15:15)
[2017-03-21] MEDS ORDERED: LORazepam 2 MG/ML VIAL IV PUSH PRN (15:15)
--- NOTE | 2017-03-21 15:29 | HHI.DS ---
Discharge Summary Admission Date This report is in ERROR Please disregard this report and all prior copies ! This report is in ERROR Please disregard this report and all prior copies ! This report is in ERROR Please disregard this report and all prior copies ! Discharge Date: Mar 21, 2017 Admitting Diagnosis GI bleed/symptomatic anemia (1) GI bleed ICD Codes: K92.2 - Gastrointestinal hemorrhage, unspecified Status: Acute (2) Toe ulcer, right ICD Codes: L97.519 - Non-pressure chronic ulcer of other part of right foot with unspecified severity Status: Acute (3) Abdominal pain ICD Codes: R10.9 - Abdominal pain Status: Acute Brief History 56 y/o male with a history of cirrhosis, Hep C and seizures from alcohol withdrawal presented to the ED with weakness, dizziness and sob. He states he went to the store today and became sob, he sat in the shade and when he tried to get up and he kept falling. He states he was dizzy and very weak. He states for the last 2-3 weeks he has had dizziness, sob, cold sweats at night, palpitations and LLQ abdominal pain. For the last month he has had diarrhea 2-3 times a day orange/red in color. He also states he has discolored urine, but no pain. He has a wound on his right 2nd toe that he states he does not feel and it is not painful. He is homeless and does not see a dr regularly, he does not take any medications, never had a colonoscopy in the past. CBC/BMP: 03/21/17 0805 03/21/17 0805 Significant Findings Laboratory Tests Test 03/20/17 06:23 03/21/17 08:05 Red Blood Count 2.17 MIL/MM3 (4.50-5.90) 2.92 MIL/MM3 (4.50-5.90) Hemoglobin 7.6 GM/DL (13.0-17.0) 9.9 GM/DL (13.0-17.0) Hematocrit 22.5 % (39.0-51.0) 29.9 % (39.0-51.0) Mean Corpuscular Volume 103.6 FL (80.0-100.0) 102.4 FL (80.0-100.0) Mean Corpuscular Hemoglobin 34.8 PG (27.0-34.0) Red Cell Distribution Width 18.1 % (11.6-17.2) 21.0 % (11.6-17.2) Platelet Count 97 TH/MM3 (150-450) 85 TH/MM3 (150-450) Neutrophils (%) (Auto) 70.9 % (16.0-70.0) 78.2 % (16.0-70.0) Blood Urea Nitrogen 35 MG/DL (7-18) 42 MG/DL (7-18) Creatinine 5.33 MG/DL (0.60-1.30) 5.47 MG/DL (0.60-1.30) Calcium Level 8.4 MG/DL (8.5-10.1) Chloride Level 113 MEQ/L (98-107) 113 MEQ/L (98-107) Carbon Dioxide Level 17.0 MEQ/L (21.0-32.0) 14.6 MEQ/L (21.0-32.0) Estimat Glomerular Filtration Rate 11 ML/MIN (>89) 11 ML/MIN (>89) Platelet Estimate LOW (NORMAL) Lactic Acid Level 2.2 mmol/L (0.4-2.0) Imaging Last Impressions Chest X-Ray 03/20/17 Signed Impressions: Service Date/Time: Monday, March 20, 2017 13:04 - CONCLUSION: 1. Pulmonary edema pattern of central perihilar streaky infiltrates. Jack Kendrick MD Cyst Biopsy Asp-Paracentesis US 03/17/17 Signed Impressions: Service Date/Time: Friday, March 17, 2017 10:22 - CONCLUSION: Uncomplicated ultrasound guided paracentesis. Charli Douglass MD Abdomen Ultrasound 03/17/17 Signed Impressions: Service Date/Time: Friday, March 17, 2017 09:27 - CONCLUSION: Large amount of abdominal ascites. Charli Douglass MD Chest CT 03/14/17 0000 Signed Impressions: Service Date/Time: Tuesday, March 14, 2017 22:15 - CONCLUSION: 1. Mild bilateral pleural effusions. 2. Areas of interstitial consolidation seen in the upper lungs bilaterally. These are nonspecific. Viral or atypical pneumonias could have this appearance. 3. Increased density seen at the posterior lower lobes bilaterally likely related to atelectasis from the effusions. Some degree of alveolar consolidation cannot be excluded. 4. Possible changes of cirrhosis in the liver with a moderate amount of ascites seen in the upper abdomen. 5. Calcified gallstones. Aftab Barney MD Foot X-Ray 03/12/17 0000 Signed Impressions: Service Date/Time: Sunday, March 12, 2017 13:50 - CONCLUSION: Possible fusion of the 2nd PIP joint. No acute fracture is seen. Edgar Cunha MD Foot MRI 03/11/17 0000 Signed Impressions: Service Date/Time: Saturday, March 11, 2017 11:23 - CONCLUSION: #1. No evidence of osteomyelitis within the first digit. Severe degenerative changes are seen at the MTP joint. #2. Fracture dislocation of the second digit at the PIP joint. The marrow edema and abnormal enhancement appears to be confined to the middle phalanx. Milka Espino MD Lower Extremity Ultrasound 03/09/17 0000 Signed Impressions: Service Date/Time: February 18:36 - CONCLUSION: No DVT of the left lower extremity. Aftab Tidwell MD Abdomen/Pelvis CT 03/09/17 0000 Signed Impressions: Service Date/Time: February 15:29 - CONCLUSION: 1. Possible left-sided iliac vein/femoral vein deep vein thrombosis. Recommend lower extremity Doppler venous ultrasound to evaluate for DVT. 2. Evidence of cirrhosis again identified. 3. Cholelithiasis. 4. Moderate ascites. Aftab Lynn MD PE at Discharge GENERAL: Not in distress, awake. EYES: No scleral icterus. No injection or drainage. Pale conjunctiva. CARDIOVASCULAR: Regular rate and rhythm without murmurs, gallops, or rubs. RESPIRATORY: Decreased breath sounds bilaterally. GASTROINTESTINAL: Abdomen soft, nontender. MUSCULOSKELETAL: No cyanosis, or edema. NEURO: Alert, disoriented. No asterixis. Hospital Course 56 y/o male with a history of cirrhosis, Hep C and seizures from alcohol withdrawal presented to the ED with weakness, dizziness and sob. Patient has been dealing with alcohol withdrawal, hepatic encephalopathy, severe sepsis, osteomyelitis of the right foot (second toe), ascites secondary to cirrhosis, atypical pneumonia, acute kidney injury with creatinine above 5. Infectious disease, pulmonology, nephrology, gastroenterology and palliative care were consulted. Imaging with atypical pneumonia. Urine Cx grew E. Coli. Started on antibiotics per infectious disease. S/p I&D open fracture 03/12/17. Bone biopsy showed acute osteomyelitis. Infectious disease following. Per podiatry, needs suture removal in 2 weeks (March 30). Patient refused amputation and would like to continue antibiotics. Dressings were changed daily. He was WBAT, R foot in surgical shoe. Podiatry signed off. He was continued on Zosyn, daptomycin and micafungin per ID. He was started on a [place] for hypothermia. Per GI, s/p EGD and colonoscopy which showed gastritis, Carty's and gastropathy, negative colonoscopy. GI has signed off. He was transfused as needed. He was continued on a PPI. Paracentesis negative for SBP. He required multiple paracenteses. He was on CIWA for alcohol abuse. He had acute renal failure secondary to acute tubular necrosis or hepatorenal syndrome per nephrology. Thought to be a poor candidate for dialysis. Palliative care was consulted and discussed with the pt's family. The pt was made DNR. The pt's status changed on 03/21/17. He was hypothermic, bradycardic and displaying agonal breathing. He was also unresponsive. His sister was contacted (HCP) and she stated again that the pt would not like any aggressive measures and that he would prefer a comfort oriented approach. Medications for secretions, pain, anxiety and discomfort were ordered. The pt 03/21/17. His sister was contacted with the update. Pt Condition on Discharge: Deteriorating Discharge Disposition: Trnsfr to Other Facility Lamonte Apodaca DO Mar 21, 2017 15:29
--- NOTE | 2017-03-21 15:34 | HHI.HCPN ---
Reason for visit a. To assist with evaluation and management of symptoms including: Confusion , pain, dyspnea. b. To assist medical decision maker(s) with: better understanding of current medical conditions; weighing benefits/burdens of medical treatment options; making medical treatment decisions. Subjective/Interval History 56-year-old male presented to the emergency room 03/08/17 with complaints of progressive fatigue, diarrhea, dizziness and dyspnea on exertion. He was admitted with GI bleed and right toe ulcer. Patient appears to be rapidly declining. He has been hypothermic for the last 24 hours with temperatures as low as 92.4, currently 95.2. Interim laboratory studies show WBC 8.1, hemoglobin 9.9, hematocrit 29.9, platelets 85, sodium 140 , potassium 5.1, BUN 42, creatinine 5.47. Radiology studies show chest x-ray with pulmonary edema pattern of central perihilar streaky infiltrates. Initial assessment shows patient unresponsive with agonal breathing. His heart rate had dropped to 30 bpm with some recovery, however patient appears to be actively dying. Discussed with nursing staff, they state that an hour previous he had been at his baseline from admission, still confused but conversant. . Family/friend interactions Contacted sister, Margarita, for an update. Advised her that the patient condition continued to decline. He had developed acute renal failure secondary to acute tubular necrosis with possible hepatorenal syndrome. As he was nonoliguric dialysis was under consideration but no decision had been made at this time. Last paracentesis was done 03/17. He had become hypothermic with temperature as low as 92.4, currently 95.2. Had become hypotensive with blood pressures of 87/ 57. He had developed bradycardia with a heart rate down to the 30s which has now recovered to the 70s. His breathing has become agonal. He appears to be in no discomfort, but appears to be actively dying. Margarita appreciated the update, states that she had also been contacted by Dr. Apodaca regarding his poor prognosis. Advance Directives Living Will: Never completed Health Care Surrogate: Copy in medical record Durable Power of Delinquent Tax Collection Assistant: Never completed Objective Vital Signs Date Time Temp Pulse Resp B/P (MAP) Pulse Ox O2 Delivery O2 Flow Rate FiO2 03/21/17 12:00 95.2 92 16 87/57 (67) 94 03/21/17 09:18 94.5 03/21/17 08:00 93.5 88 16 91/60 (70) 94 03/21/17 04:00 92 24 95/61 (72) 96 03/21/17 01:29 95.1 03/21/17 01:22 82 18 100/74 99 03/21/17 00:00 94 86/63 (71) 03/20/17 23:00 100 03/20/17 22:20 96.2 78 18 97/67 100 03/20/17 22:05 95.0 83 18 100/75 100 03/20/17 20:00 96.9 100 24 93/63 (73) 97 03/20/17 17:03 96.8 03/20/17 16:00 94.5 99 22 101/72 (82) 97 Intake & Output 03/21/17 03/21/17 06:59 18:59 Intake Total 545 ml 200 ml Output Total 250 ml Balance 295 ml 200 ml Intake Oral 120 ml IV Total 200 ml Packed Cells 250 ml Blood Product IV Normal Saline Flush 175 ml Output Urine Total 250 ml # Bowel Movements 0 Physical Exam CONSTITUTIONAL/GENERAL: This is a cachectic middle-aged male lying in bed with agonal breathing, non-responding. TUBES/LINES/DRAINS: Left forearm PIV SKIN: Jaundiced, ecchymotic areas on bilateral upper extremities. Left foot wrapped in surgical bandage. NECK: Trachea midline. CARDIOVASCULAR: Regular rate and rhythm without murmurs, gallops, or rubs. Moderate JVD. RESPIRATORY/CHEST: Agonal breathing, accessory muscle use. GASTROINTESTINAL: Abdomen mildly distended, hypoactive bowel sounds GENITOURINARY: Without palpable bladder distension. Castillo catheter in place. MUSCULOSKELETAL: Extremities without clubbing, cyanosis, or edema. NEUROLOGICAL: Unresponsive, agonal breathing. PSYCHIATRIC: Unresponsive. . Diagnostic Tests Laboratory Laboratory Tests Test 03/20/17 06:23 03/21/17 08:05 White Blood Count 5.4 TH/MM3 (4.0-11.0) 8.1 TH/MM3 (4.0-11.0) Red Blood Count 2.17 MIL/MM3 (4.50-5.90) 2.92 MIL/MM3 (4.50-5.90) Hemoglobin 7.6 GM/DL (13.0-17.0) 9.9 GM/DL (13.0-17.0) Hematocrit 22.5 % (39.0-51.0) 29.9 % (39.0-51.0) Mean Corpuscular Volume 103.6 FL (80.0-100.0) 102.4 FL (80.0-100.0) Mean Corpuscular Hemoglobin 34.8 PG (27.0-34.0) 33.8 PG (27.0-34.0) Mean Corpuscular Hemoglobin Concent 33.6 % (32.0-36.0) 33.0 % (32.0-36.0) Red Cell Distribution Width 18.1 % (11.6-17.2) 21.0 % (11.6-17.2) Platelet Count 97 TH/MM3 (150-450) 85 TH/MM3 (150-450) Mean Platelet Volume 7.2 FL (7.0-11.0) 7.7 FL (7.0-11.0) Neutrophils (%) (Auto) 70.9 % (16.0-70.0) 78.2 % (16.0-70.0) Lymphocytes (%) (Auto) 19.8 % (9.0-44.0) 14.4 % (9.0-44.0) Monocytes (%) (Auto) 6.7 % (0.0-8.0) 5.6 % (0.0-8.0) Eosinophils (%) (Auto) 1.8 % (0.0-4.0) 1.2 % (0.0-4.0) Basophils (%) (Auto) 0.8 % (0.0-2.0) 0.6 % (0.0-2.0) Neutrophils # (Auto) 3.9 TH/MM3 (1.8-7.7) 6.4 TH/MM3 (1.8-7.7) Lymphocytes # (Auto) 1.1 TH/MM3 (1.0-4.8) 1.2 TH/MM3 (1.0-4.8) Monocytes # (Auto) 0.4 TH/MM3 (0-0.9) 0.5 TH/MM3 (0-0.9) Eosinophils # (Auto) 0.1 TH/MM3 (0-0.4) 0.1 TH/MM3 (0-0.4) Basophils # (Auto) 0.0 TH/MM3 (0-0.2) 0.0 TH/MM3 (0-0.2) CBC Comment AUTO DIFF AUTO DIFF Differential Comment AUTO DIFF CONFIRMED AUTO DIFF CONFIRMED Blood Urea Nitrogen 35 MG/DL (7-18) 42 MG/DL (7-18) Creatinine 5.33 MG/DL (0.60-1.30) 5.47 MG/DL (0.60-1.30) Random Glucose 97 MG/DL (74-106) 87 MG/DL (74-106) Calcium Level 8.4 MG/DL (8.5-10.1) 8.7 MG/DL (8.5-10.1) Sodium Level 140 MEQ/L (136-145) 140 MEQ/L (136-145) Potassium Level 4.8 MEQ/L (3.5-5.1) 5.1 MEQ/L (3.5-5.1) Chloride Level 113 MEQ/L (98-107) 113 MEQ/L (98-107) Carbon Dioxide Level 17.0 MEQ/L (21.0-32.0) 14.6 MEQ/L (21.0-32.0) Anion Gap 10 MEQ/L (5-15) 12 MEQ/L (5-15) Estimat Glomerular Filtration Rate 11 ML/MIN (>89) 11 ML/MIN (>89) Random Vancomycin Level 20.2 COMMENT Platelet Estimate LOW (NORMAL) Platelet Morphology Comment NORMAL (NORMAL) Lactic Acid Level 2.2 mmol/L (0.4-2.0) . Result Diagram: 03/21/17 0805 03/21/17 0805 Microbiology Microbiology Date/Time Source Procedure Growth Status 03/20/17 17:15 Blood Peripheral Aerobic Blood Culture - Preliminary NO GROWTH IN 1 DAY Resulted 03/20/17 17:15 Blood Peripheral Anaerobic Blood Culture - Preliminary NO GROWTH IN 1 DAY Resulted 03/20/17 17:10 Blood Peripheral Aerobic Blood Culture - Preliminary NO GROWTH IN 1 DAY Resulted 03/20/17 17:10 Blood Peripheral Anaerobic Blood Culture - Preliminary NO GROWTH IN 1 DAY Resulted Imaging Last Impressions Chest X-Ray 03/20/17 0000 Signed Impressions: Service Date/Time: Monday, March 20, 2017 13:04 - CONCLUSION: 1. Pulmonary edema pattern of central perihilar streaky infiltrates. Jack Kendrick MD Cyst Biopsy Asp-Paracentesis US 03/17/17 Signed Impressions: Service Date/Time: Friday, March 17, 2017 10:22 - CONCLUSION: Uncomplicated ultrasound guided paracentesis. Charli Douglass MD Abdomen Ultrasound 03/17/17 Signed Impressions: Service Date/Time: Friday, March 17, 2017 09:27 - CONCLUSION: Large amount of abdominal ascites. Charli Douglass MD Chest CT 03/14/17 Signed Impressions: Service Date/Time: Tuesday, March 14, 2017 22:15 - CONCLUSION: 1. Mild bilateral pleural effusions. 2. Areas of interstitial consolidation seen in the upper lungs bilaterally. These are nonspecific. Viral or atypical pneumonias could have this appearance. 3. Increased density seen at the posterior lower lobes bilaterally likely related to atelectasis from the effusions. Some degree of alveolar consolidation cannot be excluded. 4. Possible changes of cirrhosis in the liver with a moderate amount of ascites seen in the upper abdomen. 5. Calcified gallstones. Aftab Barney MD Foot X-Ray 03/12/17 0000 Signed Impressions: Service Date/Time: Sunday, March 12, 2017 13:50 - CONCLUSION: Possible fusion of the 2nd PIP joint. No acute fracture is seen. Edgar Cunha MD Foot MRI 03/11/17 0000 Signed Impressions: Service Date/Time: Saturday, March 11, 2017 11:23 - CONCLUSION: #1. No evidence of osteomyelitis within the first digit. Severe degenerative changes are seen at the MTP joint. #2. Fracture dislocation of the second digit at the PIP joint. The marrow edema and abnormal enhancement appears to be confined to the middle phalanx. Milka Espino MD Lower Extremity Ultrasound 03/09/17 0000 Signed Impressions: Service Date/Time: February 18:36 - CONCLUSION: No DVT of the left lower extremity. Aftab Tidwell MD Abdomen/Pelvis CT 03/09/17 0000 Signed Impressions: Service Date/Time: February 15:29 - CONCLUSION: 1. Possible left-sided iliac vein/femoral vein deep vein thrombosis. Recommend lower extremity Doppler venous ultrasound to evaluate for DVT. 2. Evidence of cirrhosis again identified. 3. Cholelithiasis. 4. Moderate ascites. Aftab Lynn MD . Procedures 03/12/17 - right middle phalanx second digit bone biopsy with repair of extensor digitorum longus tendon rupture and closure of laceration 03/13/17- paracentesis 03/17/17 - paracentesis . 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 Due to his confusion, he was unable to provide a better timeline. He was not in the . He was raised in the [place]. Spiritual: Taoist Legal: He has named his sister, Margarita, as his healthcare surrogate with his sister Ese has alternate. Ethical issues impacting care: Patient is homeless and is currently unable to care for himself. . Important Contacts Sister - Margarita Gomez , Sister - Ese JoseTi , Prognosis His prognosis is very poor. He has severe liver cirrhosis with a history of hepatitis and is now auto anticoagulated. His INR is 1.8 on no anticoagulant. He has required paracentesis twice in the last 4 days. He has also developed acute kidney injury thought to be related to acute tubular necrosis while in the hospital and is now approaching the need for dialysis. He has developed a GI bleed and biopsy is pending. He is now confused and unable to provide care for himself. As he lives in the [facility] and is homeless, he has developed a left second toe injury that required surgical repair, debridement and is infected. He has multiple organs in failure or compromise is at extremely high risk for repeat hospitalizations. Code Status: No Code Plan PLAN: Legal decision maker: Sister - Margarita Gomez , is his first health care surrogate, his alternate is his other sister - Ese Araujo , Goals: His sister believes that it is in his best interest to orient his goals towards comfort. CODE STATUS: DNR SYMPTOMS: * Confusion -patient nonresponsive at this point, appears to be actively dying. No agitation or discomfort noted. * Pain- not on pain medication. Per nurse had had no previous complaints of pain. * Dyspnea - he does have a history of tobacco use and per Dr. Terry's note may have atypical pneumonia with hemoptysis. Respirations currently agonal, appears to be actively dying. Palliative care will continue to follow the patient during hospital course as condition evolves, to assist patient/decision-maker with understanding of their medical conditions, weighing benefits/burdens of treatment options, for clarification of goals of treatment. Additionally will assist with any symptoms of palliative concern Attestation To help prompt me to consider important information that might be impacting today's encounter and assessment, information from prior notes written by myself or my colleagues may have been "brought forward" into today's note. My signature on this note, however, is an attestation that I personally performed the exam, history, and/or decision-making noted today, and, unless otherwise indicated, the interactions with patient, family, and staff as well as the review of records all occurred today. I also attest that the listed assessment and stated plan reflect my best clinical judgment today based on the combination of historical information, prior notes, and today's exam/ interactions. When time spent is documented, it refers only to time spent today by the signer, or if indicated, combined time spent today by collaborating physician/nurse practitioner. Allison Blair Mar 21, 2017 15:34
--- NOTE | 2017-03-21 15:41 | HHI.DS ---
Summary Note Date of : Mar 21, 2017 Time Of : 15:20 Admission Date Mar 08, 2017 at 17:43 Admitting Diagnosis GI bleed/symptomatic anemia Diagnosis at Time of : (1) GI bleed ICD Code: K92.2 - Gastrointestinal hemorrhage, unspecified (2) Toe ulcer, right ICD Code: L97.519 - Non-pressure chronic ulcer of other part of right foot with unspecified severity Diagnosis: Principal (3) Abdominal pain ICD Code: R10.9 - Abdominal pain (4) Alcoholic cirrhosis of liver with ascites ICD Code: K70.31 - Alcoholic cirrhosis of liver with ascites Diagnosis: Principal (5) Thrombocytopenia ICD Code: D69.6 - Thrombocytopenia (6) Tobacco use disorder ICD Code: Z72.0 - Tobacco use disorder (7) Confusion ICD Code: R41.0 - Disorientation, unspecified Diagnosis: Principal (8) Acute kidney injury ICD Code: N17.9 - Acute kidney failure, unspecified Diagnosis: Principal Procedures I&D Paracentesis Brief History Written by CHRIS Pierre acting as scribe for [Elie] on 03/08/17 at 20: 37. 56 y/o male with a history of cirrhosis, Hep C and seizures from alcohol withdrawal presented to the ED with weakness, dizziness and sob. He states he went to the store today and became sob, he sat in the shade and when he tried to get up and he kept falling. He states he was dizzy and very weak. He states for the last 2-3 weeks he has had dizziness, sob, cold sweats at night, palpitations and LLQ abdominal pain. For the last month he has had diarrhea 2-3 times a day orange/red in color. He also states he has discolored urine, but no pain. He has a wound on his right 2nd toe that he states he does not feel and it is not painful. He is homeless and does not see a dr regularly, he does not take any medications, never had a colonoscopy in the past. CBC/BMP: 03/21/17 0803/21/17 0805 Significant Findings Laboratory Tests Test 03/20/17 06:23 03/21/17 08:05 Red Blood Count 2.17 MIL/MM3 (4.50-5.90) 2.92 MIL/MM3 (4.50-5.90) Hemoglobin 7.6 GM/DL (13.0-17.0) 9.9 GM/DL (13.0-17.0) Hematocrit 22.5 % (39.0-51.0) 29.9 % (39.0-51.0) Mean Corpuscular Volume 103.6 FL (80.0-100.0) 102.4 FL (80.0-100.0) Mean Corpuscular Hemoglobin 34.8 PG (27.0-34.0) Red Cell Distribution Width 18.1 % (11.6-17.2) 21.0 % (11.6-17.2) Platelet Count 97 TH/MM3 (150-450) 85 TH/MM3 (150-450) Neutrophils (%) (Auto) 70.9 % (16.0-70.0) 78.2 % (16.0-70.0) Blood Urea Nitrogen 35 MG/DL (7-18) 42 MG/DL (7-18) Creatinine 5.33 MG/DL (0.60-1.30) 5.47 MG/DL (0.60-1.30) Calcium Level 8.4 MG/DL (8.5-10.1) Chloride Level 113 MEQ/L (98-107) 113 MEQ/L (98-107) Carbon Dioxide Level 17.0 MEQ/L (21.0-32.0) 14.6 MEQ/L (21.0-32.0) Estimat Glomerular Filtration Rate 11 ML/MIN (>89) 11 ML/MIN (>89) Platelet Estimate LOW (NORMAL) Lactic Acid Level 2.2 mmol/L (0.4-2.0) Imaging Last Impressions Chest X-Ray 03/20/17 Signed Impressions: Service Date/Time: Monday, March 20, 2017 13:04 - CONCLUSION: 1. Pulmonary edema pattern of central perihilar streaky infiltrates. Jack Kendrick MD Cyst Biopsy Asp-Paracentesis US 03/17/17 Signed Impressions: Service Date/Time: Friday, March 17, 2017 10:22 - CONCLUSION: Uncomplicated ultrasound guided paracentesis. Charli Douglass MD Abdomen Ultrasound 03/17/17 Signed Impressions: Service Date/Time: Friday, March 17, 2017 09:27 - CONCLUSION: Large amount of abdominal ascites. Charli Douglass MD Chest CT 03/14/17 0000 Signed Impressions: Service Date/Time: Tuesday, March 14, 2017 22:15 - CONCLUSION: 1. Mild bilateral pleural effusions. 2. Areas of interstitial consolidation seen in the upper lungs bilaterally. These are nonspecific. Viral or atypical pneumonias could have this appearance. 3. Increased density seen at the posterior lower lobes bilaterally likely related to atelectasis from the effusions. Some degree of alveolar consolidation cannot be excluded. 4. Possible changes of cirrhosis in the liver with a moderate amount of ascites seen in the upper abdomen. 5. Calcified gallstones. Aftab Barney MD Foot X-Ray 03/12/17 0000 Signed Impressions: Service Date/Time: Sunday, March 12, 2017 13:50 - CONCLUSION: Possible fusion of the 2nd PIP joint. No acute fracture is seen. Edgar Cunha MD Foot MRI 03/11/17 0000 Signed Impressions: Service Date/Time: Saturday, March 11, 2017 11:23 - CONCLUSION: #1. No evidence of osteomyelitis within the first digit. Severe degenerative changes are seen at the MTP joint. #2. Fracture dislocation of the second digit at the PIP joint. The marrow edema and abnormal enhancement appears to be confined to the middle phalanx. Milka Espino MD Lower Extremity Ultrasound 03/09/17 0000 Signed Impressions: Service Date/Time: February 18:36 - CONCLUSION: No DVT of the left lower extremity. Aftab Tidwell MD Abdomen/Pelvis CT 03/09/17 0000 Signed Impressions: Service Date/Time: February 15:29 - CONCLUSION: 1. Possible left-sided iliac vein/femoral vein deep vein thrombosis. Recommend lower extremity Doppler venous ultrasound to evaluate for DVT. 2. Evidence of cirrhosis again identified. 3. Cholelithiasis. 4. Moderate ascites. Aftab Lynn MD Hospital Course 56 y/o male with a history of cirrhosis, Hep C and seizures from alcohol withdrawal presented to the ED with weakness, dizziness and sob. Patient has been dealing with alcohol withdrawal, hepatic encephalopathy, severe sepsis, osteomyelitis of the right foot (second toe), ascites secondary to cirrhosis, atypical pneumonia, acute kidney injury with creatinine above 5. Infectious disease, pulmonology, nephrology, gastroenterology and palliative care were consulted. Imaging with atypical pneumonia. Urine Cx grew E. Coli. Started on antibiotics per infectious disease. S/p I&D open fracture 03/12/17. Bone biopsy showed acute osteomyelitis. Infectious disease following. Per podiatry, needs suture removal in 2 weeks (March 30). Patient refused amputation and would like to continue antibiotics. Dressings were changed daily. He was WBAT, R foot in surgical shoe. Podiatry signed off. He was continued on Zosyn, daptomycin and micafungin per ID. He was started on a [employer] for hypothermia. Per GI, s/p EGD and colonoscopy which showed gastritis, Carty's and gastropathy, negative colonoscopy. GI has signed off. He was transfused as needed. He was continued on a PPI. Paracentesis negative for SBP. He required multiple paracenteses. He was on CIWA for alcohol abuse. He had acute renal failure secondary to acute tubular necrosis or hepatorenal syndrome per nephrology. Thought to be a poor candidate for dialysis. Palliative care was consulted and discussed with the pt's family. The pt was made DNR. The pt's status changed on 03/21/17. He was hypothermic, bradycardic and displaying agonal breathing. He was also unresponsive. His sister was contacted (HCP) and she stated again that the pt would not like any aggressive measures and that he would prefer a comfort oriented approach. Medications for secretions, pain, anxiety and discomfort were ordered. The pt 03/21/17. His sister was contacted with the update. Lamonte Apodaca DO Mar 21, 2017 15:41
--- NOTE | 2017-03-21 15:57 | HHI.DCPOC ---
Discharge Care Plan Diagnosis: (1) Alcoholic cirrhosis of liver with ascites (2) Thrombocytopenia (3) Confusion (4) Acute kidney injury (5) Alcohol abuse (6) Toe ulcer, right Goals to Promote Your Health * To prevent worsening of your condition and complications * To maintain your health at the optimal level Directions to Meet Your Goals Take your medications as prescribed Follow your dietary instruction Follow activity as directed Keep your appointments as scheduled Take your immunizations and boosters as scheduled If your symptoms worsen call your PCP, if no PCP go to Urgent Care Center or Emergency Room Smoking is Dangerous to Your Health. Avoid second hand smoke Call the 24-hour hour crisis hotline for domestic abuse at Lamonte Apodaca DO Mar 21, 2017 15:57
== END 2017-03-21 15:20 | disposition expired | DRG 853 ==
LOC: NEPE 14:38 → NEDH 17:43 → N07A 21:38
PROVIDERS: ADMIT Hospitalist; ATTEND Hospitalist
PROC: 30233N1 Transfusion of Nonautologous Red Blood Cells into Peripheral Vein, Percutaneous Approach (ICD-10-PCS; principal; 2017-03-08)
PROC: 0DJD8ZZ Inspection of Lower Intestinal Tract, Via Natural or Artificial Opening Endoscopic (ICD-10-PCS; 2017-03-10)
PROC: 0DD28ZX Extraction of Middle Esophagus, Via Natural or Artificial Opening Endoscopic, Diagnostic (ICD-10-PCS; 2017-03-10)
PROC: 0DD68ZX Extraction of Stomach, Via Natural or Artificial Opening Endoscopic, Diagnostic (ICD-10-PCS; 2017-03-10)
PROC: 0QBQ0ZX Excision of Right Toe Phalanx, Open Approach, Diagnostic (ICD-10-PCS; 2017-03-12)
PROC: 0LQV0ZZ Repair Right Foot Tendon, Open Approach (ICD-10-PCS; 2017-03-12)
PROC: 0JBQ0ZZ Excision of Right Foot Subcutaneous Tissue and Fascia, Open Approach (ICD-10-PCS; 2017-03-12)
PROC: 3E0T3BZ Introduction of Anesthetic Agent into Peripheral Nerves and Plexi, Percutaneous Approach (ICD-10-PCS; 2017-03-12)
PROC: 3E0T3BZ Introduction of Anesthetic Agent into Peripheral Nerves and Plexi, Percutaneous Approach (ICD-10-PCS; 2017-03-12)
PROC: 0W9G3ZX Drainage of Peritoneal Cavity, Percutaneous Approach, Diagnostic (ICD-10-PCS; 2017-03-13)
PROC: 0W9G3ZX Drainage of Peritoneal Cavity, Percutaneous Approach, Diagnostic (ICD-10-PCS; 2017-03-17)
DX: A41.9 Sepsis, unspecified organism (principal); J96.00 Acute respiratory failure, unspecified whether with hypoxia or hypercapnia; N17.0 Acute kidney failure with tubular necrosis; R64 Cachexia; E87.2 Acidosis; D61.818 Other pancytopenia; J90 Pleural effusion, not elsewhere classified; J18.8 Other pneumonia, unspecified organism; I95.9 Hypotension, unspecified; D68.9 Coagulation defect, unspecified; M86.10 Other acute osteomyelitis, unspecified site; E87.1 Hypo-osmolality and hyponatremia; K92.2 Gastrointestinal hemorrhage, unspecified; N39.0 Urinary tract infection, site not specified; F10.239 Alcohol dependence with withdrawal, unspecified; R04.2 Hemoptysis; J98.11 Atelectasis; S92.911B Unspecified fracture of right toe(s), initial encounter for open fracture; K70.31 Alcoholic cirrhosis of liver with ascites; E83.51 Hypocalcemia; L97.519 Non-pressure chronic ulcer of other part of right foot with unspecified severity; S96.111A Strain of muscle and tendon of long extensor muscle of toe at ankle and foot level, right foot, initial encounter; M10.9 Gout, unspecified; M19.90 Unspecified osteoarthritis, unspecified site; B19.20 Unspecified viral hepatitis C without hepatic coma; E87.6 Hypokalemia; B96.20 Unspecified Escherichia coli [E. coli] as the cause of diseases classified elsewhere; E03.9 Hypothyroidism, unspecified; E83.39 Other disorders of phosphorus metabolism; E83.42 Hypomagnesemia; F12.90 Cannabis use, unspecified, uncomplicated; F17.210 Nicotine dependence, cigarettes, uncomplicated; S93.104A Unspecified dislocation of right toe(s), initial encounter; X58.XXXA Exposure to other specified factors, initial encounter; Y93.9 Activity, unspecified; Y92.9 Unspecified place or not applicable; M20.11 Hallux valgus (acquired), right foot; K80.20 Calculus of gallbladder without cholecystitis without obstruction; K22.70 Barrett's esophagus without dysplasia; K20.9 Esophagitis, unspecified; K29.20 Alcoholic gastritis without bleeding; K29.80 Duodenitis without bleeding; K72.90 Hepatic failure, unspecified without coma; Z53.20 Procedure and treatment not carried out because of patient's decision for unspecified reasons; Z81.1 Family history of alcohol abuse and dependence; Z59.0 Homelessness; Z80.0 Family history of malignant neoplasm of digestive organs; Z85.118 Personal history of other malignant neoplasm of bronchus and lung; Z51.5 Encounter for palliative care; Z66 Do not resuscitate; R65.20 Severe sepsis without septic shock; R00.1 Bradycardia, unspecified
CPT/HCPCS: 36430; 36600; 49083; 71010; 71250; 73630; 73720; 74177; 76705; 80048; 80053; 80076; 80202; 81001; 82042; 82105; 82140; 82150; 82390; 82436; 82525; 82550; 82570; 82805; 82945; 83036; 83605; 83615; 83735; 83880; 84100; 84133; 84155; 84157; 84300; 84439; 84443; 85007; 85014; 85018; 85025; 85027; 85384; 85610; 85730; 86140; 86403; 86850; 86900; 86901; 86920; 87015; 87040; 87070; 87077; 87086; 87102; 87106; 87116; 87186; 87205; 87206; 87522; 87902; 88305; 88307; 88312; 89051; 93005; 93306; 93971; 94060; 94640; 94664; 96374; A9579; C1729; C9113; J0610; J0696; J0878; J1580; J1885; J1940; J1956; J2060; J2248; J2250; J2354; J2370; J2405; J2543; J3010; J3370; J3411; J3475; J3480; J7030; J7040; J7050; J7120; L2114; P9016; P9047; Q9963; Q9967